=== PATIENT | female | born 1995 | race Hispanic/Latino ===

== ENCOUNTER 2017-10-19 15:18 | Inpatient (IN) | payer OTHER ==
[2017-10-19] MEDS ORDERED: METHYLERGONOVINE 0.2MG/ML AMP IM PRN (16:37)
[2017-10-19] MEDS ORDERED: MEPERIDINE HCL 25 MG/0.5 ML IV PRN (16:37)
[2017-10-19] MEDS ORDERED: BUTORPHANOL 1 MG/ML INJ IV PRN (16:37)
[2017-10-19] MEDS ORDERED: PROMETHAZINE 25 MG/ML VIAL IM PRN (16:37)
[2017-10-19] MEDS ORDERED: Ringers Lactate 1,000 ML IV PRN (16:37)
[2017-10-19] MEDS ORDERED: MIDAZOLAM HCL 2 MG/2 ML INJ IV PRN (16:37)
[2017-10-19] MEDS ORDERED: LIDOCAINE 2% 20 ML MDV IV ONE (16:39)
[2017-10-19] MEDS ORDERED: Ringers Lactate 1,000 ML IV SCH (17:00)
[2017-10-19] MEDS ORDERED: OXYTOCIN/LR 20 UNIT/1,000 ML BAG IV SCH ×2 (17:00→19:00)
[2017-10-19 17:27] VITALS: BMI 34.9
[2017-10-19] MEDS ORDERED: IBUPROFEN 200 MG TAB PO PRN (18:44)
[2017-10-19] MEDS ORDERED: BISACODYL 10 MG RECTAL SUPP RECT PRN (18:44)
[2017-10-19] MEDS ORDERED: DOCUSATE NA/SENNA CONC 1 TAB PO PRN (18:44)
[2017-10-19] MEDS ORDERED: Oxycodone HCl/Acetaminophen 1 TAB TAB PO PRN ×2 (18:44)
[2017-10-19] MEDS ORDERED: DIPHENHYDRAMINE 25 MG TAB/CAP PO PRN (18:44)
[2017-10-20 00:08] LABS: RPR Titer ND
--- NOTE | 2017-10-20 00:15 | PN ---
The patient is now 8 cm, 100% effaced, vertex, 0 station. Hiren every 2-3 minutes. Anticipate delivery relatively soon. HARDEEP/MARANDA Voice ID: [id number] Report ID: [id number]
--- NOTE | 2017-10-20 00:21 | PREOPHP ---
Date of Admission: 10/19/2017 A 21-year-old, 2, para 1, 38 weeks 4 days, scheduled for induction on Sunday. She was seen in my office, reporting contractions. She changed from 1 cm to 4 cm, 70% effaced, vertex, -1 station. Sent to Labor And Delivery. Was edmund every 2-7 minutes, but was thought not to be in labor, apparently sent home, has now returned. She is now 6 cm, 80% effaced, vertex, -1 station. Rupture of membranes, clear fluid. FHTs normal and reactive. We will start light Pitocin. Beta strep negative. Anticipate rapid delivery once active phase begins. HARDEEP/MARANDA Voice ID: [id number] MTDD
[2017-10-20 00:27] LABS: Absolute Lymphocytes (CBC) 1.3 K/uL (0.7-4.9); Absolute Monocytes 1.1 K/uL (0.1-1.3); Absolute Neutrophil 13.6 K/uL (1.8-8.0); Basophils % 0.2 % (0-1.3); Eosinophils % 0.1 % (0-4.4); Hematocrit 29.8 % (36.0-45.0); MCH 29.1 pg (27.0-35.0); MPV 8.2 fL (7.6-11.3); Monocytes % 6.6 % (3.3-12.3); RBC Red Blood Cell Count 3.39 M/uL (3.86-4.86)
[2017-10-20 01:38] LABS: Blood Morphology Comment NOT SEEN (NOT SEEN); Platelet Estimate ADEQ
[2017-10-20 03:42] LABS: RPR (Rapid Plasma Reagin) NON-REACT (NON-REACT)
--- NOTE | 2017-10-20 05:16 | OP ---
Surgeon: Kendall Christian MD A 21-year-old, 2, para 1, 38 weeks 4 days, came to my office reporting contractions, noted to be 4 cm, 70% effaced, vertex, -1 station. Sent to Labor and Delivery. At that point, she was contr acting every 2 to 7 minutes and nursing personnel did not feel comfortable with augmenting patient, s o she was sent home. She came back 2 to 3 hours later, 5 to 5.5 cm and of course in labor. She was admitted. The patient went completely natural during her labor. Rupture of membranes at approximate ly 5 to 6 cm. Clear fluid. Second stage of approximately 20 minutes. Spontaneous vaginal delivery of an estimated 6.5 to 7 pounds male infant, Apgars 9 and 9. No episiotomy. Small hematoma at the p osterior fourchette, 3 interrupted tfpkim-pz-ygblb stitches of 2-0 chromic. Schultze delivery of the placenta, which was inspected and noted to be intact and normal. Less than 300 cc blood loss. Rh p ositive, immune to Rubella. Negative beta strep screen. Final Diagnoses: Intrauterine gestation, 38 weeks 4 days, vaginal delivery, true knot in the cord, s mall midline hematoma requiring 3 bidkgh-rh-tooic stitches 2-0 chromic. HOWARDC/MODL Voice ID: [id number] Report ID: [id number]
[2017-10-20] MEDS ORDERED: Tdap (Diph,Pertuss(Acell),Tet Vac) 0.5 ML SYR IMVAC ONE ×2 (09:12→09:13)
[2017-10-20] MEDS: ACETAMINOPHEN 500 MG TAB PO PRN ×2 (09:23→13:04)
[2017-10-20 20:42] VITALS: BP 133/81; TEMP 97.2
--- NOTE | 2017-10-22 08:53 | DS ---
Date of Discharge: 10/20/2017 A 21-year-old; 2, para 1; 38 weeks 4 days; delivered of an estimated 7-pound male infant, Apg ars 9 and 9. A small midline hematoma, no more than 3 cm. Three uuwirr-xm-sudea stitches placed at that point after local infiltration and containment of the hematoma. Schultze delivery of the placen ta was inspected and noted be intact and normal. Less than 300 cc blood loss. Noted to have a true knot in the cord, very loose. Beta strep negative. Rh positive, immune to Rubella. afeb rile, ambulating and voiding. Lochia is normal. The patient will be dismissed either late this even ing or tomorrow morning. To report back to my office in 6 weeks for followup. To report any tempera ture elevation of 100 degrees or greater, severe pain, heavy bleeding, or any other type of abnormali ties. Dismissed with tramadol. She knows this goes through the breast milk, but she is bottle feedi ng. Final Diagnoses: 1.Intrauterine gestation, 38 weeks 4 days. 2.Vaginal delivery. True knot in the cord. HARDEEP/MARANDA Voice ID: [id number] Report ID: [id number]
[2017-10-23 03:25] LABS: HBsAG Nonreactive (Nonreactive)
== END 2017-10-20 20:43 | disposition home or self-care (01) | DRG 768 ==
LOC: L&D 15:18 → 2ND-WC 16:38
PROVIDERS: ADMIT Specialist; ATTEND Specialist
PROC: 10E0XZZ Delivery of Products of Conception, External Approach (ICD-10-PCS; principal; 2017-10-19)
PROC: 0W3N3ZZ Control Bleeding in Female Perineum, Percutaneous Approach (ICD-10-PCS; 2017-10-19)
PROC: 10907ZC Drainage of Amniotic Fluid, Therapeutic from Products of Conception, Via Natural or Artificial Opening (ICD-10-PCS; 2017-10-19)
DX: O71.7 Obstetric hematoma of pelvis (principal); Z37.0 Single live birth; O69.2XX0 Labor and delivery complicated by other cord entanglement, with compression, not applicable or unspecified; Z3A.38 38 weeks gestation of pregnancy; Z23 Encounter for immunization
CPT/HCPCS: 36415; 83986; 85025; 86592; 86901; 87340; 90715; 99218; J2175; J2210; J2250; J2590

== ENCOUNTER 2019-05-24 10:04 | Emergency (ER) | payer OTHER, SELFPAY ==
[2019-05-24 11:39] LABS: Urine Blood TRACE (NEG); Urine Glucose NEGATIVE (NEG); Urine Protein NEGATIVE (NEG); Urine pH 7.5 (5.0-7.0)
[2019-05-24 11:44] LABS: Urine Bacteria >50 /HPF (<20); Urine RBC <5 /HPF (NONE SEEN)
[2019-05-24 11:45] LABS: Urine Culture Reflex Order REFLEXED
--- NOTE | 2019-05-24 11:52 | ER ---
Nurse's Notes [facility] Name: Miko Black Age: 23 yrs Sex: Female : 1995 Arrival Date: 05/24/2019 Time: 10:07 Bed 14 Private MD: Diagnosis: Urinary tract infection, site not specified Presentation: 05/24 10:10 Presenting complaint: Patient states: DYSURIA AND FOUL SMELLING URINE x3 DAYS. bp Transition of care: patient was not received from another setting of care. Onset of symptoms is unknown. Risk Assessment: Do you want to hurt yourself or someone else? Patient reports no desire to harm self or others. Initial Sepsis Screen: Does the patient meet any 2 criteria? No. Patient's initial sepsis screen is negative. Does the patient have a suspected source of infection? No. Patient's initial sepsis screen is negative. Care prior to arrival: None. 10:10 Method Of Arrival: Ambulatory bp 10:10 Acuity: BLAIR 4 bp Triage Assessment: 10:10 General: Appears in no apparent distress. comfortable, Behavior is cooperative, bp appropriate for age, anxious. Pain: Denies pain. EENT: No deficits noted. Neuro: No deficits noted. Cardiovascular: No deficits noted. Respiratory: No deficits noted. GI: No signs and/or symptoms were reported involving the gastrointestinal system. : Reports burning with urination, vaginal itching. Derm: No deficits noted. Musculoskeletal: No deficits noted. 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 - Social history:: Smoking status: Patient/guardian denies using tobacco. - Ebola Screening: : No symptoms or risks identified at this time. Screenin:10 Abuse screen: Denies threats or abuse. Denies injuries from another. Nutritional bp screening: No deficits noted. Tuberculosis screening: No symptoms or risk factors identified. Fall Risk None identified. Assessment: 10:10 General: SEE TRIAGE NOTE. bp 11:00 Reassessment: ALL CURRENT ORDERS COMPLETED, RESULTS PENDING. bp 12:11 Reassessment: PT D/C HOME AMBULATORY, DX WITH UTI. bp Vital Signs: 10:10 BP 107 / 79; Pulse 85; Resp 16; Temp 98.1; Pulse Ox 100% ; Weight 63.5 kg; Height 5 ft. bp 1 in. (154.94 cm); 11:00 BP 99 / 78; Pulse 79; Resp 16; Pulse Ox 100% ; bp 12:11 BP 100 / 72; Pulse 80; Resp 16; Temp 98.1; Pulse Ox 100% ; bp 10:10 Body Mass Index 26.45 (63.50 kg, 154.94 cm) bp ED Course: 10:07 Patient arrived in ED. mr 10:08 Robby Gray, RN is Primary Nurse. bp 10:10 Onesimo Miller NP is PHCP. pm1 10:10 Jad Wright MD is Attending Physician. pm1 10:10 Arm band placed on. bp 10:10 Patient has correct armband on for positive identification. Bed in low position. Call bp light in reach. Side rails up X2. 10:28 Triage completed. bp 11:48 Urine Culture Sent. bp 12:11 No provider procedures requiring assistance completed. Patient did not have IV access bp during this emergency room visit. Administered Medications: 11:55 Drug: Rocephin (cefTRIAXone) 1 grams Route: IM; Site: left gluteus; bp 12:13 Follow up: Response: No adverse reaction bp Outcome: 11:51 Discharge ordered by . pm1 12:11 Discharged to home ambulatory. bp 12:11 Condition: stable 12:11 Discharge instructions given to patient, Instructed on discharge instructions, follow up and referral plans. medication usage, Demonstrated understanding of instructions, follow-up care, medications, Prescriptions given X 3. 12:14 Patient left the ED. bp Addendum: 05/27/2019 08:51 Addendum: Culture Results: Positive urine culture. No further action required. Bacteria i w sensitive to prescribed antibiotic. Signatures: Kasie Walden mr Bibi Tomas RN RN iw Onesimo Miller NP ROSS LIFT OPERATOR pm1 Robby Gray, ESTELA RN bp
--- NOTE | 2019-05-24 11:53 | EDPHYS ---
Physician Documentation [facility] Name: Miko Black Age: 23 yrs Sex: Female : 1995 Arrival Date: 05/24/2019 Time: 10:07 Bed 14 Private MD: ED Physician Jad Wright HPI: 05/24 10:48 This 23 yrs old Female presents to ER via Ambulatory with complaints of pm1 Urinary Problem. 10:48 The patient presents with urinary symptoms, burning with urination, vaginal itching. pm1 10:48 Onset: The symptoms/episode began/occurred 3 day(s) ago. Modifying factors: The pm1 symptoms are alleviated by nothing, the symptoms are aggravated by urinating. Associated signs and symptoms: Pertinent negatives: constipation, diarrhea, dyspareunia, fever, nausea, vaginal bleeding, vaginal discharge, vomiting, Abdominal pain, flank pain. Severity of symptoms: in the emergency department the symptoms are unchanged. 10:48 The patient has experienced similar episodes in the past, a few times, history of UTI's pm1 in the past. It is unknown whether or not the patient has recently seen a physician. 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 - Social history:: Smoking status: Patient/guardian denies using tobacco. - Ebola Screening: : No symptoms or risks identified at this time. ROS: 10:48 Positive for burning with urination, foul smelling urine, vaginal itching, Negative pm1 for pelvic pain, flank pain. 10:48 Constitutional: Negative for fever, chills, and weight loss, Cardiovascular: Negative for chest pain, palpitations, and edema, Respiratory: Negative for shortness of breath, cough, wheezing, and pleuritic chest pain, Abdomen/GI: Negative for abdominal pain, nausea, vomiting, diarrhea, and constipation, Back: Negative for injury and pain, MS/Extremity: Negative for injury and deformity, Skin: Negative for injury, rash, and discoloration, Neuro: Negative for headache, weakness, numbness, tingling, and seizure. Exam: 10:48 Constitutional: This is a well developed, well nourished patient who is awake, alert, pm1 and in no acute distress. Head/Face: Normocephalic, atraumatic. Neck: Trachea midline, no thyromegaly or masses palpated, and no cervical lymphadenopathy. Supple, full range of motion without nuchal rigidity, or vertebral point tenderness. No Meningismus. Chest/axilla: Normal chest wall appearance and motion. Nontender with no deformity. No lesions are appreciated. Cardiovascular: Regular rate and rhythm with a normal S1 and S2. No gallops, murmurs, or rubs. Normal PMI, no JVD. No pulse deficits. Respiratory: Lungs have equal breath sounds bilaterally, clear to auscultation and percussion. No rales, rhonchi or wheezes noted. No increased work of breathing, no retractions or nasal flaring. Abdomen/GI: Soft, non-tender, with normal bowel sounds. No distension or tympany. No guarding or rebound. No evidence of tenderness throughout. Back: No spinal tenderness. No costovertebral tenderness. Full range of motion. Skin: Warm, dry with normal turgor. Normal color with no rashes, no lesions, and no evidence of cellulitis. MS/ Extremity: Pulses equal, no cyanosis. Neurovascular intact. Full, normal range of motion. 10:48 Neuro: Orientation: is normal, Motor: is normal, moves all fours. Vital Signs: 10:10 BP 107 / 79; Pulse 85; Resp 16; Temp 98.1; Pulse Ox 100% ; Weight 63.5 kg; Height 5 ft. bp 1 in. (154.94 cm); 11:00 BP 99 / 78; Pulse 79; Resp 16; Pulse Ox 100% ; bp 12:11 BP 100 / 72; Pulse 80; Resp 16; Temp 98.1; Pulse Ox 100% ; bp 10:10 Body Mass Index 26.45 (63.50 kg, 154.94 cm) bp MDM: 10:11 Patient medically screened. pm1 10:45 Data reviewed: vital signs. Data interpreted: Pulse oximetry: on room air is 100 %. pm1 Interpretation: normal. 11:49 Counseling: I had a detailed discussion with the patient and/or guardian regarding: the pm1 historical points, exam findings, and any diagnostic results supporting the discharge/admit diagnosis, lab results, the need for outpatient follow up, to return to the emergency department if symptoms worsen or persist or if there are any questions or concerns that arise at home. 05/24 10:17 Order name: Urine Microscopic Only; Complete Time: 11:49 pm1 05/24 10:35 Order name: Urine Dipstick--Ancillary (enter results); Complete Time: 11:49 ms 05/24 10:17 Order name: Urine Dipstick-Ancillary (obtain specimen); Complete Time: 10:31 pm1 05/24 10:35 Order name: Urine --Ancillary (enter results); Complete Time: 11:49 ms 05/24 11:46 Order name: Urine Culture EDMS 05/24 10:17 Order name: Urine Test (obtain specimen); Complete Time: 10:31 pm1 Administered Medications: 11:55 Drug: Rocephin (cefTRIAXone) 1 grams Route: IM; Site: left gluteus; bp 12:13 Follow up: Response: No adverse reaction bp Disposition: 16:39 Co-signature as Attending Physician, Jad Wright MD I agree with the assessment and kdr plan of care. Disposition: 05/24/19 11:51 Discharged to Home. Impression: Urinary tract infection, site not specified. - Condition is Stable. - Discharge Instructions: Urinary Tract Infection, Adult. - Prescriptions for Diflucan 150 mg Oral Tablet - take 1 tablet by ORAL route one time for 1 day; 1 tablet. Pyridium 200 mg Oral Tablet - take 1 tablet by ORAL route every 8 hours for 3 days; 9 tablet. Macrobid 100 mg Oral Capsule - take 1 capsule by ORAL route every 12 hours for 10 days; 20 capsule. - Work release form, Medication Reconciliation Form, Thank You Letter, Antibiotic Education, Prescription Opioid Use form. - Follow up: Emergency Department; When: As needed; Reason: Worsening of condition. Follow up: Private Physician; When: 2 - 3 days; Reason: Recheck today's complaints, Continuance of care, Re-evaluation by your physician. - Problem is new. - Symptoms have improved. Signatures: Dispatcher [employer] EDMS Jad Wright MD MD kdr Onesimo Miller, CHANNEL OPENER OUTSOLES CHANNEL OPENER OUTSOLES pm1 Robby Gray, RN RN bp Corrections: (The following items were deleted from the chart) 12:14 11:51 05/24/2019 11:51 Discharged to Home. Impression: Urinary tract infection, site bp not specified. Condition is Stable. Forms are Medication Reconciliation Form, Thank You Letter, Antibiotic Education, Prescription Opioid Use. Follow up: Emergency Department; When: As needed; Reason: Worsening of condition. Follow up: Private Physician; When: 2 - 3 days; Reason: Recheck today's complaints, Continuance of care, Re-evaluation by your physician. Problem is new. Symptoms have improved. pm1
[2019-05-24] MEDS ORDERED: LIDOCAINE 1% MPF 2 ML AMPULE ONE (11:55)
[2019-05-24] MEDS ORDERED: CEFTRIAXONE 1000 MG/VIAL ONE (11:55)
[2019-05-24 12:18] VITALS: TEMP 98.1; O2SAT 100
[2019-05-24 12:21] VITALS: BP 100/72
== END 2019-05-24 12:14 | disposition home or self-care (01) ==
LOC: ER 10:04
DX: N39.0 Urinary tract infection, site not specified (principal); Z88.6 Allergy status to analgesic agent
CPT/HCPCS: 81003; 81015; 81025; 87077; 87086; 87088; 87186; 96372; 99283; J2001

== ENCOUNTER 2019-11-11 20:39 | Emergency (ER) | payer SELFPAY ==
[2019-11-11] MEDS ORDERED: TETRACAINE HCL 0.5% 4ML OPTH ONE (21:01)
[2019-11-11] MEDS ORDERED: FLUORESCEIN SODIUM 1 MG/WRAP ONE (21:01)
--- NOTE | 2019-11-11 21:05 | ER ---
Nurse's Notes [facility] Name: Miko Black Age: 23 yrs Sex: Female : 1995 Arrival Date: 11/11/2019 Time: 20:43 Bed 18 Private MD: Diagnosis: Ocular pain, left eye Presentation: 11/10 20:46 Chief complaint: Patient states: "Feels like there is something in my L eye. It started ca1 around 2am today. I washed it, put eyedrops on but it's still bothering me". Coronavirus screen: Proceed with normal triage. Patient denies a cough. Patient denies shortness of breath or difficulty breathing. Patient denies measured and/or subjective temperature greater than 100.4F prior to today's visit. Patient denies travel on a cruise ship or to a country the [facility] currently lists as an affected area. Patient denies contact with known and/or suspected case of COVID-19. Ebola Screen: Patient negative for fever greater than or equal to 101.5 degrees Fahrenheit, and additional compatible Ebola Virus Disease symptoms Patient denies exposure to infectious person. Patient denies travel to an Ebola-affected area in the 21 days before illness onset. No symptoms or risks identified at this time. Mechanism of Injury: No Mechanism of Injury. The patient denies any loss of vision. Initial Sepsis Screen: Does the patient meet any 2 criteria? No. Patient's initial sepsis screen is negative. Does the patient have a suspected source of infection? No. Patient's initial sepsis screen is negative. Risk Assessment: Do you want to hurt yourself or someone else? Patient reports no desire to harm self or others. Onset of symptoms was November 11, 2019 at 02:00. 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 - Social history:: Smoking status: Patient denies any tobacco usage or history of. - Family history:: not pertinent. - Hospitalizations: : No recent hospitalization is reported. Screenin:00 Abuse screen: Denies threats or abuse. Denies injuries from another. Nutritional screening: No deficits noted. Tuberculosis screening: No symptoms or risk factors identified. Fall Risk None identified. Assessment: 21:00 General: Appears in no apparent distress. Behavior is calm, cooperative, appropriate wh for age. Pain: Complains of pain in left eye. Neuro: Level of Consciousness is awake, alert, obeys commands, Oriented to person, place, time, situation, Appropriate for age. Cardiovascular: Capillary refill < 3 seconds. Respiratory: Airway is patent Respiratory effort is even, unlabored, Respiratory pattern is regular, symmetrical. GI: Abdomen is flat, non-distended. : No signs and/or symptoms were reported regarding the genitourinary system. EENT: Eyes are tearing on left eye Sclera/Cornea are clear in left eye. Derm: Skin is intact, is healthy with good turgor, Skin is pink, warm \\T\\ dry. normal. Musculoskeletal: Circulation, motion, and sensation intact. Vital Signs: 20:46 BP 110 / 70; Pulse 91; Resp 17 S; Temp 97.1(TE); Pulse Ox 100% on R/A; Weight 68.04 kg ca1 (R); Height 5 ft. 1 in. (154.94 cm) (R); 20:46 Body Mass Index 28.34 (68.04 kg, 154.94 cm) ca1 Visual Acuity: 21:00 Left Eye Normal, React To Light; Right Eye Normal, React To Light; Without Lenses; ED Course: 20:43 Patient arrived in ED. cl3 20:49 Triage completed. ca1 20:49 Arm band placed on right wrist. ca1 20:50 Carlo Tyler MD is Attending Physician. rn 21:00 Patient has correct armband on for positive identification. Bed in low position. Call light in reach. Side rails up X 1. Pulse ox on. NIBP on. 21:00 Assist provider with eye exam of left eye. using fluorescein stain, Performed by Cralo Tyler MD Patient tolerated well. 21:05 Fariba Kiran is Primary Nurse. 21:13 Patient did not have IV access during this emergency room visit. Administered Medications: 21:06 Drug: Fluorescein Strip 1 strip {Note: Administered by Jayson MANUEL.} Route: Ophthalmic; Site: left eye; 21:06 Drug: Tetracaine Drops 0.5 % 1 drops {Note: Administered by MD Tyler.} Route: Ophthalmic; Site: left eye; Outcome: 21:04 Discharge ordered by . rn 21:14 Discharged to home ambulatory. 21:14 Condition: stable 21:14 Discharge instructions given to patient, Instructed on discharge instructions, follow up and referral plans. medication usage, POC Demonstrated understanding of instructions, follow-up care, medications, POC Prescriptions given X 1. 21:16 Patient left the ED. Signatures: Carlo Tyler MD MD rn Habalo, Fariba Kimber Dupree RN RN kala Meneses, Alex cl3 Corrections: (The following items were deleted from the chart) 21:14 21:13 No provider procedures requiring assistance completed. [facility]
--- NOTE | 2019-11-11 21:05 | EDPHYS ---
Physician Documentation [facility] Name: Miko Black Age: 23 yrs Sex: Female : 1995 Arrival Date: 11/11/2019 Time: 20:43 Bed 18 Private MD: ED Physician Carlo Tyler HPI: 11/10 21:01 This 23 yrs old Female presents to ER via Ambulatory with complaints of Eye rn Pain. 21:01 The patient is experiencing foreign body sensation, The patient sustained None. to the rn left eye, caused by an unknown mechanism. Onset: The symptoms/episode began/occurred today. Aggravated by blinking, rubbing, Alleviated by nothing. Patient does not utilize any form of vision correction. Severity of symptoms: At their worst the symptoms were mild in the emergency department the symptoms are unchanged. The patient has not experienced similar symptoms in the past. Reports noticed left eye irritation earlier today, no trauma, no known foreign body, happened around 0200 today, no vision loss or changes, eye drops not helping, irrigated eye. No contacts. . 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 - Social history:: Smoking status: Patient denies any tobacco usage or history of. - Family history:: not pertinent. - Hospitalizations: : No recent hospitalization is reported. ROS: 21:01 Constitutional: Negative for fever, chills, and weight loss, Eyes: + watery left eye rn with foreign body sensation Exam: 21:01 Constitutional: This is a well developed, well nourished patient who is awake, alert, rn and in no acute distress. Head/Face: Normocephalic, atraumatic. Eyes: Left eye with mild injection, + clear watery discharge, no foreign body identified and lids everted, no fluorescein uptake, neg mariola's sign. Right eye normal. Vital Signs: 20:46 BP 110 / 70; Pulse 91; Resp 17 S; Temp 97.1(TE); Pulse Ox 100% on R/A; Weight 68.04 kg ca1 (R); Height 5 ft. 1 in. (154.94 cm) (R); 20:46 Body Mass Index 28.34 (68.04 kg, 154.94 cm) ca1 Visual Acuity: 21:00 Left Eye Normal, React To Light; Right Eye Normal, React To Light; Without Lenses; MDM: 20:50 Patient medically screened. rn 21:01 Differential diagnosis: Corneal abrasion of Foreign body in Data reviewed: vital signs, rn nurses notes, and as a result, I will discharge patient. Counseling: I had a detailed discussion with the patient and/or guardian regarding: the historical points, exam findings, and any diagnostic results supporting the discharge/admit diagnosis, the need for outpatient follow up, to return to the emergency department if symptoms worsen or persist or if there are any questions or concerns that arise at home. Response to treatment: the patient's symptoms have mildly improved after treatment, and as a result, I will discharge patient. Special discussion: I discussed with the patient/guardian in detail that at this point there is no indication for admission to the hospital. It is understood, however, that if the symptoms persist or worsen the patient needs to return immediately for re-evaluation. 11/10 21:01 Order name: Eye Tray; Complete Time: 21:06 rn Administered Medications: 21: Drug: Fluorescein Strip 1 strip {Note: Administered by Jayson MANUEL.} Route: Ophthalmic; Site: left eye; 21:06 Drug: Tetracaine Drops 0.5 % 1 drops {Note: Administered by MD Tyler.} Route: Ophthalmic; Site: left eye; Disposition: 11/11/19 21:04 Discharged to Home. Impression: Ocular pain, left eye. - Condition is Stable. - Discharge Instructions: Corneal Abrasion, Bacterial Conjunctivitis, Eye Foreign Body, Pain Without a Known Cause, Viral Conjunctivitis. - Prescriptions for Vigamox 0.5 % Ophthalmic Drops - instill 1 drop by OPHTHALMIC route every 8 hours for 7 days; 5 milliliter. - Medication Reconciliation Form, Thank You Letter, Antibiotic Education, Prescription Opioid Use form. - Follow up: Private Physician; When: As needed; Reason: Recheck today's complaints, Re-evaluation by your physician. - Problem is new. - Symptoms have improved. Signatures: Carlo Tyler MD MD rn [facility] HealthcareFariba Kimber Dupree RN RN ca1 Corrections: (The following items were deleted from the chart) 21:16 21:04 11/11/2019 21:04 Discharged to Home. Impression: Ocular pain, left eye. Condition is Stable. Forms are Medication Reconciliation Form, Thank You Letter, Antibiotic Education, Prescription Opioid Use. Follow up: Private Physician; When: As needed; Reason: Recheck today's complaints, Re-evaluation by your physician. Problem is new. Symptoms have improved. rn
[2019-11-11 21:39] VITALS: BP 110/70; TEMP 97.1; O2SAT 100
== END 2019-11-11 21:16 | disposition home or self-care (01) ==
LOC: ER 20:39
DX: H57.12 Ocular pain, left eye (principal); Z88.6 Allergy status to analgesic agent
CPT/HCPCS: 99284

== ENCOUNTER 2023-02-22 08:24 | Emergency (ER) | payer OTHER, SELFPAY ==
--- OUTSIDE RECORDS SUMMARY | 2023-02-22 08:28 | XMS REPORT | Continuity of Care Document ---
:1995 Author Organization [facility] t Address [address] [facility] [address] [place] [address] Care Team Providers Name Role Phone CARO BAIRD Primary Care Physician Unavailable Caro Baird CNM Attending Clinician CARO BAIRD Attending Clinician Unavailable Doctor Unassigned, [place] Attending Clinician Unavailable AMY JESUS Attending Clinician Unavailable Provider, Ang-Rmchvickey Temp Attending Clinician Unavailable MARSHA ROMAN Attending Clinician Unavailable Marsha Lindsay Attending Clinician Roger Joanna VALADEZ Attending Clinician [phone] JOANNA TALBOT Attending Clinician Unavailable EVERARDO GARCES Attending Clinician Unavailable Everardo Dill Attending Clinician Amy Barrera Attending Clinician [place] Attending Clinician [place] Attending Clinician Unavailable Payers Payer Name Policy Type Policy Number Effective Date Expiration Date Jack barrientos [place] [id number] 2021 00:00:00 MEDICAID PENDING PENDING 2021 00:00:00 Problems Condition Condition Condition Status Onset Resolution Last Treating Co mments Source Name Details Category Date Date Treatment Clinician Date Engages in Engages in Disease Active U nivers vaping vaping 6-23 ity of 00:00: [place] [facility] Overweight Overweight Disease Active U nivers (BMI (BMI 6-23 ity of 25.0-29.9) 25.0-29.9) [place] [facility] Supervisio Supervisio Disease Active U nivers n of n of 4-08 ity of high[place]risk high[place] 00 [facility] Multiparit Multiparit Disease Active U nivers y y 4-08 ity of 00:00: [place] 00 [facility] Encounter Encounter Disease Active Uni vers for IUD for IUD 2-09 ity of removal removal 00:00: [address] Chlamydia Chlamydia Disease Active Uni vers trachomati trachomati 8-19 it y of s s 00:00: [place] infection infection 00 [facility] lower of lower Branch genitourin genitourin amber sites amber sites Allergies, Adverse Reactions, Alerts Allergy Allergy Status Severity Reaction(s) Onset Inactive Treating Comm ents Source Name Type Date Date Clinician IBUPROFE DRUG Active Swelling Univer s N INGREDI 07-30 ity of 00:00: [place] [facility] Ibuprofe Propensi Active Swelling Univ ers n ty to 07-30 ity of adverse 00:00: [place] reaction Medical s Branch Social History Social Habit Start Date Stop Date Quantity Comments Source ASSERTION 2021-08-11 University of 00:00:00 [facility] History [facility] o f Alcohol Frequency [facility] edical Branch History [facility] University o f Alcohol Std [place] Medical Drinks Branch History [facility] o f Alcohol Binge [place] [facility] al [place] Alcohol intake 2022-12-19 2022-12-19 Ex-drinker University 00:00:00 00:00:00 (finding) [facility] Exposure to 2022-05-07 2022-05-17 Not sure University of SARS-CoV-2 00:00:00 10:57:00 [facility] (event) [place] Tobacco use and 2022-05-17 2022-05-17 Smokeless tobacco Un iversity of exposure 00:00:00 00:00:00 non-user [facility] Alcohol Comment 2021-02-16 2021-02-16 social Universit y of 00:00:00 00:00:00 [facility] Sex Assigned At [birth year] Universit y of 00:00:00 00:00:00 [facility] Smoking Status Start Date Stop Date Source Never smoked tobacco [facility] Medications Ordered Filled Start Stop Current Ordering Indication Dosage Frequency Signature Comments Components Source Medication Medication Date Date Medication? Clinician (SIG) Name Name metroNIDAZO 3- No [id number] 2000mg Take 4 Univers LE 500 mg 12-21 tablets by ity of tablet 00:00: 04:59 mouth once [place] :[place] now for 1 Medical dose. Branch maalox:diph 2021- No [id number] 15mL 15 mL, Univers enhydrAMINE 03-25 Oral, ity of :lidocaine 04:45: 04:44 ONCE, 1 Juan David as 2 % viscous 00 :00 dose, On Medi keysha 1:1:1 Fri Branch (FIRST-MOUT 03/24/[address] [facility]) 2345, oral Routine suspension 15 mL ondansetron Yes [id number] 4mg Take 1 Univers 4 mg 9-24 tablet by ity of disintegrat 00:00: mouth [place] ing tablet 00 every 8 Medica l (eight) Branch hours as needed for Nausea and Vomiting (N/V). ondansetron Yes [id number] 4mg Take 1 Univers 4 mg 9-24 tablet by ity of disintegrat 00:00: mouth [place] ing tablet 00 every 8 Medica l (eight) Branch hours as needed for Nausea and Vomiting (N/V). ondansetron Yes [id number] 4mg Take 1 Univers 4 mg 9-24 tablet by ity of disintegrat 00:00: mouth [place] ing tablet 00 every 8 Medica l (eight) Branch hours as needed for Nausea and Vomiting (N/V). ondansetron 2021- No [id number] 4mg Take 1 Univers 4 mg 9-24 11-20 tablet by ity of disintegrat 00:00: 00:00 [place] tablet 00 :00 every 8 Medica l (eight) Branch hours as needed for Nausea and Vomiting (N/V). ondansetron 2021- No [id number] 4mg Take 1 Univers 4 mg 9-24 11-20 tablet by ity of disintegrat 00:00: 00:00 [place] tablet 00 :00 every 8 Medica l (eight) Branch hours as needed for Nausea and Vomiting (N/V). famotidine 2021- No [id number] 20mg Take 1 Univers 20 mg 9-24 10-25 tablet by ity of tablet 00:00: 04:59 mouth in [place] 00 :00 the Medical morning Branch and 1 tablet in the evening. Do all this for 30 days. terconazole 2021- No [id number] 80mg Insert 1 Univers 80 mg 10-10 04-15 Suppositor ity of vaginal 00:00: 04:59 y into [place] suppository 00 :00 vagina at [facility] bedtime Branch for 3 days. No known No Univers medications 4-08 ity of 11:34: [address] No known No No known Unive rs medications 4-08 medication it y of 11:34: s [address] Vital Signs Vital Name Observation Time Observation Value Comments Source Systolic blood 2022-12-19 19:11:00 96 mm[facility]Hg[facility]astolic blood 2022-12-19 19:11:00 62 [facility]Hg[facility] rate 2022-12-19 19:11:00 72 /min [facility] Body temperature 2022-12-19 19:11:00 36.56 Josephine [facility] Respiratory rate 2022-12-19 19:11:00 18 /min [facility] Body height 2022-12-19 19:11:00 154.9 cm [facility] Body weight 2022-12-19 19:11:00 64.666 kg [facility] BMI 2022-12-19 19:11:00 26.94 kg/m2 [facility] Systolic blood 2022-05-17 16:58:00 104 mm[Hg] [facility] Diastolic blood 2022-05-17 16:58:00 68 mm[Hg] Unive rsity of pressure [facility] Heart rate 2022-05-17 16:58:00 88 /min Universi ty of [facility] Body temperature 2022-05-17 16:58:00 36.22 Josephine [facility] ersity of [facility] Respiratory rate 2022-05-17 16:58:00 16 /min [facility] Body height 2022-05-17 16:58:00 154.9 cm Universi ty of [facility] Body weight 2022-05-17 16:58:00 61.292 kg Universi ty of [facility] BMI 2022-05-17 16:58:00 25.53 kg/m2 Universi ty [facility] Systolic blood 2022-03-25 05:00:00 122 mm[Hg] Univer sity of [facility] Diastolic blood 2022-03-25 05:00:00 90 mm[Hg] Unive rsity of [facility] Heart rate 2022-03-25 05:00:00 97 /min Universi ty [facility] Respiratory rate 2022-03-25 05:00:00 16 /min [facility] Oxygen saturation in 2022-03-25 05:00:00 100 /min [facility] Arterial blood by [facility] Pulse oximetry [place] Body temperature 2022-03-25 04:26:00 36.61 Josephine [facility] Body height 2022-03-25 04:26:00 [facility] Body weight 2022-03-25 04:26:00 63.504 kg Universi ty [facility] BMI 2022-03-25 04:26:00 26.45 kg/m2 [facility] Procedures Procedure Date / Time Performing Clinician Source Performed POCT URINALYSIS W/O 2022-12-19 20:53:00 Caro Baird [facility] SPECIFIC GRAVITY [facility] GALV ONLY - VAGINAL 2022-12-19 20:52:00 Caro Baird [facility] PATHOGENS BY NUCLEIC Medical Bra nch ACID TESTING CBC WITH DIFF 2022-12-19 19:58:00 Caro Baird [facility] GC & CHLAMYDIA 2022-12-19 19:58:[address] [facility] AMPLIFIED ASSAY [facility] HIV 1/2 AG-AB WITH 2022-12-19 19:58:00 Caro Baird [facility] REFLEX [facility] TRICHOMONAS AMPLIFIED 2022-12-19 19:58:00 [facility]LIQU[facility] 2022-12-19 19:58:[address] [facility] BASED- Medical Branch SYPHILIS IGG/IGM 2022-12-19 19:58:00 Caro Baird [facility] POCT TEST 2022-12-19 19:17:00 Caro Baird [facility] PATIENT FINANCIAL 2022-12-19 18:44:54 Doctor Unassigned, No [facility] GC & CHLAMYDIA 2022-05-17 17:30:[address] [facility] AMPLIFIED [facility] GALV ONLY - VAGINAL 2022-05-17 17:30:00 Caro Baird [facility] PATHOGENS BY [facility] ACID TESTING ASSIGNMENT OF BENEFITS 2022-05-17 16:25:04 Doctor Unassigned, No [facility] LIPASE 2022-03-25 04:38:00 Marsha Roman [facility] COMP. METABOLIC PANEL 2022-03-25 04:38:00 Marsha Roman [facility] ([id number]) [facility] CBC WITH DIFF 2022-03-25 04:38:00 Marsha Roman [facility] URINALYSIS 2022-03-25 04:38:00 Marsha Roman [facility] POCT TEST 2022-03-25 04:38:00 Marsha Roman [facility] NOTICE OF PRIVACY 2022-03-25 04:27:12 Doctor Unassigned, No [facility] PRACTICES [facility] CONSENT/REFUSAL FOR 2022-03-25 04:22:35 Doctor Unassigned, No Un [facility] DIAGNOSIS AND TREATMENT Name [facility] Encounters Start End Encounter Admission Attending Care Care Encounter Source Date/Time Date/Time Type Type Clinicians Facility Department ID 2022-12-21 2022-12-21 Telephone Brie [facility] [id number] Univers 00:00:00 00:00:00 Caro Sanchez [facility] [id number] i ty of [place] [id number] Juan David as MATERNAL [phone] [facility] & CHILD [address] [place] [address] 2022-12-19 2022-12-19 Outpatient R BRIE [facility] [id number] Univers 14:15:00 14:56:35 CARO sy [facility] 2022-12-19 2022-12-19 Office Brie [facility] 1.2.840.114 [id number] Univers 14:15:00 14:56:35 Visit Caro Sanchez [facility] [id number] i ty of [place] [id number] Juan David as MATERNAL [phone] [facility] & CHILD [address] [place] [address] 2022-12-19 2022-12-19 Orders Doctor MELCHOR 1.2.840.114 [id number] Univers 00:00:00 00:00:00 Only Unassigned, MARIYA [id number] ity of [place] [id number] Juan David as [phone] [address] 2022-10-19 2022-10-19 Outpatient Joe JESUS [facility] [id number] Univers 11:00:00 11:00:00 AMY sy [facility] 2022-05-17 2022-05-17 Outpatient R BRIE [facility] [id number] Univers 10:30:00 11:19:22 CARO sy [facility] 2022-05-17 2022-05-17 Office Provider, EliseoRmchvickey [facility] 1 .2.840.114 [id number] Univers 10:30:00 11:19:22 Visit Caro Baird [facility] 350.1.13.1 0 ity of [facility] [id number] Juan David as MATERNAL [phone] [facility] & CHILD [address] [place] [address] 2022-05-17 2022-05-17 Orders Doctor MELCHOR 1.2.840.114 [id number] Univers 00:00:00 00:00:00 Only Unassigned, MARIYA [id number] ity of [place] [facility] [id number] Juan David as [phone] [facility] 009 [place] 2022-05-17 2022-05-17 Letter Brie [facility] 1.2.840.114 [id number] Univers 00:00:00 00:00:00 (Out) Caro Sanchez [facility] 350.1.13.10 i ty of [facility] [id number] Juan David as MATERNAL [phone] [facility] & CHILD [address] [place] [address] 2022-03-24 2022-03-25 Emergency [facility] [id number] Univers 23:30:00 01:04:00 MARSHA sy [facility] 2022-03-24 2022-03-25 Emergency [facility] 1.2.840.114 [id number] Univers 23:30:00 01:04:00 [facility] [id number] i ty of [place] 4.2.7.2.686 [place] [id number] [facility] 084 [place] 2022-03-21 2022-03-21 [facility] 1.2.840.114 [id number] Univers 00:00:00 00:00:00 Joanna Kaufman [facility] [facility] 350.1.13.10 ity of [facility] [id number] Juan David as MATERNAL [phone] [facility] CHILD [address] [place] [address] 2022-02-07 2022-02-07 Outpatient R ROGER [facility] [id number] Univers 09:00:00 09:00:00 JOANNA sy o f [facility] 2021-11-14 2021-11-14 [facility]phone [facility] 1.2.840.114 [id number] Univers 00:00:00 00:00:00 Joanna C [facility] 350.1.13.10 ity of REGIONAL 4.2.7.2.686 Juan David as MATERNAL [id number] [facility] & CHILD [address] [place] [address] 2021-10-26 2021-10-26 Outpatient R ROGER [facility] [id number] Univers 12:45:00 12:45:00 JOANNA ity o [facility] 2021-10-21 2021-10-21 Outpatient R ROGER [facility] [id number] Univers 10:45:00 10:45:00 JOANNA ity o [facility] 2021-10-10 2021-10-10 [facility] 1.2.840.114 [id number] Univers 00:00:00 00:00:00 Joanna C [facility] 350.1.13.10 ity of REGIONAL 4.2.7.2.686 Juan David as MATERNAL [phone] [facility] & CHILD [address] [place] [address] 2021-10-07 2021-10-07 Routine [facility] [id number] Univers 10:45:00 11:36:27 Joanna C [facility] 350.1.13.10 ity of Visit REGIONAL 4.2.7.2.686 Juan David as MATERNAL [id number] [facility] & CHILD [address] [place] [address] 2021-10-07 2021-10-07 Outpatient Joe TALBOT [facility] [id number] Univers 10:45:00 11:36:27 JOANNA ity o [facility] 2021-10-07 2021-10-07 Outpatient Joe TALBOT [facility] [id number] Univers 10:45:00 10:45:00 JOANNA ity o [facility] 2021-10-04 2021-10-04 Outpatient Joe GARCES [facility] [id number] Univers 13:30:00 13:30:00 EVERARDO itisabel [facility] 2021-09-06 2021-09-06 Outpatient Joe GARCES [facility] [id number] Univers 10:00:00 14:10:02 EVERARDO ity [facility] 2021-09-06 2021-09-06 Outpatient R TIMOTHY [facility] [id number] Univers 13:00:00 14:09:40 EVERARDO ity [facility] 2021-09-06 2021-09-06 Initial Timothy, [facility] [id number] Univers 13:00:00 14:09:40 [facility] 350.1.13.10 ity of Visit CLINICS 4[place]2.[place].2.[place] [phone] [facility] 113 [place] 2021-09-06 2021-09-06 Orders Doctor MELCHOR 1.2.840.114 [id number] Univers 00:00:00 00:00:00 Only Unassigned, MARIYA 350.1.13.10 ity of [place] [facility] 4.2.7.2.686 Juan David as [phone] [address] 2021-08-10 2021-08-10 Office [facility] [id number] Univers 08:30:00 09:45:24 Visit Joanna C [facility] [facility] 350.1.13.10 ity of REGIONAL 4.2.7.2.686 Juan David as MATERNAL [id number] Med ical & CHILD [address] [place] [address] 2021-08-10 2021-08-10 Outpatient [facility] [id number] Univers 08:30:00 09:45:24 JOANNA carrington f [facility] 2021-08-10 2021-08-10 Outpatient R [facility] [id number] Univers 08:30:00 08:30:00 JOANNA sy o f [facility] 2021-08-10 2021-08-10 Orders Doctor MELCHOR 1.2.840.114 [id number] Univers 00:00:00 00:00:00 Only Unassigned, MARIYA 350.1.13.10 ity of [place] [facility] 4.2.7.2.686 Juan David as [id number] [address] 2021-08-08 2021-08-08 Telephone [facility] 1.2.840.114 [id number] Univers 00:00:00 00:00:00 Joanna C [facility]ULLER 350.1.13.10 ity [facility] 4.2.7.2.686 Juan David as MATERNAL [phone] [facility] & [address] 2021-07-29 2021-07-29 Emergency X ROMAN, [facility] ERT [id number] Univers 15:02:00 16:43:00 MARSHA [facility] 2021-07-29 2021-07-29 Emergency X ROMAN, [facility] ERT [id number] Univers 15:02:00 16:43:00 [facility] 2021-07-29 2021-07-29 Emergency [facility], [facility] 1.2.840.114 [id number] Univers 15:02:00 16:43:00 [facility] 350.1.13.10 i ty [facility] 4.2.7.2.686 [place] [facility] [phone] [facility] 084 [place] 2021-07-29 2021-07-29 Orders Doctor MELCHOR 1.2.840.114 [id number] Univers 00:00:00 00:00:00 Only Unassigned, MARIYA 350.1.13.10 ity of [facility] 4.2.7.2.686 Juan David as [phone] [facility] 009 [place] 2021-04-06 2021-04-06 Office [facility] [id number] Univers 14:37:00 15:18:01 Visit Joanna C [facility]ER 350.1.13.10 ity [facility] 4.2.7.2.686 Juan David as MATERNAL [id number] [facility] & CHILD [address] [place] [address] 2021-04-06 2021-04-06 Outpatient R ROGER [facility] [id number] Univers 14:15:00 14:15:00 JOANNA sy o f [facility] 2021-04-04 2021-04-04 Outpatient R ROGER [facility] [id number] Univers 08:30:00 08:30:00 JOANNA sy o f [facility] 2021-02-18 2021-02-18 Telephone [facility] 1.2.840.114 [id number] Univers 00:00:00 00:00:00 Amy N [facility] PULLER 350.1.13.10 it y of [facility] [id number] Juan David as MATERNAL [id number] Med ical & CHILD [address] [place] [address] 2021-02-17 2021-02-17 Telephone [facility] 1.2.840.114 [id number] Univers 00:00:00 00:00:00 Amy N [facility] PULLER 350.1.13.10 it y of [facility] [id number] Juan David as MATERNAL [id number] [facility] ical & CHILD [address] [place] [address] 2021-02-16 2021-02-16 Office Thom Amy Zoraida [facility] 1.2.840. 114 [id number] Univers 08:18:09 08:59:18 Visit [place] [place] 350.1.13.10 ity of [facility] 4.2.7.2.686 Juan David as MATERNAL [id number] Med ical & CHILD [address] [place] [address] 2021-02-16 2021-02-16 Outpatient R RAMOS [facility] [id number] [facility] 07:45:00 07:45:00 AGATAFLETCHER carrington christ [facility] Results Test Description Test Time Test Comments Results Result Comments Source GALV ONLY - SYPHILIS IGG/IGM 2022-12-20 14:07:33 Test Item Value Reference Range Interpretation Comme nts Syphilis IgG/IgM (test code = Non-reactive Non-reactive 15007-0) AYAKA (test code = AYAKA) Non-reactive - No serologic evidence of T. pallidum infection. Cannot exclude incubating or early syphilis. Submit a second specimen in 2-4 weeks if syphilis is clinically suspected. Equivocal - Further testing to follow. Reactive - Further testing to follow. Lab Interpretation (test code = Normal 66569-3) [facility] SYPHILIS [id number] 14:07:33 Test Item Value Reference Range Interpretation Comments Syphilis IgG/IgM (test Non-reactive Non-reactive code = 58695-4) AYAKA (test code = AYAKA) Non-reactive - No serologic evidence of T. pallidum infection. Cannot exclude incubating or early syphilis. Submit a second specimen in 2-4 weeks if syphilis is clinically suspected. Equivocal - Further testing to follow. Reactive - Further testing to follow. Lab Interpretation (test Normal code = 63243-4) [facility] 1/2 AG-AB WITH [id number] 06:09:28 Test Item Value Reference Range Interpretation Comments HIV 0.06 Negative Semi-quantitative (test code = 79817-3) AYAKA (test code = Non-reactive for HIV-1 AYAKA) antigen and HIV-1/HIV-2 antibodies. ?No laboratory evidence of HIV infection. ?Repeat in 2-4 weeks if acute HIV infection is suspected. [facility] 1/2 AG-AB WITH [id number] 06:09:28 Test Item Value Reference Range Interpretation Comments HIV 0.06 Negative Semi-quantitative (test code = 16816-5) AYAKA (test code = Non-reactive for HIV-1 AYAKA) antigen and HIV-1/HIV-2 antibodies. ?No laboratory evidence of HIV infection. ?Repeat in 2-4 weeks if acute HIV infection is suspected. [facility] WITH [id number] 05:46:41 Test Item Value Reference Range Interpretation Comments WBC (test code = 7.96 See_Comment [Automated 3390-2) message] The sy stem which generated this result transmitted reference range : 4.30 - 11.10 10*3/?L. The reference range was not used to interpret this result as normal/abnormal . RBC (test code = 4.06 See_Comment [Automated 259-8) message] The sy stem which generated this result transmitted reference range : 3.93 - 5.25 10*6/?L. The reference range was not used to interpret this result as normal/abnormal . HGB (test code = 13.1 g/dL 11.6-15.0 718-7) HCT (test code = 40.0 % 35.7-45.2 4544-3) MCV (test code = 98.5 fL 80.6-95.5 H 787-2) MCH (test code = 32.3 pg 25.9-32.8 785-6) MCHC (test code = 32.8 g/dL 31.6-35.1 786-4) RDW-SD (test code = 42.0 fL 39.0-49.9 48281-1) RDW-CV (test code = 11.5 % 12.0-15.5 L 788-0) PLT (test code = 280 See_Comment [Automated 777-3) message] The sy stem which generated this result transmitted reference range : 166 - 358 10*3/ ?L. The reference r kings was not used to interpret this result as normal/abnormal . MPV (test code = 10.6 fL 9.5-12.9 54276-0) NRBC/100 WBC (test 0.0 See_Comment [Automat ed code = [id number]) message] The system which generated this result transmitted reference range : 0.0 - 10.0 /100 WBCs. The refer ence range was not u sed to interpret th is result as normal/abnormal . NRBC x10^3 (test code See_Comment [Auto mated = [id number]) message] The s ystem which generated this result transmitted reference range : 10*3/?L. The reference range was not used to interpret this result as normal/abnormal . GRAN MAT (NEUT) % 71.5 % (test code = 770-8) IMM GRAN % (test code 0.30 % = 4260406981) LYMPH % (test code = 20.2 % 736-9) MONO % (test code = 6.7 % 5905-5) EOS % (test code = 0.9 % 713-8) BASO % (test code = 0.4 % 706-2) GRAN MAT x10^3(ANC) 5.70 10*3/uL 1.88-7.09 (test code = 1846179158) IMM GRAN x10^3 (test 0.00-0.06 code = 8572050175) LYMPH x10^3 (test code 1.61 10*3/uL 1.32-3.29 = 731-0) MONO x10^3 (test code 0.53 10*3/uL 0.33-0.92 = 742-7) EOS x10^3 (test code = 0.07 10*3/uL 0.03-0.39 711-2) BASO x10^3 (test code 0.03 10*3/uL 0.01-0.07 = 704-7) Lab Interpretation Abnormal (test code = 56830-9) [facility] WITH [id number] 05:46:41 Test Item Value Reference Range Interpretation Comments WBC (test code = 7.96 See_Comment [Automated 6690-2) message] The sy stem which generated this result transmitted reference range : 4.30 - 11.10 10*3/?L. The reference range was not used to interpret this result as normal/abnormal . RBC (test code = 4.06 See_Comment [Automated 789-8) message] The sy stem which generated this result transmitted reference range : 3.93 - 5.25 10*6/?L. The reference range was not used to interpret this result as normal/abnormal . HGB (test code = 13.1 g/dL 11.6-15.0 718-7) HCT (test code = 40.0 % 35.7-45.2 4544-3) MCV (test code = 98.5 fL 80.6-95.5 H 787-2) MCH (test code = 32.3 pg 25.9-32.8 785-6) MCHC (test code = 32.8 g/dL 31.6-35.1 786-4) RDW-SD (test code = 42.0 fL 39.0-49.9 84649-8) RDW-CV (test code = 11.5 % 12.0-15.5 L 788-0) PLT (test code = 280 See_Comment [Automated 777-3) message] The sy stem which generated this result transmitted reference range : 166 - 358 10*3/ ?L. The reference r kings was not used to interpret this result as normal/abnormal . MPV (test code = 10.6 fL 9.5-12.9 72636-8) NRBC/100 WBC (test 0.0 See_Comment [Automat ed code = 8390918566) message] The system which generated this result transmitted reference range : 0.0 - 10.0 /100 WBCs. The refer ence range was not u sed to interpret th is result as normal/abnormal . NRBC x10^3 (test code See_Comment [Auto mated = 5059964705) message] The s ystem which generated this result transmitted reference range : 10*3/?L. The reference range was not used to interpret this result as normal/abnormal . GRAN MAT (NEUT) % 71.5 % (test code = 770-8) IMM GRAN % (test code 0.30 % = 8866712573) LYMPH % (test code = 20.2 % 736-9) MONO % (test code = 6.7 % 5905-5) EOS % (test code = 0.9 % 713-8) BASO % (test code = 0.4 % 706-2) GRAN MAT x10^3(ANC) 5.70 10*3/uL 1.88-7.09 (test code = 4917589038) IMM GRAN x10^3 (test 0.00-0.06 code = 8838193095) LYMPH x10^3 (test code 1.61 10*3/uL 1.32-3.29 = 731-0) MONO x10^3 (test code 0.53 10*3/uL 0.33-0.92 = 742-7) EOS x10^3 (test code = 0.07 10*3/uL 0.03-0.39 711-2) BASO x10^3 (test code 0.03 10*3/uL 0.01-0.07 = 704-7) Lab Interpretation Abnormal (test code = 28152-6) [facility] URINALYSIS W/O SPECIFIC [id number] 20:53:00 Test Item Value Reference Range Interpretation Comments POCT PH U (test code = 3254) . 5-8 POCT U LEUK EST (test code = 3263) . Negative - Negative POCT U NIT (test code = 3262) . Negative - Negative POCT U PROT (test code = 3259) . Negative - Negative POCT U GLU (test code = 3256) . Negative - Negative POCT U KETONE (test code = 3258) . Negative - Negative POCT U BLD (test code = 3257) . Negative - Negative [facility] URINALYSIS W/O SPECIFIC [id number] 20:53:00 Test Item Value Reference Range Interpretation Comments POCT PH U (test code = 3254) . 5-8 POCT U LEUK EST (test code = 3263) . Negative - Negative POCT U NIT (test code = 3262) . Negative - Negative POCT U PROT (test code = 3259) . Negative - Negative POCT U GLU (test code = 3256) . Negative - Negative POCT U KETONE (test code = 3258) . Negative - Negative POCT U BLD (test code = 3257) . Negative - Negative [facility] [id number] 19:17:00 Test Item Value Reference Range Interpretation Comments POCT PREG (test code = 1605) Negative On board controls acceptable with C Yes Line (test code = 3574) POCT PREG LOT # (test code = 3575) POCT PREG TEST DATE (test code = 3576) [facility] [id number] 19:17:00 Test Item Value Reference Range Interpretation Comments POCT PREG (test code = 1605) Negative On board controls acceptable with C Yes Line (test code = 3574) POCT PREG LOT # (test code = 3575) POCT PREG TEST DATE (test code = 3576) [facility]. METABOLIC PANEL (58378)2022-03-25 05:07:49 Test Item Value Reference Range Interpretation Comments NA (test code = 139 mmol/L 135-145 6240069709) K (test code = 4.2 mmol/L 3.5-5 5291853760) CL (test code = 103 mmol/L 98-108 2618669235) CO2 TOTAL (test code 24 mmol/L 23-31 = 1498123510) AGAP (test code = 2-16 5884003434) BUN (test code = 14 mg/dL 7-23 0726704192) GLUCOSE (test code = 100 mg/dL 70-110 5796510138) CREATININE (test code 0.63 mg/dL 0.5-1.04 = 7748686076) TOTAL BILI (test code 0.3 mg/dL 0.1-1.1 = 7191665093) CALCIUM (test code = 9.6 mg/dL 8.6-10.6 7286015495) T PROTEIN (test code 7.7 g/dL 6.3-8.2 = 5935896414) ALBUMIN (test code = 5.0 g/dL 3.5-5 2618634855) ALK PHOS (test code = 57 U/L 34-122 0123719490) ALTv (test code = 18 U/L 5-35 1742-6) AST(SGOT) (test code 29 U/L 13-40 = 0513548701) eGFR (test code = mL/min/1.73m2 1165623729) AYAKA (test code = AYAKA) Association of Glomerular Filtration Rate (GFR) and Staging of Kidney Disease* + + +- +| GFR (mL/min/1.73 m2) ?| With Kidney Damage ?| ?Without Kidney Damage+ ------+ ----+ ------+| ?>90 ?| ?Stage one ?| ? Normal ?+ -+ + -+| ?60-89 ?| ?Stage two ?| ? Decreased GFR ? + + +- +| ?30-59 ?| ?Stage three ?| ? Stage three ? + + +- +| ?15-29 ?| ?Stage four ? | ? Stage four ?+ -+ + -+| ?<15 (or dialysis) ? ?| ?Stage five ? | ? Stage five ?+ -+ + -+ *Each stage assumes the associated GFR level has been in effect for at least three months. ?Stages 1 to 5, with or without kidney disease, indicate chronic kidney disease. Notes: Determination of stages one and two (with eGFR >59mL/min/1.73 m2) requires estimation of kidney damage for at least three months as defined by structural or functional abnormalities of the kidney, manifested by either:Pathological abnormalities or Markers of kidney damage (including abnormalities in the composition of the blood or urine or abnormalities in imaging tests). [facility] WITH [id number] 05:07:08 Test Item Value Reference Range Interpretation Comments WBC (test code = See_Comment [Automated 6690-2) message] The sy stem which generated this result transmitted reference range : 4.30 - 11.10 10*3/?L. The reference range was not used to interpret this result as normal/abnormal . RBC (test code = See_Comment [Automated 789-8) message] The sy stem which generated this result transmitted reference range : 3.93 - 5.25 10*6/?L. The reference range was not used to interpret this result as normal/abnormal . HGB (test code = 13.3 g/dL 11.6-15 718-7) HCT (test code = 37.7 % 35.7-45.2 4544-3) MCV (test code = 90.6 fL 80.6-95.5 787-2) MCH (test code = 32.0 pg 25.9-32.8 785-6) MCHC (test code = 35.3 g/dL 31.6-35.1 H 786-4) RDW-SD (test code = 38.2 fL 39-49.9 L 48552-0) RDW-CV (test code = 11.7 % 12-15.5 L 788-0) PLT (test code = See_Comment [Automated 777-3) message] The sy stem which generated this result transmitted reference range : 166 - 358 10*3/ ?L. The reference r kings was not used to interpret this result as normal/abnormal . MPV (test code = 9.7 fL 9.5-12.9 45018-9) NRBC/100 WBC (test See_Comment [Automat ed code = 8892483300) message] The system which generated this result transmitted reference range : 0.0 - 10.0 /100 WBCs. The refer ence range was not u sed to interpret th is result as normal/abnormal . NRBC x10^3 (test code See_Comment [Auto mated = 3618599575) message] The s ystem which generated this result transmitted reference range : 10*3/?L. The reference range was not used to interpret this result as normal/abnormal . GRAN MAT (NEUT) % 64.7 % (test code = 770-8) IMM GRAN % (test code 0.40 % = 5473653188) LYMPH % (test code = 26.8 % 736-9) MONO % (test code = 7.1 % 5905-5) EOS % (test code = 0.7 % 713-8) BASO % (test code = 0.3 % 706-2) GRAN MAT x10^3(ANC) 6.21 10*3/uL 1.88-7.09 (test code = 6991977973) IMM GRAN x10^3 (test 0.04 10*3/uL 0-0.06 code = 9622933010) LYMPH x10^3 (test code 2.57 10*3/uL 1.32-3.29 = 731-0) MONO x10^3 (test code 0.68 10*3/uL 0.33-0.92 = 742-7) EOS x10^3 (test code = 0.07 10*3/uL 0.03-0.39 711-2) BASO x10^3 (test code 0.03 10*3/uL 0.01-0.07 = 704-7) Lab Interpretation Abnormal (test code = 74617-5) [facility] Test Item Value Reference Range Interpretation Comments LIPASE (test code = 1722925391) 104 U/L 0-220 Lab Interpretation (test code = Normal 18552-5) [id number] 04:38:00 Test Item Value Reference Range Interpretation Comments POCT PREG (test code = 1605) Negative On board controls acceptable with Present C Line (test code = 3574) POCT PREG LOT # (test code = HCG 0151473 3468) POCT PREG TEST DATE (test 05/31/2023 code = 3576) Lab Interpretation (test code = Normal 17739-1) [facility]"
[2023-02-22] MEDS ORDERED: KETOROLAC 30 MG/ML INJ ONE (08:59)
[2023-02-22 09:00] LABS: Specific Gravity 1.014 (1.005-1.030)
[2023-02-22 09:08] LABS: Specific Gravity 1.014 (1.005-1.030); Urine Bacteria >50 /HPF (<20); Urine Bilirubin NEGATIVE (Negative); Urine Blood 1+ (Negative); Urine Clarity Extremely Turbid (Clear); Urine Color Light-Yellow (Yellow); Urine Glucose NEGATIVE (Negative); Urine Mucus Slight /HPF (None Seen); Urine Protein TRACE (Negative); Urine RBC 21-50 /HPF (None Seen); Urine Urobilinogen Normal (Normal); Urine WBC Clump Occasional /HPF (None Seen); Urine pH 5.5 (5.0-7.0)
--- NOTE | 2023-02-22 09:13 | ER ---
Nurse's Notes [facility] Name: Miko Black Age: 27 yrs Sex: Female : 1995 Arrival Date: 02/22/2023 Time: 08:24 Bed 12 Private MD: Diagnosis: UTI/ Urinary tract infection, site not specified Presentation: 02/22 08:35 Chief complaint: Patient states: LEFT FLANK PAIN AND DYSURIA SINCE LAST PM. Coronavirus bp screen: At this time, the client does not indicate any symptoms associated with coronavirus-19. Ebola Screen: No symptoms or risks identified at this time. Initial Sepsis Screen: Does the patient meet any 2 criteria? No. Patient's initial sepsis screen is negative. Does the patient have a suspected source of infection? No. Patient's initial sepsis screen is negative. Risk Assessment: Do you want to hurt yourself or someone else? Patient reports no desire to harm self or others. Onset of symptoms is unknown. 08:35 Method Of Arrival: Ambulatory bp 08:35 Acuity: BLAIR 3 bp Triage Assessment: 08:43 General: Appears uncomfortable, Behavior is calm, cooperative, appropriate for age. bp Pain: Complains of pain in left flank. : Reports burning with urination. Historical: - Allergies: 08:43 Motrin; bp - Home Meds: 08:43 None [Active]; bp - PMHx: 08:43 None; bp - Immunization history:: Adult Immunizations up to date. - Social history:: Smoking status: Patient denies any tobacco usage or history of. Screenin:42 [facility] ED Fall Risk Assessment (Adult) History of falling in the last 3 months, bp including since admission No falls in past 3 months (0 pts). Abuse screen: Denies threats or abuse. Denies injuries from another. Nutritional screening: No deficits noted. Tuberculosis screening: No symptoms or risk factors identified. Assessment: 08:35 General: SEE TRIAGE NOTE. bp 09:42 Reassessment: DC HOME AMBULATORY. bp Vital Signs: 08:35 BP 103 / 57; Pulse 72; Resp 16; Temp 98.1; Pulse Ox 100% ; Weight 63.5 kg; Height 5 ft. bp 1 in. ; 08:35 Body Mass Index 26.45 (63.50 kg, 154.94 cm) bp ED Course: 08:25 Patient arrived in ED. mg5 08:29 [facility]menares [facility] sb4 08:29 Deon Katz MD is Attending Physician. sb4 08:35 Robby Gray, RN is Primary Nurse. bp 08:42 Triage completed. bp 08:43 Arm band placed on. bp 09:42 Patient has correct armband on for positive identification. Bed in low position. Call bp light in reach. 09:42 No provider procedures requiring assistance completed. Patient did not have IV access bp during this emergency room visit. Administered Medications: 08:55 Drug: Ketorolac IM 30 mg Route: IM; Site: left gluteus; bp 09:37 Follow up: Response: No adverse reaction bp 09:30 Drug: Rocephin (cefTRIAXone) IM 1 grams Route: IM; Site: left vastus lateralis; bp 09:37 Follow up: Response: No adverse reaction bp Medication: 09:42 VIS not applicable for this client. bp Outcome: 09:12 Discharge ordered by MD. sb4 09:42 Discharged to home ambulatory. bp 09:42 Condition: good 09:42 Discharge instructions given to patient, Instructed on discharge instructions, follow up and referral plans. medication usage, Demonstrated understanding of instructions, follow-up care, medications, Prescriptions given X 1. 09:43 Patient left the ED. bp Addendum: 02/24/2023 07:23 Addendum: Culture Results: Positive urine culture. No further action required. Bacteria e b sensitive to prescribed antibiotic. Signatures: Robby Gray, RN RN bp Marysol Sanchez Sharron Colmenares PA-C PA-C sb4 Rosemary Cloud mg5
--- NOTE | 2023-02-22 09:13 | EDPHYS ---
Physician Documentation [facility] Name: Miko Black Age: 27 yrs Sex: Female : 1995 Arrival Date: 02/22/2023 Time: 08:24 Bed 12 Private MD: ED Physician Deon Katz HPI: 02/22 08:49 This 27 yrs old Female presents to ER via Ambulatory with complaints of Low sb4 Back Pain. 08:49 The patient presents with pain that is acute. The symptoms are located in the left sb4 flank. The pain does not radiate. The problem was sustained UTI. Onset: The symptoms/episode began/occurred yesterday. Modifying factors: The patient symptoms are alleviated by nothing, the patient symptoms are aggravated by nothing. Associated signs and symptoms: Pertinent positives: dysuria, Pertinent negatives: fever, hematuria. The patient has experienced a previous episode. patient states she started experiencing UTI symptoms a few days ago and started taking Azo. she started experiencing left sided flank pain yesterday that got worse today. Historical: - Allergies: 08:43 Motrin; bp - Home Meds: 08:43 None [Active]; bp - PMHx: 08:43 None; bp - Immunization history:: Adult Immunizations up to date. - Social history:: Smoking status: Patient denies any tobacco usage or history of. ROS: 08:49 Constitutional: Negative for fever, chills, and weight loss. sb4 08:49 Back: Positive for flank pain, on the left. 08:49 : Positive for urinary symptoms, urinary frequency, burning with urination. 08:49 All other systems are negative. Exam: 08:49 Constitutional: This is a well developed, well nourished patient who is awake, alert, sb4 and in no acute distress. 08:49 Back: CVA tenderness, that is mild, is noted on the left. Vital Signs: 08:35 BP 103 / 57; Pulse 72; Resp 16; Temp 98.1; Pulse Ox 100% ; Weight 63.5 kg; Height 5 ft. bp 1 in. ; 08:35 Body Mass Index 26.45 (63.50 kg, 154.94 cm) bp MDM: 08:29 Patient medically screened. sb4 08:49 Differential diagnosis: UTI, pyelonephritis, ureterolithiasis, nephrolithiasis. sb4 08:58 External Records Reviewed: prior urine cultures have grown plaza sensitive ecoli. sb4 09:11 Data reviewed: vital signs, nurses notes, lab test result(s), urinalysis, bacteruria, sb4 pyuria, UPT: negative and as a result, I will discharge patient. Test considered but Not performed: Labs: blood work not indicated, stable vitals, nontoxic, would not change my management. CT: not indicated, stable vitals, nontoxic, would not change my management, stone unlikely. Counseling: I had a detailed discussion with the patient and/or guardian regarding the historical points, exam findings, and any diagnostic results supporting the discharge/admit diagnosis, lab results, to return to the emergency department if symptoms worsen or persist or if there are any questions or concerns that arise at home. 02/22 08:43 Order name: Urinalysis w/ reflexes; Complete Time: 09:11 bp 02/22 08:43 Order name: Test, Urine; Complete Time: 09:02 bp 02/22 09:12 Order name: Urine Culture EDMS Administered Medications: 08:55 Drug: Ketorolac IM 30 mg Route: IM; Site: left gluteus; bp 09:37 Follow up: Response: No adverse reaction bp 09:30 Drug: Rocephin (cefTRIAXone) IM 1 grams Route: IM; Site: left vastus lateralis; bp 09:37 Follow up: Response: No adverse reaction bp Disposition: 10:57 Co-signature as Attending Physician, Deon Katz MD I reviewed the patient's care rt provided by the Advanced Practice Provider and agree with the diagnosis and treatment plan. Disposition Summary: 02/22/23 09:12 Discharge Ordered Location: Home sb4 Problem: new sb4 Symptoms: have improved sb4 Condition: Stable sb4 Diagnosis - UTI/ Urinary tract infection, site not specified sb4 Followup: sb4 - With: Private Physician - When: As needed - Reason: Recheck today's complaints, Continuance of care, Re-evaluation by your physician Discharge Instructions: - Discharge Summary Sheet sb4 - Dysuria sb4 - Urinary Tract Infection, Adult, [id number] sb4 Forms: - Medication Reconciliation Form sb4 - Thank You Letter sb4 - Antibiotic Education sb4 - Prescription Opioid Use sb4 - Patient Portal Instructions sb4 - Leadership Thank You Letter sb4 Prescriptions: - Macrobid 100 mg Oral Capsule - take 1 capsule by ORAL route every 12 hours for 7 days; 14 capsule; Refills: 0, sb4 Product Selection Permitted Signatures: Dispatcher [employer] Robby Betts, Sharron Rice RN, PA-C PA-C sb4 Deon Katz MD MD rt
[2023-02-22] MEDS ORDERED: CEFTRIAXONE 1000 MG/VIAL ONE (09:34)
[2023-02-22] MEDS ORDERED: LIDOCAINE 1% MPF 2 ML AMPULE ONE (09:34)
[2023-02-22 09:47] VITALS: BP 103/57; TEMP 98.1; O2SAT 100
== END 2023-02-22 09:43 | disposition home or self-care (01) ==
LOC: ER 08:24
DX: N39.0 Urinary tract infection, site not specified (principal); Z88.6 Allergy status to analgesic agent
CPT/HCPCS: 81001; 81025; 87077; 87086; 87088; 87186; 96372; 99284; J0696

== ENCOUNTER 2023-02-22 13:46 | Inpatient (IN) | payer OTHER ==
--- OUTSIDE RECORDS SUMMARY | 2023-02-22 13:50 | XMS REPORT | Continuity of Care Document ---
:1995 Author Organization [facility] t Address [address] [place] [address] Care Team Providers Name Role Phone CARO BAIRD Primary Care Physician Unavailable Caro Baird CNM Attending Clinician CARO BAIRD Attending Clinician Unavailable Doctor Unassigned, [place] Attending Clinician Unavailable AMY JESUS Attending Clinician Unavailable Provider, Ang-Rmchvickey Temp Attending Clinician Unavailable MARSHA ROMAN Attending Clinician Unavailable Marsha Lindsay Attending Clinician Roger Joanna VALADEZ Attending Clinician [phone] JOANNA TALBOT Attending Clinician Unavailable EVERARDO GARCES Attending Clinician Unavailable Everardo Dill Attending Clinician Amy Barrera Attending Clinician [place] Attending Clinician [place] Attending Clinician Unavailable Payers Payer Name Policy Type Policy Number Effective Date Expiration Date Jack barrientos [place] [id number] 2021 00:00:00 MEDICAID PENDING PENDING 2021 00:00:00 Problems Condition Condition Condition Status Onset Resolution Last Treating Co mments Source Name Details Category Date Date Treatment Clinician Date Engages in Engages in Disease Active U nivers vaping vaping 6-23 ity of 00:00: [place] [facility] Overweight Overweight Disease Active U nivers (BMI (BMI 6-23 ity of 25.0-29.9) 25.0-29.9) [place] [facility] Supervisio Supervisio Disease Active U nivers n of n of 4-08 it[place] of high[place]risk high[place] [facility] Multiparit Multiparit Disease Active U nivers y y 4-08 ity of 00:00: [place] 00 [facility] Encounter Encounter Disease Active Uni vers for IUD for IUD 2-09 ity of removal removal 00:00: [address] Chlamydia Chlamydia Disease Active Uni vers trachomati trachomati 8-19 it y of s s 00:00: [place] infection infection 00 [facility] of lower of lower Branch genitourin genitourin amber sites amber sites Allergies, Adverse Reactions, Alerts Allergy Allergy Status Severity Reaction(s) Onset Inactive Treating Comm ents Source Name Type Date Date Clinician IBUPROFE DRUG Active Swelling Univer s N INGREDI 07-30 ity of 00:00: [place] [facility] Ibuprofe Propensi Active Swelling Univ ers n ty to 07-30 ity of adverse 00:00: [place] reaction Medical s Branch Social History Social Habit Start Date Stop Date Quantity Comments Source ASSERTION 2021-08-11 University of 00:00:00 [facility] History [facility] o f Alcohol Frequency [facility] edical Branch History [facility] University o f Alcohol Std [place] Medical Drinks Branch History [facility] o f Alcohol Binge [place] Medic [facility] [place] Alcohol intake 2022-12-19 2022-12-19 Ex-drinker University 00:00:00 00:00:00 (finding) [facility] Exposure to 2022-05-07 2022-05-17 Not sure University of SARS-CoV-2 00:00:00 10:57:00 [facility] (event) [place] Tobacco use and 2022-05-17 2022-05-17 Smokeless tobacco Un iversity of exposure 00:00:00 00:00:00 non-user [facility] Alcohol Comment 2021-02-16 2021-02-16 social Universit y of 00:00:00 00:00:00 [facility] Sex Assigned At [birth year] Universit y of 00:00:00 00:00:00 [facility] Smoking Status Start Date Stop Date Source Never smoked tobacco [facility] Medications Ordered Filled Start Stop Current Ordering Indication Dosage Frequency Signature Comments Components Source Medication Medication Date Date Medication? Clinician (SIG) Name Name metroNIDAZO 3- No [id number] 2000mg Take 4 Univers LE 500 mg 12-21 tablets by ity of tablet 00:00: 04:59 [place] once [place] 00 :00 now for 1 Medical dose. Branch maalox:diph 2021- No [id number] 15mL 15 mL, Univers enhydrAMINE 03-25 Oral, ity of :lidocaine 04:45: 04:44 ONCE, 1 Juan David as 2 % viscous 00 :00 dose, On Medi keysha 1:1:1 Fri Branch ([facility] 03/24/22 at [facility]) 2345, oral Routine suspension 15 mL ondansetron Yes [id number] 4mg Take 1 Univers 4 mg 9-24 tablet by ity of disintegrat 00:00: mouth [place] ing tablet 00 every 8 Medica l (eight) Branch hours as needed for Nausea and Vomiting (N/V). ondansetron Yes [id number] 4mg Take 1 Univers 4 mg 9-24 tablet by ity of disintegrat 00:00: mouth [place] ing tablet 00 every 8 Medica l (eight) Branch hours as needed for Nausea and Vomiting (N/V). ondansetron Yes [id number] 4mg Take 1 Univers 4 mg 9-24 tablet by ity of disintegrat 00:00: mouth [place] ing tablet 00 every 8 Medica l (eight) Branch hours as needed for Nausea and Vomiting (N/V). ondansetron 2021- No [id number] 4mg Take 1 Univers 4 mg 9-24 11-20 tablet by ity of disintegrat 00:00: 00:00 [place] tablet 00 :00 every 8 Medica l (eight) Branch hours as needed for Nausea and Vomiting (N/V). ondansetron 2021- No [id number] 4mg Take 1 Univers 4 mg 9-24 11-20 tablet by ity of disintegrat 00:00: 00:00 [place] tablet 00 :00 every 8 Medica l (eight) Branch hours as needed for Nausea and Vomiting (N/V). famotidine 2021- No [id number] 20mg Take 1 Univers 20 mg 9-24 10-25 tablet by ity of tablet 00:00: 04:59 mouth in [place] 00 :00 the Medical morning Branch and 1 tablet in the evening. Do all this for 30 days. terconazole 2021- No [id number] 80mg Insert 1 Univers 80 mg 10-10 04-15 Suppositor ity of vaginal 00:00: 04:59 y into [place] suppository 00 :00 vagina at [facility] bedtime Branch for 3 days. No known No Univers medications 4-08 ity of 11:34: [address] No known No No known Unive rs medications 4-08 medication it y of 11:34: s [address] Vital Signs Vital Name Observation Time Observation Value Comments Source Systolic blood 2022-12-19 19:11:00 96 [facility]Hg[facility] 2022-12-19 19:11:00 62 mm[facility]Hg[facility] rate 2022-12-19 19:11:00 72 /min [facility] Body temperature 2022-12-19 19:11:00 36.56 Joseph[facility] Respiratory rate 2022-12-19 19:11:00 18 /min [facility] Body height 2022-12-19 19:11:00 154.9 cm [facility] Body weight 2022-12-19 19:11:00 64.666 kg [facility] BMI 2022-12-19 19:11:00 26.94 kg/m2 [facility] Systolic blood 2022-05-17 16:58:00 104 mm[Hg[facility] Diastolic blood 2022-05-17 16:58:00 68 mm[Hg] Unive rsity of pressure [facility] Heart rate 2022-05-17 16:58:00 88 /min Universi ty of [facility] Body temperature 2022-05-17 16:58:00 36.22 [facility] ersity of [facility] Respiratory rate 2022-05-17 16:58:00 16 /min [facility] height 2022-05-17 16:58:00 154.9 cm Universi ty of [facility] Body weight 2022-05-17 16:58:00 61.292 kg Universi ty of [facility] BMI 2022-05-17 16:58:00 25.53 kg/m2 Universi ty [facility] Systolic blood 2022-03-25 05:00:00 122 mm[Hg] Univer sity of [facility] Diastolic blood 2022-03-25 05:00:00 90 mm[Hg] Unive rsity of [facility] Heart rate 2022-03-25 05:00:00 97 /min Universi ty [facility] Respiratory rate 2022-03-25 05:00:00 16 /min [facility] Oxygen saturation in 2022-03-25 05:00:00 100 /min [facility] Arterial blood by [facility] Pulse oximetry [place] Body temperature 2022-03-25 04:26:00 36.61 [facility] Body height 2022-03-25 04:26:00 154.9 cm [facility] Body weight 2022-03-25 04:26:00 63.504 kg Universi ty [facility] BMI 2022-03-25 04:26:00 26.45 kg/m2 [facility] Procedures Procedure Date / Time Performing Clinician Source Performed POCT URINALYSIS W/O 2022-12-19 20:53:00 Caro Baird [facility] SPECIFIC GRAVITY [facility] GALV ONLY - VAGINAL 2022-12-19 20:52:00 Caro Baird [facility] PATHOGENS BY NUCLEIC Medical Bra nch ACID TESTING CBC WITH DIFF 2022-12-19 19:58:00 Caro Baird [facility] GC & CHLAMYDIA 2022-12-19 19:58:00 Caro Baird [facility] AMPLIFIED ASSAY [facility] HIV 1/2 AG-AB WITH 2022-12-19 19:58:00 Caro Baird [facility] REFLEX [facility] TRICHOMONAS AMPLIFIED 2022-12-19 19:58:00 [facility] PAP SMEAR-LIQUID 2022-12-19 19:58:00 Caro Baird [facility] BASED- Medical Branch SYPHILIS IGG/IGM 2022-12-19 19:58:00 Caro Baird [facility] POCT TEST 2022-12-19 19:17:[address] [facility] PATIENT FINANCIAL 2022-12-19 18:44:54 Doctor Unassigned, No [facility] GC & CHLAMYDIA 2022-05-17 17:30:00 Caro Baird [facility] AMPLIFIED [facility] GALV ONLY - VAGINAL 2022-05-17 17:30:00 Caro Baird [facility] PATHOGENS BY [facility] ACID TESTING ASSIGNMENT OF BENEFITS 2022-05-17 16:25:04 Doctor Unassigned, No [facility] LIPASE 2022-03-25 04:38:00 Marsha Roman [facility] COMP. METABOLIC PANEL 2022-03-25 04:38:00 Marsha Roman [facility] ([id number]) [facility] CBC WITH DIFF 2022-03-25 04:38:00 Marsha Roman [facility] URINALYSIS 2022-03-25 04:38:00 Marsha Roman [facility] POCT TEST 2022-03-25 04:38:00 Marsha Roman [facility] NOTICE OF PRIVACY 2022-03-25 04:27:12 Doctor Unassigned, No [facility] PRACTICES [facility] CONSENT/REFUSAL FOR 2022-03-25 04:22:35 Doctor Unassigned, No Un [facility] DIAGNOSIS AND TREATMENT Name [facility] Encounters Start End Encounter Admission Attending Care Care Encounter Source Date/Time Date/Time Type Type Clinicians Facility Department ID 2022-12-21 2022-12-21 Telephone Brie [facility] [id number] Univers 00:00:00 00:00:00 Caro Sanchez REAL ESTATE REP [id number] i ty of [place] [id number] Juan David as MATERNAL [id number] [facility] & CHILD [address] [place] [address] 2022-12-19 2022-12-19 Outpatient R BRIE [facility] [id number] Univers 14:15:00 14:56:35 CARO sy [facility] 2022-12-19 2022-12-19 Office Brie [facility] 1.2.840.114 [id number] Univers 14:15:00 14:56:35 Visit Caro Sanchez REAL ESTATE REP [id number] i ty of [place] [id number] Juan David as MATERNAL [id number] [facility] & CHILD [address] [place] [address] 2022-12-19 2022-12-19 Orders Doctor MELCHOR 1.2.840.114 [id number] Univers 00:00:00 00:00:00 Only Unassigned, MARIYA [id number] ity of [place] [id number] Juan David as [id number] [address] 2022-10-19 2022-10-19 Outpatient Joe JESUS [facility] [id number] Univers 11:00:00 11:00:00 AMY sy [facility] 2022-05-17 2022-05-17 Outpatient R BRIE [facility] [id number] Univers 10:30:00 11:19:22 CARO sy [facility] 2022-05-17 2022-05-17 Office Provider, EliseoRmchvickey [facility] 1 .2.840.114 [id number] Univers 10:30:00 11:19:22 Visit Caro Baird REAL ESTATE REP 350.1.13.[address] [facility] [id number] Juan David as MATERNAL [id number] [facility] & CHILD [address] [place] [address] 2022-05-17 2022-05-17 Orders Doctor MELCHOR 1.2.840.114 [id number] Univers 00:00:00 00:00:00 Only Unassigned, MARIYA [id number] ity of [place] [facility] [id number] Juan David as [id number] [facility] 009 [place] 2022-05-17 2022-05-17 Letter Brie [facility] 1.2.840.114 [id number] Univers 00:00:00 00:00:00 (Out) Caro Sanchez REAL ESTATE REP [id number] [facility] [id number] Juan David as MATERNAL [id number] [facility] & CHILD [address] [place] [address] 2022-03-24 2022-03-25 Emergency [facility] [id number] Univers 23:30:00 01:04:00 MARSHA sy [facility] 2022-03-24 2022-03-25 Emergency [facility] 1.2.840.114 [id number] Univers 23:30:00 01:04:00 [facility] 350.1.13.10 i ty of [place].7.2.686 [place] [id number] [facility] 084 [place] 2022-03-21 2022-03-21 [facility] [place] 1.2.840.114 [id number] Univers 00:00:00 00:00:00 Joanna Kaufman REAL ESTATE REP [id number] [facility] [id number] Juan David as MATERNAL [id number] [facility] CHILD [address] [place] [address] 2022-02-07 2022-02-07 Outpatient R ROGER [facility] [id number] Univers 09:00:00 09:00:00 JOANNA sy o f [facility] 2021-11-14 2021-11-14 [facility] 1.2.840.114 [id number] Univers 00:00:00 00:00:00 Joanna C REAL ESTATE REP [id number] ity of REGIONAL [id number] Juan David as MATERNAL [id number] [facility] & CHILD [address] [place] [address] 2021-10-26 2021-10-26 Outpatient R ROGER [facility] [id number] Univers 12:45:00 12:45:00 JOANNA ity o [facility] 2021-10-21 2021-10-21 Outpatient R ROGER [facility] [id number] Univers 10:45:00 10:45:00 JOANNA ity o [facility] 2021-10-10 2021-10-10 [facility] 1.2.840.114 [id number] Univers 00:00:00 00:00:00 Joanna C REAL ESTATE REP [id number] ity of REGIONAL [id number] Juan David as MATERNAL [id number] [facility] & CHILD [address] [place] [address] 2021-10-07 2021-10-07 Routine [facility] [id number] [id number] Univers 10:45:00 11:36:27 Joanna C REAL ESTATE REP 350.1.13.10 ity of Visit REGIONAL [id number] Juan David as MATERNAL [id number] [facility] & CHILD [address] [place] [address] 2021-10-07 2021-10-07 Outpatient Joe TALBOT [facility] [id number] Univers 10:45:00 11:36:27 JOANNA ity o [facility] 2021-10-07 2021-10-07 Outpatient Joe TALBOT [facility] [id number] Univers 10:45:00 10:45:00 JOANNA ity o [facility] 2021-10-04 2021-10-04 Outpatient Joe GARCES [facility] [id number] Univers 13:30:00 13:30:00 EVERARDO itisabel [facility] 2021-09-06 2021-09-06 Outpatient Joe GARCES [facility] [id number] Univers 10:00:00 14:10:02 EVERARDO ity [facility] 2021-09-06 2021-09-06 Outpatient R TIMOTHY [facility] [id number] Univers 13:00:00 14:09:40 EVERARDO ity [facility] 2021-09-06 2021-09-06 Initial Timothy, [facility] 1.2.003.700 [id number] Univers 13:00:00 14:09:40 [facility] 350.1.13.10 ity of Visit CLINICS 4[place].2.[place] [id number] [facility] 113 [place] 2021-09-06 2021-09-06 Orders Doctor MELCHOR 1.2.840.114 [id number] Univers 00:00:00 00:00:00 Only Unassigned, MARIYA 350.1.13.10 ity of [place] [facility] 4.2.7.2.686 Juan David as [id number] [address] 2021-08-10 2021-08-10 Office [facility] [id number] Univers 08:30:00 09:45:24 Visit Joanna C REAL ESTATE REP 350.1.13.10 ity of REGIONAL 4.2.7.2.686 Juan David as MATERNAL [id number] Med ical & CHILD [address] [place] [address] 2021-08-10 2021-08-10 [facility] [id number] Univers 08:30:00 09:45:24 JOANNA carrington f [facility] 2021-08-10 2021-08-10 [facility] [id number] Univers 08:30:00 08:30:00 JOANNA sy o f [facility] 2021-08-10 2021-08-10 Orders Doctor MELCHOR 1.2.840.114 [id number] Univers 00:00:00 00:00:00 Only Unassigned, MARIYA 350.1.13.10 ity of [place] [facility] 4.2.7.2.686 Juan David as [id number] [address] 2021-08-08 2021-08-08 Telephone [facility] 1.2.840.114 [id number] Univers 00:00:00 00:00:00 Joanna C REAL ESTATE REP 350.1.13.10 ity [facility] 4.2.7.2.686 Juan David as MATERNAL [id number] [facility] & [address] 2021-07-29 2021-07-29 Emergency X ROMAN, [facility] ERT [id number] Univers 15:02:00 16:43:00 MARSHA [facility] 2021-07-29 2021-07-29 Emergency X ROMAN, [facility] ERT [id number] Univers 15:02:00 16:43:00 [facility] 2021-07-29 2021-07-29 Emergency [facility], [facility] 1.2.840.114 [id number] Univers 15:02:00 16:43:00 [facility] 350.1.13.10 i ty [facility] 4.2.7.2.686 [place] [facility] [id number] [facility] 084 [place] 2021-07-29 2021-07-29 Orders Doctor MELCHOR 1.2.840.114 [id number] Univers 00:00:00 00:00:00 Only Unassigned, MARIYA 350.1.13.10 ity of [facility] 4.2.7.2.686 Juan David as [id number] [facility] 009 [place] 2021-04-06 2021-04-06 Office [facility] [id number] Univers 14:37:00 15:18:01 Visit Joanna C REAL ESTATE REP 350.1.13.10 ity [facility] 4.2.7.2.686 Juan David as MATERNAL [id number] [facility] & CHILD [address] [place] [address] 2021-04-06 2021-04-06 Outpatient R ROGER [facility] [id number] Univers 14:15:00 14:15:00 JOANNA sy o f [facility] 2021-04-04 2021-04-04 Outpatient R ROGER [facility] [id number] Univers 08:30:00 08:30:00 JOANNA sy o f [facility] 2021-02-18 2021-02-18 Telephone [facility] 1.2.840.114 [id number] Univers 00:00:00 00:00:00 Amy N REAL ESTATE REP 350.1.13.[address] [facility] [id number] Juan David as MATERNAL [id number] Med ical & CHILD [address] [place] [address] 2021-02-17 2021-02-17 Telephone [facility] 1.2.840.114 [id number] Univers 00:00:00 00:00:00 Amy N REAL ESTATE REP 350.1.13.[address] [facility] [id number] Juan David as MATERNAL [id number] [facility] ical & CHILD [address] [place] [address] 2021-02-16 2021-02-16 Office Thom Amy Zoraida [facility] 1.2.840. 114 [id number] Univers 08:18:09 08:59:18 Visit [place] REAL ESTATE REP 350.1.13.[address] [facility] [id number] Juan David as MATERNAL [id number] Med ical & CHILD [address] [place] [address] 2021-02-16 2021-02-16 Outpatient R RAMOS [facility] [id number] [facility] 07:45:00 07:45:00 AGATAFLETCHER carrington christ [facility] Results Test Description Test Time Test Comments Results Result Comments Source GALV ONLY - SYPHILIS IGG/IGM 2022-12-20 14:07:33 Test Item Value Reference Range Interpretation Comme nts Syphilis IgG/IgM (test code = Non-reactive Non-reactive 89743-2) AYAKA (test code = AYAKA) Non-reactive - No serologic evidence of T. pallidum infection. Cannot exclude incubating or early syphilis. Submit a second specimen in 2-4 weeks if syphilis is clinically suspected. Equivocal - Further testing to follow. Reactive - Further testing to follow. Lab Interpretation (test code = Normal 51399-9) [facility] SY[facility]ILIS [id number] 14:07:33 Test Item Value Reference Range Interpretation Comments Syphilis IgG/IgM (test Non-reactive Non-reactive code = 74406-4) AYAKA (test code = AYAKA) Non-reactive - No serologic evidence of T. pallidum infection. Cannot exclude incubating or early syphilis. Submit a second specimen in 2-4 weeks if syphilis is clinically suspected. Equivocal - Further testing to follow. Reactive - Further testing to follow. Lab Interpretation (test Normal code = 37996-5) [facility] 1/2 AG-AB WITH [id number] 06:09:28 Test Item Value Reference Range Interpretation Comments HIV 0.06 Negative Semi-quantitative (test code = 26889-4) AYAKA (test code = Non-reactive for HIV-1 AYAKA) antigen and HIV-1/HIV-2 antibodies. ?No laboratory evidence of HIV infection. ?Repeat in 2-4 weeks if acute HIV infection is suspected. [facility] 1/2 AG-AB WITH [id number] 06:09:28 Test Item Value Reference Range Interpretation Comments HIV 0.06 Negative Semi-quantitative (test code = 06978-5) AYAKA (test code = Non-reactive for HIV-1 AYAKA) antigen and HIV-1/HIV-2 antibodies. ?No laboratory evidence of HIV infection. ?Repeat in 2-4 weeks if acute HIV infection is suspected. [facility] WITH [id number] 05:46:41 Test Item Value Reference Range Interpretation Comments WBC (test code = 7.96 See_Comment [Automated 6090-2) message] The sy stem which generated this result transmitted reference range : 4.30 - 11.10 10*3/?L. The reference range was not used to interpret this result as normal/abnormal . RBC (test code = 4.06 See_Comment [Automated 709-8) message] The sy stem which generated this [...] RDW-SD (test code = 42.0 fL 39.0-49.9 13365-8) RDW-CV (test code = 11.5 % 12.0-15.5 L 788-0) PLT (test code = 280 See_Comment [Automated 777-3) message] The sy stem which generated this result transmitted reference range : 166 - 358 10*3/ ?L. The reference r kings was not used to interpret this result as normal/abnormal . MPV (test code = 10.6 fL 9.5-12.9 79750-5) NRBC/100 WBC (test 0.0 See_Comment [Automat ed code = 8753296690) message] The system which generated this result transmitted reference range : 0.0 - 10.0 /100 WBCs. The refer ence range was not u sed to interpret th is result as normal/abnormal . NRBC x10^3 (test code See_Comment [Auto mated = [id number]) message] The s ystem which generated this result transmitted reference range : 10*3/?L. The reference range was not used to interpret this result as normal/abnormal . GRAN MAT (NEUT) % 71.5 % (test code = 770-8) IMM GRAN % (test code 0.30 % = 0383266289) LYMPH % (test code = 20.2 % 736-9) MONO % (test code = 6.7 % 5905-5) EOS % (test code = 0.9 % 713-8) BASO % (test code = 0.4 % 706-2) GRAN MAT x10^3(ANC) 5.70 10*3/uL 1.88-7.09 (test code = 9026064931) IMM GRAN x10^3 (test 0.00-0.06 code = 2618285431) LYMPH x10^3 (test code 1.61 10*3/uL 1.32-3.29 = 731-0) MONO x10^3 (test code 0.53 10*3/uL 0.33-0.92 = 742-7) EOS x10^3 (test code = 0.07 10*3/uL 0.03-0.39 711-2) BASO x10^3 (test code 0.03 10*3/uL 0.01-0.07 = 704-7) Lab Interpretation Abnormal (test code = 81552-6) [facility] WITH [id number] 05:46:41 Test Item Value Reference Range Interpretation [...] RDW-SD (test code = 42.0 fL 39.0-49.9 33038-2) RDW-CV (test code = 11.5 % 12.0-15.5 L 788-0) PLT (test code = 280 See_Comment [Automated 777-3) message] The sy stem which generated this result transmitted reference range : 166 - 358 10*3/ ?L. The reference r kings was not used to interpret this result as normal/abnormal . MPV (test code = 10.6 fL 9.5-12.9 32656-8) NRBC/100 WBC (test 0.0 See_Comment [Automat ed code = 7289787138) message] The system which generated this result transmitted reference range : 0.0 - 10.0 /100 WBCs. The refer ence range was not u sed to interpret th is result as normal/abnormal . NRBC x10^3 (test code See_Comment [Auto mated = [id number]) message] The s ystem which generated this result transmitted reference range : 10*3/?L. The reference range was not used to interpret this result as normal/abnormal . GRAN MAT (NEUT) % 71.5 % (test code = 770-8) IMM GRAN % (test code 0.30 % = 6743136489) LYMPH % (test code = 20.2 % 736-9) MONO % (test code = 6.7 % 5905-5) EOS % (test code = 0.9 % 713-8) BASO % (test code = 0.4 % 706-2) GRAN MAT x10^3(ANC) 5.70 10*3/uL 1.88-7.09 (test code = 2425988096) IMM GRAN x10^3 (test 0.00-0.06 code = 5622899307) LYMPH x10^3 (test code 1.61 10*3/uL 1.32-3.29 = 731-0) MONO x10^3 (test code 0.53 10*3/uL 0.33-0.92 = 742-7) EOS x10^3 (test code = 0.07 10*3/uL 0.03-0.39 711-2) BASO x10^3 (test code 0.03 10*3/uL 0.01-0.07 = 704-7) Lab Interpretation Abnormal (test code = 27363-9) [facility] URINALYSIS W/O SPECIFIC [id number] 20:53:00 Test Item Value Reference Range Interpretation [...] code = 3257) . Negative - Negative [facility] URINALYSIS W/O SPECIFIC [id number] 20:53:00 Test Item Value Reference Range Interpretation [...] code = 3257) . Negative - Negative [facility] [id number] 19:17:00 Test Item Value Reference Range Interpretation Comments POCT PREG (test code = 1605) Negative On board controls acceptable with C Yes Line (test code = 3574) POCT PREG LOT # (test code = 3575) POCT PREG TEST DATE (test code = 3576) [facility] [id number] 19:17:00 Test Item Value Reference Range Interpretation Comments POCT PREG (test code = 1605) Negative On board controls acceptable with C Yes Line (test code = 3574) POCT PREG LOT # (test code = 3575) POCT PREG TEST DATE (test code = 3576) [facility]. METABOLIC PANEL (70757)2022-03-25 05:07:49 Test Item Value Reference Range Interpretation Comments NA (test code = 139 mmol/L 135-145 4309067490) K (test code = 4.2 mmol/L 3.5-5 1778203800) CL (test code = 103 mmol/L 98-108 2214711779) CO2 TOTAL (test code 24 mmol/L 23-31 = 2638952979) AGAP (test code = 2-16 6991426156) BUN (test code = 14 mg/dL 7-23 4899486714) GLUCOSE (test code = 100 mg/dL 70-110 4557603764) CREATININE (test code 0.63 mg/dL 0.5-1.04 = 9077581107) TOTAL BILI (test code 0.3 mg/dL 0.1-1.1 = 1569807621) CALCIUM (test code = 9.6 mg/dL 8.6-10.6 4952941839) T PROTEIN (test code 7.7 g/dL 6.3-8.2 = 6014611227) ALBUMIN (test code = 5.0 g/dL 3.5-5 6058746221) ALK PHOS (test code = 57 U/L 34-122 3575040946) ALTv (test code = 18 U/L 5-35 1742-6) AST(SGOT) (test code 29 U/L 13-40 = 8079708812) eGFR (test code = mL/min/1.73m2 9075559089) AYAKA (test code = AYAKA) Association of [...] or urine or abnormalities in imaging tests). [facility] WITH [id number] 05:07:08 Test Item Value Reference Range Interpretation [...] (test code = 38.2 fL 39-49.9 L 33768-7) RDW-CV (test code = 11.7 % 12-15.5 L 788-0) PLT (test code = See_Comment [Automated 777-3) message] The sy stem which generated this result transmitted reference range : 166 - 358 10*3/ ?L. The reference r kings was not used to interpret this result as normal/abnormal . MPV (test code = 9.7 fL 9.5-12.9 06749-9) NRBC/100 WBC (test See_Comment [Automat ed code = 8430868258) message] The system which generated this result transmitted reference range : 0.0 - 10.0 /100 WBCs. The refer ence range was not u sed to interpret th is result as normal/abnormal . NRBC x10^3 (test code See_Comment [Auto mated = 8269080997) message] The s ystem which generated this result transmitted reference range : 10*3/?L. The reference range was not used to interpret this result as normal/abnormal . GRAN MAT (NEUT) % 64.7 % (test code = 770-8) IMM GRAN % (test code 0.40 % = 3279127892) LYMPH % (test code = 26.8 % 736-9) MONO % (test code = 7.1 % 5905-5) EOS % (test code = 0.7 % 713-8) BASO % (test code = 0.3 % 706-2) GRAN MAT x10^3(ANC) 6.21 10*3/uL 1.88-7.09 (test code = 7900910136) IMM GRAN x10^3 (test 0.04 10*3/uL 0-0.06 code = 8039892511) LYMPH x10^3 (test code 2.57 10*3/uL 1.32-3.29 = 731-0) MONO x10^3 (test code 0.68 10*3/uL 0.33-0.92 = 742-7) EOS x10^3 (test code = 0.07 10*3/uL 0.03-0.39 711-2) BASO x10^3 (test code 0.03 10*3/uL 0.01-0.07 = 704-7) Lab Interpretation Abnormal (test code = 32438-8) [facility] Test Item Value Reference Range Interpretation Comments LIPASE (test code = 3222350948) 104 U/L 0-220 Lab Interpretation (test code = Normal 04179-6) [facility] [id number] 04:38:00 Test Item Value Reference Range Interpretation Comments POCT PREG (test code = 1605) Negative On board controls acceptable with Present C Line (test code = 3574) POCT PREG LOT # (test code = HCG 0729719 6307) POCT PREG TEST DATE (test 05/31/2023 code = 3576) Lab Interpretation (test code = Normal 82617-0) [facility]"
[2023-02-22] MEDS ORDERED: ACETAMINOPHEN 500 MG TAB ONE (14:22)
[2023-02-22] MEDS ORDERED: NA CHLORIDE 0.9% 1,000 ML ONE ×2 (14:22→18:17)
[2023-02-22 14:27] LABS: Absolute Lymphocytes (CBC) 0.7 K/uL (0.7-4.9); Hematocrit 35.6 % (36.0-45.0); Lymphocytes % 4.4 % (15.3-44.8); MCV 95.2 fL (80-100); MPV 7.7 fL (7.6-11.3); Platelets 228 thou/uL (152-406); RBC Red Blood Cell Count 3.74 M/uL (3.86-4.86)
[2023-02-22 14:31] LABS: Protime INR 1.1
[2023-02-22 14:44] LABS: Albumin 3.5 g/dL (3.4-5.0); Bilirubin Total 0.4 mg/dL (0.2-1.0); Potassium 3.6 mEq/L (3.5-5.1); Protein, Total 7.1 g/dL (6.4-8.2)
--- NOTE | 2023-02-22 15:33 | ER ---
Nurse's Notes [facility] Name: Miko Black Age: 27 yrs Sex: Female : 1995 Arrival Date: 02/22/2023 Time: 13:46 Bed 12 Private MD: Diagnosis: Pyelonephritis acute;Sepsis, unspecified organism Presentation: 02/22 13:50 Chief complaint: EMS states: pt was here this morning for left lower back pain and sent kc6 home with a diagnosis of a UTI and given antibiotics. pt began shaking at approximately 1300 today. temp on arrival 102.8. Coronavirus screen: At this time, the client does not indicate any symptoms associated with coronavirus-19. Ebola Screen: No symptoms or risks identified at this time. Initial Sepsis Screen: Does the patient meet any 2 criteria? Temp <36.0*C (96.8*F)) or > 38.3*C (100.9*F). HR > 90 bpm. Does the patient have a suspected source of infection? No. Patient's initial sepsis screen is negative. Risk Assessment: Do you want to hurt yourself or someone else? Patient reports no desire to harm self or others. Onset of symptoms was February 22, 2023. 13:50 Method Of Arrival: EMS: [facility] 13:50 Acuity: BLAIR 3 kc6 Triage Assessment: 13:51 General: Appears in no apparent distress. comfortable, Behavior is calm, cooperative, kc6 appropriate for age. Pain: Denies pain. EENT: No signs and/or symptoms were reported regarding the EENT system. Neuro: Level of Consciousness is awake, alert, obeys commands, Oriented to person, place, time, situation, Appropriate for age. Cardiovascular: Capillary refill < 3 seconds Rhythm is sinus tachycardia. Respiratory: Airway is patent Trachea midline Respiratory effort is even, unlabored, Respiratory pattern is regular, symmetrical. GI: No signs and/or symptoms were reported involving the gastrointestinal system. Derm: No signs and/or symptoms reported regarding the dermatologic system. Skin is intact, is healthy with good turgor, Skin is pink, warm \T\ dry. Musculoskeletal: No signs and/or symptoms reported regarding the musculoskeletal system. Circulation, motion, and sensation intact. Capillary refill < 3 seconds, Range of motion: intact in all extremities. Historical: - Allergies: 13:51 Motrin; kc6 - PMHx: 13:51 None; kc6 - PSHx: 13:51 None; kc6 - Immunization history:: Adult Immunizations up to date. - Social history:: Smoking status: Patient denies any tobacco usage or history of. - Family history:: not pertinent. Screenin:53 [facility] ED Fall Risk Assessment (Adult) History of falling in the last 3 months, kc6 including since admission No falls in past 3 months (0 pts) Confusion or Disorientation No (0 pts) Intoxicated or Sedated No (0 pts) Impaired Gait No (0 pts) Mobility Assist Device Used No (0 pt) Altered Elimination No (0 pt) Score/Fall Risk Level 0 - 2 = Low Risk. Abuse screen: Denies threats or abuse. Denies injuries from another. Nutritional screening: No deficits noted. Tuberculosis screening: No symptoms or risk factors identified. Assessment: 13:50 Reassessment: please see triage assessment. kc6 14:50 Reassessment: Patient appears in no apparent distress at this time. No changes from [facility] previously documented assessment. Patient and/or family updated on plan of care and expected duration. Pain level reassessed. Patient is alert, oriented x 3, equal unlabored respirations, skin warm/dry/pink. 15:55 Reassessment: Patient appears in no apparent distress at this time. No changes from 6 previously documented assessment. Patient and/or family updated on plan of care and expected duration. Pain level reassessed. Patient is alert, oriented x 3, equal unlabored respirations, skin warm/dry/pink. 16:40 Reassessment: Patient appears in no apparent distress at this time. No changes from 6 previously documented assessment. Patient and/or family updated on plan of care and expected duration. Pain level reassessed. Patient is alert, oriented x 3, equal unlabored respirations, skin warm/dry/pink. Vital Signs: 13:50 BP 112 / 75; Pulse 122; Resp 18 S; Temp 102.8(O); Pulse Ox 95% on R/A; Weight 63.5 kg kc6 (R); Height 5 ft. 1 in. (R); Pain 0/10; 15:42 BP 103 / 72; Pulse 98; Resp 17 S; Temp 100(O); kc6 16:43 BP 91 / 62; Pulse 85; Resp 18 S; Temp 99.2(O); Pulse Ox 100% on R/A; kc6 13:50 Body Mass Index 26.45 (63.50 kg, 154.94 cm) kc6 13:50 Pain Scale: Adult kc6 ED Course: 13:48 Patient arrived in ED. sb4 13:48 Deon Katz MD is Attending Physician. rt 13:49 Monica Clark RN is Primary Nurse. kc6 13:51 Triage completed. kc6 13:51 Arm band placed on. kc6 13:53 Patient has correct armband on for positive identification. Bed in low position. Call kc6 light in reach. Side rails up X2. Adult w/ patient. 14:15 First set of blood cultures drawn by me, Second set of blood cultures drawn by me. ds4 14:18 Inserted saline lock: 22 gauge in right antecubital area, using aseptic technique. ds4 Blood collected. 15:33 Nino Cunningham is Hospitalizing Provider. rt 15:56 CT Abd/Pelvis - IV Contrast Only In Process Unspecified. EDMS 17:14 No provider procedures requiring assistance completed. Patient admitted, IV remains in kc6 place. Administered Medications: 14:23 Drug: Acetaminophen PO 1000 mg Route: PO; kc6 15:42 Follow up: Response: No adverse reaction; Temperature is decreased; Pain is decreased kc6 14:23 Drug: NS 0.9% IV 1000 ml Route: IV; Rate: 1 bolus; Site: right antecubital; kc6 17:15 Follow up: Response: No adverse reaction; IV Status: Completed infusion; IV Intake: kc6 1000ml 15:41 Drug: Rocephin - Rocephin (cefTRIAXone) IVPB 1 grams Route: IVPB; Infused Over: 30 kc6 mins; Site: right antecubital; 16:44 Follow up: Response: No adverse reaction; IV Status: Completed infusion; IV Intake: [id number] Medication: 17:15 VIS not applicable for this client. kc6 Intake: 16:44 IV: 50ml; Total: 50ml. kc6 17:15 IV: 1000ml; Total: 1050ml. kc6 Outcome: 15:33 Decision to Hospitalize by Provider. rt 17:14 Admitted to Med/surg accompanied by tech, via wheelchair, room 213, with chart, Report kc6 called to Lenore Alegria RN 17:14 Condition: improved 17:14 Instructed on the need for admit. 17:29 Patient left the ED. [email or web address] Signatures: Dispatcher [employer] EDTom Tapia ds4 Monica Clark RN RN kc6 Sharron Colmenares, PA-C PA-C sb4 Deon Katz MD MD rt Corrections: (The following items were deleted from the chart) 15:42 13:15 Reassessment: please see triage assessment josh moreno
--- NOTE | 2023-02-22 15:33 | EDPHYS ---
Physician Documentation [facility] Name: Miko Black Age: 27 yrs Sex: Female : 1995 Arrival Date: 02/22/2023 Time: 13:46 Bed 12 Private MD: ED Physician Deon Katz HPI: 02/22 14:03 This 27 yrs old Female presents to ER via EMS with complaints of Fever, Back rt Pain. 14:03 Patient was seen here earlier today for right flank pain, was diagnosed with a UTI, rt given Rocephin and subsequently discharged. Few hours later, the patient developed an acute onset of chills and shaking. Denies other worsening of the symptoms. Denies other acute complaints at this time. Symptoms are moderate in severity, no other aggravating or alleviating factors.. Historical: - Allergies: 13:51 Motrin; kc6 - PMHx: 13:51 None; kc6 - PSHx: 13:51 None; kc6 - Immunization history:: Adult Immunizations up to date. - Social history:: Smoking status: Patient denies any tobacco usage or history of. - Family history:: not pertinent. ROS: 14:03 Cardiovascular: Negative for chest pain, palpitations, and edema, Respiratory: Negative rt for shortness of breath, cough, wheezing, and pleuritic chest pain, Abdomen/GI: Negative for abdominal pain, nausea, vomiting, diarrhea, and constipation, Skin: Negative for injury, rash, and discoloration, Neuro: Negative for headache, weakness, numbness, tingling, and seizure, Psych: Negative for depression, anxiety, suicide ideation, homicidal ideation, and hallucinations. 14:03 Constitutional: Positive for chills, fever. 14:03 Back: Positive for flank pain, Negative for injury or acute deformity. Exam: 14:03 Constitutional: This is a well developed, well nourished patient who is awake, alert, rt and in no acute distress. Head/Face: Normocephalic, atraumatic. Chest/axilla: Normal chest wall appearance and motion. Nontender with no deformity. No lesions are appreciated. Cardiovascular: Regular rate and rhythm with a normal S1 and S2. No gallops, murmurs, or rubs. Normal PMI, no JVD. No pulse deficits. Respiratory: Lungs have equal breath sounds bilaterally, clear to auscultation and percussion. No rales, rhonchi or wheezes noted. No increased work of breathing, no retractions or nasal flaring. Abdomen/GI: Soft, non-tender, with normal bowel sounds. No distension or tympany. No guarding or rebound. No evidence of tenderness throughout. Skin: Warm, dry with normal turgor. Normal color with no rashes, no lesions, and no evidence of cellulitis. MS/ Extremity: Pulses equal, no cyanosis. Neurovascular intact. Full, normal range of motion. Neuro: Awake and alert, GCS 15, oriented to person, place, time, and situation. Cranial nerves II-XII grossly intact. Motor strength 5/5 in all extremities. Sensory grossly intact. Cerebellar exam normal. Normal gait. Psych: Awake, alert, with orientation to person, place and time. Behavior, mood, and affect are within normal limits. 14:24 ECG was reviewed by the Attending Physician. rt Vital Signs: 13:50 BP 112 / 75; Pulse 122; Resp 18 S; Temp 102.8(O); Pulse Ox 95% on R/A; Weight 63.5 kg kc6 (R); Height 5 ft. 1 in. (R); Pain 0/10; 15:42 BP 103 / 72; Pulse 98; Resp 17 S; Temp 100(O); kc6 16:43 BP 91 / 62; Pulse 85; Resp 18 S; Temp 99.2(O); Pulse Ox 100% on R/A; kc6 13:50 Body Mass Index 26.45 (63.50 kg, 154.94 cm) kc6 13:50 Pain Scale: Adult kc6 MDM: 13:49 Patient medically screened. rt 17:03 Differential diagnosis: bacterial infection, Sepsis, pyelonephritis. Data reviewed: rt vital signs, nurses notes, lab test result(s), radiologic studies. Consideration of Admission/Observation Patient was admitted/placed on observation. Management of patient was discussed with the following: Hospitalist: Agrees to admit. Independent interpretation of the following test(s) in the Emergency Department CT Scan: My interpretation is No stones seen on interpretation of the CT scan images. Counseling: I had a detailed discussion with the patient and/or guardian regarding the historical points, exam findings, and any diagnostic results supporting the discharge/admit diagnosis, lab results, the need for further work-up and treatment in the hospital. Response to treatment: the patient's symptoms have markedly improved after treatment. 02/22 13:56 Order name: Blood Culture Adult (2) rt 02/22 13:56 Order name: CBC with Diff; Complete Time: 14:46 rt 02/22 13:56 Order name: CMP; Complete Time: 14:46 rt 02/22 13:56 Order name: Lactate w/ 2H reflex if indic.; Complete Time: 14:46 rt 02/22 13:56 Order name: Protime (+inr); Complete Time: 14:46 rt 02/22 13:56 Order name: Ptt, Activated; Complete Time: 14:46 rt 02/22 15:32 Order name: CT Abd/Pelvis - IV Contrast Only; Complete Time: 16:24 rt 02/22 13:56 Order name: EKG; Complete Time: 14:08 rt 02/22 13:56 Order name: Accucheck; Complete Time: 14:11 rt 02/22 13:56 Order name: Cardiac monitoring; Complete Time: 14:23 rt 02/22 13:56 Order name: EKG - Nurse/Tech; Complete Time: 14:23 rt 02/22 13:56 Order name: IV Saline Lock - Large Bore; Complete Time: 14:11 rt 02/22 13:56 Order name: Labs collected and sent; Complete Time: 14:11 rt 02/22 13:56 Order name: O2 Per Protocol; Complete Time: 14:10 rt 02/22 13:56 Order name: O2 Sat Monitoring; Complete Time: 14:10 rt 02/22 13:56 Order name: Vital Signs; Complete Time: 14:10 rt EC: Rate is 114 beats/min. Rhythm is regular, Sinus tachycardia with No ectopy. Right axis rt deviation noted. WA interval is normal. QRS interval is normal. QT interval is normal. No Q waves. T waves are Normal. No ST changes noted. Interpreted by me. Administered Medications: 14:23 Drug: Acetaminophen PO 1000 mg Route: PO; kc6 15:42 Follow up: Response: No adverse reaction; Temperature is decreased; Pain is decreased kc6 14:23 Drug: NS 0.9% IV 1000 ml Route: IV; Rate: 1 bolus; Site: right antecubital; kc6 17:15 Follow up: Response: No adverse reaction; IV Status: Completed infusion; IV Intake: kc6 1000ml 15:41 Drug: Rocephin - Rocephin (cefTRIAXone) IVPB 1 grams Route: IVPB; Infused Over: 30 kc6 mins; Site: right antecubital; 16:44 Follow up: Response: No adverse reaction; IV Status: Completed infusion; IV Intake: [id number] Disposition Summary: 02/22/23 15:33 Hospitalization Ordered Hospitalization Status: Inpatient Admission rt Provider: Nino Cunningham [facility] rt Condition: Stable rt Problem: new rt Symptoms: have improved rt Bed/Room Type: Standard rt Room Assignment: 213(02/22/23 17:06) dw Diagnosis - Pyelonephritis acute rt - Sepsis, unspecified organism rt Forms: - Medication Reconciliation Form rt - SBAR form rt - Leadership Thank You Letter rt Signatures: Dispatcher [employer] Edna Guzman RN RN dw Monica Clark RN RN kc6 Deon Katz MD MD rt Corrections: (The following items were deleted from the chart) 17: 15:33 rt dw
[2023-02-22] MEDS ORDERED: CEFTRIAXONE 1000 MG/VIAL ONE (15:48)
--- NOTE | 2023-02-22 16:12 | RAD REPORT ---
EXAM DESCRIPTION: CT - Abdomen Pelvis W Contrast - 02/22/2023 3:55 pm CLINICAL HISTORY: Abdominal pain COMPARISON: none. TECHNIQUE: Computed axial tomography of the abdomen pelvis was obtained. 100 cc Isovue-300 was admin istered intravenously. Oral contrast was not requested which limits evaluation of bowel and appendix All CT scans are performed using dose optimization technique as appropriate and may include automated exposure control or mA/KV adjustment according to patient size. FINDINGS: The liver, spleen, pancreas, adrenal and kidneys appear unremarkable. Enhancement of the left ureteral wall. Mild bladder wall thickening There is no evidence of diverticulitis. Normal appendix 2 centimeter right ovarian cyst without significant free fluid. No follow-up recommended IMPRESSION: Enhancement of the left ureteral wall with mild bladder wall thickening may indicate inf ection
--- NOTE | 2023-02-22 16:48 | P.HP ---
Certification for Inpatient Patient admitted to: Inpatient With expected LOS: >2 Midnights Practitioner: I am a practitioner with admitting privileges, knowledge of patient current condition, hospital course, and medical plan of care. Services: Services provided to patient in accordance with Admission requirements found in Title 42 Section 412.3 of the Code of Federal Regulations Patient History Date of Service: 02/22/23 Reason for admission: Left flank pain, History of Present Illness: 27-year-old male with no known past medical history presented to the emergency department with a complaint left flank pain onset yesterday. Patient reports foul-smelling urine of 2 days duration. She presents to the emergency department this morning where her UA suggested the presence of UTI. Patient was given IV Rocephin and discharged home. She returned to the emergency department about 3 hours later complaining of chills, worsening left flank pain. CT abdomen pelvis done in the emergency department demonstrated enhancement of the left ureteral wall with mild bladder wall thickening which may indicate infection. Patient meets criteria for sepsis with leukocytosis, tachycardia and fever. She is hospitalized for further management. Allergies ibuprofen [From Motrin] Allergy (Mild, Verified 08/02/11 14:48) Hives/Rash Home Medications: Iron Bis-Gly/FA/C/B12/Ca/Succ [Iron 21/7 Tablet] 1 tab PO DAILY 10/10/16 Pnv 30/Iron Carb,Ag/Folic/Om3 [Ob Complete with Dha Softgel] 1 cap PO DAILY 10/10/16 Tramadol HCl [Ultram] 50 mg PO Q6HR #15 tablet 10/20/17 - Past Medical/Surgical History Diabetic: No -: Denies -: No past medical history - Social History Smoking Status: Former smoker (Quit about 2 weeks ago) Alcohol use: Yes CD- Drugs: No Caffeine use: No Review of Systems Other: Patient denied any diarrhea. She denied any nausea vomiting. She denied any abdominal pain. Except as documented, all other systems reviewed and negative. Physical Examination - Physical Exam General: Alert, In no apparent distress, Oriented x3 HEENT: Mucous membr. moist/pink Neck: Supple, JVD not distended Respiratory: Clear to auscultation bilaterally, Normal air movement Cardiovascular: No edema, Regular rate/rhythm, Normal S1 S2 Gastrointestinal: Normal bowel sounds, Soft and benign, Non-distended, Other Musculoskeletal: No swelling, No tenderness Integumentary: No rashes, No cyanosis Neurological: Normal speech, Normal strength at 5/5 x4 extr, Cranial nerves 3-12 intact Lymphatics: No axilla or inguinal lymphadenopathy - Studies Laboratory Data (last 24 hrs) 02/22/23 02/22/23 02/22/23 14:15 14:15 14:15 WBC 15.10 H Hgb 12.1 Hct 35.6 L Plt Count 228 PT 12.1 INR 1.10 APTT 30.6 Sodium 136 Potassium 3.6 BUN 12 Creatinine 0.73 Glucose 106 Total Bilirubin 0.4 AST 9 L ALT 17 Alkaline Phosphatase 50 Assessment and Plan - Problems (Diagnosis) (1) Sepsis Current Visit: Yes Status: Acute (2) Acute pyelonephritis Current Visit: Yes Status: Acute - Plan Admit to the medical floor. Aggressive IV hydration IV Rocephin Follow urine culture and blood cultures Supportive measures with pain management as needed. Diet as tolerated. Monitor CBC to follow leukocytosis - Advance Directives Does patient have a Living Will: No Does patient have a Durable POA for Healthcare: No
[2023-02-22 17:36] VITALS: O2SAT 100
[2023-02-22] MEDS ORDERED: ONDANSETRON 4 MG/2 ML VIAL IV PRN (17:57)
[2023-02-22] MEDS: NA CHLORIDE 0.9% 1,000 ML IV SCH (17:57)
[2023-02-22 18:18] VITALS: BMI 26.4
[2023-02-22] MEDS: ACETAMINOPHEN 500 MG TAB PO PRN (18:52)
[2023-02-22] MEDS: CEFTRIAXONE 1,000 MG in NA CHLORIDE 0.9% 50 ML IVPB SCH (20:11)
[2023-02-23] MEDS: HYDROCODONE/APAP 5/325 MG TAB PO PRN ×6 (00:06→21:26)
[2023-02-23] MEDS: NA CHLORIDE 0.9% 1,000 ML IV SCH ×3 (04:34→15:13)
[2023-02-23 06:59] LABS: Absolute Lymphocytes (CBC) 1.4 K/uL (0.7-4.9); Hematocrit 33.1 % (36.0-45.0); Lymphocytes % 10.2 % (15.3-44.8); MCV 95.8 fL (80-100); MPV 7.9 fL (7.6-11.3); Platelets 201 thou/uL (152-406); RBC Red Blood Cell Count 3.46 M/uL (3.86-4.86)
[2023-02-23 07:13] LABS: Magnesium 1.7 mg/dL (1.6-2.4); Phosphorus 3.1 mg/dL (2.5-4.9)
[2023-02-23] MEDS ORDERED: MAGNESIUM SULFATE 1 gm IVPB 1 GM/100 ML BAG IV ONE (08:08)
[2023-02-23] MEDS: CEFTRIAXONE 1,000 MG in NA CHLORIDE 0.9% 50 ML IVPB SCH (08:16)
[2023-02-23] MEDS: ENOXAPARIN 40 MG/0.4 ML SQ SCH (08:16)
[2023-02-23] MEDS: levoFLOXacin 750 MG TAB PO SCH (15:13)
--- NOTE | 2023-02-23 15:23 | EKG ---
Test Date: 2023-02-22 Test Time: 14:19:07 Equipment Service Associate: SAMANTA MEASUREMENT RESULTS: Intervals: Rate: 114 MO: 136 QRSD: 84 QT: 340 QTc: 468 [place]: P: 70 MO: 136 QRS: 100 T: 59 INTERPRETIVE STATEMENTS: Sinus tachycardia Rightward axis Borderline ECG Compared to ECG 08/05/2014 17:39:10 Sinus rhythm no longer present Sinus arrhythmia no longer present Electronically Signed On 02-23-23 15:21:23 CDT by Kit Garner
[2023-02-23] MEDS: ACETAMINOPHEN 500 MG TAB PO PRN (16:07)
[2023-02-23 17:55] LABS: Specific Gravity 1.012 (1.005-1.030); Urine Bacteria <20 /HPF (<20); Urine Bilirubin NEGATIVE (Negative); Urine Blood 2+ (Negative); Urine Clarity Clear (Clear); Urine Color Colorless (Yellow); Urine Glucose NEGATIVE (Negative); Urine Mucus Slight /HPF (None Seen); Urine Protein NEGATIVE (Negative); Urine RBC 21-50 /HPF (None Seen); Urine Urobilinogen Normal (Normal); Urine pH 6.5 (5.0-7.0)
--- NOTE | 2023-02-23 18:03 | P.PN ---
Subjective Date of Service: 02/23/23 Chief Complaint: Left flank pain, Patient reports general fatigue, intermittent left flank pain. Overall she stated her symptoms are better today compared to yesterday. Patient had an episode of fever today. Physical Examination - Vital Signs Temperature: 99.4 F Blood Pressure: 106/70 Pulse: 104 Respirations: 16 Pulse Ox (%): 100 Assessment And Plan - Current Problems (Diagnosis) (1) Sepsis Current Visit: Yes Status: Acute (2) Acute pyelonephritis Current Visit: Yes Status: Acute - Plan Blood cultures: No growth in 24 hours Urine culture; GNR. Previous urine cultures have grown E. coli. Continue IV fluid Continue IV Rocephin Follow urine culture and blood cultures Supportive measures with pain management as needed. Diet as tolerated. Leukocytosis improved slightly. Monitor CBC to follow leukocytosis
[2023-02-24] MEDS: HYDROCODONE/APAP 5/325 MG TAB PO PRN ×2 (01:14→10:46)
[2023-02-24] MEDS: NA CHLORIDE 0.9% 1,000 ML IV SCH ×2 (01:15→09:57)
[2023-02-24 07:41] LABS: Potassium 4.7 mEq/L (3.5-5.1)
--- NOTE | 2023-02-24 08:52 | P.DS ---
Admission Date: 02/22/23 Discharge Date: 02/24/23 Disposition: ROUTINE DISCHARGE Discharge Condition: FAIR Reason for Admission: Left flank pain, - Problems (1) Sepsis Current Visit: Yes Status: Acute (2) Acute pyelonephritis Current Visit: Yes Status: Acute Brief History of Present Illness: 27-year-old male with no known past medical history presented to the emergency department with a complaint left flank pain onset yesterday. Patient reports foul-smelling urine of 2 days duration. She presents to the emergency department this morning where her UA suggested the presence of UTI. Patient was given IV Rocephin and discharged home. She returned to the emergency department about 3 hours later complaining of chills, worsening left flank pain. CT abdomen pelvis done in the emergency department demonstrated enhancement of the left ureteral wall with mild bladder wall thickening which may indicate infection. Patient meets criteria for sepsis with leukocytosis, tachycardia and fever. She was hospitalized for further management. Hospital Course: Patient admitted to the medical floor and treated with IV Rocephin for UTI. Blood cultures with no growth. Urine culture grew pansensitive E. coli. Antibiotics transition to oral Levaquin. Patient tolerated regular diet and was ambulatory. Her left flank pain improved with treatment. She is prescribed oral Levaquin to continue treatment for UTI as outpatient. Vital Signs/Physical Exam: Temp Pulse Resp BP Pulse Ox 98.6 F 81 16 97/60 98 02/24/23 04:00 02/24/23 04:00 02/24/23 04:00 02/24/23 04:00 02/24/23 04:00 General: Alert, In no apparent distress, Oriented x3 HEENT: Mucous membr. moist/pink Neck: Supple, JVD not distended Respiratory: Clear to auscultation bilaterally, Normal air movement Cardiovascular: No edema, Regular rate/rhythm, Normal S1 S2 Gastrointestinal: Normal bowel sounds, Soft and benign, Non-distended, No tenderness Musculoskeletal: No swelling Integumentary: No rashes Neurological: Normal strength at 5/5 x4 extr Laboratory Data at Discharge: WBC 13.20 thou/uL (4.3-10.9) H 02/23/23 06:35 Hgb 11.4 g/dL (12.0-15.0) L 02/23/23 06:35 Hct 33.1 % (36.0-45.0) L 02/23/23 06:35 Plt Count 201 thou/uL (152-406) 02/23/23 06:35 PT 12.1 SECONDS (9.5-12.5) 02/22/23 14:15 INR 1.10 02/22/23 14:15 APTT 30.6 SECONDS (24.3-36.9) 02/22/23 14:15 Sodium 137 mEq/L (136-145) 02/24/23 07:17 Potassium 4.7 mEq/L (3.5-5.1) D 02/24/23 07:17 BUN 4 mg/dL (7-18) L 02/24/23 07:17 Creatinine 0.63 mg/dL (0.55-1.02) 02/24/23 07:17 Glucose 106 mg/dL (74-106) 02/24/23 07:17 Phosphorus 3.1 mg/dL (2.5-4.9) 02/23/23 06:35 Magnesium 1.7 mg/dL (1.6-2.4) 02/23/23 06:35 Total Bilirubin 0.4 mg/dL (0.2-1.0) 02/22/23 14:15 AST 9 U/L (15-37) L 02/22/23 14:15 ALT 17 U/L (13-56) 02/22/23 14:15 Alkaline Phosphatase 50 U/L (45-117) 02/22/23 14:15 Home Medications: Iron Bis-Gly/FA/C/B12/Ca/Succ [Iron 21/7 Tablet] 1 tab PO DAILY 10/10/16 Pnv 30/Iron Carb,Ag/Folic/Om3 [Ob Complete with Dha Softgel] 1 cap PO DAILY 10/10/16 levoFLOXacin [Levaquin*] 750 mg PO DAILY #7 tab 02/24/23 traMADol HCL [Ultram*] 50 mg PO Q6H PRN #15 tab 02/24/23 New Medications: levoFLOXacin [Levaquin*] 750 mg PO DAILY #7 tab traMADol HCL [Ultram*] 50 mg PO Q6H PRN #15 tab PRN Reason: Pain Diet: AHA Activity: Ad kelin Followup: NONE,NONE [Primary Care Provider] - Time spent managing pt's care (in minutes): 35
[2023-02-24 08:54] VITALS: BP 111/70; TEMP 97.8
[2023-02-24] MEDS: ENOXAPARIN 40 MG/0.4 ML SQ SCH (08:54)
[2023-02-24] MEDS: levoFLOXacin 750 MG TAB PO SCH (08:57)
== END 2023-02-24 13:15 | disposition home or self-care (01) | DRG 872 ==
LOC: ER 13:46 → 2ND 16:30
PROVIDERS: ADMIT Internal Medicine; ATTEND Internal Medicine
DX: A41.9 Sepsis, unspecified organism (principal); N10 Acute pyelonephritis; B96.20 Unspecified Escherichia coli [E. coli] as the cause of diseases classified elsewhere; Z79.899 Other long term (current) drug therapy; Z88.8 Allergy status to other drugs, medicaments and biological substances; Z87.891 Personal history of nicotine dependence
CPT/HCPCS: 36415; 74177; 80048; 80053; 81001; 81025; 83605; 83735; 84100; 85025; 85610; 85730; 87040; 87077; 87086; 87088; 87186; 93005; 96361; 96365; 96372; 99284; 99285; J0696; J1650; J3475; J7030; Q9967

== ENCOUNTER 2023-04-16 13:54 | Emergency (ER) | payer OTHER ==
--- OUTSIDE RECORDS SUMMARY | 2023-04-16 13:58 | XMS REPORT | Continuity of Care Document ---
:1995 Author Organization [facility] t Address [address] [facility] [address] [place] [address] Care Team Providers Name Role Phone Caro Baird CNM Primary Care Physician [phone] Doctor Unassigned, [place] Attending Clinician Unavailable Jeremiah PALMER, Tamara Dominguez Attending Clinician HADLEY BELL Attending Clinician Unavailable Artem Noriega MD Attending Clinician Therese MANUEL, Mehran Miner Attending Clinician Hadley Bell DO Attending Clinician Caro Baird CNM Attending Clinician CARO BAIRD Attending Clinician Unavailable AMY JESUS Attending Clinician Unavailable [facility], [facility] Attending Clinician Unavailable MARSHA ROMAN Attending Clinician Unavailable Marsha Lindsay Attending Clinician Roger Joanna VALADEZ Attending Clinician [phone] JOANNA TALBOT Attending Clinician Unavailable EVERARDO GARCES Attending Clinician Unavailable Everardo Dill Attending Clinician Amy Barrera Attending Clinician [place] Attending Clinician [place] Attending Clinician Unavailable HADLEY BELL Admitting Clinician Unavailable Hadley Bell DO Admitting Clinician Payers Payer Name Policy Type Policy Number Effective Date Expiration Date Jack barrientos [place] [id number] 2021 00:00:00 MEDICAID PENDING PENDING 2021 00:00:00 Problems Condition Condition Condition Status Onset Resolution Last Treating Co mments Source Name Details Category Date Date Treatment Clinician Date Febrile Febrile Disease Active Univers illness illness 8-26 ity of 00:00: [address] Engages in Engages in Disease Active U nivers vaping vaping 6-23 ity of 00:00: [address] Overweight Overweight Disease Active U nivers (BMI (BMI 6-23 ity of 25.0-29.9) 25.0-29.9[place] [address] [place] [address] Supervisio Supervisio Disease Active U nivers n of n of 4-08 ity of high-risk high-risk 00:[place] 00 [facility] Multiparit Multiparit Disease Active U nivers y y 4-08 ity of 00:00: [address] Encounter Encounter Disease Active Uni vers for IUD for IUD 2-09 ity of removal removal 00:00: [address] Chlamydia Chlamydia Disease Active Uni vers trachomati trachomati 8-19 it y of s s 00:00: [place] infection infection 00 [facility] genitourin genitourin amber sites amber sites Allergies, Adverse Reactions, Alerts Allergy Allergy Status Severity Reaction(s) Onset Inactive Treating Comm ents Source Name Type Date Date Clinician IBUPROFE DRUG Active Swelling Univer s N INGREDI - ity of 00:00: [address] Ibuprofe Propensi Active Swelling Univ ers n ty to 07-30 ity of adverse 00:00: [place] reaction [address] [place] [address] Social History Social Habit Start Date Stop Date Quantity Comments Source ASSERTION 2021-08-11 University of 00:00:00 [facility] [place] [facility] Gender identity [facility]it y [facility] [place] [facility] Sexual orientation [facility] History [facility] o f Alcohol Frequency [place] M [facility] History [facility] o f Alcohol Std Drinks [facility] [place] [facility] History [facility] o f Alcohol Binge [place] [facility] Alcohol intake 2023-02-24 2023-02-24 Ex-drinker [facility] 00:00:00 00:00:00 (finding) [facility] [place] [facility] Education 2023-02-24 2023-02-24 13 [facility] 00:00:00 00:00:00 [facility] [place] [facility] Exposure to 2022-05-07 2022-05-17 Not sure [facility] SARS-CoV-2 (event) 00:00:00 10:57:00 [facility] [place] [facility] Tobacco use and 2022-05-17 2022-05-17 Smokeless Universit y of exposure 00:00:00 00:00:00 tobacco non-user [facility] dical [place] History of Social 2022-05-17 2022-05-17 Univers ity of function 00:00:00 00:00:00 [facility] [place] [facility] Alcohol Comment 2021-02-16 2021-02-16 social Universit y of 00:00:00 00:00:00 [facility] [place] [facility] Sex Assigned At [birth year] Universit y of 00:00:00 00:00:00 [facility] [place] [facility] Smoking Status Start Date Stop Date Source Never smoked tobacco [facility] Medications Ordered Filled Start Stop Current Ordering Indication Dosage Frequency Signature Comments Components Source Medication Medication Date Date Medication? Clinician (SIG) Name Name levoFLOXaci Yes 750mg Take 1 Uni vers n 750 mg 8-29 tablet by ity of tablet 00:00: mouth [place] 00 every 24 Medical (twenty-fo Branch ur) hours. levoFLOXaci Yes 750mg Take 1 Uni vers n 750 mg 8-29 tablet by ity of tablet 00:00: mouth [place] 00 every 24 Medical (twenty-fo Branch ur) hours. levoFLOXaci Yes 750mg Take 1 Uni vers n 750 mg 8-29 tablet by ity of tablet 00:00: mouth [place] 00 every 24 Medical (twenty-fo Branch ur) hours. ceFEPIme 2022- Yes 1000mg 1,000 mg, U nivers (MAXIPIME) 02-25 IV ity of 1,000 mg in 14:30: 14:29 [place], [place] NaCl 0.9% 00 :00 Q8H ABX, Medica l (NS) 100 mL 21 doses, Bra [facility] MINI-BAG First dose on [place] 02/25/23 at 0930, Last dose on [place] 03/04/23 at 0130, Administer over 4 Hours, 100 mL
Reas on for Anti-Infec tive: Documented Infection& lt;br>Docu mented Infection Site: Urine
D uration of Therapy: 7 days enoxaparin Yes 40mg 40 mg, Unive rs (LOVENOX) 02-25 Subcutaneo ity of injection 14:00: [place] 40 [place] 00 First dose Medical on [facility] 02/25/23 at 0900, Until Discontinu ed, Routine ceFEPIme 2022- No 1000mg 1,000 mg, U nivers (MAXIPIME) 02-25 IV ity of 1,000 mg in 06:30: 06:03 [place], [place] NaCl 0.9% 00 :00 ONCE, 1 Medical (NS) 100 mL dose, On [facility] MINI-BAG [place] 02/25/23 at 0130, Administer over 30 Minutes, 100 mL
Reas on for Anti-Infec tive: Empiric Therapy for Suspected Infection< br>Empiric Therapy Site: Urine
D uration of therapy: 72 hours NaCl 0.9% 2022- No 1000mL at 125 Uni vers (NS) IV 02-25 mL/hr, IV ity of infusion 01:00: 15:46 Infusion, Juan David as 1,000 mL 00 :48 CONTINUOUS Medic al , Starting Branch on 02/24/23 at 2000, Until 02/27/23 at 1046, Routine HYDROcodone 2022- No 1{tbl} 1 tablet, Univers -acetaminop 02-24 Oral, ity of hen (NORCO 23:48: 23:47 Q6HPRN, Juan David as 5) 5-325 mg 31 :31 Starting Medi keysha tablet 1 on Sat Branch tablet 02/24/23 at 1848, Until 02/26/23 at 1847, Routine, Pain (scale 4-6) acetaminoph Yes 650mg 650 mg, Un shamar en 02-24 Oral, ity of (TYLENOL) 23:48: [place], [place] tablet 650 21 Starting Medic al mg on [facility] Branch 02/24/23 at 1848, Until Discontinu ed, Routine, Pain (scale 1-3), Temp > 38 C cefTRIAXone 2022- No 1000mg 1,000 mg, Univers (ROCEPHIN) 02-24 IV ity of 1,000 mg in 22:45: 23:01 [place], [place] NaCl 0.9% 00 :00 ONCE, 1 Medical (NS) 100 mL dose, On Bran ch MINI-BAG [facility] 02/24/23 at 1745, Administer over 30 Minutes, 100 mL
Reas on for Anti-Infec tive: Empiric Therapy for Suspected Infection< br>Empiric Therapy Site: Urine
D uration of therapy: 72 hours NaCl 0.9% 2022- No 30mL/kg at 999 Un shamar (NS) bolus 02-24 mL/hr, ity of infusion 22:45: 22:29 1,905 mL [place] 1,905 mL 00 :00 (30 mL/kg Medica l ?63.5 kg), [place] IV Infusion, ONCE, 1 dose, On [facility] 02/24/23 at 1745, NIKITA acetaminoph 2022- No 650mg 650 mg, U nivers en 02-24 Oral, ity of (TYLENOL) 22:30: 22:33 ONCE, 1 [place] tablet 650 00 :00 dose, On Medic al mg [facility] Branch 02/24/23 at 1730, NIKITA metroNIDAZO 2022- No [id number] 2000mg Take 4 Univers LE 500 mg 12-21 tablets by ity of tablet 00:00: 04:59 [place] 00 :00 now for 1 Medical dose. [place] maalox:diph 2021- No [id number] 15mL 15 mL, Univers enhydrAMINE 03-25 Oral, ity of :lidocaine 04:45: 04:44 ONCE, 1 [place] David as 2 % viscous 00 :00 dose, On [facility] 1:1:1 Fri Branch (FIRST-MOUT 03/24/22 at [facility]) 2345, oral Routine suspension 15 mL ondansetron Yes [id number] 4mg Take 1 Univers 4 mg 9-24 tablet by ity of disintegrat 00:00: mouth [place] ing tablet 00 every 8 Medica l (eight) Branch hours as needed for Nausea and Vomiting (N/V). ondansetron Yes [id number] 4mg Take 1 Univers 4 mg 9-24 tablet by ity of disintegrat 00:00: mouth [place] ing tablet 00 every 8 Medica l (eight) Branch hours as needed for Nausea and Vomiting (N/V). ondansetron Yes [id number] 4mg Take 1 Univers 4 mg 9-24 tablet by ity of disintegrat 00:00: mouth [place] ing tablet 00 every 8 Medica l (eight) Branch hours as needed for Nausea and Vomiting (N/V). ondansetron 2021- No [id number] 4mg Take 1 Univers 4 mg 9-24 11-20 tablet by ity of disintegrat 00:00: 00:00 [place] ing tablet 00 :00 every 8 Medica l (eight) Branch hours as needed for Nausea and Vomiting (N/V). ondansetron 2021- No [id number] 4mg Take 1 Univers 4 mg 9-24 11-20 tablet by ity of disintegrat 00:00: 00:00 [place] ing tablet 00 :00 every 8 Medica l (eight) Branch hours as needed for Nausea and Vomiting (N/V). famotidine 2021- No [id number] 20mg Take 1 Univers 20 mg 9-24 10-25 tablet by ity of tablet 00:00: 04:59 mouth in [place] 00 :00 the Medical morning Branch and 1 tablet in the evening. Do all this for 30 days. terconazole 2021- No [id number] 80mg Insert 1 Univers 80 mg 4-11 04-15 Suppositor ity of vaginal 00:00: 04:59 y into [place] suppository 00 :00 vagina at [facility] bedtime Branch for 3 days. No known No Univers medications 4-08 ity of 11:34: [place] [address] Medical Branch No known No No known Unive rs medications 4-08 medication it y of 11:34: s [address] Vital Signs Vital Name Observation Time Observation Value Comments Source Systolic blood 2023-02-27 16:12:00 107 mm[Hg] Univer sity of pressure [facility] [place] [facility] Diastolic blood 2023-02-27 16:12:00 66 mm[Hg] Unive rsity of pressure [facility] [place] [facility] Heart rate 2023-02-27 16:12:00 59 /min Universi ty of [facility] [place] [facility] Body temperature 2023-02-27 16:12:00 36.11 Josephine Univ ersity of [facility] [place] [facility] Respiratory rate 2023-02-27 16:12:00 16 /min Univ ersity of [facility] [place] [facility] Oxygen saturation in 2023-02-27 16:12:00 100 /min [facility] Arterial blood by [facility] Pulse oximetry Branch Body weight 2023-02-27 08:55:00 65.998 kg Universi ty of [place] [facility] [place] BMI 2023-02-27 08:55:00 27.49 kg/m2 Universi ty [facility] [place] [facility] Body height 2023-02-25 00:49:00 154.9 cm Universi ty [facility] [place] [facility] Systolic blood 2022-12-19 19:11:00 96 mm[Hg] Univer sity of pressure [facility] [place] [facility] Diastolic blood 2022-12-19 19:11:00 62 mm[Hg] Unive rsity of pressure [facility] [place] [facility] Heart rate 2022-12-19 19:11:00 72 /min Universi ty [facility] [place] [facility] [place] Body temperature 2022-12-19 19:11:00 36.56 Josephine Univ ersity of [facility] Respiratory rate 2022-12-19 19:11:00 18 /min Univ ersity of [facility] Body height 2022-12-19 19:11:00 154.9 cm Universi ty of [place] [facility] Body weight 2022-12-19 19:11:00 64.666 kg Universi ty of [place] [facility] [place] BMI 2022-12-19 19:11:00 26.94 kg/m2 Universi ty of [facility] Systolic blood 2022-05-17 16:58:00 104 mm[Hg] Univer sity of pressure [facility] [place] [facility] Diastolic blood 2022-05-17 16:58:00 68 mm[Hg] Unive rsity of pressure [facility] [place] [facility] Heart rate 2022-05-17 16:58:00 88 /min Universi ty of [facility] [place] [facility] Body temperature 2022-05-17 16:58:00 36.22 Josephine [facility] ersity of [facility] [place] [facility] Respiratory rate 2022-05-17 16:58:00 16 /min Univ ersity of [facility] [place] [facility] Body height 2022-05-17 16:58:00 154.9 cm Universi ty of [facility] [place] [facility] Body weight 2022-05-17 16:58:00 61.292 kg Universi ty [facility] BMI 2022-05-17 16:58:00 25.53 kg/m2 Universi ty [facility] Systolic blood 2022-03-25 05:00:00 122 mm[Hg] Univer sity of pressure [facility] [place] [facility] Diastolic blood 2022-03-25 05:00:00 90 mm[Hg] Unive rsity of [facility] Heart rate 2022-03-25 05:00:00 97 /min Universi ty [facility] Respiratory rate 2022-03-25 05:00:00 16 /min [facility] Oxygen saturation in 2022-03-25 05:00:00 100 /min [facility] Arterial blood by [facility] Pulse oximetry [place] Body temperature 2022-03-25 04:26:00 36.61 Josephine [facility] [place] [facility] Body height 2022-03-25 04:26:00 154.9 cm Universi ty [facility] Body weight 2022-03-25 04:26:00 63.504 kg Universi [facility] BMI 2022-03-25 04:26:00 26.45 kg/m2 [facility] Procedures Procedure Date / Time Performing Clinician Source Performed AUTHORIZATION TO RELEASE 2023-03-08 05:01:00 Doctor Unassigned, [facility] PHI TO [facility] [place] [facility] BASIC METABOLIC PANEL 2023-02-27 09:54:00 [facility] (NA, K, CL, CO2, GLUCOSE, Medica l Branch BUN, CREATININE, CA) CBC WITH DIFF 2023-02-27 09:54:00 Ray, [facility] o f [facility] [place] [facility] POCT TEST 2023-02-24 22:16:00 Mehran Saleh [facility] URINALYSIS 2023-02-24 22:14:00 Mehran Saleh [facility] URINE CULTURE 2023-02-24 22:14:00 Mehran Saleh [facility] LACTIC ACID WHOLE BLOOD 2023-02-24 22:14:00 Mehran Saleh [facility] COVID-19 (ID NOW RAPID 2023-02-24 22:14:00 Mehran Saleh [facility] TESTING) Medical Branch LAB ONLY COVID 2023-02-24 22:14:00 Mehran Saleh [facility] INTERPRETATION [facility] BLOOD CULTURE SCREEN 2023-02-24 22:11:00 Mehran Saleh [facility] COMP. METABOLIC PANEL 2023-02-24 22:11:00 Mehran Saleh [facility] ([id number]) [facility] CBC WITH DIFF 2023-02-24 22:11:00 Mehran Saleh [facility] POCT URINALYSIS W/O 2022-12-19 20:53:00 Caro Baird [facility] SPECIFIC GRAVITY [facility] GALV ONLY - VAGINAL 2022-12-19 20:52:00 Caro Baird [facility] PATHOGENS BY NUCLEIC ACID Medica l Branch TESTING CBC WITH DIFF 2022-12-19 19:58:00 Caro Baird [facility] GC & CHLAMYDIA AMPLIFIED 2022-12-19 19:58:00 Caro Baird [facility] HIV 1/2 AG-AB WITH REFLEX 2022-12-19 19:58:00 Caro Baird [facility] TRICHOMONAS AMPLIFIED 2022-12-19 19:58:00 Caro Baird [facility] PAP SMEAR-LIQUID BASED-CP 2022-12-19 19:58:00 Caro Baird [facility] SYPHILIS IGG/IGM 2022-12-19 19:58:00 Caro Baird [facility] POCT TEST 2022-12-19 19:17:00 Caro Baird [facility] PATIENT FINANCIAL 2022-12-19 18:44:54 [facility] GC & CHLAMYDIA AMPLIFIED 2022-05-17 17:30:00 Caro Baird [facility] ASSAY [facility] GALV ONLY - VAGINAL 2022-05-17 17:30:00 Caro Baird [facility] PATHOGENS BY NUCLEIC ACID Medica Branch TESTING ASSIGNMENT OF BENEFITS 2022-05-17 16:25:04 Doctor Jorje, Un [facility] LIPASE 2022-03-25 04:38:00 Marsha Roman [facility] COMP. METABOLIC PANEL 2022-03-25 04:38:[address] [facility] ([id number]) [facility] CBC WITH DIFF 2022-03-25 04:38:00 Marsha Roman [facility] URINALYSIS 2022-03-25 04:38:00 Marsha Roman [facility] POCT TEST 2022-03-25 04:38:00 Marsha Roman [facility] NOTICE OF PRIVACY 2022-03-25 04:27:12 Doctor Recinos [facility]REFUSAL FOR 2022-03-25 04:22:[address] [facility] DIAGNOSIS AND TREATMENT [facility] Encounters Start End Encounter Admission Attending Care Care Encounter Source Date/Time Date/Time Type Type Clinicians Facility Department ID 2023-03-08 2023-03-08 Orders Doctor ROCHE 1.2.840.114 [id number] Univers 00:00:00 00:00:00 MARIYA [place] 350.1.13.10 ity [facility] 4.2.7.2.686 Juan David as [id number] [place] [address] Branch 2023-02-28 2023-02-28 Transition LUL Daniels 1.2.840.114 [id number] Univers 00:00:00 00:00:00 of Care Tamara GALLAGHER 350.1.13.10 i ty of [place] 4[place]2.7.2.686 [place] [id number] [facility] 403 Branch 2023-02-24 2023-02-27 Inpatient X RAY [facility] JENNIFER [id number] Univers 16:38:00 12:16:00 HADLEY ity [facility] 2023-02-24 2023-02-27 Hospital Artem Noriega [facility] [id number] Univers 16:38:00 12:16:00 Encounter Mehran Saleh [place] 350.1.13. 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 350.1.13.10 i ty of [facility] 4.2.7.2.686 Juan David as MATERNAL [id number] Med ical & CHILD [address] [place] [address] 2022-12-19 2022-12-19 Outpatient R BRIE [facility] [id number] Univers 14:15:00 14:56:35 CARO [facility] [place] [facility] 2022-12-19 2022-12-19 Office [facility] 1.2.840.114 [id number] Univers 14:15:00 14:56:35 Visit Caro A GRINDING MACHINE TENDER 350.1.13.10 i ty of [address]686 Juan David as MATERNAL [id number] Med ical & CHILD [address] [place] [address] 2022-12-19 2022-12-19 Orders Doctor ROCHE 1.2.840.114 [id number] Univers 00:00:00 00:00:00 Only Unassigned, MARIYA 350.1.13.10 ity of [place] [facility] 42.7.2.686 Juan David as [id number] [facility] 009 Branch 2022-10-19 2022-10-19 Outpatient Joe JESUS [facility] [id number] Univers 11:00:00 11:00:00 AMY sy [facility] 2022-05-17 2022-05-17 Outpatient R BRIE [facility] [id number] Univers 10:30:00 11:19:22 CARO kerrie [facility] 2022-05-17 2022-05-17 Office Provider, [facility] 1 .2.840.114 [id number] Univers 10:30:00 11:19:22 Visit Caro Baird [employer]ACHINE TEND[employer] 350.1.13.1 0 ity of [facility] 4.2.7.2.686 Juan David as MATERNAL [id number] [facility] & CHILD [address] [place] [address] 2022-05-17 2022-05-17 Orders Doctor MELCHOR 1.2.840.114 [id number] Univers 00:00:00 00:00:00 Only Unassigned, MARIYA 350.1.13.10 ity of [place] [facility] 4.2.7.2.686 Juan David as [id number] [facility] 009 [place] 2022-05-17 2022-05-17 Letter [facility] 1.2.840.114 [id number] Univers 00:00:00 00:00:00 (Out) Caro Sanchez GRINDING MACHINE TENDER 350.1.13.10 i ty of [facility] 4.2.7.2.686 Juan David as MATERNAL [id number] [facility] & CHILD [address] [place] [address] 2022-03-24 2022-03-25 Emergency X JESSIE [facility] ERT [id number] Univers 23:30:00 01:04:00 MARSHA isabel [facility] 2022-03-24 2022-03-25 [facility] 1.2.840.114 [id number] Univers 23:30:00 01:04:00 [facility] 350.1.13.10 i ty of [place] 4.2.7.2.686 [place] [id number] [facility] 084 [place] 2022-03-21 2022-03-21 Telephone [facility] 1.2.840.114 [id number] Univers 00:00:00 00:00:00 Joanna C GRINDING MACHINE TENDER 350.1.13.10 ity of REGIONAL 4.2.7.2.686 Juan David as MATERNAL [id number] [facility] & CHILD [address] [place] [address] 2022-02-07 2022-02-07 Outpatient R AKINSIPE, [facility] [id number] Univers 09:00:00 09:00:00 JOANNA sy o christ [facility] [place] [facility] 2021-11-14 2021-11-14 Telephone [facility] 1.2.840.114 [id number] Univers 00:00:00 00:00:00 Joanna C GRINDING MACHINE TENDER 350.1.13.10 ity of REGIONAL 4.2.7.2.686 Juan David as MATERNAL [id number] [address] 2021-10-26 2021-10-26 [facility] [id number] Univers 12:45:00 12:45:[address] [facility] 2021-10-21 2021-10-21 Outpatient [facility] [id number] Univers 10:45:00 10:45:[address] JO[address] o [facility] 2021-10-10 2021-10-10 Telephone [facility] 1.2.840.114 [id number] Univers 00:00:00 00:00:00 Joanna C GRINDING MACHINE TENDER 350.1.13.10 ity of REGIONAL 4.2.7.2.686 Juan David as MATERNAL [id number] [facility] & [address] 2021-10-07 2021-10-07 Routine [facility] [id number] Univers 10:45:00 11:36:27 Joanna C GRINDING MACHINE TENDER 350.1.13.10 ity of Visit REGIONAL 4.2.7.2.686 Juan David as MATERNAL [id number] [facility] & CHILD [address] [place] [address] 2021-10-07 2021-10-07 Outpatient [facility] [id number] Univers 10:45:00 11:36:27 JOANNA ity o f [facility] [place] [facility] 2021-10-07 2021-10-07 Outpatient R [facility] [id number] Univers 10:45:00 10:45:00 JOANNA ity o f [facility] [place] [facility] 2021-10-04 2021-10-04 Outpatient Joe [facility]ES [facility] [id number] Univers 13:30:00 13:30:00 [facility] 2021-09-06 2021-09-06 Outpatient Joe [facility]ES [facility] [id number] Univers 10:00:00 14:10:02 [facility] 2021-09-06 2021-09-06 Outpatient Joe GARCES [facility] [id number] Univers 13:00:00 14:09:40 [facility] 2021-09-06 2021-09-06 Initial Timothy, [facility] [id number] Univers 13:00:00 14:09:40 [facility] 350.1.13.10 ity of Visit CLINICS 4[place]2.7.2.[place] [id number] [facility] [address] [place] 2021-09-06 2021-09-06 Orders Doctor MELCHOR 1.2.840.114 [id number] Univers 00:00:00 00:00:00 Only Unassigned, MARIYA 350.1.13.10 ity of [place] [facility] 4.2.7.2.686 Juan David as [id number] [facility] 009 Branch 2021-08-10 2021-08-10 Office Roger [facility] [id number] Univers 08:30:00 09:45:24 Visit Joanna Kaufman GRINDING MACHINE TENDER 350.1.13.10 ity of [facility] 4.2.7.2.686 Juan David as MATERNAL [id number] [facility] ical & CHILD [address] [place] [address] 2021-08-10 2021-08-10 Outpatient R [facility] [id number] Univers 08:30:00 09:45:24 JOANNA bolanosy o f [facility] 2021-08-10 2021-08-10 Outpatient R AKINSIRICHY[facility] [id number] Univers 08:30:00 08:30:00 JOANNA sy o f [facility] [place] [facility] 2021-08-10 2021-08-10 Orders Doctor MELCHOR 1.2.840.114 [id number] Univers 00:00:00 00:00:00 Only Unassigned, MARIYA 350.1.13.10 ity of [place] [facility] 4.2.7.2.686 Juan David as [id number] [address] 2021-08-08 2021-08-08 Telephone [facility] 1.2.840.114 [id number] Univers 00:00:00 00:00:00 Joanna Kaufman GRINDING MACHINE TENDER 350.1.13.10 ity [facility] 4.2.7.2.686 Juan David as MATERNAL [phone] Med ical & CHILD [address] [place] [address] 2021-07-29 2021-07-29 Emergency X ROMAN, [facility] ERT [id number] Univers 15:02:00 16:43:00 MARSHA [facility] 2021-07-29 2021-07-29 Emergency X ROMAN, [facility] ERT [id number] Univers 15:02:00 16:43:00 MARSHA [facility] 2021-07-29 2021-07-29 Emergency Roman, [facility] 1.2.840.114 [id number] Univers 15:02:00 16:43:00 [facility] 350.1.13.10 i ty [facility] 4.2.7.2.686 [facility] [phone] [facility] [address] 2021-07-29 2021-07-29 Orders Doctor MELCHOR 1.2.840.114 [id number] Univers 00:00:00 00:00:00 Only Unassigned, MARIYA 350.1.13.10 ity [facility] [place] [facility] 4.2.7.2.686 Juan David as [phone] [facility] [address] 2021-04-06 2021-04-06 [facility] 1.2.891.124 [id number] Univers 14:37:00 15:18:01 Visit Joanna Kaufman GRINDING MACHINE TENDER 350.1.13.10 ity of REGIONAL 4.2.7.2.686 Juan David as MATERNAL [phone] [facility] & CHILD [address] [place] [address] 2021-04-06 2021-04-06 [facility] [id number] Univers 14:15:00 14:15:00 JOANNA polo [facility] 2021-04-04 2021-04-04 [facility] [id number] [facility] 08:30:00 08:30:00 JOANNA kerrie carrington christ [facility] 2021-02-18 2021-02-18 [facility] 1.2.840.114 [id number] Univers 00:00:00 00:00:00 Amy Conway GRINDING MACHINE TENDER 350.1.13.10 it y of REGIONAL 4.2.7.2.686 Juan David as MATERNAL [phone] [facility] & CHILD [address] [place] [address] 2021-02-17 2021-02-17 [facility] 1.2.840.114 [id number] Univers 00:00:00 00:00:00 Amy Conway GRINDING MACHINE TENDER 350.1.13.10 it y of REGIONAL 4.2.7.2.686 Juan David as MATERNAL [phone] [facility] & [address] 2021-02-16 2021-02-16 Office Amy Jesus [facility] 1.2.840. 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 [id number] Univers 07:45:00 07:45:00 LOS polo [facility] Results Test Description Test Time Test Comments Results Result Comments Source BASIC METABOLIC PANEL (NA, K, CL, CO2, GLUCOSE, BUN, 2023-01 10:50:20 CREATININE, [place]) Test Item Value Reference Range Interpretation Comme nts NA (test code = 2915741657) 139 mmol/L 135-145 K (test code = 9351558669) 4.3 mmol/L 3.5-5.0 CL (test code = 7593200811) 104 mmol/L 98-108 CO2 TOTAL (test code = 31 mmol/L 23-31 1985369144) AGAP (test code = 7917815838) 4 2-16 BUN (test code = 2397770341) 11 mg/dL 7-23 GLUCOSE (test code = 4447268379) 93 mg/dL 70-110 CREATININE (test code = 0.69 mg/dL 0.50-1.04 2197623314) CALCIUM (test code = 9402361399) 8.7 mg/dL 8.6-10.6 eGFR (test code = 0455830892) 103.7 mL/min/1.73m2 AYAKA (test code = AYAKA) Association of Glomerular Filtration Rate (GFR) and Staging of Kidney Disease* + +--------- + ----+| GFR (mL/min/1.73 m2) ?| With Kidney Damage ?| ?Without Kidney Damage+ +--- + +| ?>90 ?| ?Stage one ?| ? Normal ?+ +-------- + -----+| ?60-89 ?| ?Stage two ?| ? Decreased GFR ? + +--------- + ----+| ?30-59 ?| ?Stage three ?| ? Stage three ? + +--------- + ----+| ?15-29 ?| ?Stage four ? | ? Stage four ?+ +-------- + -----+| ?<15 (or dialysis) ? ?| ?Stage five ? | ? Stage five ?+ +-------- + -----+ *Each stage assumes the associated GFR level [...] or urine or abnormalities in imaging tests). [facility] WITH [id number] 10:10:32 Test Item Value Reference Range Interpretation Comments WBC (test code = 6.65 See_Comment [Automated 6690-2) message] The sy stem which generated this result transmitted reference range : 4.30 - 11.10 10*3/?L. The reference range was not used to interpret this result as normal/abnormal . RBC (test code = 3.48 See_Comment L [Automated 789-8) message] The sy stem which generated this result transmitted reference range : 3.93 - 5.25 10*6/?L. The reference range was not used to interpret this result as normal/abnormal . HGB (test code = 11.4 g/dL 11.6-15.0 L 718-7) HCT (test code = 33.1 % 35.7-45.2 L 4544-3) MCV (test code = 95.1 fL 80.6-95.5 787-2) MCH (test code = 32.8 pg 25.9-32.8 785-6) MCHC (test code = 34.4 g/dL 31.6-35.1 786-4) RDW-SD (test code = 38.3 fL 39.0-49.9 L 65517-5) RDW-CV (test code = 11.0 % 12.0-15.5 L 788-0) PLT (test code = 240 See_Comment [Automated 777-3) message] The sy stem which generated this result transmitted reference range : 166 - 358 10*3/ ?L. The reference r kings was not used to interpret this result as normal/abnormal . MPV (test code = 9.4 fL 9.5-12.9 L 25871-0) NRBC/100 WBC (test 0.0 See_Comment [Automat ed code = 6331959879) message] The system which generated this result transmitted reference range : 0.0 - 10.0 /100 WBCs. The refer ence range was not u sed to interpret th is result as normal/abnormal . NRBC x10^3 (test code See_Comment [Auto mated = 0787255717) message] The s ystem which generated this result transmitted reference range : 10*3/?L. The reference range was not used to interpret this result as normal/abnormal . GRAN MAT (NEUT) % 55.1 % (test code = 770-8) IMM GRAN % (test code 0.30 % = 2339680855) LYMPH % (test code = 32.6 % 736-9) MONO % (test code = 9.2 % 5905-5) EOS % (test code = 2.3 % 713-8) BASO % (test code = 0.5 % 706-2) GRAN MAT x10^3(ANC) 3.67 10*3/uL 1.88-7.09 (test code = 3013523912) IMM GRAN x10^3 (test 0.00-0.06 code = 2553657556) LYMPH x10^3 (test code 2.17 10*3/uL 1.32-3.29 = 731-0) MONO x10^3 (test code 0.61 10*3/uL 0.33-0.92 = 742-7) EOS x10^3 (test code = 0.15 10*3/uL 0.03-0.39 711-2) BASO x10^3 (test code 0.03 10*3/uL 0.01-0.07 = 704-7) Lab Interpretation Abnormal (test code = 96914-4) [facility]. METABOLIC PANEL ([id number])2023-02-24 22:54:31 Test Item Value Reference Range Interpretation Comments NA (test code = 139 mmol/L 135-145 2482590130) K (test code = 3.7 mmol/L 3.5-5.0 5473965551) CL (test code = 105 mmol/L 98-108 9794224434) CO2 TOTAL (test code = 26 mmol/L 23-31 2891469608) AGAP (test code = 8 2-16 8303647634) BUN (test code = 6 mg/dL 7-23 L 2594394048) GLUCOSE (test code = 112 mg/dL 70-110 H 6919721201) CREATININE (test code = 0.61 mg/dL 0.50-1.04 8404913894) TOTAL BILI (test code = 0.2 mg/dL 0.1-1.0 7099267422) CALCIUM (test code = 8.6 mg/dL 8.6-10.6 5019592539) T PROTEIN (test code = 6.7 g/dL 6.3-8.2 8053570117) ALBUMIN (test code = 3.8 g/dL 3.5-5.0 9898457534) ALK PHOS (test code = 48 U/L 34-122 1583830557) ALTv (test code = 19 U/L 5-35 1742-6) AST(SGOT) (test code = 25 U/L 13-40 1037063839) eGFR (test code = 119.5 mL/min/1.73m2 1243697190) AYAKA (test code = AYAKA) Association of Glomerular Filtration Rate (GFR) and Staging of Kidney Disease* + --+ --+ ------+| GFR (mL/min/1.73 m2) ?| With Kidney Damage ?| ?Without Kidney Damage+ --------+ --------+ +| ?>90 ?| ?Stage one ?| ? Normal ?+ ---+ ---+ -------+| ?60-89 ?| ?Stage two ?| ? Decreased GFR ? + --+ --+ ------+| ?30-59 ?| ?Stage three ?| ? Stage three ? + --+ --+ ------+| ?15-29 ?| ?Stage four ? | ? Stage four ?+ ---+ ---+ -------+| ?<15 (or dialysis) ? ?| ?Stage five ? | ? Stage five ?+ ---+ ---+ -------+ *Each stage assumes the associated GFR level [...] or urine or abnormalities in imaging tests). Lab Interpretation Abnormal (test code = 95506-9) [facility] WITH [id number] 22:34:25 Test Item Value Reference Range Interpretation Comments WBC (test code = 6.81 See_Comment [Automated 6690-2) message] The sy stem which generated this result transmitted reference range : 4.30 - 11.10 10*3/?L. The reference range was not used to interpret this result as normal/abnormal . RBC (test code = 3.53 See_Comment L [Automated 789-8) message] The sy stem which generated this result transmitted reference range : 3.93 - 5.25 10*6/?L. The reference range was not used to interpret this result as normal/abnormal . HGB (test code = 11.5 g/dL 11.6-15.0 L 718-7) HCT (test code = 33.3 % 35.7-45.2 L 4544-3) MCV (test code = 94.3 fL 80.6-95.5 787-2) MCH (test code = 32.6 pg 25.9-32.8 785-6) MCHC (test code = 34.5 g/dL 31.6-35.1 786-4) RDW-SD (test code = 37.5 fL 39.0-49.9 L 22588-3) RDW-CV (test code = 11.0 % 12.0-15.5 L 788-0) PLT (test code = 177 See_Comment [Automated 777-3) message] The sy stem which generated this result transmitted reference range : 166 - 358 10*3/ ?L. The reference r kings was not used to interpret this result as normal/abnormal . MPV (test code = 9.7 fL 9.5-12.9 99789-4) NRBC/100 WBC (test 0.0 See_Comment [Automat ed code = 3769049191) message] The system which generated this result transmitted reference range : 0.0 - 10.0 /100 WBCs. The refer ence range was not u sed to interpret th is result as normal/abnormal . NRBC x10^3 (test code See_Comment [Auto mated = 0498524616) message] The s ystem which generated this result transmitted reference range : 10*3/?L. The reference range was not used to interpret this result as normal/abnormal . GRAN MAT (NEUT) % 86.0 % (test code = 770-8) IMM GRAN % (test code 0.40 % = 3386632386) LYMPH % (test code = 8.5 % 736-9) MONO % (test code = 4.8 % 5905-5) EOS % (test code = 0.0 % 713-8) BASO % (test code = 0.3 % 706-2) GRAN MAT x10^3(ANC) 5.85 10*3/uL 1.88-7.09 (test code = 0491633404) IMM GRAN x10^3 (test 0.03 10*3/uL 0.00-0.06 code = 4861272692) LYMPH x10^3 (test code 0.58 10*3/uL 1.32-3.29 L = 731-0) MONO x10^3 (test code 0.33 10*3/uL 0.33-0.92 = 742-7) EOS x10^3 (test code = 0.03-0.39 L 711-2) BASO x10^3 (test code 0.01-0.07 = 704-7) Lab Interpretation Abnormal (test code = 91697-8) [facility] [id number] 22:30:19 Test Item Value Reference Range Interpretation Comments LACTIC ACID (test code = 1.56 mmol/L 0.50-2.20 7551228500) Lab Interpretation (test code = Normal 56794-0) [facility] [id number] 22:16:00 Test Item Value Reference Range Interpretation Comments POCT PREG (test code = 1605) Negative On board controls acceptable with Yes C Line (test code = 3574) POCT PREG LOT # (test code = 3575) [id number] POCT PREG TEST DATE (test 07/04/2024 code = 3576) Lab Interpretation (test code = Normal 36978-9) [facility] - SYPHILIS [id number] 14:07:33 Test Item Value Reference Range Interpretation Comments Syphilis IgG/IgM (test Non-reactive Non-reactive code = 60906-6) AYAKA (test code = AYAKA) Non-reactive - No serologic evidence of T. pallidum infection. Cannot exclude incubating or early syphilis. Submit a second specimen in 2-4 weeks if syphilis is clinically suspected. Equivocal - Further testing to follow. Reactive - Further testing to follow. Lab Interpretation (test Normal code = 91916-9) [facility] ONLY - SYPHILIS [id number] 14:07:33 Test Item Value Reference Range Interpretation Comments Syphilis IgG/IgM (test Non-reactive Non-reactive code = 39141-7) AYAKA (test code = AYAKA) Non-reactive - No serologic evidence of T. pallidum infection. Cannot exclude incubating or early syphilis. Submit a second specimen in 2-4 weeks if syphilis is clinically suspected. Equivocal - Further testing to follow. Reactive - Further testing to follow. Lab Interpretation (test Normal code = 97808-8) [facility] 1/2 AG-AB WITH [id number] 06:09:28 Test Item Value Reference Range Interpretation Comments HIV 0.06 Negative Semi-quantitative (test code = 78503-8) AYAKA (test code = Non-reactive for HIV-1 AYAKA) antigen and HIV-1/HIV-2 antibodies. ?No laboratory evidence of HIV infection. ?Repeat in 2-4 weeks if acute HIV infection is suspected. [facility] /2 AG-AB WITH [id number] 06:09:28 Test Item Value Reference Range Interpretation Comments HIV 0.06 Negative Semi-quantitative (test code = 27790-9) AYAKA (test code = Non-reactive for HIV-1 AYAKA) antigen and HIV-1/HIV-2 antibodies. ?No laboratory evidence of HIV infection. ?Repeat in 2-4 weeks if acute HIV infection is suspected. [facility] WITH [id number] 05:46:41 Test Item Value Reference Range Interpretation Comments WBC (test code = 7.96 See_Comment [Automated 3700-2) message] The sy stem which generated this result transmitted reference range : 4.30 - 11.10 10*3/?L. The reference range was not used to interpret this result as normal/abnormal . RBC (test code = 4.06 See_Comment [Automated 203-8) message] The sy stem which generated this [...] RDW-SD (test code = 42.0 fL 39.0-49.9 29920-8) RDW-CV (test code = 11.5 % 12.0-15.5 L 788-0) PLT (test code = 280 See_Comment [Automated 777-3) message] The sy stem which generated this result transmitted reference range : 166 - 358 10*3/ ?L. The reference r kings was not used to interpret this result as normal/abnormal . MPV (test code = 10.6 fL 9.5-12.9 63541-5) NRBC/100 WBC (test 0.0 See_Comment [Automat ed code = 4156090297) message] The system which generated this result transmitted reference range : 0.0 - 10.0 /100 WBCs. The refer ence range was not u sed to interpret th is result as normal/abnormal . NRBC x10^3 (test code See_Comment [Auto mated = 8241286008) message] The s ystem which generated this result transmitted reference range : 10*3/?L. The reference range was not used to interpret this result as normal/abnormal . GRAN MAT (NEUT) % 71.5 % (test code = 770-8) IMM GRAN % (test code 0.30 % = 0884045372) LYMPH % (test code = 20.2 % 736-9) MONO % (test code = 6.7 % 5905-5) EOS % (test code = 0.9 % 713-8) BASO % (test code = 0.4 % 706-2) GRAN MAT x10^3(ANC) 5.70 10*3/uL 1.88-7.09 (test code = 3863863456) IMM GRAN x10^3 (test 0.00-0.06 code = 5925925300) LYMPH x10^3 (test code 1.61 10*3/uL 1.32-3.29 = 731-0) MONO x10^3 (test code 0.53 10*3/uL 0.33-0.92 = 742-7) EOS x10^3 (test code = 0.07 10*3/uL 0.03-0.39 711-2) BASO x10^3 (test code 0.03 10*3/uL 0.01-0.07 = 704-7) Lab Interpretation Abnormal (test code = 29335-6) [facility] WITH [id number] 05:46:41 Test Item Value Reference Range Interpretation Comments WBC (test code = 7.96 See_Comment [Automated 6088-2) message] The sy stem which generated this result transmitted reference range : 4.30 - 11.10 10*3/?L. The reference range was not used to interpret this result as normal/abnormal . RBC (test code = 4.06 See_Comment [Automated 039-8) message] The sy stem which generated this [...] RDW-SD (test code = 42.0 fL 39.0-49.9 81950-9) RDW-CV (test code = 11.5 % 12.0-15.5 L 788-0) PLT (test code = 280 See_Comment [Automated 687-3) message] The sy stem which generated this result transmitted reference range : 166 - 358 10*3/ ?L. The reference r kings was not used to interpret this result as normal/abnormal . MPV (test code = 10.6 fL 9.5-12.9 09415-5) NRBC/100 WBC (test 0.0 See_Comment [Automat ed code = 5521590641) message] The system which generated this result transmitted reference range : 0.0 - 10.0 /100 WBCs. The refer ence range was not u sed to interpret th is result as normal/abnormal . NRBC x10^3 (test code See_Comment [Auto mated = 3231548939) message] The s ystem which generated this result transmitted reference range : 10*3/?L. The reference range was not used to interpret this result as normal/abnormal . GRAN MAT (NEUT) % 71.5 % (test code = 770-8) IMM GRAN % (test code 0.30 % = 4225927314) LYMPH % (test code = 20.2 % 736-9) MONO % (test code = 6.7 % 5905-5) EOS % (test code = 0.9 % 713-8) BASO % (test code = 0.4 % 706-2) GRAN MAT x10^3(ANC) 5.70 10*3/uL 1.88-7.09 (test code = 4114309493) IMM GRAN x10^3 (test 0.00-0.06 code = 4890209723) LYMPH x10^3 (test code 1.61 10*3/uL 1.32-3.29 = 731-0) MONO x10^3 (test code 0.53 10*3/uL 0.33-0.92 = 742-7) EOS x10^3 (test code = 0.07 10*3/uL 0.03-0.39 711-2) BASO x10^3 (test code 0.03 10*3/uL 0.01-0.07 = 704-7) Lab Interpretation Abnormal (test code = 33192-5) [facility] W/O SPECIFIC [id number] 20:53:00 Test Item Value Reference Range Interpretation [...] code = 3257) . Negative - Negative [facility] URINALYSIS W/O SPECIFIC [id number] 20:53:00 Test Item Value Reference Range Interpretation [...] code = 3257) . Negative - Negative [facility] [id number] 19:17:00 Test Item Value Reference Range Interpretation Comments POCT PREG (test code = 1605) Negative On board controls acceptable with C Yes Line (test code = 3574) POCT PREG LOT # (test code = 3575) POCT PREG TEST DATE (test code = 3576) [facility] [id number] 19:17:00 Test Item Value Reference Range Interpretation Comments POCT PREG (test code = 1605) Negative On board controls acceptable with C Yes Line (test code = 3574) POCT PREG LOT # (test code = 3575) POCT PREG TEST DATE (test code = 3576) [facility]. METABOLIC PANEL (46424)2022-03-25 05:07:49 Test Item Value Reference Range Interpretation Comments NA (test code = 139 mmol/L 135-145 7347983040) K (test code = 4.2 mmol/L 3.5-5 2269803748) CL (test code = 103 mmol/L 98-108 5539607654) CO2 TOTAL (test code 24 mmol/L 23-31 = 9407268945) AGAP (test code = 2-16 7112494814) BUN (test code = 14 mg/dL 7-23 5067486261) GLUCOSE (test code = 100 mg/dL 70-110 7732889414) CREATININE (test code 0.63 mg/dL 0.5-1.04 = 3155718527) TOTAL BILI (test code 0.3 mg/dL 0.1-1.1 = 1421470689) CALCIUM (test code = 9.6 mg/dL 8.6-10.6 5867516823) T PROTEIN (test code 7.7 g/dL 6.3-8.2 = 1306051375) ALBUMIN (test code = 5.0 g/dL 3.5-5 1211246577) ALK PHOS (test code = 57 U/L 34-122 4453204815) ALTv (test code = 18 U/L 5-35 2-6) AST(SGOT) (test code 29 U/L 13-40 = 8761035086) eGFR (test code = mL/min/1.73m2 6680503691) AYAKA (test code = AYAKA) Association of [...] or urine or abnormalities in imaging tests). [facility] WITH [id number] 05:07:08 Test Item Value Reference Range Interpretation [...] (test code = 38.2 fL 39-49.9 L 69972-2) RDW-CV (test code = 11.7 % 12-15.5 L 788-0) PLT (test code = See_Comment [Automated 777-3) message] The sy stem which generated this result transmitted reference range : 166 - 358 10*3/ ?L. The reference r kings was not used to interpret this result as normal/abnormal . MPV (test code = 9.7 fL 9.5-12.9 19865-3) NRBC/100 WBC (test See_Comment [Automat ed code = 3851872898) message] The system which generated this result transmitted reference range : 0.0 - 10.0 /100 WBCs. The refer ence range was not u sed to interpret th is result as normal/abnormal . NRBC x10^3 (test code See_Comment [Auto mated = 2963598850) message] The s ystem which generated this result transmitted reference range : 10*3/?L. The reference range was not used to interpret this result as normal/abnormal . GRAN MAT (NEUT) % 64.7 % (test code = 770-8) IMM GRAN % (test code 0.40 % = 6766794965) LYMPH % (test code = 26.8 % 736-9) MONO % (test code = 7.1 % 5905-5) EOS % (test code = 0.7 % 713-8) BASO % (test code = 0.3 % 706-2) GRAN MAT x10^3(ANC) 6.21 10*3/uL 1.88-7.09 (test code = 5302245270) IMM GRAN x10^3 (test 0.04 10*3/uL 0-0.06 code = 3285957859) LYMPH x10^3 (test code 2.57 10*3/uL 1.32-3.29 = 731-0) MONO x10^3 (test code 0.68 10*3/uL 0.33-0.92 = 742-7) EOS x10^3 (test code = 0.07 10*3/uL 0.03-0.39 711-2) BASO x10^3 (test code 0.03 10*3/uL 0.01-0.07 = 704-7) Lab Interpretation Abnormal (test code = 23964-2) [facility] 05:07:08 Test Item Value Reference Range Interpretation Comments LIPASE (test code = 5061856920) 104 U/L 0-220 Lab Interpretation (test code = Normal 81723-7) [facility] [id number] 04:38:00 Test Item Value Reference Range Interpretation Comments POCT PREG (test code = 1605) Negative On board controls acceptable with Present C Line (test code = 3574) POCT PREG LOT # (test code = HCG 0918787 8890) POCT PREG TEST DATE (test 05/31/2023 code = 3576) Lab Interpretation (test code = Normal 52366-8) [facility] History and Physical Notes Date/Time Note Provider Source 2023-02-24 20:38:38 [id number] [facility] of this note is different from PHYSICIAN STAFF the original.[facility] ADMIT H&PDate of Service: 02/24/2023HIEF COMPLAINT: fever, chillsHistory of Present Engvsjg8 yo female who presents to the ED secondary to fever and chills. She was just discharged from [facility] after 3 days and felt that she was not ready to be discharged. During that facility she was diagnosed with UTI/pyelonephritis and was treated with antibiotics. Once home, she continued to have flank pain and chills and came to this hospital.PAST MEDICAL HISTORY Past Medical History: Diagnosis Date STD (sexually transmitted disease) 2017 chlamydia Past Surgical HistoryNoneFamily History Problem Relation Age of Onset No Significant Medical Problems Mother No Significant Medical Problems Father No Significant Medical Problems Sister No Significant Medical Problems Brother Cancer Maternal Grandmother lung ALLERGIESAllergies Allergen Reactions Motrin [Ibuprofen] Swelling MEDICATIONSNo current facility-administered medications on file prior to encounter. No current outpatient medications on file prior to encounter. SOCIAL HISTORYSocial History Socioeconomic History Marital status: Single Number of children: 2 Highest education level: High school graduate Tobacco Use Smoking status: Never Smokeless tobacco: Never Vaping Use Vaping Use: Some days Substances: Nicotine Devices: Disposable Substance and Sexual Activity Alcohol use: Not Currently Comment: social Drug use: Never Sexual activity: Yes Partners: Male control/protection: None Comment: last sexual intercourse 12/05/2022 Social History Narrative Patient lives with mother and children. Quaker preference: omnism Review of Systems Constitutional: Positive for chills and fever. Negative for activity change, appetite change, diaphoresis, fatigue and unexpected weight change. HENT: Negative. Eyes: Negative. Respiratory: Negative. Breasts: Negative. Cardiovascular: Negative. Gastrointestinal: Positive for abdominal pain. Negative for abdominal distention, anal bleeding, blood in stool, constipation, diarrhea, nausea, rectal pain and vomiting. Genitourinary: Negative. Musculoskeletal: Positive for back pain (flank). Negative for arthralgias, gait problem, joint swelling and myalgias. Skin: Negative. Neurological: Positive for headaches. Negative for dizziness, tremors, seizures, syncope, facial asymmetry, speech difficulty, weakness and numbness. Psychiatric/Behavioral: Negative. Endocrine: Endocrine negativePHYSICAL EXAMINATIONVitals: 08/189902/24/23194802/24/23195402/24/23 2353 BP: 111/79 118/74 103/71 Pulse: 99 93 81 Resp: 20 16 16 Temp: 38.2 ?C (100.8 ?F) 36.4 ?C (97.5 ?F) 36.1 ?C (96.9 ?F) TempSrc: Oral SpO2: 99% 100% 100% Weight: 68 kg (149 lb 14.4 oz) 68 kg (149 lb 14.4 oz) Height: 1.549 m (5' 1") Physical ExamVitals and nursing note reviewed. Constitutional: General: She is not in acute distress. Appearance: Normal appearance. She is not ill-appearing, toxic-appearing or diaphoretic. HENT: Head: Normocephalic and atraumatic. Right Ear: External ear normal. Left Ear: External ear normal. Nose: Nose normal. No congestion. Mouth/Throat: Mouth: Mucous membranes are moist. Pharynx: No oropharyngeal exudate. Eyes: Extraocular Movements: Extraocular movements intact. Conjunctiva/sclera: Conjunctivae normal. Pupils: Pupils are equal, round, and reactive to light. Cardiovascular: Rate and Rhythm: Normal rate and regular rhythm. Heart sounds: No murmur heard. No friction rub. No gallop. Pulmonary: Effort: Pulmonary effort is normal. No respiratory distress. Breath sounds: Normal breath sounds. No wheezing or rales. Chest: Chest wall: No tenderness. Abdominal: General: Abdomen is flat. Bowel sounds are normal. There is no distension. Palpations: Abdomen is soft. Tenderness: There is no abdominal tenderness. There is no guarding. Musculoskeletal: General: Normal range of motion. Cervical back: Normal range of motion and neck supple. Right lower leg: No edema. Left lower leg: No edema. Skin: General: Skin is warm and dry. Neurological: Mental Status: She is alert. Psychiatric: Mood and Affect: Mood normal. Behavior: Behavior normal. Thought Content: Thought content normal. Judgment: Judgment normal. LABS - reviewed pertinent labs as below:ReviewedIMAGING - reviewed, pertinent results as below: NoneASSESSMENT/PLANIvyonne Kurtis Lundberg is a 27 year old female with PMH as listed above, admitted to the hospital with: Acute cystitis/pyelonephritis:-- Will continue with antibiotics (cefepime)-- Urine culture is pendingProphylaxis: DVT- enoxaparinCode Status: addressed: FC [id number] and physical [id number]:18:27Histo ry and physical [id number] phillips [facility] for [facility] [id number] and physical noteLNEMTHREE R[facility]ERS [facility] STAFFEMCARE EMERGENC[facility] PHYSICIAN STAFF[address] L[id number] [id number]
--- NOTE | 2023-04-16 15:11 | EDPHYS ---
Physician Documentation [facility] Name: Miko Black Age: 27 yrs Sex: Female : 1995 Arrival Date: 04/16/2023 Time: 13:54 Bed 10 Private MD: ED Physician Artis Tavares HPI: 04/16 14:05 This 27 yrs old Female presents to ER via Ambulatory with complaints of Sore kb Throat. 14:05 The patient presents with sore throat. The patient describes throat pain as constant. kb Onset: The symptoms/episode began/occurred this morning. Severity of symptoms: At their worst the symptoms were mild, in the emergency department the symptoms are unchanged. Modifying factors: The symptoms are alleviated by nothing, the symptoms are aggravated by nothing. Associated signs and symptoms: Pertinent positives: Sore throat Pertinent negatives cough, fever, flu-like symptoms. The patient has not experienced similar symptoms in the past. The patient has not recently seen a physician. "My throat started getting sore this morning and it is probably my allergies, but I wanted to make sure it wasn't covid.". 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 - Social history:: Smoking status: unknown. ROS: 14:04 Constitutional: Negative for fever, chills, and weight loss, kb 14:04 ENT: Positive for sore throat, 14:04 All other systems are negative, Exam: 14:05 Constitutional: This is a well developed, well nourished patient who is awake, alert, kb and in no acute distress. Head/Face: Normocephalic, atraumatic. ENT: Moist Mucous membranes Cardiovascular: Regular rate Respiratory: Respirations even and unlabored. No increased work of breathing. Talking in full sentences Skin: Warm, dry with normal turgor. Normal color. MS/ Extremity: Pulses equal, no cyanosis. Neurovascular intact. Full, normal range of motion. Neuro: Awake and alert, GCS 15, oriented to person, place, time, and situation. Moves all extremities. Normal gait. Vital Signs: 14:01 Weight 61.23 kg; Height 5 ft. 1 in. ; kd3 14:10 BP 102 / 80; Pulse 78; Resp 16; Temp 98; Pulse Ox 99% on R/A; kd3 14:48 BP 110 / 65; Pulse 61; Resp 16; Pulse Ox 100% on R/A; kd3 15:23 BP 95 / 70; Pulse 60; Resp 18; Pulse Ox 100% on R/A; Pain 4/10; cm10 14:01 Body Mass Index 25.51 (61.23 kg, 154.94 cm) kd3 15:23 Pain Scale: Adult cm10 MDM: 13:56 Patient medically screened. kb 14:06 Differential diagnosis: covid, strep, allergic rhinitis. Data reviewed: vital signs, kb nurses notes. 15:10 Counseling: I had a detailed discussion with the patient and/or guardian regarding the kb historical points, exam findings, and any diagnostic results supporting the discharge/admit diagnosis, lab results, the need for outpatient follow up, a family practitioner, to return to the emergency department if symptoms worsen or persist or if there are any questions or concerns that arise at home. 04/16 14:04 Order name: Strep kb 04/16 14:04 Order name: SARS-COV-2 RT PCR; Complete Time: 14:59 kb 04/16 14:53 Order name: Throat Culture EDMS Administered Medications: No medications were administered Disposition: 14:06 I was immediately available on-site in the Emergency Department for consultation in the ms3 care of the patient. Disposition Summary: 04/16/23 15:10 Discharge Ordered Notes: Location: Home kb Condition: Stable kb Diagnosis - Pain in throat kb Followup: kb - With: Emergency Department - When: As needed - Reason: Worsening of condition Followup: kb - With: Private Physician - When: 2 - 3 days - Reason: Recheck today's complaints, Continuance of care, Re-evaluation by your physician Discharge Instructions: - Discharge Summary Sheet kb - Sore Throat, [id number] kb Forms: - Medication Reconciliation Form kb - Thank You Letter kb - Antibiotic Education kb - Prescription Opioid Use kb - Patient Portal Instructions kb - Leadership Thank You Letter kb - Work release form kd3 Signatures: Dispatcher [employer] EDMS Gricelda Mac, Artis Mackay, DO ms3 Swetha Dunlap, RN RN kd3
--- NOTE | 2023-04-16 15:11 | ER ---
Nurse's Notes [facility] Name: Miko Black Age: 27 yrs Sex: Female : 1995 Arrival Date: 04/16/2023 Time: 13:54 Bed 10 Private MD: Diagnosis: Pain in throat Presentation: 04/16 14:01 Chief complaint: Patient states: I usually have allergies when the season changes. My kd3 sore throat started this morning and i have some body aches. I just want to make sure I don't have covid or something that is unrelated to my allergies. Coronavirus screen: Vaccine status: Patient reports being unvaccinated. Ebola Screen: No symptoms or risks identified at this time. Initial Sepsis Screen: Does the patient meet any 2 criteria? No. Patient's initial sepsis screen is negative. Does the patient have a suspected source of infection? No. Patient's initial sepsis screen is negative. Risk Assessment: Do you want to hurt yourself or someone else? Patient reports no desire to harm self or others. Onset of symptoms was April 16, 2023. 14:01 Method Of Arrival: Ambulatory kd3 14:01 Acuity: BLAIR 4 kd3 Triage Assessment: 14:03 General: Appears in no apparent distress. Behavior is calm, cooperative. Pain: kd3 Complains of pain in left aspect of posterior pharynx and right aspect of posterior pharynx. EENT: Throat is reddened. 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 - Social history:: Smoking status: unknown. Screenin:49 [facility] ED Fall Risk Assessment (Adult) History of falling in the last 3 months, kd3 including since admission No falls in past 3 months (0 pts) Confusion or Disorientation No (0 pts) Intoxicated or Sedated No (0 pts) Impaired Gait No (0 pts) Mobility Assist Device Used No (0 pt) Altered Elimination No (0 pt) Score/Fall Risk Level 0 - 2 = Low Risk Oriented to surroundings. Abuse screen: Denies threats or abuse. Denies injuries from another. Nutritional screening: No deficits noted. Tuberculosis screening: No symptoms or risk factors identified. Assessment: 14:48 Neuro: Level of Consciousness is awake, alert, obeys commands, Oriented to person, kd3 place, time, situation. Cardiovascular: Patient's skin is warm and dry. Respiratory: Airway is patent Trachea midline Respiratory effort is even, unlabored, Breath sounds are clear bilaterally. 15:24 Reassessment: Patient and/or family updated on plan of care and expected duration. Pain cm10 level reassessed. Patient is alert, oriented x 3, equal unlabored respirations, skin warm/dry/pink. Patient states symptoms have improved. Vital Signs: 14:01 Weight 61.23 kg; Height 5 ft. 1 in. ; kd3 14:10 BP 102 / 80; Pulse 78; Resp 16; Temp 98; Pulse Ox 99% on R/A; kd3 14:48 BP 110 / 65; Pulse 61; Resp 16; Pulse Ox 100% on R/A; kd3 15:23 BP 95 / 70; Pulse 60; Resp 18; Pulse Ox 100% on R/A; Pain 4/10; cm10 14:01 Body Mass Index 25.51 (61.23 kg, 154.94 cm) kd3 15:23 Pain Scale: Adult cm10 ED Course: 13:55 Patient arrived in ED. rg4 13:55 Gricelda Mac FNP-C [facility]. kb 13:55 Artis Tavares DO is Attending Physician. kb 14:00 Arm band placed on Patient placed in an exam room, on a stretcher. ll1 14:01 Swetha Dunlap, RN is Primary Nurse. kd3 14:03 Triage completed. kd3 15:24 Patient has correct armband on for positive identification. Bed in low position. Call cm10 light in reach. Provided Education on: ER process and procedures. . 15:24 No provider procedures requiring assistance completed. Patient did not have IV access cm10 during this emergency room visit. Administered Medications: No medications were administered Medication: 14:49 VIS not applicable for this client. kd3 Outcome: 15:10 Discharge ordered by . kb 15:24 Discharged to home ambulatory, cm10 15:24 Condition: good 15:24 Discharge instructions given to patient, Instructed on discharge instructions, follow up and referral plans. Demonstrated understanding of instructions, follow-up care, 15:24 Patient left the ED. cm10 Signatures: Gricelda Mac FNP-C FNP-Ckb Cally Cervantes rg4 Julius Meneses, RN RN ll1 Swetha Dunlap, RN RN kd3 Jazmyne Catherine, RN RN cm10
[2023-04-16 15:55] VITALS: TEMP 98
[2023-04-16 15:56] VITALS: O2SAT 100
[2023-04-16 15:57] VITALS: BP 95/70
== END 2023-04-16 15:24 | disposition home or self-care (01) ==
LOC: ER 13:54
DX: R07.0 Pain in throat (principal); Z20.822 Contact with and (suspected) exposure to COVID-19; Z88.6 Allergy status to analgesic agent
CPT/HCPCS: 87070; 87081; 87635; 99283

== ENCOUNTER 2023-04-19 16:05 | Emergency (ER) | payer OTHER ==
--- OUTSIDE RECORDS SUMMARY | 2023-04-19 16:43 | XMS REPORT | Continuity of Care Document ---
:[address] [facility] t Address [address] [facility] [address] [place] [address] Care Team Providers Name Role Phone Caro Baird CNM Primary Care Physician [phone] Doctor Unassigned, [place] Attending Clinician Unavailable Jeremiah PALMER, Tamara Dominguez Attending Clinician HADLEY BELL Attending Clinician Unavailable Artem Noriega MD Attending Clinician Therese MANUEL, Mehran Miner Attending Clinician Hadley Bell DO Attending Clinician Caro Baird CNM Attending Clinician CARO BAIRD Attending Clinician Unavailable AMY JESUS Attending Clinician Unavailable Provider, [facility] Attending Clinician Unavailable MARSHA ROMAN Attending Clinician Unavailable Marsha Lindsay Attending Clinician Roger Joanna VALADEZ Attending Clinician [phone] JOANNA TALBOT Attending Clinician Unavailable EVERARDO GARCES Attending Clinician Unavailable Everardo Dill Attending Clinician Amy Barrera Attending Clinician [place] Attending Clinician [place] Attending Clinician Unavailable HADLEY BELL Admitting Clinician Unavailable Hadley Bell DO Admitting Clinician Payers Payer Name Policy Type Policy Number Effective Date Expiration Date Jack barrientos [place] [id number] 2021 00:00:00 MEDICAID PENDING PENDING 2021 00:00:00 Problems Condition Condition Condition Status Onset Resolution Last Treating Co mments Source Name Details Category Date Date Treatment Clinician Date Febrile Febrile Disease Active Univers illness illness 8-26 ity of 00:00: [address] Engages in Engages in Disease Active U nivers vaping vaping 6-23 ity of 00:00: [address] Overweight Overweight Disease Active U nivers (BMI (BMI 6-23 ity of 25.0-29.9) 25.0-29.9[place] [address] [place] [address] Supervisio Supervisio Disease Active U nivers n of n of 4-08 ity of high-risk high[place] 00:[place] 00 [facility] Multiparit Multiparit Disease Active U nivers y y 4-08 ity of 00:00: [address] Encounter Encounter Disease Active Uni vers for IUD for IUD 2-09 ity of removal removal 00:00: [address] Chlamydia Chlamydia Disease Active Uni vers trachomati trachomati 8-19 it y of s s 00:00: [place] infection infection 00 [facility] genitourin genitourin amber sites amber sites Allergies, Adverse Reactions, Alerts Allergy Allergy Status Severity Reaction(s) Onset Inactive Treating Comm ents Source Name Type Date Date Clinician IBUPROFE DRUG Active Swelling Univer s N INGREDI - ity of 00:00: [address] Ibuprofe Propensi Active Swelling Univ ers n ty to 07-30 ity of adverse 00:00: [place] reaction [address] [place] [address] Social History Social Habit Start Date Stop Date Quantity Comments Source ASSERTION 2021-08-11 University of 00:00:00 [facility] Gender identity Universit y of [place] [facility] Sexual orientation Univer [facility] History [facility] o f Alcohol Frequency [place] M ed[facility] History [facility] o f Alcohol Std Drinks [facility] History [facility] o f Alcohol Binge [place] [facility] Alcohol intake 2023-02-24 2023-02-24 Ex-drinker [facility] 00:00:00 00:00:00 (finding) [facility] Education 2023-02-24 2023-02-24 13 [facility] 00:00:00 00:00:00 [facility] Exposure to 2022-05-07 2022-05-17 Not sure [facility] SARS-CoV-2 (event) 00:00:00 10:57:00 [facility] Tobacco use and 2022-05-17 2022-05-17 Smokeless Universit y of exposure 00:00:00 00:00:00 tobacco non-user [facility] dical [place] History of Social 2022-05-17 2022-05-17 Univers ity of function 00:00:00 00:00:00 [facility] Alcohol Comment 2021-02-16 2021-02-16 social Universit y of 00:00:00 00:00:00 [facility] Sex Assigned At [birth year] Universit y of 00:00:00 00:00:00 [facility] Smoking Status Start Date Stop Date Source Never smoked tobacco [facility] [place] Medications Ordered Filled Start Stop Current Ordering Indication Dosage Frequency Signature Comments Components Source Medication Medication Date Date Medication? Clinician (SIG) Name Name levoFLOXaci Yes 750mg Take 1 Uni vers n 750 mg 8-29 tablet by ity of tablet 00:00: mouth [place] 00 every 24 Medical (twenty-fo Branch ur) hours. levoFLOXaci Yes 750mg Take 1 Uni vers n 750 mg 8-29 tablet by ity of tablet 00:00: mouth [place] 00 every 24 Medical (twenty-fo Branch ur) hours. levoFLOXaci Yes 750mg Take 1 Uni vers n 750 mg 8-29 tablet by ity of tablet 00:00: mouth [place] 00 every 24 Medical (twenty-fo Branch ur) hours. ceFEPIme 2022- Yes 1000mg 1,000 mg, U nivers (MAXIPIME) 02-25 IV ity of 1,000 mg in 14:30: 14:29 [place], [place] NaCl 0.9% 00 :00 Q8H ABX, Medica l (NS) 100 mL 21 doses, Bra [facility] MINI-BAG First dose on [place] 02/25/23 at 0930, Last dose on [place] 03/04/23 at 0130, Administer over 4 Hours, 100 mL
Reas on for Anti-Infec tive: Documented Infection& lt;br>Docu mented Infection Site: Urine
D uration of Therapy: 7 days enoxaparin Yes 40mg 40 mg, Unive rs (LOVENOX) 02-25 Subcutaneo ity of injection 14:00: [place] 40 [place] 00 First dose Medical on [facility] 02/25/23 at 0900, Until Discontinu ed, Routine ceFEPIme 2022- No 1000mg 1,000 mg, U nivers (MAXIPIME) 02-25 IV ity of 1,000 mg in 06:30: 06:03 [place], [place] NaCl 0.9% 00 :00 ONCE, 1 Medical (NS) 100 mL dose, On [facility] MINI-BAG [place] 02/25/23 at 0130, Administer over 30 Minutes, [...] en 02-24 Oral, ity of (TYLENOL) 23:48: [place], [place] tablet 650 21 Starting Medic al mg on [facility] Branch 02/24/23 at 1848, Until Discontinu ed, Routine, Pain (scale 1-3), Temp > 38 C cefTRIAXone 2022- No 1000mg 1,000 mg, Univers (ROCEPHIN) 02-24 IV ity of 1,000 mg in 22:45: 23:01 [place], [place] NaCl 0.9% 00 :00 ONCE, 1 Medical (NS) 100 mL dose, On Bran ch MINI-BAG [facility] 02/24/23 at 1745, Administer over 30 Minutes, 100 mL
Reas on for Anti-Infec tive: Empiric Therapy for Suspected Infection< br>Empiric Therapy Site: Urine
D uration of therapy: 72 hours NaCl 0.9% 2022- No 30mL/kg at 999 Un shamar (NS) bolus 02-24 mL/hr, ity of infusion 22:45: 22:29 1,905 mL [place] 1,905 mL 00 :00 (30 mL/kg Medica l ?63.5 kg), [place] IV Infusion, ONCE, 1 dose, On [facility] 02/24/23 at 1745, NIKITA acetaminoph 2022- No 650mg 650 mg, U nivers en 02-24 Oral, ity of (TYLENOL) 22:30: 22:33 ONCE, 1 [place] tablet 650 00 :00 dose, On Medic al mg [facility] Branch 02/24/23 at 1730, NIKITA metroNIDAZO 2022- No [id number] 2000mg Take 4 Univers LE 500 mg 12-21 tablets by ity of tablet 00:00: 04:59 [place] 00 :00 now for 1 Medical dose. [place] maalox:diph 2021- No [id number] 15mL 15 mL, Univers enhydrAMINE 03-25 Oral, ity of :lidocaine 04:45: 04:44 ONCE, 1 Juan David as 2 % viscous 00 :00 dose, On [facility] 1:1:1 Fri Branch (FIRST-MOUT 03/24/22 at [facility]) 2345, oral Routine suspension 15 mL ondansetron Yes [id number] 4mg Take 1 Univers 4 mg 9-24 tablet by ity of disintegrat 00:00: mouth [place] ing tablet 00 every 8 Medica l (eight) Branch hours as needed for Nausea and Vomiting (N/V). ondansetron Yes [id number] 4mg Take 1 Univers 4 mg 9-24 tablet by ity of disintegrat 00:00: mouth [place] ing tablet 00 every 8 Medica l (eight) Branch hours as needed for Nausea and Vomiting (N/V). ondansetron Yes [id number] 4mg Take 1 Univers 4 mg 9-24 tablet by ity of disintegrat 00:00: mouth [place] ing tablet 00 every 8 Medica l (eight) Branch hours as needed for Nausea and Vomiting (N/V). ondansetron 2021- No [id number] 4mg Take 1 Univers 4 mg 9-24 11-20 tablet by ity of disintegrat 00:00: 00:00 [place] ing tablet 00 :00 every 8 Medica l (eight) Branch hours as needed for Nausea and Vomiting (N/V). ondansetron 2021- No [id number] 4mg Take 1 Univers 4 mg 9-24 11-20 tablet by ity of disintegrat 00:00: 00:00 [place] ing tablet 00 :00 every 8 Medica l (eight) Branch hours as needed for Nausea and Vomiting (N/V). famotidine 2021- No [id number] 20mg Take 1 Univers 20 mg 9-24 10-25 tablet by ity of tablet 00:00: 04:59 mouth in [place] 00 :00 the Medical morning Branch and 1 tablet in the evening. Do all this for 30 days. terconazole 2021- No [id number] 80mg Insert 1 Univers 80 mg 4-11 04-15 Suppositor ity of vaginal 00:00: 04:59 y into [place] suppository 00 :00 vagina at [facility] bedtime Branch for 3 days. No known No Univers medications 4-08 ity of 11:34: [place] [address] Medical Branch No known No No known Unive rs medications 4-08 medication it y of 11:34: s [address] Vital Signs Vital Name Observation Time Observation Value Comments Source Systolic blood 2023-02-27 16:12:00 107 mm[Hg] Univer sity of pressure [facility] Diastolic blood 2023-02-27 16:12:00 66 mm[Hg] Unive rsity of pressure [facility] Heart rate 2023-02-27 16:12:00 59 /min Universi ty of [facility] Body temperature 2023-02-27 16:12:00 36.11 Josephine Univ ersity of [facility] Respiratory rate 2023-02-27 16:12:00 16 /min Univ ersity of [facility] Oxygen saturation in 2023-02-27 16:12:00 100 /min [facility] Arterial blood by [facility] [place] [facility] Pulse oximetry Branch Body weight 2023-02-27 08:55:00 65.998 kg Universi ty of [place] [facility] [place] BMI 2023-02-27 08:55:00 27.49 kg/m2 Universi ty [facility] [place] [facility] [place] Body height 2023-02-25 00:49:00 154.9 cm Universi ty of [place] [facility] Systolic blood 2022-12-19 19:11:00 96 mm[Hg] Univer sity of pressure [facility] Diastolic blood 2022-12-19 19:11:00 62 mm[Hg] Unive rsity of pressure [facility] Heart rate 2022-12-19 19:11:00 72 /min Universi ty [facility] [place] [facility] [place] Body temperature 2022-12-19 19:11:00 36.56 Josephine Univ ersity of [facility] Respiratory rate 2022-12-19 19:11:00 18 /min Univ ersity of [facility] Body height 2022-12-19 19:11:00 154.9 cm Universi ty [facility] [place] [facility] Body weight 2022-12-19 19:11:00 64.666 kg Universi ty of [place] [facility] [place] BMI 2022-12-19 19:11:00 26.94 kg/m2 Universi ty of [facility] Systolic blood 2022-05-17 16:58:00 104 mm[Hg] Univer sity of pressure [facility] Diastolic blood 2022-05-17 16:58:00 68 mm[Hg] Unive rsity of pressure [facility] Heart rate 2022-05-17 16:58:00 88 /min Universi ty of [facility] Body temperature 2022-05-17 16:58:00 36.22 Josephine [facility] ersity of [facility] Respiratory rate 2022-05-17 16:58:00 16 /min Univ ersity of [facility] Body height 2022-05-17 16:58:00 154.9 cm Universi ty of [facility] Body weight 2022-05-17 16:58:[address] [facility] BMI 2022-05-17 16:58:00 25.53 kg/m2 Universi ty [facility] Systolic blood 2022-03-25 05:00:00 122 mm[Hg] Univer sity of pressure [facility] Diastolic blood 2022-03-25 05:00:00 90 mm[Hg] Unive rsity of [facility] Heart rate 2022-03-25 05:00:00 97 /min Universi ty [facility] Respiratory rate 2022-03-25 05:00:00 16 /min [facility] Oxygen saturation in 2022-03-25 05:00:00 100 /min [facility] Arterial blood by [facility] [place] [facility] Pulse oximetry [place] Body temperature 2022-03-25 04:26:00 36.61 Josephine [facility] Body height 2022-03-25 04:26:[address] [facility] Body weight 2022-03-25 04:26:00 63.504 kg Universi [facility] BMI 2022-03-25 04:26:00 26.45 kg/m2 [facility] Procedures Procedure Date / Time Performing Clinician Source Performed AUTHORIZATION TO RELEASE 2023-03-08 05:01:00 [facility] [place] [facility] BASIC METABOLIC PANEL 2023-02-27 09:54:00 [facility] (NA, K, CL, CO2, GLUCOSE, Medica l Branch BUN, CREATININE, CA) CBC WITH DIFF 2023-02-27 09:54:00 Ray, [facility] o f [facility] POCT TEST 2023-02-24 22:16:00 Mehran Saleh [facility] URINALYSIS 2023-02-24 22:14:00 Mehran Saleh [facility] [place] URINE CULTURE 2023-02-24 22:14:00 Mehran Saleh [facility] [place] LACTIC ACID WHOLE BLOOD 2023-02-24 22:14:00 Mehran Saleh [facility] COVID-19 (ID NOW RAPID 2023-02-24 22:14:00 Mehran Saleh [facility] TESTING) Medical Branch LAB ONLY COVID 2023-02-24 22:14:00 [facility] INTERPRETATION [facility] BLOOD CULTURE SCREEN 2023-02-24 22:11:00 Mehran Saleh [facility] COMP. METABOLIC PANEL 2023-02-24 22:11:00 Mehran Saleh [facility] ([id number]) [facility] Branch CBC WITH DIFF 2023-02-24 22:11:00 Mehran Saleh [facility] [place] POCT URINALYSIS W/O 2022-12-19 20:53:00 Caro Baird [facility] SPECIFIC GRAVITY [facility] GALV ONLY - VAGINAL 2022-12-19 20:52:00 Caro Baird [facility] PATHOGENS BY NUCLEIC ACID Medica l Branch TESTING CBC WITH DIFF 2022-12-19 19:58:00 Caro Baird [facility] GC & CHLAMYDIA AMPLIFIED 2022-12-19 19:58:00 [facility]o [facility]aird [facility] HIV 1/2 AG-AB WITH REFLEX 2022-12-19 19:58:00 Caro Baird [facility] [place] TRICHOMONAS AMPLIFIED 2022-12-19 19:58:00 Caro Baird [facility] PAP SMEAR-LIQUID BASED-CP 2022-12-19 19:58:00 Caro Baird [facility] [place] SYPHILIS IGG/IGM 2022-12-19 19:58:00 Caro Baird [facility] POCT TEST 2022-12-19 19:17:00 Caro Baird [facility] PATIENT FINANCIAL 2022-12-19 18:44:54 Doctor Jorje, [facility] POLICY [facility] GC & CHLAMYDIA AMPLIFIED 2022-05-17 17:30:00 Caro Baird [facility] ASSAY [facility] GALV ONLY - VAGINAL 2022-05-17 17:30:00 Caro Baird [facility] PATHOGENS BY NUCLEIC ACID Medica Branch TESTING ASSIGNMENT OF BENEFITS 2022-05-17 16:25:04 Doctor Jorje, Un [facility] LIPASE 2022-03-25 04:38:00 Marsha Roman [facility] [place] COMP. METABOLIC PANEL 2022-03-25 04:38:00 Marsha Roman [facility] ([id number]) [facility] CBC WITH DIFF 2022-03-25 04:38:00 Marsha Roman [facility] [place] URINALYSIS 2022-03-25 04:38:00 Marsha Roman [facility] [place] POCT TEST 2022-03-25 04:38:00 Marsha [facility] NOTICE OF PRIVACY 2022-03-25 04:27:[address] [facility] CONSENT/REFUSAL FOR 2022-03-25 04:22:35 Doctor Recinos [facility] DIAGNOSIS AND TREATMENT [facility] [facility] En[facility]ters Start End Encounter Admission Attending Care Care Encounter Source Date/Time Date/Time Type Type Clinicians Facility Department ID 2023-03-08 2023-03-08 Orders Doctor ROCHE 1.2.840.114 [id number] Univers 00:00:00 00:00:00 MARIYA [place] 350.1.13.10 [facility] 4.2.7.2.686 Juan David as [id number] [place] [address] Branch 2023-02-28 2023-02-28 Transition LUL Daniels 1.2.840.114 [id number] Univers 00:00:00 00:00:00 of Care Tamara GALLAGHER 350.1.13.10 i ty of [place]2.686 [place] [id number] [facility] 403 Branch 2023-02-24 2023-02-27 Inpatient X RAY RUST JENNIFER [id number] Univers 16:38:00 12:16:[address] [facility] 2023-02-24 2023-02-27 Hospital Artem Noriega RUST 1.2.840.11 [id number] Univers 16:38:00 12:16:00 Encounter Mehran Saleh [place] 350.1.13. 10 ity of [place] Bell 4.2.7.2.686 [facility] [id number] [facility] 081 [place] 2022-12-21 2022-12-21 [facility] 1.2.840.114 [id number] Univers 00:00:00 00:00:00 Caro Daniel FIRST AID ATTENDANT 350.1.13.10 i ty of [facility] 4.2.7.2.686 Juan David as MATERNAL [id number] Med ical & CHILD [address] [place] [address] 2022-12-19 2022-12-19 Outpatient R BRIE [facility] [id number] Univers 14:15:00 14:56:[address] [facility] 2022-12-19 2022-12-19 [facility] 1.2.840.114 [id number] Univers 14:15:00 14:56:35 Visit Caro A FIRST AID ATTENDANT 350.1.13.10 i ty of [address]686 Juan David as MATERNAL [id number] Med ical & CHILD [address] [place] [address] 2022-12-19 2022-12-19 Orders Doctor ROCHE 1.2.840.114 [id number] Univers 00:00:00 00:00:00 Only Unassigned, MARIYA 350.1.13.[address] [place] [facility] 42.7.2.686 Juan David as [id number] [facility] 009 Branch 2022-10-19 2022-10-19 Outpatient Joe JESUS [facility] [id number] Univers 11:00:00 11:00:[address] [facility] 2022-05-17 2022-05-17 Outpatient R BRIE [facility] [id number] Univers 10:30:00 11:19:[address] [facility] 2022-05-17 2022-05-17 Office Provider, Vinayak-Rmch[facility] 1 .2.840.114 [id number] Univers 10:30:00 11:19:22 Visit Caro Baird FIRST AID ATTENDANT 350.1.13.1 0 ity of [facility] 4.2.7.2.686 Juan David as MATERNAL [id number] [facility] & CHILD [address] [place] [address] 2022-05-17 2022-05-17 Orders Doctor MELCHOR 1.2.840.114 [id number] Univers 00:00:00 00:00:00 Only Unassigned, MARIYA 350.1.13.[address] [place] [facility] 4.2.7.2.686 Juan David as [id number] [facility] 009 [place] 2022-05-17 2022-05-17 Letter [facility] 1.2.840.114 [id number] Univers 00:00:00 00:00:00 (Out) Caro Sanchez FIRST AID ATTENDANT 350.1.13.10 i ty of [facility] 4.2.7.2.686 Juan David as MATERNAL [id number] [facility] & CHILD [address] [place] [address] 2022-03-24 2022-03-25 Emergency X EJSSIE RUST ERT [id number] Univers 23:30:00 01:04:[address] [facility] 2022-03-24 2022-03-25 [facility] 1.2.840.114 [id number] Univers 23:30:00 01:04:00 [facility] 350.1.13.10 i ty of [place] 4.2.7.2.686 [place] [id number] [facility] 084 [place] 2022-03-21 2022-03-21 Telephone [facility] 1.2.840.114 [id number] Univers 00:00:00 00:00:00 Joanna C FIRST AID ATTENDANT 350.1.13.10 ity of REGIONAL 4.2.7.2.686 Juan David as MATERNAL [id number] [facility] & [facility]ILD [address] [place] [address] 2022-02-07 2022-02-07 Outpatient R AKINSIPE, [facility] [id number] Univers 09:00:00 09:00:00 JOANNA sy o christ [facility] 2021-11-14 2021-11-14 Telephone [facility] 1.2.840.114 [id number] Univers 00:00:00 00:00:00 Joanna C FIRST AID ATTENDANT 350.1.13.10 ity of REGIONAL 4.2.7.2.686 Juan David as MATERNAL [id number] [address] 2021-10-26 2021-10-26 [facility] [id number] Univers 12:45:00 12:45:00 JOANNA carrington [facility] 2021-10-21 2021-10-21 Out[facility] [id number] Univers 10:45:00 10:45:00 JOANNA sy o [facility] 2021-10-10 2021-10-10 Telephone [facility] 1.2.840.114 [id number] Univers 00:00:00 00:00:00 Joanna C FIRST AID ATTENDANT 350.1.13.10 ity of REGIONAL 4.2.7.2.686 Juan David as MATERNAL [id number] [facility] & [address] 2021-10-07 2021-10-07 Routine [facility] [id number] Univers 10:45:00 11:36:27 Joanna C FIRST AID ATTENDANT 350.1.13.10 ity of Visit REGIONAL 4.2.7.2.686 Juan David as MATERNAL [id number] [facility] & CHILD [address] [place] [address] 2021-10-07 2021-10-07 Out[facility] [id number] Univers 10:45:00 11:36:27 JOANNA ity o f [facility] 2021-10-07 2021-10-07 Outpatient R ROGER [facility] [id number] Univers 10:45:00 10:45:00 JOANNA ity o f [facility] 2021-10-04 2021-10-04 Outpatient Joe GARCES [facility] [id number] Univers 13:30:00 13:30:[facility] 2021-09-06 2021-09-06 Outpatient Joe GARCES [facility] [id number] Univers 10:00:00 14:10:02 [facility] 2021-09-06 2021-09-06 Outpatient Joe GARCES [facility] [id number] Univers 13:00:00 14:09:40 [facility] 2021-09-06 2021-09-06 Initial Timothy, PENELOPEIT [id number] Univers 13:00:00 14:09:40 [facility] 350.1.13.10 ity of Visit CLINICS 4[place] [id number] [facility] 113 [place] 2021-09-06 2021-09-06 Orders Doctor MELCHOR 1.2.840.114 [id number] Univers 00:00:00 00:00:00 Only Unassigned, MARIYA 350.1.13.10 ity of [place] [facility] 4.2.7.2.686 Juan David as [id number] [facility] 009 Branch 2021-08-10 2021-08-10 Office Roger RUST [id number] Univers 08:30:00 09:45:24 Visit Joanna Kaufman FIRST AID ATTENDANT 350.1.13.10 ity of [facility] 4.2.7.2.686 Juan David as MATERNAL [id number] [facility] ical & CHILD [address] [place] [address] 2021-08-10 2021-08-10 Outpatient R ROGER [facility] [id number] Univers 08:30:00 09:45:24 JOANNA bolanosy o f [facility] 2021-08-10 2021-08-10 Outpatient R AKINSIRICHY, [facility] [id number] Univers 08:30:00 08:30:00 JOANNA sy o f [facility] 2021-08-10 2021-08-10 Orders Doctor MELCHOR 1.2.840.114 [id number] Univers 00:00:00 00:00:00 Only Unassigned, MARIYA 350.1.13.[address] [place] [facility] 4.2.7.2.686 Juan David as [id number] [address] 2021-08-08 2021-08-08 Telephone [facility] 1.2.840.114 [id number] Univers 00:00:00 00:00:00 Joanna Kaufman FIRST AID ATTENDANT 350.1.13.10 ity [facility] 4.2.7.2.686 Juan David as MATERNAL [id number] Med ical & CHILD [address] [place] [address] 2021-07-29 2021-07-29 Emergency X ROMAN, RUST ERT [id number] Univers 15:02:00 16:43:[address] [facility] 2021-07-29 2021-07-29 Emergency X ROMAN, RUST ERT [id number] Univers 15:02:00 16:43:[address] [facility] 2021-07-29 2021-07-29 Emergency Roman, RUST 1.2.840.114 [id number] Univers 15:02:00 16:43:00 [facility] 350.1.13.10 i ty [facility] 4.2.7.2.686 [place] [facility] [phone] [facility] [address] [place] 2021-07-29 2021-07-29 Orders Doctor MELCHOR 1.2.840.114 [id number] Univers 00:00:00 00:00:00 Only Unassigned, MARIYA 350.1.13.[address] [place] [facility] 4.2.7.2.686 Juan David as [phone] [facility] [address] [place] 2021-04-06 2021-04-06 Office [facility] [place] 1.2.206.821 [id number] Univers 14:37:00 15:18:01 Visit Joanna Kaufman FIRST AID ATTENDANT 350.1.13.10 ity of REGIONAL 4.2.7.2.686 Juan David as MATERNAL [phone] [facility] & CHILD [address] [place] [address] 2021-04-06 2021-04-06 [facility] [id number] Univers 14:15:00 14:15:00 JOANNA polo [facility] 2021-04-04 2021-04-04 [facility] [id number] [facility] 08:30:00 08:30:00 JOANNA kerire carrington christ [facility] 2021-02-18 2021-02-18 [facility] 1.2.840.114 [id number] Univers 00:00:00 00:00:00 Amy Conway FIRST AID ATTENDANT 350.1.13.10 it y of REGIONAL 4.2.7.2.686 Juan David as MATERNAL [phone] [facility] & [facility]ILD [address] [place] [address] 2021-02-17 2021-02-17 [facility] 1.2.840.114 [id number] Univers 00:00:00 00:00:00 Amy Conway FIRST AID ATTENDANT 350.1.13.10 it y of REGIONAL 4.2.7.2.686 Juan David as MATERNAL [phone] [facility] & [address] 2021-02-16 2021-02-16 Office Amy Jesus [place] 1.2.840. 114 [id number] Univers 08:18:09 08:59:18 Visit [place] FIRST AID ATTENDANT 350.1.13.10 ity of REGIONAL 4.2.7.2.686 Juan David as MATERNAL [phone] [facility]ILD [address] [place] [address] 2021-02-16 2021-02-16 [facility] [id number] Univers 07:45:00 07:45:00 LOS polo [facility] Results Test Description Test Time Test Comments Results Result Comments Source BASIC METABOLIC PANEL (NA, K, CL, CO2, GLUCOSE, BUN, 2023-01 10:50:20 CREATININE, CA) Test Item Value Reference Range Interpretation Comme nts NA (test code = 6516243123) 139 mmol/L 135-145 K (test code = 7538217302) 4.3 mmol/L 3.5-5.0 CL (test code = 3798367775) 104 mmol/L 98-108 CO2 TOTAL (test code = 31 mmol/L 23-31 1643967590) AGAP (test code = 2096778937) 4 2-16 BUN (test code = 4913490168) 11 mg/dL 7-23 GLUCOSE (test code = 0858765314) 93 mg/dL 70-110 CREATININE (test code = 0.69 mg/dL 0.50-1.04 0747209654) CALCIUM (test code = 1110499652) 8.7 mg/dL 8.6-10.6 eGFR (test code = 6278592153) 103.7 mL/min/1.73m2 AYAKA (test code = AYAKA) [...] or urine or abnormalities in imaging tests). [facility] WITH [id number] 10:10:32 Test Item Value Reference Range Interpretation [...] (test code = 38.3 fL 39.0-49.9 L 67562-8) RDW-CV (test code = 11.0 % 12.0-15.5 L 788-0) PLT (test code = 240 See_Comment [Automated 777-3) message] The sy stem which generated this result transmitted reference range : 166 - 358 10*3/ ?L. The reference r kings was not used to interpret this result as normal/abnormal . MPV (test code = 9.4 fL 9.5-12.9 L 34184-4) NRBC/100 WBC (test 0.0 See_Comment [Automat ed code = 1543799481) message] The system which generated this result transmitted reference range : 0.0 - 10.0 /100 WBCs. The refer ence range was not u sed to interpret th is result as normal/abnormal . NRBC x10^3 (test code See_Comment [Auto mated = 5743052170) message] The s ystem which generated this result transmitted reference range : 10*3/?L. The reference range was not used to interpret this result as normal/abnormal . GRAN MAT (NEUT) % 55.1 % (test code = 770-8) IMM GRAN % (test code 0.30 % = 3526620360) LYMPH % (test code = 32.6 % 736-9) MONO % (test code = 9.2 % 5905-5) EOS % (test code = 2.3 % 713-8) BASO % (test code = 0.5 % 706-2) GRAN MAT x10^3(ANC) 3.67 10*3/uL 1.88-7.09 (test code = 1149726975) IMM GRAN x10^3 (test 0.00-0.06 code = 0495293746) LYMPH x10^3 (test code 2.17 10*3/uL 1.32-3.29 = 731-0) MONO x10^3 (test code 0.61 10*3/uL 0.33-0.92 = 742-7) EOS x10^3 (test code = 0.15 10*3/uL 0.03-0.39 711-2) BASO x10^3 (test code 0.03 10*3/uL 0.01-0.07 = 704-7) Lab Interpretation Abnormal (test code = 80892-9) [facility]. METABOLIC PANEL (33527)2023-02-24 22:54:31 Test Item Value Reference Range Interpretation Comments NA (test code = 139 mmol/L 135-145 7039803481) K (test code = 3.7 mmol/L 3.5-5.0 6674655383) CL (test code = 105 mmol/L 98-108 2306201555) CO2 TOTAL (test code = 26 mmol/L 23-31 2790002373) AGAP (test code = 8 2-16 8430067873) BUN (test code = 6 mg/dL 7-23 L 6694231754) GLUCOSE (test code = 112 mg/dL 70-110 H 9542321791) CREATININE (test code = 0.61 mg/dL 0.50-1.04 0108690639) TOTAL BILI (test code = 0.2 mg/dL 0.1-1.1 2004138189) CALCIUM (test code = 8.6 mg/dL 8.6-10.6 2963738480) T PROTEIN (test code = 6.7 g/dL 6.3-8.2 0279710441) ALBUMIN (test code = 3.8 g/dL 3.5-5.0 0092445218) ALK PHOS (test code = 48 U/L 34-122 0367770449) ALTv (test code = 19 U/L 5-35 1742-6) AST(SGOT) (test code = 25 U/L 13-40 1126957049) eGFR (test code = 119.5 mL/min/1.73m2 7157339949) AYAKA (test code = AYAKA) Association of [...] tests). Lab Interpretation Abnormal (test code = 01654-8) [facility] WITH [id number] 22:34:25 Test Item Value Reference Range Interpretation [...] (test code = 37.5 fL 39.0-49.9 L 33415-7) RDW-CV (test code = 11.0 % 12.0-15.5 L 788-0) PLT (test code = 177 See_Comment [Automated 777-3) message] The sy stem which generated this result transmitted reference range : 166 - 358 10*3/ ?L. The reference r kings was not used to interpret this result as normal/abnormal . MPV (test code = 9.7 fL 9.5-12.9 21046-8) NRBC/100 WBC (test 0.0 See_Comment [Automat ed code = 5444435898) message] The system which generated this result transmitted reference range : 0.0 - 10.0 /100 WBCs. The refer ence range was not u sed to interpret th is result as normal/abnormal . NRBC x10^3 (test code See_Comment [Auto mated = 0072190783) message] The s ystem which generated this result transmitted reference range : 10*3/?L. The reference range was not used to interpret this result as normal/abnormal . GRAN MAT (NEUT) % 86.0 % (test code = 770-8) IMM GRAN % (test code 0.40 % = 6698953408) LYMPH % (test code = 8.5 % 736-9) MONO % (test code = 4.8 % 5905-5) EOS % (test code = 0.0 % 713-8) BASO % (test code = 0.3 % 706-2) GRAN MAT x10^3(ANC) 5.85 10*3/uL 1.88-7.09 (test code = 5933428134) IMM GRAN x10^3 (test 0.03 10*3/uL 0.00-0.06 code = 0841463833) LYMPH x10^3 (test code 0.58 10*3/uL 1.32-3.29 L = 731-0) MONO x10^3 (test code 0.33 10*3/uL 0.33-0.92 = 742-7) EOS x10^3 (test code = 0.03-0.39 L 711-2) BASO x10^3 (test code 0.01-0.07 = 704-7) Lab Interpretation Abnormal (test code = 65057-5) [facility] [id number] 22:30:19 Test Item Value Reference Range Interpretation Comments LACTIC ACID (test code = 1.56 mmol/L 0.50-2.20 7742828473) Lab Interpretation (test code = Normal 69588-6) [facility] [id number] 22:16:00 Test Item Value Reference Range Interpretation Comments POCT PREG (test code = 1605) Negative On board controls acceptable with Yes C Line (test code = 3574) POCT PREG LOT # (test code = 3575) [id number] POCT PREG TEST DATE (test 07/04/2024 code = 3576) Lab Interpretation (test code = Normal 94489-3) [facility] - SYPHILIS [id number] 14:07:33 Test Item Value Reference Range Interpretation Comments Syphilis IgG/IgM (test Non-reactive Non-reactive code = 39977-4) AYAKA (test code = AYAKA) Non-reactive - No serologic evidence of T. pallidum infection. Cannot exclude incubating or early syphilis. Submit a second specimen in 2-4 weeks if syphilis is clinically suspected. Equivocal - Further testing to follow. Reactive - Further testing to follow. Lab Interpretation (test Normal code = 76688-5) [facility] ONLY - SYPHILIS [id number] 14:07:33 Test Item Value Reference Range Interpretation Comments Syphilis IgG/IgM (test Non-reactive Non-reactive code = 74531-8) AYAKA (test code = AYAKA) Non-reactive - No serologic evidence of T. pallidum infection. Cannot exclude incubating or early syphilis. Submit a second specimen in 2-4 weeks if syphilis is clinically suspected. Equivocal - Further testing to follow. Reactive - Further testing to follow. Lab Interpretation (test Normal code = 13758-9) [facility] 1/2 AG-AB WITH [id number] 06:09:28 Test Item Value Reference Range Interpretation Comments HIV 0.06 Negative Semi-quantitative (test code = 36970-6) AYAKA (test code = Non-reactive for HIV-1 AYAKA) antigen and HIV-1/HIV-2 antibodies. ?No laboratory evidence of HIV infection. ?Repeat in 2-4 weeks if acute HIV infection is suspected. [facility] /2 AG-AB WITH [id number] 06:09:28 Test Item Value Reference Range Interpretation Comments HIV 0.06 Negative Semi-quantitative (test code = 91568-3) AYAKA (test code = Non-reactive for HIV-1 AYAKA) antigen and HIV-1/HIV-2 antibodies. ?No laboratory evidence of HIV infection. ?Repeat in 2-4 weeks if acute HIV infection is suspected. [facility] WITH [id number] 05:46:41 Test Item Value Reference Range Interpretation Comments WBC (test code = 7.96 See_Comment [Automated 3389-2) message] The sy stem which generated this result transmitted reference range : 4.30 - 11.10 10*3/?L. The reference range was not used to interpret this result as normal/abnormal . RBC (test code = 4.06 See_Comment [Automated 599-8) message] The sy stem which generated this [...] RDW-SD (test code = 42.0 fL 39.0-49.9 36418-5) RDW-CV (test code = 11.5 % 12.0-15.5 L 788-0) PLT (test code = 280 See_Comment [Automated 777-3) message] The sy stem which generated this result transmitted reference range : 166 - 358 10*3/ ?L. The reference r kings was not used to interpret this result as normal/abnormal . MPV (test code = 10.6 fL 9.5-12.9 78946-0) NRBC/100 WBC (test 0.0 See_Comment [Automat ed code = 9158449443) message] The system which generated this result transmitted reference range : 0.0 - 10.0 /100 WBCs. The refer ence range was not u sed to interpret th is result as normal/abnormal . NRBC x10^3 (test code See_Comment [Auto mated = 4091634222) message] The s ystem which generated this result transmitted reference range : 10*3/?L. The reference range was not used to interpret this result as normal/abnormal . GRAN MAT (NEUT) % 71.5 % (test code = 770-8) IMM GRAN % (test code 0.30 % = 8961713807) LYMPH % (test code = 20.2 % 736-9) MONO % (test code = 6.7 % 5905-5) EOS % (test code = 0.9 % 713-8) BASO % (test code = 0.4 % 706-2) GRAN MAT x10^3(ANC) 5.70 10*3/uL 1.88-7.09 (test code = 2711957913) IMM GRAN x10^3 (test 0.00-0.06 code = 7304488358) LYMPH x10^3 (test code 1.61 10*3/uL 1.32-3.29 = 731-0) MONO x10^3 (test code 0.53 10*3/uL 0.33-0.92 = 742-7) EOS x10^3 (test code = 0.07 10*3/uL 0.03-0.39 711-2) BASO x10^3 (test code 0.03 10*3/uL 0.01-0.07 = 704-7) Lab Interpretation Abnormal (test code = 21386-5) [facility] WITH [id number] 05:46:41 Test Item Value Reference Range Interpretation Comments WBC (test code = 7.96 See_Comment [Automated 1835-2) message] The sy stem which generated this result transmitted reference range : 4.30 - 11.10 10*3/?L. The reference range was not used to interpret this result as normal/abnormal . RBC (test code = 4.06 See_Comment [Automated 529-8) message] The sy stem which generated this [...] RDW-SD (test code = 42.0 fL 39.0-49.9 36248-5) RDW-CV (test code = 11.5 % 12.0-15.5 L 788-0) PLT (test code = 280 See_Comment [Automated 637-3) message] The sy stem which generated this result transmitted reference range : 166 - 358 10*3/ ?L. The reference r kings was not used to interpret this result as normal/abnormal . MPV (test code = 10.6 fL 9.5-12.9 88128-9) NRBC/100 WBC (test 0.0 See_Comment [Automat ed code = 9603937839) message] The system which generated this result transmitted reference range : 0.0 - 10.0 /100 WBCs. The refer ence range was not u sed to interpret th is result as normal/abnormal . NRBC x10^3 (test code See_Comment [Auto mated = 4402663297) message] The s ystem which generated this result transmitted reference range : 10*3/?L. The reference range was not used to interpret this result as normal/abnormal . GRAN MAT (NEUT) % 71.5 % (test code = 770-8) IMM GRAN % (test code 0.30 % = 9612305864) LYMPH % (test code = 20.2 % 736-9) MONO % (test code = 6.7 % 5905-5) EOS % (test code = 0.9 % 713-8) BASO % (test code = 0.4 % 706-2) GRAN MAT x10^3(ANC) 5.70 10*3/uL 1.88-7.09 (test code = 2557775226) IMM GRAN x10^3 (test 0.00-0.06 code = 2065751106) LYMPH x10^3 (test code 1.61 10*3/uL 1.32-3.29 = 731-0) MONO x10^3 (test code 0.53 10*3/uL 0.33-0.92 = 742-7) EOS x10^3 (test code = 0.07 10*3/uL 0.03-0.39 711-2) BASO x10^3 (test code 0.03 10*3/uL 0.01-0.07 = 704-7) Lab Interpretation Abnormal (test code = 30378-1) [facility] W/O SPECIFIC [id number] 20:53:00 Test Item Value Reference Range Interpretation [...] code = 3257) . Negative - Negative [facility] URINALYSIS W/O SPECIFIC [id number] 20:53:00 Test Item Value Reference Range Interpretation [...] code = 3257) . Negative - Negative [facility] [id number] 19:17:00 Test Item Value Reference Range Interpretation Comments POCT PREG (test code = 1605) Negative On board controls acceptable with C Yes Line (test code = 3574) POCT PREG LOT # (test code = 3575) POCT PREG TEST DATE (test code = 3576) [facility] [id number] 19:17:00 Test Item Value Reference Range Interpretation Comments POCT PREG (test code = 1605) Negative On board controls acceptable with C Yes Line (test code = 3574) POCT PREG LOT # (test code = 3575) POCT PREG TEST DATE (test code = 3576) [facility]. METABOLIC PANEL (39896)2022-03-25 05:07:49 Test Item Value Reference Range Interpretation Comments NA (test code = 139 mmol/L 135-145 2380186444) K (test code = 4.2 mmol/L 3.5-5 4313613316) CL (test code = 103 mmol/L 98-108 3895326298) CO2 TOTAL (test code 24 mmol/L 23-31 = 4118897975) AGAP (test code = 2-16 4284486680) BUN (test code = 14 mg/dL 7-23 3869369395) GLUCOSE (test code = 100 mg/dL 70-110 7759499573) CREATININE (test code 0.63 mg/dL 0.5-1.04 = 2080856179) TOTAL BILI (test code 0.3 mg/dL 0.1-1.1 = 3874176326) CALCIUM (test code = 9.6 mg/dL 8.6-10.6 1779857049) T PROTEIN (test code 7.7 g/dL 6.3-8.2 = 7533224011) ALBUMIN (test code = 5.0 g/dL 3.5-5 0780062640) ALK PHOS (test code = 57 U/L 34-122 9319056770) ALTv (test code = 18 U/L 5-35 2-6) AST(SGOT) (test code 29 U/L 13-40 = 9624535856) eGFR (test code = mL/min/1.73m2 0306027998) AYAKA (test code = AYAKA) Association of [...] or urine or abnormalities in imaging tests). [facility] WITH [id number] 05:07:08 Test Item Value Reference Range Interpretation [...] (test code = 38.2 fL 39-49.9 L 68888-7) RDW-CV (test code = 11.7 % 12-15.5 L 788-0) PLT (test code = See_Comment [Automated 777-3) message] The sy stem which generated this result transmitted reference range : 166 - 358 10*3/ ?L. The reference r kings was not used to interpret this result as normal/abnormal . MPV (test code = 9.7 fL 9.5-12.9 44302-2) NRBC/100 WBC (test See_Comment [Automat ed code = 0766454603) message] The system which generated this result transmitted reference range : 0.0 - 10.0 /100 WBCs. The refer ence range was not u sed to interpret th is result as normal/abnormal . NRBC x10^3 (test code See_Comment [Auto mated = 0791409614) message] The s ystem which generated this result transmitted reference range : 10*3/?L. The reference range was not used to interpret this result as normal/abnormal . GRAN MAT (NEUT) % 64.7 % (test code = 770-8) IMM GRAN % (test code 0.40 % = 8410654360) LYMPH % (test code = 26.8 % 736-9) MONO % (test code = 7.1 % 5905-5) EOS % (test code = 0.7 % 713-8) BASO % (test code = 0.3 % 706-2) GRAN MAT x10^3(ANC) 6.21 10*3/uL 1.88-7.09 (test code = 5462523615) IMM GRAN x10^3 (test 0.04 10*3/uL 0-0.06 code = 3874442835) LYMPH x10^3 (test code 2.57 10*3/uL 1.32-3.29 = 731-0) MONO x10^3 (test code 0.68 10*3/uL 0.33-0.92 = 742-7) EOS x10^3 (test code = 0.07 10*3/uL 0.03-0.39 711-2) BASO x10^3 (test code 0.03 10*3/uL 0.01-0.07 = 704-7) Lab Interpretation Abnormal (test code = 96906-7) [facility] 05:07:08 Test Item Value Reference Range Interpretation Comments LIPASE (test code = 4169191955) 104 U/L 0-220 Lab Interpretation (test code = Normal 12743-7) [facility] [id number] 04:38:00 Test Item Value Reference Range Interpretation Comments POCT PREG (test code = 1605) Negative On board controls acceptable with Present C Line (test code = 3574) POCT PREG LOT # (test code = HCG 6452887 2931) POCT PREG TEST DATE (test 05/31/2023 code = 3576) Lab Interpretation (test code = Normal 11367-5) [facility] History and Physical Notes Date/Time Note Provider Source 2023-02-24 20:38:38 [id number]:38:38Formatting [facility] of this note is different from PHYSICIAN STAFF the original.MEDICINE [facility] ADMIT H&PDate of Service: 02/24/2023HIEF COMPLAINT: fever, chillsHistory of Present Dxllaye72 yo female who presents to the ED secondary to fever and chills. She was just discharged from [facility] after 3 days and felt that she [...] Narrative Patient lives with mother and children. Pentecostalism preference: omnism Review of Systems Constitutional: Positive [...] is pendingProphylaxis: DVT- enoxaparinCode Status: addressed: FC 85081-4Trazftu and physical xoijGN4428-34-52R02:18:27Histo ry and physical noteTXT1.2.840.396041.1.13.104 .2.7.2.677063|[id number] [facility] for [facility] joto36642-5Gjbrwae and physical noteLNEMMCLAREN CENTRAL [facility] PHYSIC[facility] STAFFEMCARE EMERGENCY PHYSICIAN STAFF[address] HuecHohewqpurLrnmrbrivJSWI1363 [id number] 21-02-27T02:18:271.2.840.26148 0.1.72.3.15|1.2.840.639302.1.1 [id number]
[2023-04-19 17:22] LABS: Specific Gravity 1.025 (1.005-1.030)
[2023-04-19 17:27] LABS: Specific Gravity 1.026 (1.005-1.030); Urine Bacteria None Seen /HPF (<20); Urine Bilirubin NEGATIVE (Negative); Urine Blood Negative (Negative); Urine Clarity Turbid (Clear); Urine Color Light-Yellow (Yellow); Urine Glucose NEGATIVE (Negative); Urine Mucus Slight /HPF (None Seen); Urine Protein NEGATIVE (Negative); Urine RBC <5 /HPF (None Seen); Urine Urobilinogen Normal (Normal); Urine pH 7.5 (5.0-7.0)
[2023-04-19 17:30] LABS: Hematocrit 36.9 % (36.0-45.0); MCV 95.3 fL (80-100); MPV 7.8 fL (7.6-11.3); Platelets 257 thou/uL (152-406); RBC Red Blood Cell Count 3.87 M/uL (3.86-4.86)
[2023-04-19 17:34] LABS: SARS-CoV-2 Antigen Rapid Res Negative (Negative)
[2023-04-19 17:46] LABS: Potassium 3.9 mEq/L (3.5-5.1); Thyroid Stimulating Hormone 0.358 uIU/mL (0.358-3.740)
--- NOTE | 2023-04-19 17:49 | EDPHYS ---
Physician Documentation [facility] Name: Miko Black Age: 27 yrs Sex: Female : 1995 Arrival Date: 04/19/2023 Time: 16:05 Bed 9 Private MD: ED Physician Jesus Landry HPI: 04/19 16:45 This 27 yrs old Female presents to ER via Ambulatory with complaints of sb4 fatigue. 16:46 Onset: The symptoms/episode began/occurred 2 week(s) ago. sb4 16:47 patient reports feeling more fatigued than her usual the past few weeks, she is sb4 concerned that her iron is low due to her history of anemia or that she is . LMP 04/03. no abnormal vaginal bleeding/discharge. she does endorse some nausea and lower abdominal cramping. no cough, sob, vomiting, fever. FISCAL MANAGER: 16:19 3, Full Term 2, Premature 0, 1, Living 2, unknown rs5 Historical: - Allergies: 16:19 Motrin; rs5 - PMHx: 16:19 None; rs5 - PSHx: 16:19 None; rs5 - Immunization history:: Adult Immunizations unknown. - Social history:: Smoking status: Reported history of juuling and/or vaping. ROS: 16:47 Respiratory: Negative for shortness of breath, cough, wheezing, and pleuritic chest sb4 pain, 16:47 Constitutional: Positive for fatigue, 16:47 Abdomen/GI: Positive for abdominal pain, nausea, 16:47 All other systems are negative, Exam: 16:49 Constitutional: This is a well developed, well nourished patient who is awake, alert, sb4 and in no acute distress. Head/Face: Normocephalic, atraumatic. Eyes: Extra-ocular motions intact. Periorbital areas with no swelling, redness, or edema. ENT: Mucous membranes moist. Cardiovascular: Regular rate and rhythm with a normal S1 and S2. Respiratory: Lungs have equal breath sounds bilaterally, clear to auscultation and percussion. No rales, rhonchi or wheezes noted. No increased work of breathing, no retractions or nasal flaring. Abdomen/GI: Soft, non-tender, no distension. Skin: Warm, dry with normal turgor. Normal color with no rashes, no lesions, and no evidence of cellulitis. MS/ Extremity: Pulses equal, no cyanosis. Neurovascular intact. Full, normal range of motion. Vital Signs: 16:19 BP 110 / 68; Pulse 75; Resp 17; Temp 97.1; Pulse Ox 99% on R/A; rs5 MDM: 16:11 Patient medically screened. sb4 16:49 Differential diagnosis: viral Infection, UTI, covid, , hypothyroidism, anemia. sb4 17:49 Data reviewed: vital signs, nurses notes, lab test result(s), and as a result, I will sb4 discharge patient. Counseling: I had a detailed discussion with the patient and/or guardian regarding the historical points, exam findings, and any diagnostic results supporting the discharge/admit diagnosis, lab results, the need for outpatient follow up, for definitive care, to return to the emergency department if symptoms worsen or persist or if there are any questions or concerns that arise at home. 04/19 16:26 Order name: CBC w/o diff; Complete Time: 17:32 sb4 04/19 16:26 Order name: BMP; Complete Time: 17:48 sb4 04/19 16:26 Order name: Test, Urine; Complete Time: 17:25 sb4 04/19 16:26 Order name: Test, Serum; Complete Time: 17:53 sb4 04/19 16:26 Order name: TSH; Complete Time: 17:48 sb4 04/19 16:26 Order name: UAM; Complete Time: 17:29 sb4 04/19 16:27 Order name: SARS RAPID; Complete Time: 17:35 sb4 04/19 16:27 Order name: Flu; Complete Time: 17:42 sb4 Administered Medications: No medications were administered Disposition Summary: 04/19/23 17:49 Discharge Ordered Notes: Location: Home sb4 Problem: an ongoing problem sb4 Symptoms: are unchanged sb4 Condition: Stable sb4 Diagnosis - Other fatigue sb4 Followup: sb4 - With: Emergency Department - When: As needed - Reason: Trouble breathing, Worsening of condition Discharge Instructions: - Discharge Summary Sheet sb4 - Fatigue sb4 Forms: - Work release form sb4 - Medication Reconciliation Form sb4 - Thank You Letter sb4 - Antibiotic Education sb4 - Prescription Opioid Use sb4 - Patient Portal Instructions sb4 - Leadership Thank You Letter sb4 Signatures: Dispatcher [employer] Sharron Delgadillo PA-C PA-C sb4 Ifeanyi Dotson, RN RN rs5
--- NOTE | 2023-04-19 17:49 | ER ---
Nurse's Notes [facility] Name: Miko Black Age: 27 yrs Sex: Female : 1995 Arrival Date: 04/19/2023 Time: 16:05 Bed 9 Private MD: Diagnosis: Other fatigue Presentation: 04/19 16:16 Chief complaint: Patient states: "I've been feeling fatigued for the past two weeks, I rs5 know I'm anemic and I'm wondering if my iron levels are low. Also, the other day I felt a weird sensation in my lower belly and I'm wondering if I might be ". Coronavirus screen: At this time, the client does not indicate any symptoms associated with coronavirus-19. Ebola Screen: No symptoms or risks identified at this time. Initial Sepsis Screen: Does the patient meet any 2 criteria? No. Patient's initial sepsis screen is negative. Does the patient have a suspected source of infection? No. Patient's initial sepsis screen is negative. Risk Assessment: Do you want to hurt yourself or someone else? Patient reports no desire to harm self or others. Onset of symptoms was April 12, 2023. 16:16 Method Of Arrival: Ambulatory rs 16:16 Acuity: BLAIR 3 rs5 [employer]: 16:19 3, Full Term 2, Premature 0, 1, Living 2, unknown rs5 Historical: - Allergies: 16:19 Motrin; rs5 - PMHx: 16:19 None; rs5 - PSHx: 16:19 None; rs5 - Immunization history:: Adult Immunizations unknown. - Social history:: Smoking status: Reported history of juuling and/or vaping. Screenin:08 [facility] ED Fall Risk Assessment (Adult) History of falling in the last 3 months, ap3 including since admission No falls in past 3 months (0 pts). Abuse screen: Denies threats or abuse. Nutritional screening: No deficits noted. Tuberculosis screening: No symptoms or risk factors identified. Assessment: 17:07 General: Appears in no apparent distress. Behavior is calm, cooperative. General: ap3 Reports fatigue for. Pain: Denies pain. Neuro: Level of Consciousness is awake, alert, obeys commands, Oriented to person, place, time, situation. Cardiovascular: Patient's skin is warm and dry. Respiratory: Airway is patent Respiratory effort is even, unlabored, Respiratory pattern is regular, symmetrical. Vital Signs: 16:19 BP 110 / 68; Pulse 75; Resp 17; Temp 97.1; Pulse Ox 99% on R/A; rs5 ED Course: 16:08 Patient arrived in ED. im 16:09 Sharron Colmenares [facility]-C [facility] sb4 16:09 Jesus Landry MD is Attending Physician. sb4 16:19 Triage completed. rs5 16:51 Nicolette Garcia, RN is Primary Nurse. ap3 17:07 Initial lab(s) drawn, by sd, sent to lab. Urine collected: clean catch specimen. ap3 Inserted saline lock: 22 gauge in right antecubital area, using aseptic technique. Blood collected. 17:08 Arm band placed on right wrist. ap3 18:16 No provider procedures requiring assistance completed. Patient did not have IV access ap3 during this emergency room visit. 18:17 Provided Education on: discharge instructions. ap3 18:17 Patient has correct armband on for positive identification. ap3 Administered Medications: No medications were administered Medication: 18:17 VIS not applicable for this client. ap3 Outcome: 17:49 Discharge ordered by . sb4 18:16 Discharged to home ambulatory, ap3 18:16 Condition: good 18:16 Discharge instructions given to patient, Instructed on discharge instructions, follow ap3 up and referral plans. Demonstrated understanding of instructions, follow-up care, 18:17 Patient left the ED. ap3 Signatures: Nicolette Garcia RN RN ap3 Sharron Colmenares PA-C PA-C sb4 Ifeanyi Dotson RN RN rs5 Francie Pitts im
[2023-04-19 18:39] VITALS: BP 110/68; TEMP 97.1; O2SAT 99
== END 2023-04-19 18:17 | disposition home or self-care (01) ==
LOC: ER 16:05
DX: R53.83 Other fatigue (principal); Z20.822 Contact with and (suspected) exposure to COVID-19; Z88.6 Allergy status to analgesic agent
CPT/HCPCS: 36415; 80048; 81001; 81025; 84443; 84703; 85027; 87804; 87811; 99283

== ENCOUNTER 2024-04-11 07:47 | Emergency (ER) | payer SELFPAY ==
--- OUTSIDE RECORDS SUMMARY | 2024-04-11 07:52 | XMS REPORT | Continuity of Care Document ---
Author Name Unknown Address [address] [facility] [address] [place] [address] [facility] thconnect Address [address] [facility] [address] [place] [address] Care Team Providers Care Data Warehouse Analyst Name Role Phone CARO BAIRD Primary Care Physician Unava ilJERRELL Conner Attending Clinician Unavailab denisha Pulido RECORDINGS LIBRARIAN, Jerrell Attending Clinician [phone] Wojciech Trinh VALADEZ Attending Clinician [phone] Wojciech Trinh VALADEZ Attending Clinician [phone] Joanna Mccall Attending Clinician + JOANNA DURAN Attending Clinician Unavail able Doctor Unassigned, [place] Attending Clinician U hernán Daniels RN, Tamara Dominguez Attending Clinician [phone] HADLEY BELL Attending Clinician Unavailable Hari MANUEL, Artem Patel Attending Clinician [phone] Therese MANUEL, Bautista Miner Attending Clinician [phone] Hadley Bell DO Attending Clinician [phone] Caro Baird CNM Attending Clinician [phone] CARO BAIRD Attending Clinician UnavailAMY Franklin Attending Clinician Unavailabl e Provider, Ang-Rmchp Temp Attending Clinician Yu vailable MARSHA ROMAN Attending Clinician Unavailable Timi MCBRIDE, Marsha Attending Clinician EVERARDO AGUIRRE Attending Clinician Unavailable Timothy AUTOMOBILE BRAKES BONDER, Everardo Attending Clinician Thom AUTOMOBILE BRAKES BONDER, Amy Conway Attending Clinician [phone] Manny MCBRIDE, Los Diaz Attending Clinician [phone] LOS BEASLEY Attending Clinician Unavailab JERRELL Ratliff Admitting Clinician Unavailab HADLEY Tristan Admitting Clinician Unavailable Hadley Bell DO Admitting Clinician Payers Payer Name Policy Type Policy Number Effective Date Expirati on Date Source [employer] [place] [facility] [id number] 2023 00:00:00 [place] [facility] [id number] 2022 00:00:00 MEDICAID [place] [id number] 2021 00:00:00 MEDICAID PENDING PENDING 2021 00:00:00 Problems Condition Name Condition Details Condition Category Status Onset Date Resolution Date Last Treatment Date Treating Clinician Comments Source Sore throat Sore throat Disease Active 2023-07 0-08 00:00: 00 [facility] Engages in vaping Engages in vaping Disease Active 12-22 00:00: 00 [facility] Overweight (BMI 25.0-29.9) Overweight (BMI 25.0-29.9) Disease Active - 00:00: 00 [facility] Febrile illness Febrile illness Disease Resolve d 2022-0 8-26 00:00: 00 2024-01-29 00:00:00 2024-01-29 14:05:46 [facility] Chlamydia trachomati s infection of lower genitourin amber sites Chlamydia trachomati s infection of lower genitourin amber sites Disease Resolve d 2020-0 8-19 00:00: 00 2022-12-19 00:00:00 2022-12-19 14:35:11 [facility] Supervisio n of high-risk Supervisio n of high-risk Disease Resolve d 4-08 00:00: 00 2022-05-21 00:00:00 2022-05-21 17:35:39 [facility] Multiparit y Multiparit y Disease Resolve d 4-08 00:00: 00 2022-05-21 00:00:00 2022-05-21 17:35:41 [facility] Encounter for IUD removal Encounter for IUD removal Disease Resolve d 2-09 00:00: 00 2022-05-21 00:00:00 2022-05-21 17:35:37 [facility] Allergies, Adverse Reactions, Alerts Allergy Name Allergy Type Status Severity Reaction(s) Onset Date Inactive Date Treating Clinician Comments Source IBUPROFE N DRUG INGREDI Active Swelling 07-30 00:00: 00 [facility] Ibuprofe n Propensi ty to adverse reaction s Active Swelling 07-30 00:00: 00 [facility] Social History Social Habit Start Date Stop Date Quantity Comments Source ASSERTION 2021-08-11 00:00:00 [facility] Gender identity [facility] Sexual orientation [facility] History SDOH Alcohol Frequency [facility] History SDOH Alcohol Std Drinks [facility] History SDOH Alcohol Binge [facility] Alcoholic beverage intake 2024-04-08 00:00:00 2024-04-08 00:00:00 Ex-drinker (finding) [facility] Alcohol intake 2023-07-08 00:00:00 2023-07-08 00:00:00 Ex-drinker (finding) [facility] Education 2023-02-24 00:00:00 2023-02-24 00:00:00 13 [facility] Exposure to SARS-CoV-2 (event) 2022-05-07 00:00:00 2022-05-17 10:57:00 Not sure [facility] Tobacco use and exposure 2022-05-17 00:00:00 2022-05-17 00:00:00 Smokeless tobacco non-user [facility] History of Social function 2022-05-17 00:00:00 2022-05-17 00:00:00 [facility] Alcohol Comment 2021-02-16 00:00:00 2021-02-16 00:00:00 social [facility] Sex assigned at 1995 00:00:00 1995 00:00:00 [facility] Smoking Status Start Date Stop Date Source Never smoked tobacco [facility] Medications Ordered Medication Name Filled Medication Name Start Date Stop Date Current Medication? Ordering Clinician Indication Dosage Frequency Signature (SIG) Comments Components Source dexamethaso ne sod phos PF injection 10 mg 2023-07 01:00: 00 04-09 01:08 :00 No 10mg 10 mg, Oral, ONCE, 1 dose, On Sun04/08/24 at 2000, 1 mL [facility] acetaminoph en (TYLENOL) tablet 1,000 mg 2023-07 22:45: 00 04-08 23:19 :00 No 1000mg 1,000 mg, Oral, ONCE, 1 dose, On Sun04/08/24 at 1745, Routine [facility] metroNIDAZO LE 500 mg tablet 01-30 00:00: 00 02-07 04:59 :00 Yes [id number] 500mg Take 1 tablet by mouth in the morning and 1 tablet in the evening. Do all this for 7 days. [facility] fluconazole (DIFLUCAN) 150 mg tablet 09-20 00:00: 00 09-21 04:59 :00 No [id number] 150mg Take 1 tablet by mouth once now for 1 dose. [facility] ondansetron 4 mg disintegrat ing tablet 07-08 00:00: 00 09-20 00:00 :00 No [id number] 4mg Take 1 tablet by mouth every 8 (eight) hours as needed for Nausea and Vomiting (N/V). [facility] levoFLOXaci n 750 mg tablet 02-27 00:00: 00 07-08 00:00 :00 No 750mg Take 1 tablet by mouth every 24 (twenty-fo ur) hours. [facility] ceFEPIme (MAXIPIME) 1,000 mg in NaCl 0.9% (NS) 100 mL MINI-BAG 02-25 14:30: 00 03-04 14:29 :00 No 1000mg 1,000 mg, IV Piggyback, Q8H ABX, 21 doses, First dose on 02/25/23 at 0930, Last dose on 03/04/23 at 0130, Administer over 4 Hours, 100 mL
Reas on for Anti-Infec tive: Documented Infection& lt;br>Docu mented Infection Site: Urine
D uration of Therapy: 7 days [facility] enoxaparin (LOVENOX) injection 40 mg 02-25 14:00: 00 Yes 40mg 40 mg, Subcutaneo us, DAILY, First dose on Sun02/25/23 at 0900, Until Discontinu ed, Routine [facility] ceFEPIme (MAXIPIME) 1,000 mg in NaCl 0.9% (NS) 100 mL MINI-BAG 02-25 06:30: 00 02-25 06:03 :00 No 1000mg 1,000 mg, IV Piggyback, ONCE, 1 dose, On Sun02/25/23 at 0130, Administer over 30 Minutes, 100 mL
Reas on for Anti-Infec tive: Empiric Therapy for Suspected Infection< br>Empiric Therapy Site: Urine
D uration of therapy: 72 hours [facility] NaCl 0.9% (NS) IV infusion 1,000 mL 02-25 01:00: 00 02-27 15:46 :48 No 1000mL at 125 mL/hr, IV Infusion, CONTINUOUS , Starting on 02/24/23 at 2000, Until Tu02/27/23 at 1046, Routine [facility] HYDROcodone -acetaminop hen (NORCO 5) 5-325 mg tablet 1 tablet 02-24 23:48: 31 02-26 23:47 :31 No 1{tbl} 1 tablet, Oral, Q6HPRN, Starting on 02/24/23 at 1848, Until 02/26/23 at 1847, Routine, Pain (scale 4-6) [facility] acetaminoph en (TYLENOL) tablet 650 mg 02-24 23:48: 21 Yes 650mg 650 mg, Oral, Q6HPRN, Starting on 02/24/23 at 1848, Until Discontinu ed, Routine, Pain (scale 1-3), Temp > 38 C [facility] cefTRIAXone (ROCEPHIN) 1,000 mg in NaCl 0.9% (NS) 100 mL MINI-BAG 02-24 22:45: 00 02-24 23:01 :00 No 1000mg 1,000 mg, IV Piggyback, ONCE, 1 dose, On 02/24/23 at 1745, Administer over 30 Minutes, 100 mL
Reas on for Anti-Infec tive: Empiric Therapy for Suspected Infection< br>Empiric Therapy Site: Urine
D uration of therapy: 72 hours [facility] NaCl 0.9% (NS) bolus infusion 1,905 mL 02-24 22:45: 00 02-24 22:29 :00 No 30mL/kg at 999 mL/hr, 1,905 mL (30 mL/kg ?63.5 kg), IV Infusion, ONCE, 1 dose, On 02/24/23 at 1745, NIKITA [facility] acetaminoph en (TYLENOL) tablet 650 mg 02-24 22:30: 00 02-24 22:33 :00 No 650mg 650 mg, Oral, ONCE, 1 dose, On 02/24/23 at 1730, NIKITA [facility] metroNIDAZO LE 500 mg tablet 12-21 00:00: 00 12-22 04:59 :00 No [id number] 2000mg Take 4 tablets by mouth once now for 1 dose. [facility] maalox:diph enhydrAMINE :lidocaine 2 % viscous 1:1:1 (FIRST-MOUT HWASH BLM) oral suspension 15 mL 03-25 04:45: 00 03-25 04:44 :00 No [id number] 15mL 15 mL, Oral, ONCE, 1 dose, On Sun03/24/22 at 2345, Routine [facility] ondansetron 4 mg disintegrat ing tablet 03-25 00:00: 00 05-21 00:00 :00 No [id number] 4mg Take 1 tablet by mouth every 8 (eight) hours as needed for Nausea and Vomiting (N/V). [facility] famotidine 20 mg tablet 03-25 00:00: 00 04-25 04:59 :00 No [id number] 20mg Take 1 tablet by mouth in the morning and 1 tablet in the evening. Do all this for 30 days. [facility] terconazole 80 mg vaginal suppository 10-10 00:00: 00 10-14 04:59 :00 No [id number] 80mg Insert 1 Suppositor y into vagina at bedtime for 3 days. [facility] No known medications 10-07 11:34: 16 No [facility] Vital Signs Vital Name Observation Time Observation Value Comments S ource Systolic blood pressure 2024-04-08 22:26:00 114 mm[Hg] [facility] Diastolic blood pressure 2024-04-08 22:26:00 91 mm[Hg] [facility] Heart rate 2024-04-08 22:26:00 72 /min [facility] Body temperature 2024-04-08 22:26:00 37.11 Josephine [facility] Respiratory rate 2024-04-08 22:26:00 16 /min [facility] Body height 2024-04-08 22:26:00 154.9 cm [facility] Body weight 2024-04-08 22:26:00 65.772 kg [facility] BMI 2024-04-08 22:26:00 27.40 kg/m2 [facility] Oxygen saturation in Arterial blood by Pulse oximetry 2024-04-08 22:26:00 100 /min [facility] Systolic blood pressure 2024-01-29 18:38:00 101 mm[Hg] [facility] Diastolic blood pressure 2024-01-29 18:38:00 71 mm[Hg] [facility] Heart rate 2024-01-29 18:38:00 65 /min Unive [facility] Body temperature 2024-01-29 18:38:00 35.72 Josephine [facility] Respiratory rate 2024-01-29 18:38:00 18 /min [facility] Body height 2024-01-29 18:38:00 154.9 cm [facility] Body weight 2024-01-29 18:38:00 68.402 kg [facility] BMI 2024-01-29 18:38:00 28.49 kg/m2 [facility] Systolic blood pressure 2023-09-19 18:06:00 128 mm[Hg] [facility] Diastolic blood pressure 2023-09-19 18:06:00 83 mm[Hg] [facility] Heart rate 2023-09-19 18:06:00 94 /min Unive [facility] Body temperature 2023-09-19 18:06:00 35.33 Josephine [facility] Respiratory rate 2023-09-19 18:06:00 18 /min [facility] Body height 2023-09-19 18:06:00 154.9 cm [facility] Body weight 2023-09-19 18:06:00 62.506 kg [facility] BMI 2023-09-19 18:06:00 26.04 kg/m2 [facility] Systolic blood pressure 2023-07-08 21:49:00 103 mm[Hg] [facility] Diastolic blood pressure 2023-07-08 21:49:00 69 mm[Hg] [facility] Heart rate 2023-07-08 21:49:00 74 /min Unive [facility] Body temperature 2023-07-08 21:49:00 37.28 Josephine [facility] Respiratory rate 2023-07-08 21:49:00 14 /min [facility] Body height 2023-07-08 21:49:00 154.9 cm [facility] Body weight 2023-07-08 21:49:00 63.549 kg [facility] BMI 2023-07-08 21:49:00 26.47 kg/m2 [facility] Oxygen saturation in Arterial blood by Pulse oximetry 2023-07-08 21:49:00 100 /min [facility] Systolic blood pressure 2023-02-27 16:12:00 107 mm[Hg] [facility] Diastolic blood pressure 2023-02-27 16:12:00 66 mm[Hg] [facility] Heart rate 2023-02-27 16:12:00 59 /min Unive [facility] Body temperature 2023-02-27 16:12:00 36.11 Josephine [facility] Respiratory rate 2023-02-27 16:12:00 16 /min [facility] Oxygen saturation in Arterial blood by Pulse oximetry 2023-02-27 16:12:00 100 /min [facility] Body weight 2023-02-27 08:55:00 65.998 kg [facility] BMI 2023-02-27 08:55:00 27.49 kg/m2 [facility] Body height 2023-02-25 00:49:00 154.9 cm [facility] Systolic blood pressure 2022-12-19 19:11:00 96 mm[Hg] [facility] Diastolic blood pressure 2022-12-19 19:11:00 62 mm[Hg] [facility] Heart rate 2022-12-19 19:11:00 72 /min Unive [facility] Body temperature 2022-12-19 19:11:00 36.56 Josephine [facility] Respiratory rate 2022-12-19 19:11:00 18 /min [facility] Body height 2022-12-19 19:11:00 154.9 cm [facility] Body weight 2022-12-19 19:11:00 64.666 kg [facility] BMI 2022-12-19 19:11:00 26.94 kg/m2 [facility] Systolic blood pressure 2022-05-17 16:58:00 104 mm[Hg] [facility] Diastolic blood pressure 2022-05-17 16:58:00 68 mm[Hg] [facility] Heart rate 2022-05-17 16:58:00 88 /min Unive [facility] Body temperature 2022-05-17 16:58:00 36.22 Josephine [facility] Respiratory rate 2022-05-17 16:58:00 16 /min [facility] Body height 2022-05-17 16:58:00 154.9 cm [facility] Body weight 2022-05-17 16:58:00 61.292 kg [facility] BMI 2022-05-17 16:58:00 25.53 kg/m2 [facility] Systolic blood pressure 2022-03-25 05:00:00 122 mm[Hg] [facility] Diastolic blood pressure 2022-03-25 05:00:00 90 mm[Hg] [facility] Heart rate 2022-03-25 05:00:00 97 /min [facility] Respiratory rate 2022-03-25 05:00:00 16 /min [facility] Oxygen saturation in Arterial blood by Pulse oximetry 2022-03-25 05:00:00 100 /min [facility] Body temperature 2022-03-25 04:26:00 36.61 Josephine [facility] Body height 2022-03-25 04:26:00 154.9 cm [facility] Body weight 2022-03-25 04:26:00 63.504 kg [facility] BMI 2022-03-25 04:26:00 26.45 kg/m2 [facility] Procedures Procedure Date / Time Performed Performing Clinician Source RAPID STREP SCREEN FOR GROUP A 2024-04-08 23:24:00 Jerrell Pulido [facility] EBV-MONONUCLEOSIS SCREEN 2024-04-08 23:22:00 Jerrell Sheridan [facility] INFLUENZA A/B RSV COVID NAAT 2024-04-08 23:19:00 Jerrell Pulido [facility] GC & CHLAMYDIA AMPLIFIED ASSAY 2023-09-19 18:41:00 Joanna Duran [facility] GALV ONLY - VAGINAL PATHOGENS BY NUCLEIC ACID TESTING 2023-09-19 18:41:00 Joanna Duran [facility] HIV 1/2 AG-AB WITH REFLEX 2023-09-19 18:41:00 Joanna Duran [facility] SYPHILIS IGG/IGM 2023-09-19 18:41:00 Tj Duran [facility] CONSENT/REFUSAL FOR DIAGNOSIS AND TREATMENT 2023-09-19 17:40:11 Doctor Unassigned, [place] [facility] US PELVIS > 14 WEEKS WITH TRANSVAGINAL 2023-07-08 23:45:00 Jerrell Pulido [facility] ASSIGNMENT OF BENEFITS 2023-07-08 22:21:18 Docto r Unassigned, [place] [facility] COMP. METABOLIC PANEL ([id number]) 2023-07-08 22:08:00 Jerrell Pulido [facility] TOTAL BETA HCG ASSAY 2023-07-08 22:08:00 Jorge Pulido [facility] CBC WITH DIFF 2023-07-08 22:08:00 [facility] 2023-07-08 21:58:00 [facility] 2023-07-08 21:58:00 Stella Pulido [facility] CONSENT/REFUSAL FOR DIAGNOSIS AND TREATMENT 2023-07-08 21:30:24 Doctor Unassigned, [place] [facility] AUTHORIZATION TO RELEASE PHI TO [facility] 2023-03-08 05:01:00 Doctor Unassigned, [place] [facility] BASIC METABOLIC PANEL (NA, K, CL, CO2, GLUCOSE, BUN, CREATININE, CA) 2023-02-27 09:54:00 Hadley Bell [facility] CBC WITH DIFF 2023-02-27 09:54:00 Hadley Bell [facility] POCT TEST 2023-02-24 22:16:00 Bautista Ferreira [facility] URINALYSIS 2023-02-24 22:14:00 Bautista Ferreira [facility] URINE CULTURE 2023-02-24 22:14:00 [facility] L[facility]LO[facility] 2023-02-24 22:14:00 Jluis Ferreira [facility] COVID-19 (ID NOW RAPID TESTING) 2023-02-24 22:14:00 Bautista Ferreira [facility] LAB ONLY COVID INTERPRETATION 2023-02-24 22:14:00 Bautista Ferreira [facility] BLOOD CULTURE SCREEN 2023-02-24 22:11:00 Bautista Ferreira [facility] COMP. METABOLIC PANEL ([id number]) 2023-02-24 22:11:00 Bautista Ferreira [facility] CBC WITH DIFF 2023-02-24 22:11:00 Bautista Ferreira Un [facility] POCT URINALYSIS W/O SPECIFIC GRAVITY 2022-12-19 20:53:00 Caro Baird [facility] GALV ONLY - VAGINAL PATHOGENS BY NUCLEIC ACID TESTING 2022-12-19 20:52:00 Caro Baird [facility] CBC WITH DIFF 2022-12-19 19:58:00 Caro Baird [facility] GC & CHLAMYDIA AMPLIFIED ASSAY 2022-12-19 19:58:00 Caro Baird [facility] HIV 1/2 AG-AB WITH REFLEX 2022-12-19 19:58:00 Caro Israel [facility] TRICHOMONAS AMPLIFIED ASSAY 2022-12-19 19:58:00 Caro Baird [facility] PAP SMEAR-LIQUID BASED-CP 2022-12-19 19:58:00 aCro Israel [facility] SYPHILIS IGG/IGM 2022-12-19 19:58:00 Caro Baird [facility] POCT TEST 2022-12-19 19:17:00 Mely Baird [facility] PATIENT FINANCIAL POLICY 2022-12-19 18:44:54 Doctor Unassigned, [place] [facility] GC & CHLAMYDIA AMPLIFIED ASSAY 2022-05-17 17:30:00 Caro Baird [facility] GALV ONLY - VAGINAL PATHOGENS BY NUCLEIC ACID TESTING 2022-05-17 17:30:00 Caro Baird [facility] ASSIGNMENT OF BENEFITS 2022-05-17 16:25:04 Docto r Unassigned, [place] [facility] LIPASE 2022-03-25 04:38:00 Marsha Roman [facility] COMP. METABOLIC PANEL ([id number]) 2022-03-25 04:38:00 Marsha Roman [facility] CBC WITH DIFF 2022-03-25 04:38:[address] [facility] URINALYSIS 2022-03-25 04:38:00 Marsha Roman [facility] POCT TEST 2022-03-25 04:38:00 Ashlyn Roman [facility] NOTICE OF PRIVACY PRACTICES 2022-03-25 04:27:12 Doctor Unassigned, [place] [facility] CONSENT/REFUSAL FOR DIAGNOSIS AND TREATMENT 2022-03-25 04:22:35 Doctor Unassigned, [place] [facility] Encounters Start Date/Time End Date/Time Encounter Type Admission Type Attending [facility] Care Facility Care Department Encounter ID Source 2024-04-08 17:28:00 2024-04-08 20:10:00 Emergency X JERRELL PULIDO [facility] ERT [id number] [facility] 2024-04-08 17:28:00 2024-04-08 20:10:00 Emergency Jerrell Pulido [facility] 1.2.840.114 350.1.13.10 4.2.7.2.686 [id number] [facility] 2024-03-12 00:00:00 2024-03-12 11:27:47 Telephone WojciechTrinh [facility] PENS AND PENCILS DIPPER [facility] 1.2.840.114 350.1.13.10 4.2.7.2.686 [id number] [facility] 2024-01-30 00:00:00 2024-01-31 16:54:39 Telephone Trinh Jeffrey [facility] PENS AND PENCILS DIPPER [facility] [id number] 350.1.13.10 4.2.7.2.686 [id number] [facility] 2024-01-29 13:15:00 2024-01-29 16:13:06 Outpatient R TRINH JEFFREY [facility] [id number] [facility] 2024-01-29 13:15:00 2024-01-29 16:13:06 Office Visit Trinh Jeffrey [facility] PENS AND PENCILS DIPPER [facility] 1.840.114 350.1.13.10 4.2.7.2.686 [id number] [facility] 2023-09-21 00:00:00 2023-09-21 00:00:00 Telephone Joanna Duran [facility] PENS AND PENCILS DIPPER [facility] 1.2.840.114 350.1.13.10 4.2.7.2.686 [id number] [facility] 2023-09-19 12:45:00 2023-09-19 13:43:15 Outpatient R JOANNA DURAN [facility] [id number] [facility] 2023-09-19 12:45:00 2023-09-19 13:43:15 Office Visit Joanna Duran [facility] PENS AND PENCILS DIPPER [facility] 1.2.840.114 350.1.13.10 4.2.7.2.686 [id number] [facility] 2023-09-19 00:00:00 2023-09-19 00:00:00 Orders Only Doctor Unassigned, [place] [facility] 1.2.840.114 350.1.13.10 4.2.7.2.686 [id number] [facility] 2023-07-11 00:00:00 2023-07-11 00:00:00 Patient Secure Msg Doctor Unassigned, [place] [facility] 1.2.840.114 350.1.13.10 4.2.7.2.686 [id number] [facility] 2023-07-08 15:51:00 2023-07-08 18:50:00 Emergency X JERRELL PULIDO [facility] ERT [id number] [facility] 2023-07-08 15:51:00 2023-07-08 18:50:00 Emergency Jerrell Pulido [facility] 1.2.840.114 350.1.13.10 4.2.7.2.686 [id number] [facility] 2023-03-08 00:00:00 2023-03-08 00:00:00 Orders Only Doctor Unassigned, [place] [facility] 1.2.840.114 350.1.13.10 4.2.7.2.686 [id number] [facility] 2023-02-28 00:00:00 2023-02-28 00:00:00 Transition of Care Tamara Daniels 1.2.840.114 350.1.13.10 4.2.7.2.686 [id number] [facility] 2023-02-24 16:38:00 2023-02-27 12:16:00 Inpatient X HADLEY BELL [facility] [id number] [facility] 2023-02-24 16:38:00 2023-02-27 12:16:00 Hospital Encounter Artem Noriega, Hadley Medellin [facility] 1.2.840.114 350.1.13.10 4.2.7.2.686 [id number] [facility] 2022-12-21 00:00:00 2022-12-21 00:00:00 Telephone Caro Baird [facility] PENS AND PENCILS DIPPER [facility] 1.2.840.114 350.1.13.10 4.2.7.2.686 [id number] [facility] 2022-12-19 14:15:00 2022-12-19 14:56:35 Outpatient CARO CHAUDHRY [facility] [id number] [facility] 2022-12-19 14:15:00 2022-12-19 14:56:35 Office Visit Caro Baird [facility] PENS AND PENCILS DIPPER [facility] 1..840.114 350.1.13.10 4.2.7.2.686 [id number] [facility] 2022-12-19 00:00:00 2022-12-19 00:00:00 Orders Only Doctor Unassigned, [place] [facility] 1.840.114 350.1.13.10 4.2.7.2.686 [id number] [facility] 2022-10-19 11:00:00 2022-10-19 11:00:00 Outpatient AMY GUTIERRES [facility] [id number] [facility] 2022-05-17 10:30:00 2022-05-17 11:19:22 Outpatient CARO CHAUDHRY [facility] [id number] [facility] 2022-05-17 10:30:00 2022-05-17 11:19:22 Office Visit Provider, Ang-Rmchp Temp Caro Baird [facility] PENS AND PENCILS DIPPER [facility] MATERNAL & [facility] 1.20.114 350.1.13.10 4.2.7.2.686 [id number] [facility] 2022-05-17 00:00:00 2022-05-17 00:00:00 Orders Only Doctor Unassigned, [place] [facility] 1.2840.114 350.1.13.10 4.2.7.2.686 [id number] [id number] [facility] 2022-05-17 00:00:00 2022-05-17 00:00:00 Letter (Out) Caro Baird [facility] PENS AND PENCILS DIPPER [facility] 1.840.114 350.1.13.10 4.2.7.2.686 [id number] [facility] 2022-03-24 23:30:00 2022-03-25 01:04:00 [facility] [id number] [facility] 2022-03-24 23:30:00 2022-03-25 01:04:00 Emergency Marsha Roman [facility] 1.840.114 350.1.13.10 4.2.7.2.686 [id number] [facility] 2022-03-21 00:00:00 2022-03-21 00:00:00 Telephone Joanna Duran [facility] PENS AND PENCILS DIPPER [facility] & [facility] 1.20.114 350.1.13.10 4.2.7.2.686 [id number] [facility] 2022-02-07 09:00:00 2022-02-07 09:00:00 Outpatient R JOANNA DURAN [facility] [id number] [facility] 2021-11-14 00:00:00 2021-11-14 00:00:00 Telephone Joanna Duran [facility] PENS AND PENCILS DIPPER [facility] MATERNAL & CHILD HEALTH [facility] 1.2.840.114 350.1.13.10 4.2.7.2.686 [id number] [facility] 2021-10-26 12:45:00 2021-10-26 12:45:00 Outpatient R JOANNA DURAN [facility] [id number] [facility] 2021-10-21 10:45:00 2021-10-21 10:45:00 Outpatient R JOANNA DURAN [facility] [id number] [facility] 2021-10-10 00:00:00 2021-10-10 00:00:00 Telephone Joanna Duran [facility] PENS AND PENCILS DIPPER [facility] & [facility] 1.2.840.114 350.1.13.10 4.2.7.2.686 [id number] [facility] 2021-10-07 10:45:00 2021-10-07 11:36:27 Routine Visit Joanna Duran [facility] PENS AND PENCILS DIPPER [facility] 1.2.840.114 350.1.13.10 4.2.7.2.686 [id number] [facility] 2021-10-07 10:45:00 2021-10-07 11:36:27 Outpatient R JOANNA DURAN [facility] [id number] [facility] 2021-10-07 10:45:00 2021-10-07 10:45:00 Outpatient R JOANNA DURAN [facility] [id number] [facility] 2021-10-04 13:30:00 2021-10-04 13:30:00 Outpatient R EVERARDO AGUIRRE [facility] [id number] [facility] 2021-09-06 10:00:00 2021-09-06 14:10:02 Outpatient R EVERARDO AGUIRRE [facility] [id number] [facility] 2021-09-06 13:00:00 2021-09-06 14:09:40 [facility] [id number] [facility] 2021-09-06 13:00:00 2021-09-06 14:09:40 Initial Visit Everardo Aguirre [facility] 1..114 350.1.13.10 4.2.7.2.686 [id number] [facility] 2021-09-06 00:00:00 2021-09-06 00:00:00 Orders Only Doctor Unassigned, [place] [facility] 1.84.114 350.1.13.10 4.2.7.2.686 [id number] [id number] [facility] 2021-08-10 08:30:00 2021-08-10 09:45:24 Office Visit Joanna Duran [facility] PENS AND PENCILS DIPPER [facility] MATERNAL & [facility]ILD [facility] 1.840.114 350.1.13.10 4.2.7.2.686 [id number] [facility] 2021-08-10 08:30:00 2021-08-10 09:45:24 Outpatient R JOANNA DURAN [facility] [id number] [facility] 2021-08-10 08:30:00 2021-08-10 08:30:00 Outpatient JOANNA GOMEZ [facility] [id number] [facility] 2021-08-10 00:00:00 2021-08-10 00:00:00 Orders Only Doctor Unassigned, [place] [facility] 1..114 350.1.13.10 4.2.7.2.686 [id number] [facility] 2021-08-08 00:00:00 2021-08-08 00:00:00 Telephone Joanna Duran [facility] PENS AND PENCILS DIPPER [facility] MATERNAL & [facility] 1.2.840.114 350.1.13.10 4.2.7.2.686 [id number] [facility] 2021-07-29 15:02:00 2021-07-29 16:43:00 Emergency X ROMANMARSHA GARBIAY [facility] ERT [id number] [facility] 2021-07-29 15:02:00 2021-07-29 16:43:00 Emergency X ROMANMARSHA GARIBAY [facility] ERT [id number] [facility] 2021-07-29 15:02:00 2021-07-29 16:43:00 Emergency RomanMarsha garibay [facility] 1.2.840.114 350.1.13.10 4.2.7.2.686 [id number] [facility] 2021-07-29 00:00:00 2021-07-29 00:00:00 Orders Only Doctor Unassigned, [place] [facility] 1.2.840.114 350.1.13.10 4.2.7.2.686 [id number] [facility] 2021-04-06 14:37:00 2021-04-06 15:18:01 Office Visit Joanna Duran [facility] PENS AND PENCILS DIPPER [facility] & [facility]ILD [facility] 1.2.840.114 350.1.13.10 4.2.7.2.686 [id number] [facility] 2021-04-06 14:15:00 2021-04-06 14:15:00 Outpatient R JOANNA DURAN [facility] [id number] [facility] 2021-04-04 08:30:00 2021-04-04 08:30:00 Outpatient R JOANNA DURAN [facility] [id number] [facility] 2021-02-18 00:00:00 2021-02-18 00:00:00 Telephone Amy Tomas [facility] PENS AND PENCILS DIPPER [facility] MATERNAL & CHILD HEALTH [facility] 1.2.840.114 350.1.13.10 4.2.7.2.686 [id number] [facility] 2021-02-17 00:00:00 2021-02-17 00:00:00 Telephone Amy Tomas [facility] PENS AND PENCILS DIPPER [facility] MATERNAL & CHILD [facility] 1.2.840.114 350.1.13.10 4.2.7.2.686 [id number] [facility] 2021-02-16 08:18:09 2021-02-16 08:59:18 Office Visit Amy Tomas Roshunda R [facility] PENS AND PENCILS DIPPER [facility] MATERNAL & [facility] 1.2.840.114 350.1.13.10 4.2.7.2.686 [id number] [facility] 2021-02-16 07:45:00 2021-02-16 07:45:00 Outpatient R [facility] [id number] [facility] Results Test Description Test Time Test Comments Results Result Co mments Source [facility] 14 WEE[facility] WITH [id number] 00:26:10ORDERING PHYSICIAN: JERRELL PULIDO HISTORY: ABDOMINAL PAIN TECHNIQUE: Transabdominal and transvaginal obstetric pelvic ultrasound,including Doppler ultrasound. US PELVIS > 14 WEEKS WIT HTRANSVAGINAL COMPARISON: None FINDINGS: ?A single live intrauterine is identified with an average fetalheart rate of 160 bpm. Cervix is closed. Estimated age based on average crown-rump length ?measurement of 8.5centimeters is 14 weeks and 2 days. The uterus and right ovary are within normal limits. Left ovary is not seenon this study, likely obscured by bowel gas.[facility] HCG [id number] 23:28:22* Test Item Value Reference Range Interpretation Comme nts BETA HCG (test code = 2073477327) 93809.00 See_Comment [Automated [employer]] The system which generated this result transmitted reference range: Non- female and male patients: <5 mIU/mL. The reference range was not used to interpret this result as normal/abnormal. AYAKA (test code = AYAKA) Gestational Age ?Range (mIU/mL) 1-10 ?Weeks ?[id number] Weeks ?15646-68211212-02 Weeks ?0795-53210902-09 Weeks ?3280-407564 Biotin has been reported to cause a negative bias, interpret results relative to patient's use of biotin. [facility]. METABOLIC PANEL (09830)2023-07-08 22:40:16* Test Item Value Reference Range Interpretation Comme nts NA (test code = 6020463731) 134 mmol/L 135-145 L K (test code = 7091541789) 3.7 mmol/L 3.5-5.0 CL (test code = 8265675483) 102 mmol/L 98-108 CO2 TOTAL (test code = 6947131208) 22 mmol/L 23-31 L AGAP (test code = 2478366094) 10 2-16 BUN (test code = 7847332537) 8 mg/dL 7-23 GLUCOSE (test code = 4724220845) 83 mg/dL 70-110 CREATININE (test code = 7125612216) 0.47 mg/dL 0.50-1.04 L TOTAL BILI (test code = 5080434587) 0.5 mg/dL 0.1-1.1 CALCIUM (test code = 8077488326) 9.6 mg/dL 8.6-10.6 T PROTEIN (test code = 5139817473) 7.5 g/dL 6.3-8.2 ALBUMIN (test code = 6265701149) 4.4 g/dL 3.5-5.0 ALK PHOS (test code = 8380334455) 40 U/L 34-122 ALTv (test code = 1742-6) 40 U/L 5-35 H AST(SGOT) (test code = 1550366833) 42 U/L 13-40 H eGFR (test code = 42656-6) 135.7 mL/min/1.73m2 CKD-EPI eGFR (2020). Assuming creatinine has been stable day-to-day for at least three months, the eGFR indicates Category G1 (>= 90 mL/min/1.73 m2) Lab Interpretation (test code = 95099-1) Abnormal [facility] WITH [id number] 22:28:35* Test Item Value Reference Range Interpretation Comme nts WBC (test code = 6690-2) 8.21 See_Comment [Automated [employer]] The system which generated this result transmitted reference range: 4.30 - 11.10 10*3/?L. The reference range was not used to interpret this result as normal/abnormal. RBC (test code = 789-8) 3.66 See_Comment L [Automated [employer]] The system which generated this result transmitted reference range: 3.93 - 5.25 10*6/?L. The reference range was not used to interpret this result as normal/abnormal. HGB (test code = 718-7) 12.1 g/dL 11.6-15.0 HCT (test code = 4544-3) 34.2 % 35.7-45.2 L MCV (test code = 787-2) 93.4 fL 80.6-95.5 MCH (test code = 785-6) 33.1 pg 25.9-32.8 H MCHC (test code = 786-4) 35.4 g/dL 31.6-35.1 H RDW-SD (test code = 42714-7) 37.6 fL 39.0-49.9 L RDW-CV (test code = 788-0) 11.1 % 12.0-15.5 L PLT (test code = 777-3) 230 See_Comment [Automated [employer]] The system which generated this result transmitted reference range: 166 - 358 10*3/?L. The reference range was not used to interpret this result as normal/abnormal. MPV (test code = 91168-6) 9.6 fL 9.5-12.9 NRBC/100 WBC (test code = 6555387198) 0.0 See_Comment [Automated me ssage] The system which generated this result transmitted reference range: 0.0 - 10.0 /100 WBCs. The reference range was not used to interpret this result as normal/abnormal. NRBC x10^3 (test code = 3842891210) See_Comment [Automated messa ge] The system which generated this result transmitted reference range: 10*3/?L. The reference range was not used to interpret this result as normal/abnormal. GRAN MAT (NEUT) % (test code = 770-8) 76.4 % IMM GRAN % (test code = 8487542654) 0.40 % LYMPH % (test code = 736-9) 17.5 % MONO % (test code = 5905-5) 5.0 % EOS % (test code = 713-8) 0.5 % BASO % (test code = 706-2) 0.2 % GRAN MAT x10^3(ANC) (test code = 2825820239) 6.27 10*3/uL 1.88-7.09 IMM GRAN x10^3 (test code = 2790937064) 0.03 10*3/uL 0.00-0.06 LYMPH x10^3 (test code = 731-0) 1.44 10*3/uL 1.32-3.29 MONO x10^3 (test code = 742-7) 0.41 10*3/uL 0.33-0.92 EOS x10^3 (test code = 711-2) 0.04 10*3/uL 0.03-0.39 BASO x10^3 (test code = 704-7) 0.01-0.07 Lab Interpretation (test code = 53961-6) [facility] [id number] 21:58:00* Test Item Value Reference Range Interpretation Comme nts POCT PREG (test code = 1605) Positive On board controls acceptable with C Line (test code = 3574) Yes POCT PREG LOT # (test code = 3575) HCG [id number] POCT PREG TEST DATE (test code = 3576) 09/09/2024 Lab Interpretation (test cod e = 85018-5) [facility] (NA, K, CL, CO2, GLUCOSE, BUN, CREATININE, CA)2023-02-27 10:50:20* Test Item Value Reference Range Interpretation Comme nts NA (test code = 6783470460) 139 mmol/L 135-145 K (test code = 9091042743) 4.3 mmol/L 3.5-5.0 CL (test code = 0401111295) 104 mmol/L 98-108 CO2 TOTAL (test code = 9817458095) 31 mmol/L 23-31 AGAP (test code = 0119011208) 4 2-16 BUN (test code = 8381148573) 11 mg/dL 7-23 GLUCOSE (test code = 7669158058) 93 mg/dL 70-110 CREATININE (test code = 4628659381) 0.69 mg/dL 0.50-1.04 CALCIUM (test code = 6990753221) 8.7 mg/dL 8.6-10.6 eGFR (test code = 0846664359) 103.7 mL/min/1.73m2 AYAKA (test code = AYAKA) [...] or urine or abnormalities in imaging tests). [facility] WITH [id number] 10:10:32* Test Item Value Reference Range Interpretation Comme nts WBC (test code = 6690-2) 6.65 See_Comment [Automated [employer]] The system which generated this result transmitted reference range: 4.30 - 11.10 10*3/?L. The reference range was not used to interpret this result as normal/abnormal. RBC (test code = 789-8) 3.48 See_Comment L [Automated [employer]] The system which generated this result transmitted reference range: 3.93 - 5.25 10*6/?L. The reference range was not used to interpret this result as normal/abnormal. HGB (test code = 718-7) 11.4 g/dL 11.6-15.0 L HCT (test code = 4544-3) 33.1 % 35.7-45.2 L MCV (test code = 787-2) 95.1 fL 80.6-95.5 MCH (test code = 785-6) 32.8 pg 25.9-32.8 MCHC (test code = 786-4) 34.4 g/dL 31.6-35.1 RDW-SD (test code = 31868-7) 38.3 fL 39.0-49.9 L RDW-CV (test code = 788-0) 11.0 % 12.0-15.5 L PLT (test code = 777-3) 240 See_Comment [Automated [employer]] The system which generated this result transmitted reference range: 166 - 358 10*3/?L. The reference range was not used to interpret this result as normal/abnormal. MPV (test code = 43599-6) 9.4 fL 9.5-12.9 L NRBC/100 WBC (test code = 9038478941) 0.0 See_Comment [Automated [employer] ssage] The system which generated this result transmitted reference range: 0.0 - 10.0 /100 WBCs. The reference range was not used to interpret this result as normal/abnormal. NRBC x10^3 (test code = 4877563943) See_Comment [Automated messa ge] The system which generated this result transmitted reference range: 10*3/?L. The reference range was not used to interpret this result as normal/abnormal. GRAN MAT (NEUT) % (test code = 770-8) 55.1 % IMM GRAN % (test code = 6231704560) 0.30 % LYMPH % (test code = 736-9) 32.6 % MONO % (test code = 5905-5) 9.2 % EOS % (test code = 713-8) 2.3 % BASO % (test code = 706-2) 0.5 % GRAN MAT x10^3(ANC) (test code = 9892849880) 3.67 10*3/uL 1.88-7.09 IMM GRAN x10^3 (test code = 4760089093) 0.00-0.06 LYMPH x10^3 (test code = 731-0) 2.17 10*3/uL 1.32-3.29 MONO x10^3 (test code = 742-7) 0.61 10*3/uL 0.33-0.92 EOS x10^3 (test code = 711-2) 0.15 10*3/uL 0.03-0.39 BASO x10^3 (test code = 704-7) 0.03 10*3/uL 0.01-0.07 Lab Interpretation (test code = 00989-3) Abnormal [facility]. METABOLIC PANEL (09374)2023-02-24 22:54:31* Test Item Value Reference Range Interpretation Comme nts NA (test code = 0530929426) 139 mmol/L 135-145 K (test code = 8256759663) 3.7 mmol/L 3.5-5.0 CL (test code = 2748926291) 105 mmol/L 98-108 CO2 TOTAL (test code = 2316981631) 26 mmol/L 23-31 AGAP (test code = 2802749579) 8 2-16 BUN (test code = 6433042608) 6 mg/dL 7-23 L GLUCOSE (test code = 2627698701) 112 mg/dL 70-110 H CREATININE (test code = 0559875780) 0.61 mg/dL 0.50-1.04 TOTAL BILI (test code = 4436612105) 0.2 mg/dL 0.1-1.1 CALCIUM (test code = 2798536954) 8.6 mg/dL 8.6-10.6 T PROTEIN (test code = 0496751626) 6.7 g/dL 6.3-8.2 ALBUMIN (test code = 0786311996) 3.8 g/dL 3.5-5.0 ALK PHOS (test code = 3509029923) 48 U/L 34-122 ALTv (test code = 1742-6) 19 U/L 5-35 AST(SGOT) (test code = 7655585333) 25 U/L 13-40 eGFR (test code = 7373742424) 119.5 mL/min/1.73m2 AYAKA (test code = AYAKA) Association [...] or abnormalities in imaging tests). Lab Interpretation (test code = 33974-1) Abnormal [facility] WITH [id number] 22:34:25* Test Item Value Reference Range Interpretation Comme nts WBC (test code = 6690-2) 6.81 See_Comment [Automated messa ge] The system which generated this result transmitted reference range: 4.30 - 11.10 10*3/?L. The reference range was not used to interpret this result as normal/abnormal. RBC (test code = 789-8) 3.53 See_Comment L [Automated messa ge] The system which generated this result transmitted reference range: 3.93 - 5.25 10*6/?L. The reference range was not used to interpret this result as normal/abnormal. HGB (test code = 718-7) 11.5 g/dL 11.6-15.0 L HCT (test code = 4544-3) 33.3 % 35.7-45.2 L MCV (test code = 787-2) 94.3 fL 80.6-95.5 MCH (test code = 785-6) 32.6 pg 25.9-32.8 MCHC (test code = 786-4) 34.5 g/dL 31.6-35.1 RDW-SD (test code = 76878-2) 37.5 fL 39.0-49.9 L RDW-CV (test code = 788-0) 11.0 % 12.0-15.5 L PLT (test code = 777-3) 177 See_Comment [Automated messa ge] The system which generated this result transmitted reference range: 166 - 358 10*3/?L. The reference range was not used to interpret this result as normal/abnormal. MPV (test code = 37161-4) 9.7 fL 9.5-12.9 NRBC/100 WBC (test code = 3770017815) 0.0 See_Comment [Automated [employer] ssage] The system which generated this result transmitted reference range: 0.0 - 10.0 /100 WBCs. The reference range was not used to interpret this result as normal/abnormal. NRBC x10^3 (test code = 5966112506) See_Comment [Automated messa ge] The system which generated this result transmitted reference range: 10*3/?L. The reference range was not used to interpret this result as normal/abnormal. GRAN MAT (NEUT) % (test code = 770-8) 86.0 % IMM GRAN % (test code = 6268163246) 0.40 % LYMPH % (test code = 736-9) 8.5 % MONO % (test code = 5905-5) 4.8 % EOS % (test code = 713-8) 0.0 % BASO % (test code = 706-2) 0.3 % GRAN MAT x10^3(ANC) (test code = 7380815671) 5.85 10*3/uL 1.88-7.09 IMM GRAN x10^3 (test code = 2271773918) 0.03 10*3/uL 0.00-0.06 LYMPH x10^3 (test code = 731-0) 0.58 10*3/uL 1.32-3.29 L MONO x10^3 (test code = 742-7) 0.33 10*3/uL 0.33-0.92 EOS x10^3 (test code = 711-2) 0.03-0.39 L BASO x10^3 (test code = 704-7) 0.01-0.07 Lab Interpretation (test code = 44325-7) [facility]normal [facility] Whole [id number] 22:30:19* Test Item Value Reference Range Interpretation Comme nts LACTIC ACID (test code = 7733063521) 1.56 mmol/L 0.50-2.20 Lab Interpretation (test cod e = 92604-6) Normal [facility] [id number] 22:16:00* Test Item Value Reference Range Interpretation Comme nts POCT PREG (test code = 1605) Negative On board controls acceptable with C Line (test code = 3574) Yes POCT PREG LOT # (test code = 3575) [id number] POCT PREG TEST DATE ( test code = 3576) 07/04/2024 Lab Interpretation (test cod e = 27856-5) Normal [facility] SYPHIL[facility] [id number] 14:07:33* Test Item Value Reference Range Interpretation Comme nts Syphilis IgG/IgM (test code = 22458-7) Non-reactive Non-reactive AYAKA (test code = AYAKA) Non-reactive - No serologic evidence of T. pallidum infection. Cannot exclude incubating or early syphilis. Submit a second specimen in 2-4 weeks if syphilis is clinically suspected. Equivocal - Further testing to follow. Reactive - Further testing to follow. Lab Interpretation (test code = 04044-4) Normal [facility] ONLY - SYPHILIS [id number] 14:07:33* Test Item Value Reference Range Interpretation Comme nts Syphilis IgG/IgM (test code = 37744-0) Non-reactive Non-reactive AYAKA (test code = AYAKA) Non-reactive - No serologic evidence of T. pallidum infection. Cannot exclude incubating or early syphilis. Submit a second specimen in 2-4 weeks if syphilis is clinically suspected. Equivocal - Further testing to follow. Reactive - Further testing to follow. Lab Interpretation (test code = 70028-9) Normal [facility] 1/2 AG-AB WITH [id number] 06:09:28* Test Item Value Reference Range Interpretation Comme [facility] HIV Semi-quantitative (test code = 42572-0) 0.06 Negative AYAKA (test code = AYAKA) Non-reactive for HIV-1 antigen and HIV-1/HIV-2 antibodies. ?No laboratory evidence of HIV infection. ?Repeat in 2-4 weeks if acute HIV infection is suspected. [facility] 1/2 AG-AB WITH [id number] 06:09:28* Test Item Value Reference Range Interpretation Comme [facility] HIV Semi-quantitative (test code = 82937-7) 0.06 Negative AYAKA (test code = AYAKA) Non-reactive for HIV-1 antigen and HIV-1/HIV-2 antibodies. ?No laboratory evidence of HIV infection. ?Repeat in 2-4 weeks if acute HIV infection is suspected. [facility] WITH [id number] 05:46:41* Test Item Value Reference Range Interpretation Comme nts WBC (test code = 6690-2) 7.96 See_Comment [Automated messa ge] The system which generated this result transmitted reference range: 4.30 - 11.10 10*3/?L. The reference range was not used to interpret this result as normal/abnormal. RBC (test code = 789-8) 4.06 See_Comment [Automated messa ge] The system which generated this result transmitted reference range: 3.93 - 5.25 10*6/?L. The reference range was not used to interpret this result as normal/abnormal. HGB (test code = 718-7) 13.1 g/dL 11.6-15.0 HCT (test code = 4544-3) 40.0 % 35.7-45.2 MCV (test code = 787-2) 98.5 fL 80.6-95.5 H MCH (test code = 785-6) 32.3 pg 25.9-32.8 MCHC (test code = 786-4) 32.8 g/dL 31.6-35.1 RDW-SD (test code = 13935-3) 42.0 fL 39.0-49.9 RDW-CV (test code = 788-0) 11.5 % 12.0-15.5 L PLT (test code = 777-3) 280 See_Comment [Automated messa ge] The system which generated this result transmitted reference range: 166 - 358 10*3/?L. The reference range was not used to interpret this result as normal/abnormal. MPV (test code = 31722-9) 10.6 fL 9.5-12.9 NRBC/100 WBC (test code = 7218969777) 0.0 See_Comment [Automated [employer] ssage] The system which generated this result transmitted reference range: 0.0 - 10.0 /100 WBCs. The reference range was not used to interpret this result as normal/abnormal. NRBC x10^3 (test code = [id number]) See_Comment [Automated messa ge] The system which generated this result transmitted reference range: 10*3/?L. The reference range was not used to interpret this result as normal/abnormal. GRAN MAT (NEUT) % (test code = 770-8) 71.5 % IMM GRAN % (test code = 1340378793) 0.30 % LYMPH % (test code = 736-9) 20.2 % MONO % (test code = 5905-5) 6.7 % EOS % (test code = 713-8) 0.9 % BASO % (test code = 706-2) 0.4 % GRAN MAT x10^3(ANC) (test code = 9788060412) 5.70 10*3/uL 1.88-7.09 IMM GRAN x10^3 (test code = [id number]) 0.00-0.06 LYMPH x10^3 (test code = 731-0) 1.61 10*3/uL 1.32-3.29 MONO x10^3 (test code = 742-7) 0.53 10*3/uL 0.33-0.92 EOS x10^3 (test code = 711-2) 0.07 10*3/uL 0.03-0.39 BASO x10^3 (test code = 704-7) 0.03 10*3/uL 0.01-0.07 Lab Interpretation (test code = 14126-2) Abnormal [facility] WITH [id number] 05:46:41* Test Item Value Reference Range Interpretation Comme nts WBC (test code = 6690-2) 7.96 See_Comment [Automated messa ge] The system which generated this result transmitted reference range: 4.30 - 11.10 10*3/?L. The reference range was not used to interpret this result as normal/abnormal. RBC (test code = 789-8) 4.06 See_Comment [Automated [employer]] The system which generated this result transmitted reference range: 3.93 - 5.25 10*6/?L. The reference range was not used to interpret this result as normal/abnormal. HGB (test code = 718-7) 13.1 g/dL 11.6-15.0 HCT (test code = 4544-3) 40.0 % 35.7-45.2 MCV (test code = 787-2) 98.5 fL 80.6-95.5 H MCH (test code = 785-6) 32.3 pg 25.9-32.8 MCHC (test code = 786-4) 32.8 g/dL 31.6-35.1 RDW-SD (test code = 72990-7) 42.0 fL 39.0-49.9 RDW-CV (test code = 788-0) 11.5 % 12.0-15.5 L PLT (test code = 777-3) 280 See_Comment [Automated messa ge] The system which generated this result transmitted reference range: 166 - 358 10*3/?L. The reference range was not used to interpret this result as normal/abnormal. MPV (test code = 15231-1) 10.6 fL 9.5-12.9 NRBC/100 WBC (test code = 7566205261) 0.0 See_Comment [Automated [employer] ssage] The system which generated this result transmitted reference range: 0.0 - 10.0 /100 WBCs. The reference range was not used to interpret this result as normal/abnormal. NRBC x10^3 (test code = 8095167886) See_Comment [Automated messa ge] The system which generated this result transmitted reference range: 10*3/?L. The reference range was not used to interpret this result as normal/abnormal. GRAN MAT (NEUT) % (test code = 770-8) 71.5 % IMM GRAN % (test code = 8183426894) 0.30 % LYMPH % (test code = 736-9) 20.2 % MONO % (test code = 5905-5) 6.7 % EOS % (test code = 713-8) 0.9 % BASO % (test code = 706-2) 0.4 % GRAN MAT x10^3(ANC) (test code = 1289950636) 5.70 10*3/uL 1.88-7.09 IMM GRAN x10^3 (test code = 7918019371) 0.00-0.06 LYMPH x10^3 (test code = 731-0) 1.61 10*3/uL 1.32-3.29 MONO x10^3 (test code = 742-7) 0.53 10*3/uL 0.33-0.92 EOS x10^3 (test code = 711-2) 0.07 10*3/uL 0.03-0.39 BASO x10^3 (test code = 704-7) 0.03 10*3/uL 0.01-0.07 Lab Interpretation (test code = 91099-1) Abnormal [facility] URINALYSIS W/O SPECIFIC [id number] 20:53:00* Test Item Value Reference Range Interpretation Comme nts POCT PH U (test code = 3254) . 5-8 POCT U LEUK EST (test code = 3263) . Negative - N egative POCT U NIT (test code = 3262) . Negative - Negati ve POCT U PROT (test code = 3259) . Negative - Negat elliott POCT U GLU (test code = 3256) . Negative - Negati ve POCT U KETONE (test code = 3258) . Negative - Neg ative POCT U BLD (test code = 3257) . Negative - Negati ve [facility] URINALYSIS W/O SPECIFIC [id number] 20:53:00* Test Item Value Reference Range Interpretation Comme nts POCT PH U (test code = 3254) . 5-8 POCT U LEUK EST (test code = 3263) . Negative - N egative POCT U NIT (test code = 3262) . Negative - Negati ve POCT U PROT (test code = 3259) . Negative - Negat elliott POCT U GLU (test code = 3256) . Negative - Negati ve POCT U KETONE (test code = 3258) . Negative - Neg ative POCT U BLD (test code = 3257) . Negative - Negati ve [facility] [id number] 19:17:00* Test Item Value Reference Range Interpretation Comme nts POCT PREG (test code = 1605) Negative On board controls acceptable with C Line (test code = 3574) Yes POCT PREG LOT # (test code = 3575) POCT PREG TEST DATE ( test code = 3576) [facility] [id number] 19:17:00* Test Item Value Reference Range Interpretation Comme nts POCT PREG (test code = 1605) Negative On board controls acceptable with C Line (test code = 3574) Yes POCT PREG LOT # (test code = 3575) POCT PREG TEST DATE ( test code = 3576) [facility]. METABOLIC PANEL (46970)2022-03-25 05:07:49* Test Item Value Reference Range Interpretation Comme nts NA (test code = 0764387901) 139 mmol/L 135-145 K (test code = 3551692083) 4.2 mmol/L 3.5-5 CL (test code = 9781526901) 103 mmol/L 98-108 CO2 TOTAL (test code = 6953046627) 24 mmol/L 23-31 AGAP (test code = 0175464021) 2-16 BUN (test code = 3604973337) 14 mg/dL 7-23 GLUCOSE (test code = 4683957526) 100 mg/dL 70-110 CREATININE (test code = 4950565242) 0.63 mg/dL 0.5-1.04 TOTAL BILI (test code = 3679706695) 0.3 mg/dL 0.1-1.1 CALCIUM (test code = 3892971237) 9.6 mg/dL 8.6-10.6 T PROTEIN (test code = 8644663109) 7.7 g/dL 6.3-8.2 ALBUMIN (test code = 5847688612) 5.0 g/dL 3.5-5 ALK PHOS (test code = 9661082225) 57 U/L 34-122 ALTv (test code = 1742-6) 18 U/L 5-35 AST(SGOT) (test code = 1276115437) 29 U/L 13-40 eGFR (test code = 8894850691) mL/min/1.73m2 AYAKA (test code = AYAKA) Association [...] or urine or abnormalities in imaging tests). [facility] WITH [id number] 05:07:08* Test Item Value Reference Range Interpretation Comme nts WBC (test code = 6690-2) See_Comment [Automated [employer]] The system which generated this result transmitted reference range: 4.30 - 11.10 10*3/?L. The reference range was not used to interpret this result as normal/abnormal. RBC (test code = 789-8) See_Comment [Automated [employer]] The system which generated this result transmitted reference range: 3.93 - 5.25 10*6/?L. The reference range was not used to interpret this result as normal/abnormal. HGB (test code = 718-7) 13.3 g/dL 11.6-15 HCT (test code = 4544-3) 37.7 % 35.7-45.2 MCV (test code = 787-2) 90.6 fL 80.6-95.5 MCH (test code = 785-6) 32.0 pg 25.9-32.8 MCHC (test code = 786-4) 35.3 g/dL 31.6-35.1 H RDW-SD (test code = 11998-9) 38.2 fL 39-49.9 L RDW-CV (test code = 788-0) 11.7 % 12-15.5 L PLT (test code = 777-3) See_Comment [[employer]] The system which generated this result transmitted reference range: 166 - 358 10*3/?L. The reference range was not used to interpret this result as normal/abnormal. MPV (test code = 78340-6) 9.7 fL 9.5-12.9 NRBC/100 WBC (test code = 1630505273) See_Comment [Automated me ssage] The system which generated this result transmitted reference range: 0.0 - 10.0 /100 WBCs. The reference range was not used to interpret this result as normal/abnormal. NRBC x10^3 (test code = 9574675591) See_Comment [Automated messa ge] The system which generated this result transmitted reference range: 10*3/?L. The reference range was not used to interpret this result as normal/abnormal. GRAN MAT (NEUT) % (test code = 770-8) 64.7 % IMM GRAN % (test code = 2210993020) 0.40 % LYMPH % (test code = 736-9) 26.8 % MONO % (test code = 5905-5) 7.1 % EOS % (test code = 713-8) 0.7 % BASO % (test code = 706-2) 0.3 % GRAN MAT x10^3(ANC) (test code = 1987585385) 6.21 10*3/uL 1.88-7.09 IMM GRAN x10^3 (test code = 1269448996) 0.04 10*3/uL 0-0.06 LYMPH x10^3 (test code = 731-0) 2.57 10*3/uL 1.32-3.29 MONO x10^3 (test code = 742-7) 0.68 10*3/uL 0.33-0.92 EOS x10^3 (test code = 711-2) 0.07 10*3/uL 0.03-0.39 BASO x10^3 (test code = 704-7) 0.03 10*3/uL 0.01-0.07 Lab Interpretation (test code = 46151-8) [facility] Test Item Value Reference Range Interpretation Comme nts LIPASE (test code = 8311517913) 104 U/L 0-220 Lab Interpretation (test cod e = 61849-6) [id number] 04:38:00* Test Item Value Reference Range Interpretation Comme nts POCT PREG (test code = 1605) Negative On board controls acceptable with C Line (test code = 3574) Present POCT PREG LOT # (test code = 3575) [facility] [id number] POCT PREG TEST DATE ( test code = 3576) 05/31/2023 Lab Interpretation (test cod e = 08084-4) Normal [facility] History and Physical Notes Date/Time Note Provider Source 2023-02-24 20:38:38 Formatting of this n ote is different from the original. MEDICINE MEGANJ ADMIT H&P Date of Service: 02/24/2023 CHIEF COMPLAINT: fever, chills History of Present Illness 27 yo female who presents to the ED secondary to fever and chills. She was just discharged from [facility] after 3 days and felt that she was not ready to be discharged. During that facility she was diagnosed with UTI/pyelonephritis and was treated with antibiotics. Once home, she continued to have flank pain and chills and came to this hospital. PAST MEDICAL HISTORY Past Medical History: Diagnosis Date STD (sexually transmitted disease) 2016 chlamydia Past Surgical History None Family History Problem Relation Age of Onset No Significant Medical Problems Mother No Significant Medical Problems Father No Significant Medical Problems Sister No Significant Medical Problems Brother Cancer Maternal Grandmother lung ALLERGIES Allergies Allergen Reactions Motrin [Ibuprofen] Swelling MEDICATIONS No current facility-administered medications on file prior to encounter. No current outpatient medications on file prior to encounter. SOCIAL HISTORY Social History Socioeconomic History Marital status: Single Number [...] Narrative Patient lives with mother and children. Orthodox preference: omnism Review of Systems Constitutional: Positive [...] weakness and numbness. Psychiatric/Behavioral: Negative. Endocrine: Endocrine negative PHYSICAL EXAMINATION Vitals: 02/24/23 1900 02/24/23 1949 02/24/23195402/24/23 2353 BP: 111/79 118/74 103/71 Pulse: 99 93 81 Resp: 20 16 16 Temp: 38.2 ?C (100.8 ?F) 36.4 ?C (97.5 ?F) 36.1 ?C (96.9 ?F) TempSrc: Oral SpO2: 99% 100% 100% Weight: 68 kg (149 lb 14.4 oz) 68 kg (149 lb 14.4 oz) Height: 1.549 m (5' 1") Physical Exam Vitals and nursing note reviewed. Constitutional: General: She [...] normal. LABS - reviewed pertinent labs as below: Reviewed IMAGING - reviewed, pertinent results as below: None ASSESSMENT/PLAN Chon Lundberg is a 27 year old female with PMH as listed above, admitted to the hospital with: Acute cystitis/pyelonephritis: -- Will continue with antibiotics (cefepime) -- Urine culture is pending Prophylaxis: DVT- enoxaparin Code Status: addressed: FC [employer] EM[facility] PHYSICIAN STAFF [facility] Notes Date/Time Note Provider Source 2024-04-08 20:10:11 Pt given printed and verbal discharge instructions regarding viral pharyngitis and sore throat. Pt verbalized understanding of instructions, pt awake alert oriented, resp reg unlabored, skin w/d, color appropriate for race, moves all ext well,pt encouraged to follow up with pcp. Advised to seek medical attention for new/prolonged/worsening of symptoms. No adverse reaction to meds given in ER noted upon discharge. Awake, alert oriented, resp reg unlabored, skin w/d, pt leaving amb with steady gait, in no apparent distress. Tania Hackett RN [facility] 2024-04-08 17:27:49 CC: patient presents to the ER with complaints of sore throat that began last week. Patient states she has been using cough drops and hot tea without relief. Awake, alert, oriented, resp reg unlabored, skin warm and dry, color appropriate for race, moves all ext without difficulty, amb without assistance. Appears in no distress. Vita Walden RN [facility] 2024-03-12 11:26:25 Called pt, advised will need to call [facility] to discuss if medication can be filled. Other leon pt to call back for appointment. Pt verbalized understanding. Rae Torres RN 03/12/24 11:26 AM Rae Torres RN [facility] 2024-03-12 10:53:26 Chon Lundberg is a 28 year old female Patient states that she is currently experiencing the same symptoms from last time when she was positive for BV. States that she never received the medication for it last time and is wanting to get the medication sent over this time. Please advise. [id number] - [place], [place] - [address] [place] [address] Ifeoma Morales [facility] 2024-01-31 13:02:33 Pt informed of results and new orders, verbalized understanding. Phoebe Cervantes LVN [facility] 2024-01-31 07:43:00 Attempted to call patient, no answer, no vm setup. T [facility] 2024-01-30 17:33:59 Please make pt aware that she positive for BV and medication has been sent to pharmacy. SUMMER Lee 01/30/2024 5:34 PM T [facility] 2023-09-21 14:19:40 Patient called and notified by provider Please notify the patient that yeast was identified on her pap. Meds have been sent to her pharmacy on file, please advise the patient to complete the meds as prescribed, and practice good perineal hygiene. SUMMER Arango 09/21/2023 2:20 PM [facility] 2023-07-08 18:40:00 Pt given printed and verbal discharge instructions regarding abdominal pain affecting , abdominal cramping, threatened , encouraged hydration. Prescriptions provided. Pt verbalized understanding of instructions, pt awake alert oriented, resp reg unlabored, skin w/d, color appropriate for race, moves all ext well,pt encouraged to follow up with pcp and or ob-gyne. Advised to seek medical attention for new/prolonged/worsening of symptoms. PIV d'cd, dressing to site, catheter in tact. Awake, alert oriented, resp reg unlabored, skin w/d, pt leaving amb with steady gait, in no apparent distress. [facility] Alyssa Garcia RN [facility] 2023-07-08 17:53:17 ESTELA Philip called to verify that lab has urine culture. 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 Denies bleeding, states she is having thick white discharge. Awake, alert, oriented, resp reg unlabored, skin warm and dry, color appropriate for race, moves all ext without difficulty, amb without assistance. Appears in no distress. [facility] 2023-02-28 16:41:56 Formatting of this n ote is different from the original. TRANSITIONAL CARE MANAGEMENT ASSESSMENT 02/28/2023 Chon Lundberg [id number] Chon Lundberg is a 27 year old Black or female was admitted on 02/24/23 to [facility]. She was discharged on 02/27/23 with discharge disposition of HR- Routine Discharge. Admitting Physician: Hadley Bell Discharge Diagnosis: Febrile illness Linked Episodes Type: Episode: Status: Noted: Resolved: Last update: Updated by: TRANSITION OF CARE TCM Active 02/27/2023 02/28/2023 11:03 AM Tamara Daniels RN Comments:02/27/2023 TCM Eqh-noke-jq-face outreach documentation: Care Transition CM attempted to reach patient via telephone x2. Call can not be completed at this time. Unable to leave message. Discharge Assessment Chart Assessed: 02/28/23 TCM Outreach Completed: 02/28/23 Future Appointments: Future Appointments Provider Department Dept Phone 03/26/2023 1:30 PM [facility] [phone] Tamara Daniels RN [facility] 2023-02-28 11:04:08 Formatting of this n ote might be different from the original. Care Transition CM attempted to reach patient via telephone. Call can not be completed at this time. Unable to leave message. Tamara Daniels RN, BSN [employer] [phone] [facility] 2023-02-27 11:26:10 Formatting of this n ote might be different from the original. Patient is AOx4. Respirations are even and unlabored. Denies pain/discomfort. Patient has been educated on discharge instructions, medications, diagnosis, and follow up appointments. IV and Tele discontined. Patient denies discharge concerns at this time. Patient is Discharging home via private vehicle. Pepe Beltran RN [facility] 2023-02-27 11:15:57 Formatting of this n ote might be different from the original. Problem: Skin integrity Impaired (Risk or Actual) Goal: Prevention of new skin breakdown Outcome: Adequate for discharge Problem: Falls, Risk of Goal: Absence of falls Outcome: Adequate for discharge Problem: Discharge Planning Goal: Adequate for discharge Outcome: Adequate for discharge Problem: Pain Goal: Control of pain at or below patient's documented comfort goal Outcome: Adequate for discharge Problem: Infection Risk Goal: Absence of infection Outcome: Adequate for discharge Problem: Venous Thromboembolism, (actual or risk of) Goal: Absence of venous thromboembolism (Risk) Outcome: Adequate for discharge [facility] hospital 2023-02-26 22:16:53 Formatting of this n ote might be different from the original. Problem: Skin integrity Impaired (Risk or Actual) Goal: Prevention of new skin breakdown Outcome: Progressing as expected Problem: Falls, Risk of Goal: Absence of falls Outcome: Progressing as expected Problem: Discharge Planning Goal: Adequate for discharge Outcome: Progressing as expected Problem: Pain Goal: Control of pain at or below patient's documented comfort goal Outcome: Progressing as expected Problem: Infection Risk Goal: Absence of infection Outcome: Progressing as expected Problem: Venous Thromboembolism, (actual or risk of) Goal: Absence of venous thromboembolism (Risk) Outcome: Progressing as expected [facility] Alesha Claros RN [facility] 2023-02-26 12:12:20 Formatting of this n ote might be different from the original. Problem: Skin integrity Impaired (Risk or Actual) Goal: Prevention of new skin breakdown Outcome: Progressing as expected Problem: Discharge Planning Goal: Adequate for discharge Outcome: Progressing as expected Problem: Pain Goal: Control of pain at or below patient's documented comfort goal Outcome: Progressing as expected Problem: Infection Risk Goal: Absence of infection Outcome: Progressing as expected Critical [facility] hospital 2023-02-26 01:41:19 Formatting of this n ote might be different from the original. Problem: Skin integrity Impaired (Risk or Actual) Goal: Prevention of new skin breakdown Outcome: Progressing as expected Problem: Discharge Planning Goal: Adequate for discharge Outcome: Progressing as expected Problem: Pain Goal: Control of pain at or below patient's documented comfort goal Outcome: Progressing as expected Problem: Infection Risk Goal: Absence of infection Outcome: Progressing as expected T [facility] 2023-02-25 13:45:30 Formatting of this n ote might be different from the original. Problem: Skin integrity Impaired (Risk or Actual) Goal: Prevention of new skin breakdown Outcome: Progressing as expected Problem: Discharge Planning Goal: Adequate for discharge Outcome: Progressing as expected Problem: Pain Goal: Control of pain at or below patient's documented comfort goal Outcome: Progressing as expected Problem: Infection Risk Goal: Absence of infection Outcome: Progressing as expected Huong Hirsch RN [facility] 2023-02-25 03:07:57 Formatting of this n ote might be different from the original. Problem: Skin integrity Impaired (Risk or Actual) Goal: Prevention of new skin breakdown Outcome: Progressing as expected Problem: Discharge Planning Goal: Adequate for discharge Outcome: Progressing as expected Problem: Pain Goal: Control of pain at or below patient's documented comfort goal Outcome: Progressing as expected Problem: Infection Risk Goal: Absence of infection Outcome: Progressing as expected Critical access hospital 2023-02-24 19:23:43 Formatting of this n ote might be different from the original. Nurse Report Report given to Mercedez PALMER on Med/Surg. Chief complaint, assessment findings, infusion verify and orders reviewed. Plan of care discussed at bedside with patient and both nurses. Patient/family members verbalized understanding. VEGA COCHRAN RN Vega Cochran RN [facility] 2023-02-24 17:50:49 Formatting of this n ote might be different from the original. Patient was DC;d home on Levaquin 750 mg po QD and tramadol 50 mg po q6h. She did not start this before arrival to this ER [facility] 2023-02-24 16:30:30 Formatting of this n ote might be different from the original. Brought by EMS. Patient just got discharged from [facility] today ~45 min prior to EMS arrival. Was treated for UTI/kidney infection since with antibiotics. Patient got discharged today with antibiotics and she called 911 as she did not think she was ready to be discharged. Mentions she "started shaking" and shaking episode scared her. Denies shortness of breath, diarrhea, nausea and vomiting. +Chills. [facility] 02/01/2023 Hx - Denies T Phoebe Flores RN [facility] 2023-02-24 16:27:00 Formatting of this n ote is different from the original. [facility] Emergency Department Note Patient Name: Chon Lundberg Date of : 1995 27 year old female Treatment Room: [place] [address] Primary Care Physician: Caro Baird Patient Escorted by: Self [9] Mode of Arrival: EMS - [place] [46] EMS Treatment Prior to ED Arrival: Travel and Exposure Screening: Symptoms Does patient have any of these symptoms?: (not recorded) Exposure Screening Has patient had contact with someone with a communicable disease in the last month?: (not recorded) Diseases exposed to:: (not recorded) Is Patient ?: (not recorded) Exposure Date: (not recorded) Chief Complaint: Chief Complaint Patient presents with Fever MALAISE History of Present Illness: Onset 02/22 with left flank pain. (+) fever, chills. (+) urinary frequency. No hematuria, dysuria. No abdominal pain. No pelvic pain. No nausea, vomiting, diarrhea. No rhinorrhea, sore throat. No cough. No dyspnea. No chest pain. No rash. Discharged from [facility] this AM. Recurrent symptoms this evening. Flank pain from 02/22/23 is resolved. Recent encounter, Care Everywhere: 1. 02/22/23 to 02/24/23. Jorge. Sepsis. Pyelonephritis. 02/22 studies. WBC 15.1. BMP unremarkable. UA (+) nit/LE, (+) WBC. UCX, e coli. CT Abd/Pel, enhancement of left ureteral wall with mild bladder wall thickening. History provided by: Patient Past Medical History/Immunizations: Past Medical History: Diagnosis Date STD (sexually transmitted disease) 2017 chlamydia Tetanus received in last 5 years: Unknown Childhood immunizations: Up-to-date Allergies: Allergies Allergen Reactions Motrin [Ibuprofen] Swelling Past Social History: Tobacco Use Never smoked or used smokeless tobacco. Vaping Use Some days; Substances: Nicotine; Devices: Disposable Alcohol Use Not Currently. Comments: social Drug Use Never. Sexual Activity Sexually active; Partners: Male; Control/Protection: None. Comments: last sexual intercourse 12/05/2022 Past Surgical History: History reviewed. No pertinent surgical history. Review of Systems: Review of Systems Constitutional: Positive for chills and fever. HENT: Negative. Eyes: Negative. Respiratory: Negative. Cardiovascular: Negative. Gastrointestinal: Negative. Genitourinary: Positive for frequency. Negative for dysuria, hematuria, flank pain (flank pain from 02/22 now resolved) and difficulty urinating. Musculoskeletal: Negative. Skin: Negative. Neurological: Negative. Psychiatric/Behavioral: Negative. Physical Exam: ED Triage Vitals [02/24/23 1636] Weight 63.5 kg (140 lb) Actual or estimated Actual Height 1.549 m (5' 1") BP 128/75 Pulse 136 Resp 16 Temp 39.4 ?C (102.9 ?F) Temp source Oral SpO2 100 % Measured on Room air Physical Exam Vitals and nursing note reviewed. Constitutional: General: She is not in acute distress. Appearance: Normal appearance. She is not ill-appearing, toxic-appearing or diaphoretic. HENT: Head: Normocephalic and atraumatic. Right Ear: External ear normal. Left Ear: External ear normal. Nose: Nose normal. Mouth/Throat: Mouth: Mucous membranes are moist. Eyes: Extraocular Movements: Extraocular movements intact. Conjunctiva/sclera: Conjunctivae normal. Cardiovascular: Rate and Rhythm: Regular rhythm. Tachycardia present. Pulmonary: Effort: Pulmonary effort is normal. No respiratory distress. Breath sounds: Normal breath sounds. No wheezing, rhonchi or rales. Abdominal: General: There is no distension. Palpations: Abdomen is soft. Tenderness: There is no abdominal tenderness. There is no right CVA tenderness or left CVA tenderness. Musculoskeletal: General: Normal range of motion. Cervical back: Normal range of motion. Skin: General: Skin is warm and dry. Neurological: General: No focal deficit present. Mental Status: She is alert. Psychiatric: Mood and Affect: Mood normal. Behavior: Behavior normal. Thought Content: Thought content normal. Judgment: Judgment normal. Radiology: No orders to display Lab Results: Lab Results CBC WITH DIFF - Abnormal Result Value Ref Range WBC 6.81 4.30 - 11.10 10*3/?L RBC 3.53 (*) 3.93 - 5.25 10*6/?L HGB 11.5 (*) 11.6 - 15.0 g/dL HCT 33.3 (*) 35.7 - 45.2 % MCV 94.3 80.6 - 95.5 fL MCH 32.6 25.9 - 32.8 pg MCHC 34.5 31.6 - 35.1 g/dL RDW-SD 37.5 (*) 39.0 - 49.9 fL RDW-CV 11.0 (*) 12.0 - 15.5 % PLT 177 166 - 358 10*3/?L MPV 9.7 9.5 - 12.9 fL NRBC/100 WBC 0.0 0.0 - 10.0 /100 WBCs NRBC x10^3 <0.01 10*3/?L GRAN MAT (NEUT) % 86.0 % IMM GRAN % 0.40 % LYMPH % 8.5 % MONO % 4.8 % EOS % 0.0 % BASO % 0.3 % GRAN MAT x10^3(ANC) 5.85 1.88 - 7.09 10*3/uL IMM GRAN x10^3 0.03 0.00 - 0.06 10*3/uL LYMPH x10^3 0.58 (*) 1.32 - 3.29 10*3/uL MONO x10^3 0.33 0.33 - 0.92 10*3/uL EOS x10^3 <0.03 (*) 0.03 - 0.39 10*3/uL BASO x10^3 <0.03 0.01 - 0.07 10*3/uL COMP. METABOLIC PANEL (85062) - Abnormal NA 139 135 - 145 mmol/L K 3.7 3.5 - 5.0 mmol/L CL 105 98 - 108 mmol/L CO2 TOTAL 26 23 - 31 mmol/L AGAP 8 2 - 16 BUN 6 (*) 7 - 23 mg/dL GLUCOSE 112 (*) 70 - 110 mg/dL CREATININE 0.61 0.50 - 1.04 mg/dL TOTAL BILI 0.2 0.1 - 1.1 mg/dL CALCIUM 8.6 8.6 - 10.6 mg/dL T PROTEIN 6.7 6.3 - 8.2 g/dL ALBUMIN 3.8 3.5 - 5.0 g/dL ALK PHOS 48 34 - 122 U/L ALTv 19 5 - 35 U/L AST(SGOT) 25 13 - 40 U/L eGFR 119.5 mL/min/1.73m2 URINALYSIS - Abnormal APPEARANCE Hazy (*) Clear COLOR Yellow Yellow PH 7.0 4.8 - 8.0 SP GRAVITY 1.011 1.003 - 1.030 GLU U QUAL Normal Normal BLOOD 2+ (*) Negative KETONES Negative Negative PROTEIN Negative Negative UROBILIN Normal Normal BILIRUBIN Negative Negative NITRITE Negative Negative LEUK EMILY 25/uL (*) Negative RBC/HPF 56 (*) 0 - 3 HPF WBC/HPF 9 (*) 0 - 5 HPF BACTERIA Many (*) Negative MUCOUS Slight (*) Negative LPF SQ EPITH 3 HPF HYAL CAST 5 (*) <=2 LPF LACTIC ACID WHOLE BLOOD - Normal LACTIC ACID 1.56 0.50 - 2.20 mmol/L COVID-19 (ID NOW RAPID TESTING) - Normal SARS-CoV-2 Rapid ID NOW Not Detected Not Detected POCT TEST - Normal POCT PREG Negative On board controls acceptable with C Line Yes POCT PREG LOT # [id number] POCT PREG TEST DATE 07/04/2024 BLOOD CULTURE SCREEN BLOOD CULTURE SCREEN URINE CULTURE EKG: If EKG completed, see Procedure Note. Orders and Treatments: Orders Placed This Encounter Procedures CBC WITH DIFF COMP. METABOLIC PANEL (14299) URINALYSIS BLOOD CULTURE SCREEN BLOOD CULTURE SCREEN URINE CULTURE Lactic Acid Whole Blood Lactic Acid Whole Blood COVID-19 (ID NOW TESTING) POCT TEST LAB ONLY COVID INTERPRETATION Orders Placed This Encounter Medications NaCl 0.9% (NS) bolus infusion 1,905 mL cefTRIAXone (ROCEPHIN) 1,000 mg in NaCl 0.9% (NS) 100 mL MINI-BAG acetaminophen (TYLENOL) tablet 650 mg First Provider Eval: ED Events Date/Time Event User Comments 02/24/23 1635 Medical Screening Begins BAUTISTA FERREIRA MD -- 02/24/23 1640 First Provider Evaluation BAUTISTA FERREIRA MD -- AdmissionCare Guideline: Urinary Tract Infection (UTI) - INPT, Inpatient Based on the indications selected for the patient, the bed status of Admit to Inpatient was determined to be MET The following indications were selected as present at the time of evaluation of the patient: Hemodynamic instability, as indicated by 1 or more of the following: - Vital sign abnormality not readily corrected by appropriate treatment, as indicated by 1 or more of the following: - Tachycardia that persists despite appropriate treatment (eg, volume repletion, treatment of pain, treatment of underlying cause) - Tachycardia, as indicated by 1 or more of the following: - - Heart rate greater than 100 beats per minute in adult or child age 6 years or older - Persistence or worsening of clinical finding (eg, fever, pain, dehydration, vomiting) despite observation care AdmissionCare documentation entered by: Bautista Ferreira [facility], 27th edition, Copyright 2022 [facility] [place] [employer] All Rights Reserved. [id number]:00 ED COURSE Diagnosis/Impression as of 02/24/23 184 Febrile illness Procedures: Procedures MDM: Medical Decision Making Primary impression: febrile illness Secondary impression: Differential Diagnoses, including but not limited to: sepsis, urinary tract infection, bacteremia, covid, electrolyte-glucose abnl Problems Addressed: Febrile illness: acute illness or injury Amount and/or Complexity of Data Reviewed Independent Historian: Details: self Labs: ordered. Decision-making details documented in ED Course. Radiology: Details: N/a ECG/medicine tests: Details: N/a Risk OTC drugs. Prescription drug management. Decision regarding hospitalization. Flowsheet Documentation: Scoring Tools: No data recorded Disposition/Condition: ED Disposition ED Disposition Admit - Inpatient Condition Stable Comment -- Discharge Medications: Patient's Medications No medications on file Follow-up: N/a Electronically signed by: Bautista Ferreira MD 02/24/231840 [facility] 2023-02-24 16:27:00 Formatting of this n ote might be different from the original. AdmissionCare Guideline: Urinary Tract Infection (UTI) - INPT, Inpatient Based on the indications selected for the patient, the bed status of Admit to Inpatient was determined to be MET The following indications were selected as present at the time of evaluation of the patient: Hemodynamic instability, as indicated by 1 or more of the following: - Vital sign abnormality not readily corrected by appropriate treatment, as indicated by 1 or more of the following: - Tachycardia that persists despite appropriate treatment (eg, volume repletion, treatment of pain, treatment of underlying cause) - - Persistence or worsening of clinical finding (eg, fever, pain, dehydration, vomiting) despite observation care AdmissionCare documentation entered by: Bautista Ferreira [employer], edition, Copyright 2022 [employer] All Rights Reserved. [id number]:00 [facility] [employer] 2023-02-24 16:27:00 Formatting of this n ote might be different from the original. AdmissionCare Guideline: Urinary Tract Infection (UTI) - INPT, Inpatient Based on the indications selected for the patient, the bed status of Admit to Inpatient was determined to be MET The following indications were selected as present at the time of evaluation of the patient: Hemodynamic instability, as indicated by 1 or more of the following: - Vital sign abnormality not readily corrected by appropriate treatment, as indicated by 1 or more of the following: - Tachycardia that persists despite appropriate treatment (eg, volume repletion, treatment of pain, treatment of underlying cause) - Tachycardia, as indicated by 1 or more of the following: - - Heart rate greater than 100 beats per minute in adult or child age 6 years or older - Persistence or worsening of clinical finding (eg, fever, pain, dehydration, vomiting) despite observation care AdmissionCare documentation entered by: Bautista Ferreira [employer], edition, Copyright 2022 [employer] All Rights Reserved. [id number]:27-05:00 [employer]
[2024-04-11] MEDS ORDERED: NA CHLORIDE 0.9% 1,000 ML ONE (08:11)
[2024-04-11] MEDS ORDERED: FAMOTIDINE 20 MG/2 ML VIAL IV ONE (08:11)
[2024-04-11 08:13] LABS: Absolute Eosinophils 0.1 K/uL (0-0.5); Absolute Lymphocytes (CBC) 3.1 K/uL (0.7-4.9); Absolute Monocytes 0.5 K/uL (0.1-1.3); Absolute Neutrophil 5.3 K/uL (1.8-8.0); Basophils % 0.5 % (0-1.3); Eosinophils % 0.7 % (0-4.4); Hemoglobin 12.7 g/dL (12.0-15.0); Lymphocytes % 34.4 % (15.3-44.8); MCHC 33.4 g/dL (32.0-36.0); MCV 95.9 fL (80-100); MPV 7.9 fL (7.6-11.3); Monocytes % 5.9 % (3.3-12.3); Neutrophils % 58.5 % (41.7-73.7); Platelets 323 thou/uL (152-406); RBC Red Blood Cell Count 3.97 M/uL (3.86-4.86); Red Cell Distribution Width 12.6 % (12.1-15.2)
[2024-04-11 08:25] LABS: BUN Blood Urea Nitrogen 9 mg/dL (7-18); Bicarbonate 26 mEq/L (21-32); Glomerular Filtration Rate 124 ml/min (=/>90); Glucose Level 120 mg/dL (74-106); HCG, Quantitative 2 mIU/mL (1-3); Sodium Level 142 mEq/L (136-145)
[2024-04-11 08:26] LABS: Troponin High Sensitivity < 3.0 pg/mL (<58.9)
--- NOTE | 2024-04-11 08:59 | RAD REPORT ---
EXAMINATION: ONE VIEW CHEST XR CLINICAL INDICATION: CHEST PAIN TECHNIQUE: Frontal chest projection is submitted. Examination is limited by patient positioning and t echnique. COMPARISON: 08/05/2014 FINDINGS: The lungs are well inflated and clear. The heart is normal in size. No displaced fractures identified . IMPRESSION: No acute intrathoracic abnormalities.
--- NOTE | 2024-04-11 09:34 | EDPHYS ---
Physician Documentation [facility] Name: Miko Black Age: 28 yrs Sex: Female : 1995 Arrival Date: 04/11/2024 Time: 07:47 Bed 16 Private MD: ED Physician Dustin Morris HPI: 04/11 07:53 This 28 yrs old Female presents to ER via Unassigned with complaints of heart ec2 burn. 07:53 Patient arrives today for evaluation of generalized weakness as well as chest pain. ec2 Patient reports that she has been having chest pain ongoing for several months, she states that she has acid reflux which is the cause of the chest pain. Patient reports generalized weakness. Reports that she had a recent miscarriage as recently as a couple weeks ago, has recently had vaginal bleeding however has since improved. Denies any abdominal pain. Reports no nausea or vomiting, denies any diarrheal symptoms.. Historical: - Allergies: 07:53 Motrin; rs5 - PMHx: 07:53 None; rs5 - PSHx: 07:53 None; rs5 - Immunization history:: Adult Immunizations up to date. - Infectious Disease History:: Denies. - Social history:: Smoking status: Patient denies any tobacco usage or history of. ROS: 07:53 Constitutional: as per hpi ec2 Exam: 07:53 Constitutional: GEN: NAD Head: atraumatic Eyes: EOMI Ears: External ears are ec2 normal. CV: regular rate LUNGS: no respiratory distress ABD: non-distended SKIN: no evidence of rashes MSK: no evidence of trauma Vital Signs: 07:51 BP 101 / 74; Pulse 75; Resp 17; Temp 98(O); Pulse Ox 98% on R/A; rs5 09:40 BP 105 / 77; Pulse 70; Resp 17; Pulse Ox 99% on R/A; rs5 MDM: 07:53 Data reviewed: vital signs. ED course: Patient arrives today for evaluation of weakness ec2 as well as concern for heartburn. Examination remarkable for well-appearing nontoxic individuals otherwise in no acute distress with a reassuring examination. Will obtain lab work, EKG, chest x-ray. Differential includes anemia, electrolyte disturbances, ACS, arrhythmia.. 08:13 ED course: EKG independently reviewed and interpreted by me, shows normal sinus rhythm, ec2 rate 66, no acute ST segment elevations, intervals are nonactionable.. 09:05 ED course: Metabolic profile shows slight hypokalemia with potassium of 3.0. CBC is ec2 nonactionable. Troponin within normal range, chest x-ray shows no acute thoracic process. hCG at a level of 2. This consistent with patient's recent miscarriage. Will have the patient follow-up for trending, patient without any abdominal pain to indicate ectopic . . 09:33 ED course: On reassessment patient is well-appearing and in no acute distress. ec2 Initially had ordered urine studies however patient without any urinary complaints. Will have patient follow-up with PCP and gynecology for trending of hCG down to 0. Patient otherwise remains with a soft abdomen and is not guarding not rigid. Return precautions given. Additionally doubt retained products of conception given lack of vaginal discharge, given lack of systemic signs and symptoms as well as reassuring abdominal examination.. 09:34 Patient medically screened. ec2 04/11 07:52 Order name: Basic Metabolic Panel; Complete Time: 09:04 ec2 04/11 07:52 Order name: CBC with Diff; Complete Time: 09:04 ec2 04/11 07:52 Order name: Troponin HS; Complete Time: 09:04 ec2 04/11 07:52 Order name: HCG-Quantitative; Complete Time: 09:04 ec2 04/11 07:52 Order name: XRAY Chest (1 view); Complete Time: 09:04 ec2 04/11 07:52 Order name: EKG; Complete Time: 07:53 ec2 04/11 07:52 Order name: Cardiac monitoring; Complete Time: 08:27 ec2 04/11 07:52 Order name: EKG - Nurse/Tech; Complete Time: 08:27 ec2 04/11 07:52 Order name: IV Saline Lock; Complete Time: 08:27 ec2 04/11 07:52 Order name: Labs collected and sent; Complete Time: 08:27 ec2 04/11 07:52 Order name: O2 Per Protocol; Complete Time: 08:22 ec2 04/11 07:52 Order name: O2 Sat Monitoring; Complete Time: 08:22 ec2 Administered Medications: 08:15 Drug: NS 0.9% IV 1000 ml IV at 1 bolus Per protocol; to be given as a bolus over 60 rs5 minutes Route: IV; Rate: 1 bolus; Site: left antecubital; 09:20 Follow up: IV Status: Completed infusion; IV Intake: 1000ml rs5 08:15 Drug: Famotidine IVP 20 mg IVP once; dilute with 10 mL 0.9% NaCl; give over 2 minutes rs5 Route: IVP; Site: left antecubital; 08:30 Follow up: Response: No adverse reaction rs5 Disposition Summary: 04/11/24 09:34 Discharge Ordered Notes: Location: Home ec2 Condition: Stable ec2 Diagnosis - Weakness ec2 - Acute gastritis ec2 Followup: ec2 - With: Private Physician - When: - Reason: Re-evaluation by your physician Discharge Instructions: - Discharge Summary Sheet ec2 - Gastritis, Adult, Eavy-gy-Nbhb ec2 Forms: - Work release form rs5 - Family Work Release rs5 - Medication Reconciliation Form ec2 - Antibiotic Education ec2 - Prescription Opioid Use ec2 - Patient Portal Instructions ec2 - Leadership Thank You Letter ec2 Prescriptions: - Protonix 40 mg Oral Tablet - take 1 tablet ORAL route once daily; 30 tablet; Refills: 0, Product Selection ec2 Permitted Signatures: Dispatcher [employer] Ifeanyi Call RN RN rs5 Dustin Morris MD MD ec2 Corrections: (The following items were deleted from the chart) 07:53 07:53 BASIC METABOLIC PANEL+C.LAB.BRZ ordered. EDMS EDMS 07:53 07:53 CBC+H.LAB.BRZ ordered. EDMS EDMS 07:53 07:53 Troponin High Sensitivity+C.LAB.BRZ ordered. EDMS EDMS 07:53 07:53 QUANTITATIVE HCG+C.LAB.BRZ ordered. EDMS EDMS
--- NOTE | 2024-04-11 09:34 | ER ---
Nurse's Notes [facility] Name: Miko Black Age: 28 yrs Sex: Female : 1995 Arrival Date: 04/11/2024 Time: 07:47 Bed 16 Private MD: Diagnosis: Weakness;Acute gastritis Presentation: 04/11 07:51 Chief complaint: EMS states: Heart burn, generalized weakness and fatigue that started rs5 this morning. Coronavirus screen: At this time, the client does not indicate any symptoms associated with coronavirus-19. Ebola Screen: No symptoms or risks identified at this time. Initial Sepsis Screen: Does the patient meet any 2 criteria? No. Patient's initial sepsis screen is negative. Does the patient have a suspected source of infection? No. Patient's initial sepsis screen is negative. Risk Assessment: Do you want to hurt yourself or someone else? Patient reports no desire to harm self or others. Onset of symptoms was April 11, 2024. 07:51 Method Of Arrival: EMS: [facility] rs5 07:51 Acuity: BLAIR 3 rs5 Triage Assessment: 07:53 General: Appears in no apparent distress. uncomfortable, Behavior is calm, cooperative. rs5 Pain: Complains of pain in chest. Historical: - Allergies: 07:53 Motrin; rs5 - PMHx: 07:53 None; rs5 - PSHx: 07:53 None; rs5 - Immunization history:: Adult Immunizations up to date. - Infectious Disease History:: Denies. - Social history:: Smoking status: Patient denies any tobacco usage or history of. Screenin:55 [facility] ED Fall Risk Assessment (Adult) History of falling in the last 3 months, rs5 including since admission No falls in past 3 months (0 pts) Confusion or Disorientation No (0 pts) Intoxicated or Sedated No (0 pts) Impaired Gait No (0 pts) Mobility Assist Device Used No (0 pt) Altered Elimination No (0 pt) Score/Fall Risk Level 0 - 2 = Low Risk Oriented to surroundings, Maintained a safe environment. Abuse screen: Denies threats or abuse. Nutritional screening: No deficits noted. Tuberculosis screening: No symptoms or risk factors identified. Assessment: 07:55 General: Appears in no apparent distress. uncomfortable, Behavior is calm, cooperative. rs5 Pain: Complains of pain in chest Pain currently is 3 out of 10 on a pain scale. Quality of pain is described as burning, Is continuous. Neuro: Level of Consciousness is awake, alert, obeys commands, Oriented to person, place, time, situation, Reports weakness. Cardiovascular: Patient's skin is warm and dry. Respiratory: Airway is patent Respiratory effort is even, unlabored, Respiratory pattern is regular, symmetrical. GI: Abdomen is round non-distended, Abd is soft and non tender X 4 quads. : No signs and/or symptoms were reported regarding the genitourinary system. EENT: No signs and/or symptoms were reported regarding the EENT system. Derm: No signs and/or symptoms reported regarding the dermatologic system. Musculoskeletal: Range of motion: intact in all extremities. 09:01 Reassessment: Patient and/or family updated on plan of care and expected duration. Pain rs5 level reassessed. Patient is alert, oriented x 3, equal unlabored respirations, skin warm/dry/pink. 09:47 Reassessment: Patient and/or family updated on plan of care and expected duration. Pain rs5 level reassessed. Patient is alert, oriented x 3, equal unlabored respirations, skin warm/dry/pink. Vital Signs: 07:51 BP 101 / 74; Pulse 75; Resp 17; Temp 98(O); Pulse Ox 98% on R/A; rs5 09:40 BP 105 / 77; Pulse 70; Resp 17; Pulse Ox 99% on R/A; rs5 ED Course: 07:51 Patient arrived in ED. rs5 07:52 Dustin Morris MD is Attending Physician. ec2 07:53 Triage completed. rs5 07:54 Arm band placed on right wrist. rs5 07:55 Patient has correct armband on for positive identification. Bed in low position. Call rs5 light in reach. Side rails up X2. 08:00 No provider procedures requiring assistance completed. Inserted saline lock: 20 gauge rs5 in left antecubital area, using aseptic technique. Blood collected. Flushed with 10 mL NS. 08:02 Ifeanyi Dotson, RN is Primary Nurse. rs5 08:11 XRAY Chest (1 view) In Process Unspecified. EDMS 09:48 Provided Education on: discharge instructions . rs5 09:48 IV discontinued, intact, bleeding controlled, No redness/swelling at site. Pressure rs5 dressing applied. Administered Medications: 08:15 Drug: NS 0.9% IV 1000 ml IV at 1 bolus Per protocol; to be given as a bolus over 60 rs5 minutes Route: IV; Rate: 1 bolus; Site: left antecubital; 09:20 Follow up: IV Status: Completed infusion; IV Intake: 1000ml rs5 08:15 Drug: Famotidine IVP 20 mg IVP once; dilute with 10 mL 0.9% NaCl; give over 2 minutes rs5 Route: IVP; Site: left antecubital; 08:30 Follow up: Response: No adverse reaction rs5 Medication: 09:40 VIS not applicable for this client. rs5 Intake: 09:20 IV: 1000ml; Total: 1000ml. rs5 Outcome: 09:34 Discharge ordered by . ec2 09:48 Patient left the ED. rs5 09:48 Discharged to home ambulatory, rs5 09:48 Condition: stable rs5 09:48 Discharge instructions given to patient, family, Instructed on discharge instructions, follow up and referral plans. Demonstrated understanding of instructions, follow-up care, Signatures: Dispatcher [employer] Ifeanyi Call RN RN rs5 Dustin Morris MD MD ec2 Corrections: (The following items were deleted from the chart) 11:28 10:00 BP 105 / 77; Pulse 70bpm; Resp 17bpm; Pulse Ox 99% RA; rs5 rs5
[2024-04-11 10:02] VITALS: BP 101/74; TEMP 98; O2SAT 98
--- NOTE | 2024-04-17 12:19 | EKG ---
Test Date: 2024-04-11 Test Time: 08:06:33 File Machine Operator: ISIAH MEASUREMENT RESULTS: Intervals: Rate: 66 AL: 144 QRSD: 98 QT: 448 QTc: 469 [place]: P: 60 AL: 144 QRS: 86 T: 59 INTERPRETIVE STATEMENTS: Normal sinus rhythm Normal ECG Compared to ECG 02/22/2023 14:19:07 Sinus tachycardia no longer present Right-axis deviation no longer present Electronically Signed On 04-17-24 12:02:11 CDT by Carlos Enrique Jackson
== END 2024-04-11 09:48 | disposition home or self-care (01) ==
LOC: ER 07:47
DX: K29.00 Acute gastritis without bleeding (principal)
CPT/HCPCS: 36415; 71045; 80048; 84484; 84702; 85025; 93005; 96361; 96374; 99284; J7030

== ENCOUNTER 2025-02-24 13:08 | Emergency (ER) | payer SELFPAY ==
--- OUTSIDE RECORDS SUMMARY | 2025-02-24 13:14 | XMS REPORT | Continuity of Care Document ---
Author Name Unknown Address [address] [place] [address] [facility] [place] Address [address] [place] [address] Care Team Providers Care Medical Coding Auditor Name Role Phone Caro Baird CNM Primary Care Physician + Sarah Nguyen Attending Clinician [phone] SARAH JEFFREY Attending Clinician Unavailable MERRY PULIDO Attending Clinician Unavailab Merry Ratliff NP Attending Clinician [phone] Maryam Mccall Attending Clinician + MARYAM DURAN Attending Clinician Unavail able Doctor Unassigned, [place] Attending Clinician U hernán Daniels RN, Tamara Dominguez Attending Clinician [phone] HADLEY BELL Attending Clinician Unavailable Artem Noriega MD Attending Clinician [phone] Bautista Ferreira MD Attending Clinician [phone] Hadley Bell DO Attending Clinician [phone] Caro Baird CNM Attending Clinician [phone] CARO BAIRD Attending Clinician UnavailMIHAI Franklin Attending Clinician Unavailabl e Provider, Ang-Rmchp Temp Attending Clinician Yu vailable MARSHA ROMAN Attending Clinician Unavailable Timi ORACLE PROGRAMMER, Marsha Attending Clinician [phone] KIYA AGUIRRE Attending Clinician Unavailable Timothy ORACLE PROGRAMMER, Kiya Attending Clinician Thom ORACLE PROGRAMMER, Mihai N Attending Clinician [phone] Manny ORACLE PROGRAMMER, Los Diaz Attending Clinician [phone] LOS BEASLEY Attending Clinician Unavailab MERRY Ratliff Admitting Clinician Unavailab HADLEY Tristan Admitting Clinician Unavailable Hadley Bell DO Admitting Clinician [phone] Payers Payer Name Policy Type Policy Number Effective Date Expirati on Date Source [place] [employer] [place] [id number] 2022 00:00:00 [place] [id number] 2021 00:00:00 MEDICAID PENDING PENDING 2021 00:00:00 Problems Condition Name Condition Details Condition Category Status Onset Date Resolution Date Last Treatment Date Treating Clinician Comments Source Overweight (BMI 25.0-29.9) Overweight (BMI 25.0-29.9) Disease Active - 00:00: 00 [facility] Sore throat Sore throat Disease Resolve d 2023-07 0-08 00:00: 00 2024-10-13 00:00:00 2024-10-13 13:53:15 [facility] Engages in vaping Engages in vaping Disease Resolve d 6- 00:00: 00 2024-10-13 00:00:00 2024-10-13 13:53:21 [facility] Febrile illness Febrile illness Disease Resolve d 8-26 00:00: 00 2024-01-29 00:00:00 2024-01-29 14:05:46 [facility] Chlamydia trachomati s infection of lower genitourin amber sites Chlamydia trachomati s infection of lower genitourin amber sites Disease Resolve d 8-19 00:00: 00 2022-12-19 00:00:00 2022-12-19 14:35:11 [facility] Supervisio n of high-risk Supervisio n of high-risk Disease Resolve d 4-08 00:00: 00 2022-05-21 00:00:00 2022-05-21 17:35:39 [facility] Multiparit y Multiparit y Disease Resolve d 4-08 00:00: 00 2022-05-21 00:00:00 2022-05-21 17:35:41 [facility] Encounter for IUD removal Encounter for IUD removal Disease Resolve d 2-09 00:00: 00 2022-05-21 00:00:00 2022-05-21 17:35:37 [facility] Allergies, Adverse Reactions, Alerts Allergy Name Allergy Type Status Severity Reaction(s) Onset Date Inactive Date Treating Clinician Comments Source IBUPROFE N DRUG INGREDI Active Swelling 07-30 00:00: 00 [facility] Ibuprofe n Propensi ty to adverse reaction s Active Swelling 07-30 00:00: 00 [facility] Social History Social Habit Start Date Stop Date Quantity Comments Source ASSERTION 2021-08-11 00:00:00 Not [facility] Gender identity [facility] Sexual orientation [facility] History SDOH Alcohol Frequency [facility] History SDOH Alcohol Std Drinks [facility] History SDOH Alcohol Binge [facility] Alcoholic beverage intake 2024-10-14 00:00:00 2024-10-14 00:00:00 Current drinker of alcohol (finding) [facility] Tobacco use and exposure 2024-10-13 00:00:00 2024-10-13 00:00:00 Smokeless tobacco non-user [facility] Alcohol intake 2023-07-08 00:00:00 2023-07-08 00:00:00 Ex-drinker (finding) [facility] Education 2023-02-24 00:00:00 2023-02-24 00:00:00 13 [facility] Exposure to SARS-CoV-2 (event) 2022-05-07 00:00:00 2022-05-17 10:57:00 Not sure [facility] History of Social function 2022-05-17 00:00:00 2022-05-17 00:00:00 [facility] Alcohol Comment 2021-02-16 00:00:00 2021-02-16 00:00:00 social [facility] Sex assigned at 1995 00:00:00 1995 00:00:00 [facility] Smoking Status Start Date Stop Date Source Never smoked tobacco [facility] Medications Ordered Medication Name Filled Medication Name Start Date Stop Date Current Medication? Ordering Clinician Indication Dosage Frequency Signature (SIG) Comments Components Source fluconazole 150 mg tablet 10-14 00:00: 00 10-15 04:59 :00 No [id number] 150mg Take 1 tablet by mouth once now for 1 dose. [facility] metroNIDAZO LE 500 mg tablet 2023-07 00:00: 00 10-13 00:00 :00 No [id number] 500mg Take 1 tablet by mouth every 12 (twelve) hours. [facility] dexamethaso ne sod phos PF injection 10 mg 2023-07 01:00: 00 04-09 01:08 :00 No 10mg 10 mg, Oral, ONCE, 1 dose, On Sun04/08/24 at 2000, 1 mL [facility] acetaminoph en (TYLENOL) tablet 1,000 mg 2023-07 22:45: 00 04-08 23:19 :00 No 1000mg 1,000 mg, Oral, ONCE, 1 dose, On Sun04/08/24 at 1745, Routine [facility] metroNIDAZO LE 500 mg tablet 01-30 00:00: 00 02-07 04:59 :00 No [id number] 500mg Take 1 tablet by mouth in the morning and 1 tablet in the evening. Do all this for 7 days. [facility] fluconazole (DIFLUCAN) 150 mg tablet 09-20 00:00: 00 09-21 04:59 :00 No [id number] 150mg Take 1 tablet by mouth once now for 1 dose. [facility] ondansetron 4 mg disintegrat ing tablet 07-08 00:00: 00 09-20 00:00 :00 No [id number] 4mg Take 1 tablet by mouth every 8 (eight) hours as needed for Nausea and Vomiting (N/V). [facility] levoFLOXaci n 750 mg tablet 02-27 00:00: 00 07-08 00:00 :00 No 750mg Take 1 tablet by mouth every 24 (twenty-fo ur) hours. [facility] ceFEPIme (MAXIPIME) 1,000 mg in NaCl 0.9% (NS) 100 mL MINI-BAG 02-25 14:30: 00 03-04 14:29 :00 No 1000mg 1,000 mg, IV Piggyback, Q8H ABX, 21 doses, First dose on Sun02/25/23 at 0930, Last dose on Sun03/04/23 at 0130, Administer over 4 Hours, 100 mL
Reas on for Anti-Infec tive: Documented Infection& lt;br>Docu mented Infection Site: Urine
D uration of Therapy: 7 days [facility] enoxaparin (LOVENOX) injection 40 mg 02-25 14:00: 00 Yes 40mg 40 mg, Subcutaneo us, DAILY, First dose on Sun02/25/23 at 0900, Until Discontinu ed, Routine [facility] ceFEPIme (MAXIPIME) 1,000 mg in NaCl 0.9% (NS) 100 mL MINI-BAG 02-25 06:30: 00 02-25 06:03 :00 No 1000mg 1,000 mg, IV Piggyback, ONCE, 1 dose, On Sun02/25/23 at 0130, Administer over 30 Minutes, 100 mL
Reas on for Anti-Infec tive: Empiric Therapy for Suspected Infection< br>Empiric Therapy Site: Urine
D uration of therapy: 72 hours [facility] NaCl 0.9% (NS) IV infusion 1,000 mL 02-25 01:00: 00 02-27 15:46 :48 No 1000mL at 125 mL/hr, IV Infusion, CONTINUOUS , Starting on 02/24/23 at 2000, Until 02/27/23 at 1046, Routine [facility] HYDROcodone -acetaminop hen (NORCO 5) 5-325 mg tablet 1 tablet 02-24 23:48: 31 02-26 23:47 :31 No 1{tbl} 1 tablet, Oral, Q6HPRN, Starting on 02/24/23 at 1848, Until 02/26/23 at 1847, Routine, Pain (scale 4-6) [facility] acetaminoph en (TYLENOL) tablet 650 mg 02-24 23:48: 21 Yes 650mg 650 mg, Oral, Q6HPRN, Starting on 02/24/23 at 1848, Until Discontinu ed, Routine, Pain (scale 1-3), Temp > 38 C [facility] cefTRIAXone (ROCEPHIN) 1,000 mg in NaCl 0.9% (NS) 100 mL MINI-BAG 02-24 22:45: 00 02-24 23:01 :00 No 1000mg 1,000 mg, IV Piggyback, ONCE, 1 dose, On 02/24/23 at 1745, Administer over 30 Minutes, 100 mL
Reas on for Anti-Infec tive: Empiric Therapy for Suspected Infection< br>Empiric Therapy Site: Urine
D uration of therapy: 72 hours [facility] NaCl 0.9% (NS) bolus infusion 1,905 mL 02-24 22:45: 00 02-24 22:29 :00 No 30mL/kg at 999 mL/hr, 1,905 mL (30 mL/kg ?63.5 kg), IV Infusion, ONCE, 1 dose, On 02/24/23 at 1745, NIKITA [facility] acetaminoph en (TYLENOL) tablet 650 mg 02-24 22:30: 00 02-24 22:33 :00 No 650mg 650 mg, Oral, ONCE, 1 dose, On 02/24/23 at 1730, NIKITA [facility] metroNIDAZO LE 500 mg tablet 12-21 00:00: 00 12-22 04:59 :00 No [id number] 2000mg Take 4 tablets by mouth once now for 1 dose. [facility] maalox:diph enhydrAMINE :lidocaine 2 % viscous 1:1:1 (FIRST-MOUT HWASH BLM) oral suspension 15 mL 03-25 04:45: 00 03-25 04:44 :00 No [id number] 15mL 15 mL, Oral, ONCE, 1 dose, On 03/24/22 at 2345, Routine [facility] ondansetron 4 mg disintegrat ing tablet 03-25 00:00: 00 05-21 00:00 :00 No [id number] 4mg Take 1 tablet by mouth every 8 (eight) hours as needed for Nausea and Vomiting (N/V). [facility] famotidine 20 mg tablet 03-25 00:00: 00 04-25 04:59 :00 No [id number] 20mg Take 1 tablet by mouth in the morning and 1 tablet in the evening. Do all this for 30 days. [facility] terconazole 80 mg vaginal suppository 10-10 00:00: 00 10-14 04:59 :00 No [id number] 80mg Insert 1 Suppositor y into vagina at bedtime for 3 days. [facility] No known medications 10-07 11:34: 16 No [facility] Vital Signs Vital Name Observation Time Observation Value Comments S ource Systolic blood pressure 2024-10-13 18:42:00 116 mm[Hg] [facility] Diastolic blood pressure 2024-10-13 18:42:00 77 mm[Hg] [facility] Heart rate 2024-10-13 18:42:00 93 /min [facility] Body temperature 2024-10-13 18:42:00 36.06 Josephine [facility] Body height 2024-10-13 18:42:00 154.9 cm [facility] Body weight 2024-10-13 18:42:00 70.035 kg [facility] BMI 2024-10-13 18:42:00 29.17 kg/m2 [facility] Oxygen saturation in Arterial blood by Pulse oximetry 2024-10-13 18:42:00 97 /min [facility] Systolic blood pressure 2024-04-16 19:02:00 130 mm[Hg] [facility] Diastolic blood pressure 2024-04-16 19:02:00 82 mm[Hg] [facility] Heart rate 2024-04-16 19:02:00 73 /min [facility] Body temperature 2024-04-16 19:02:00 36.28 Josephine [facility] Respiratory rate 2024-04-16 19:02:00 18 /min [facility] Body height 2024-04-16 19:02:00 154.9 cm [facility] Body weight 2024-04-16 19:02:00 67.858 kg [facility] BMI 2024-04-16 19:02:00 28.27 kg/m2 [facility] Systolic blood pressure 2024-04-08 22:26:00 114 mm[Hg] [facility] Diastolic blood pressure 2024-04-08 22:26:00 91 mm[Hg] [facility] Heart rate 2024-04-08 22:26:00 72 /min [facility] Body temperature 2024-04-08 22:26:00 37.11 Josephine [facility] Respiratory rate 2024-04-08 22:26:00 16 /min [facility] Body height 2024-04-08 22:26:00 154.9 cm [facility] Body weight 2024-04-08 22:26:00 65.772 kg [facility] BMI 2024-04-08 22:26:00 27.40 kg/m2 [facility] Oxygen saturation in Arterial blood by Pulse oximetry 2024-04-08 22:26:00 100 /min [facility] Systolic blood pressure 2024-01-29 18:38:00 101 mm[Hg] [facility] Diastolic blood pressure 2024-01-29 18:38:00 71 mm[Hg] [facility] Heart rate 2024-01-29 18:38:00 65 /min [facility] Body temperature 2024-01-29 18:38:00 35.72 Josephine [facility] Respiratory rate 2024-01-29 18:38:00 18 /min [facility] Body height 2024-01-29 18:38:00 154.9 cm [facility] Body weight 2024-01-29 18:38:00 68.402 kg [facility] BMI 2024-01-29 18:38:00 28.49 kg/m2 [facility] Systolic blood pressure 2023-09-19 18:06:00 128 mm[Hg] [facility] Diastolic blood pressure 2023-09-19 18:06:00 83 mm[Hg] [facility] Heart rate 2023-09-19 18:06:00 94 /min [facility] Body temperature 2023-09-19 18:06:00 35.33 Josephine [facility] Respiratory rate 2023-09-19 18:06:00 18 /min [facility] Body height 2023-09-19 18:06:00 154.9 cm [facility] Body weight 2023-09-19 18:06:00 62.506 kg [facility] BMI 2023-09-19 18:06:00 26.04 kg/m2 [facility] Systolic blood pressure 2023-07-08 21:49:00 103 mm[Hg] [facility] Diastolic blood pressure 2023-07-08 21:49:00 69 mm[Hg] [facility] Heart rate 2023-07-08 21:49:00 74 /min [facility] Body temperature 2023-07-08 21:49:00 37.28 Josephine [facility] Respiratory rate 2023-07-08 21:49:00 14 /min [facility] Body height 2023-07-08 21:49:00 154.9 cm [facility] Body weight 2023-07-08 21:49:00 63.549 kg [facility] BMI 2023-07-08 21:49:00 26.47 kg/m2 [facility] Oxygen saturation in Arterial blood by Pulse oximetry 2023-07-08 21:49:00 100 /min [facility] Systolic blood pressure 2023-02-27 16:12:00 107 mm[Hg] [facility] Diastolic blood pressure 2023-02-27 16:12:00 66 mm[Hg] [facility] Heart rate 2023-02-27 16:12:00 59 /min [facility] Body temperature 2023-02-27 16:12:00 36.11 Josephine [facility] Respiratory rate 2023-02-27 16:12:00 16 /min [facility] Oxygen saturation in Arterial blood by Pulse oximetry 2023-02-27 16:12:00 100 /min [facility] Body weight 2023-02-27 08:55:00 65.998 kg [facility] BMI 2023-02-27 08:55:00 27.49 kg/m2 [facility] Body height 2023-02-25 00:49:00 154.9 cm [facility] Systolic blood pressure 2022-12-19 19:11:00 96 mm[Hg] [facility] Diastolic blood pressure 2022-12-19 19:11:00 62 mm[Hg] [facility] Heart rate 2022-12-19 19:11:00 72 /min [facility] Body temperature 2022-12-19 19:11:00 36.56 Josephine [facility] Respiratory rate 2022-12-19 19:11:00 18 /min [facility] Body height 2022-12-19 19:11:00 154.9 cm [facility] Body weight 2022-12-19 19:11:00 64.666 kg [facility] BMI 2022-12-19 19:11:00 26.94 kg/m2 [facility] Systolic blood pressure 2022-05-17 16:58:00 104 mm[Hg] [facility] Diastolic blood pressure 2022-05-17 16:58:00 68 mm[Hg] [facility] Heart rate 2022-05-17 16:58:00 88 /min [facility] Body temperature 2022-05-17 16:58:00 36.22 Josephine [facility] Respiratory rate 2022-05-17 16:58:00 16 /min [facility] Body height 2022-05-17 16:58:00 154.9 cm [facility] Body weight 2022-05-17 16:58:00 61.292 kg [facility] BMI 2022-05-17 16:58:00 25.53 kg/m2 [facility] Systolic blood pressure 2022-03-25 05:00:00 122 mm[Hg] [facility] Diastolic blood pressure 2022-03-25 05:00:00 90 mm[Hg] [facility] Heart rate 2022-03-25 05:00:00 97 /min [facility] Respiratory rate 2022-03-25 05:00:00 16 /min [facility] Oxygen saturation in Arterial blood by Pulse oximetry 2022-03-25 05:00:00 100 /min [facility] Body temperature 2022-03-25 04:26:00 36.61 Josephine [facility] Body height 2022-03-25 04:26:00 154.9 cm [facility] Body weight 2022-03-25 04:26:00 63.504 kg [facility] BMI 2022-03-25 04:26:00 26.45 kg/m2 [facility] Procedures Procedure Date / Time Performed Performing Clinician Source GC & CHLAMYDIA AMPLIFIED ASSAY 2024-10-13 19:06:00 Sarah Jeffrey [facility] GALV ONLY - VAGINAL PATHOGENS BY NUCLEIC ACID TESTING 2024-10-13 19:06:00 Sarah Jeffrey [facility] TOTAL BETA HCG ASSAY 2024-04-16 19:41:00 Mary Jeffrey [facility] GC & CHLAMYDIA AMPLIFIED ASSAY 2024-04-16 19:41:00 Sarah Jeffrey [facility] GALV ONLY - VAGINAL PATHOGENS BY NUCLEIC ACID TESTING 2024-04-16 18:55:00 Sarah Jeffrey [facility] RAPID STREP SCREEN FOR GROUP A 2024-04-08 23:24:00 Merry Pulido [facility] EBV-MONONUCLEOSIS SCREEN 2024-04-08 23:22:00 Merry Sheridan [facility] INFLUENZA A/B RSV COVID NAAT 2024-04-08 23:19:00 Merry Pulido [facility] GC & CHLAMYDIA AMPLIFIED ASSAY 2023-09-19 18:41:00 Maryam Duran [facility] GALV ONLY - VAGINAL PATHOGENS BY NUCLEIC ACID TESTING 2023-09-19 18:41:00 Maryam Duran [facility] HIV 1/2 AG-AB WITH REFLEX 2023-09-19 18:41:00 Maryam Duran [facility] SYPHILIS IGG/IGM 2023-09-19 18:41:00 Tj Duran [facility] CONSENT/REFUSAL FOR DIAGNOSIS AND TREATMENT 2023-09-19 17:40:11 Doctor Unassigned, [place] [facility] US PELVIS > 14 WEEKS WITH TRANSVAGINAL 2023-07-08 23:45:00 Merry Pulido [facility] ASSIGNMENT OF BENEFITS 2023-07-08 22:21:18 Docto r Unassigned, [place] [facility] COMP. METABOLIC PANEL ([id number]) 2023-07-08 22:08:00 Merry Pulido [facility] TOTAL BETA HCG ASSAY 2023-07-08 22:08:00 Jorge Pulido [facility] CBC WITH DIFF 2023-07-08 22:08:00 [facility]IN[facility] 2023-07-08 21:58:00 Merry Pulido Un [facility] POCT TEST 2023-07-08 21:58:00 Stella Pulido [facility] CONSENT/REFUSAL FOR DIAGNOSIS AND TREATMENT 2023-07-08 21:30:24 Doctor Unassigned, [place] [facility] AUTHORIZATION [facility] 2023-03-08 05:01:00 Doctor Unassigned, [place] [facility] BASIC METABOLIC PANEL (NA, K, CL, CO2, GLUCOSE, BUN, CREATININE, CA) 2023-02-27 09:54:00 Hadley Bell [facility] CBC WITH DIFF 2023-02-27 09:54:00 Hadley Bell [facility] POCT TEST 2023-02-24 22:16:00 Bautista Ferreira [facility] URINALYSIS 2023-02-24 22:14:00 Bautista Ferreira [facility] URINE CULTURE 2023-02-24 22:14:00 Bautista Ferreira [facility] LACTIC ACID WHOLE BLOOD 2023-02-24 22:14:00 Jluis Ferreira [facility] COVID-19 (ID NOW RAPID TESTING) 2023-02-24 22:14:00 Bautista Ferreira [facility] LAB ONLY COVID INTERPRETATION 2023-02-24 22:14:00 Bautista Ferreira [facility] BLOOD CULTURE SCREEN 2023-02-24 22:11:00 Bautista Ferreira [facility] COMP. METABOLIC PANEL ([id number]) 2023-02-24 22:11:00 Bautista Ferreira [facility] CBC WITH DIFF 2023-02-24 22:11:00 Bautista Ferreira [facility] POCT URINALYSIS W/O SPECIFIC GRAVITY 2022-12-19 20:53:00 Caro Baird [facility] GALV ONLY - VAGINAL PATHOGENS BY NUCLEIC ACID TESTING 2022-12-19 20:52:00 Caro Baird [facility] CBC WITH DIFF 2022-12-19 19:58:00 Caro Baird [facility] GC & CHLAMYDIA AMPLIFIED ASSAY 2022-12-19 19:58:00 Caro Baird [facility] HIV 1/2 AG-AB WITH REFLEX 2022-12-19 19:58:00 Caro Israel [facility] TRICHOMONAS AMPLIFIED ASSAY 2022-12-19 19:58:00 Caro Baird [facility] PAP SMEAR-LIQUID BASED-CP 2022-12-19 19:58:00 Caro Israel [facility] SYPHILIS IGG/IGM 2022-12-19 19:58:00 Caro Baird [facility] POCT TEST 2022-12-19 19:17:00 Mely Baird [facility] PATIENT FINANCIAL POLICY 2022-12-19 18:44:54 Doctor Unassigned, [place] [facility] GC & CHLAMYDIA AMPLIFIED ASSAY 2022-05-17 17:30:00 Caro Baird [facility] GALV ONLY - VAGINAL PATHOGENS BY NUCLEIC ACID TESTING 2022-05-17 17:30:00 Caro Baird [facility] ASSIGNMENT OF BENEFITS 2022-05-17 16:25:04 Docto r Unassigned, [place] [facility] LIPASE 2022-03-25 04:38:00 Marsha Roman [facility] COMP. METABOLIC PANEL ([id number]) 2022-03-25 04:38:00 Marsha Roman [facility] CBC WITH DIFF 2022-03-25 04:38:00 Marsha Roman [facility] URINALYSIS 2022-03-25 04:38:00 Marsha Roman [facility] POCT TEST 2022-03-25 04:38:00 Ashlyn Roman [facility] NOTICE OF PRIVACY PRACTICES 2022-03-25 04:27:12 Doctor Unassigned, [place] [facility] CONSENT/REFUSAL FOR DIAGNOSIS AND TREATMENT 2022-03-25 04:22:35 Doctor Unassigned, [place] [facility] Encounters Start Date/Time End Date/Time Encounter Type Admission Type Attending Clinicians Care Facility Care Department Encounter ID Source 2024-10-14 00:00:00 2024-10-14 14:14:46 Case Management [facility] [id number] [facility] 2024-10-13 13:30:00 2024-10-13 14:17:26 Outpatient R SARAH JEFFREY [facility] [id number] [facility] 2024-10-13 13:30:00 2024-10-13 14:17:26 Office Visit [facility] [id number] [facility] 2024-04-16 14:00:00 2024-04-16 16:01:39 Outpatient R SARAH JEFFREY [facility] [id number] [facility] 2024-04-16 14:00:00 2024-04-16 16:01:39 [facility] [id number] [facility] 2024-04-16 14:00:00 2024-04-16 14:00:00 Outpatient R SARAH JEFFREY [facility] [id number] [facility] 2024-04-08 17:28:00 2024-04-08 20:10:00 Emergency X MERRY PULIDO MENEETU ERT [id number] [facility] 2024-04-08 17:28:00 2024-04-08 20:10:00 Emergency [facility] 1.2.840.114 350.1.13.10 4.2.7.2.686 [id number] [facility] 2024-03-12 00:00:00 2024-03-12 11:27:47 Telephone Sarah Jeffrey [facility] 1.2.840.114 350.1.13.10 4.2.7.2.686 [id number] [facility] 2024-01-30 00:00:00 2024-01-31 16:54:39 Telephone Sarah Jeffrey [facility] 1.2.840.114 350.1.13.10 4.2.7.2.686 [id number] [facility] 2024-01-29 13:15:00 2024-01-29 16:13:06 Outpatient R SARAH JEFFREY [facility] [id number] [facility] 2024-01-29 13:15:00 2024-01-29 16:13:06 Office Visit Sarah Jeffrey [facility] 1.2.840.114 350.1.13.10 4.2.7.2.686 [id number] [facility] 2023-09-21 00:00:00 2023-09-21 00:00:00 Telephone Maryam Duran [facility] 1.2.840.114 350.1.13.10 4.2.7.2.686 [id number] [facility] 2023-09-19 12:45:00 2023-09-19 13:43:15 Outpatient R MARYAM DURAN [facility] [id number] [facility] 2023-09-19 12:45:00 2023-09-19 13:43:15 Office Visit Mary[facility] Duran [facility] 1.2.840.114 350.1.13.10 4.2.7.2.686 [id number] [facility] 2023-09-19 00:00:00 2023-09-19 00:00:00 Orders Only Doctor Unassigned, [place] [facility] 1.2.840.114 350.1.13.10 4.2.7.2.686 [id number] [id number] [facility] 2023-07-11 00:00:00 2023-07-11 00:00:00 Patient Secure Msg Doctor Unassigned, [place] [facility] 1.2.840.114 350.1.13.10 4.2.7.2.686 [id number] [facility] 2023-07-08 15:51:00 2023-07-08 18:50:00 Emergency X YANIQUE [facility] ERT [id number] [facility] 2023-07-08 15:51:00 2023-07-08 18:50:00 [facility] 1.2.840.114 350.1.13.10 4.2.7.2.686 [id number] [facility] 2023-03-08 00:00:00 2023-03-08 00:00:00 Orders Only Doctor Unassigned, [place] [facility] 1.2.840.114 350.1.13.10 4.2.7.2.686 [id number] [facility] 2023-02-28 00:00:00 2023-02-28 00:00:00 Transition of Care Tamara Daniels 1.2.840.114 350.1.13.10 4.2.7.2.686 [id number] [facility] 2023-02-24 16:38:00 2023-02-27 12:16:00 Inpatient Alfa [facility] [id number] [facility] 2023-02-24 16:38:00 2023-02-27 12:16:00 Hospital Encounter Hari, Artem Ferreira, Hadley Medellin [facility] 1.84.114 350.1.13.10 4.2.7.2.686 [id number] [facility] 2022-12-21 00:00:00 2022-12-21 00:00:00 Telephone Caro Baird [facility] 1.840.114 350.1.13.10 4.2.7.2.686 [id number] [facility] 2022-12-19 14:15:00 2022-12-19 14:56:35 Outpatient CARO CHAUDHRY [facility] [id number] [facility] 2022-12-19 14:15:00 2022-12-19 14:56:35 Office Visit Car[facility] Baird [facility] 1.84.114 350.1.13.10 4.2.7.2.686 [id number] 107 [id number] [facility] 2022-12-19 00:00:00 2022-12-19 00:00:00 Orders Only Doctor Unassigned, [place] [facility] 1.84.114 350.1.13.10 4.2.7.2.686 [id number] [id number] [facility] 2022-10-19 11:00:00 2022-10-19 11:00:00 Outpatient MIHAI GUTIERRES [facility] [id number] [facility] 2022-05-17 10:30:00 2022-05-17 11:19:22 Outpatient CARO CHAUDHRY [facility] [id number] [facility] 2022-05-17 10:30:00 2022-05-17 11:19:22 Office Visit Provider, Caro San [facility] 1.2840.114 350.1.13.10 4.2.7.2.686 [id number] [facility] 2022-05-17 00:00:00 2022-05-17 00:00:00 Orders Only Doctor Unassigned, [place] [facility] 1..114 350.1.13.10 4.2.7.2.686 [id number] [id number] [facility] 2022-05-17 00:00:00 2022-05-17 00:00:00 Letter (Out) Caro Baird [facility] 1.840.114 350.1.13.10 4.2.7.2.686 [id number] [facility] 2022-03-24 23:30:00 2022-03-25 01:04:00 Emergency X ROMAN MARSHA [facility] [id number] [facility] 2022-03-24 23:30:00 2022-03-25 01:04:00 Emergency Marsha Roman [facility] 1..114 350.1.13.10 4.2.7.2.686 [id number] [facility] 2022-03-21 00:00:00 2022-03-21 00:00:00 Telephone Maryam Duran [facility] 1.2840.114 350.1.13.10 4.2.7.2.686 [id number] 107 [id number] [facility] 2022-02-07 09:00:00 2022-02-07 09:00:00 Outpatient R MARYAM DURAN [facility] [id number] [facility] 2021-11-14 00:00:00 2021-11-14 00:00:00 Telephone Maryam Duran [facility] 1.2.840.114 350.1.13.10 4.2.7.2.686 [id number] [facility] 2021-10-26 12:45:00 2021-10-26 12:45:00 Outpatient R ROGERMARYAM [facility] [id number] [facility] 2021-10-21 10:45:00 2021-10-21 10:45:00 Outpatient R GEORGETTESEDRICKRICHY MARYAM [facility] [id number] [facility] 2021-10-10 00:00:00 2021-10-10 00:00:00 Telephone GeorgetteMaryam rdz Mandeep [facility] 1.2.840.114 350.1.13.10 4.2.7.2.686 [id number] [facility] 2021-10-07 10:45:00 2021-10-07 11:36:27 Routine Visit Roger Maryam Mandeep [facility] 1.2.840.114 350.1.13.10 4.2.7.2.686 [id number] [facility] 2021-10-07 10:45:00 2021-10-07 11:36:27 Outpatient R MARYAM DURAN [facility] [id number] [facility] 2021-10-07 10:45:00 2021-10-07 10:45:00 Outpatient R MARYAM DURAN [facility] [id number] [facility] 2021-10-04 13:30:00 2021-10-04 13:30:00 Outpatient R KIYA AGUIRRE [facility] [id number] [facility] 2021-09-06 10:00:00 2021-09-06 14:10:02 Outpatient R TIMOTHY [facility] [id number] [facility] 2021-09-06 13:00:00 2021-09-06 14:09:40 Outpatient R [facility] [id number] [facility] 2021-09-06 13:00:00 2021-09-06 14:09:40 Initial Visit Kiya Aguirre [facility] 1.114 350.1.13.10 4.2.7.2.686 [id number] [facility] 2021-09-06 00:00:00 2021-09-06 00:00:00 Orders Only Doctor Unassigned, [place] [facility] 1..114 350.1.13.10 4.2.7.2.686 [id number] [id number] [facility] 2021-08-10 08:30:00 2021-08-10 09:45:24 Office Visit Maryam Duran [facility] 1.84.114 350.1.13.10 4.2.7.2.686 [id number] [facility] 2021-08-10 08:30:00 2021-08-10 09:45:24 Outpatient MARYAM GOMEZ [facility] [id number] [facility] 2021-08-10 08:30:00 2021-08-10 08:30:00 Outpatient MARYAM GOMEZ [facility] [id number] [facility] 2021-08-10 00:00:00 2021-08-10 00:00:00 Orders Only Doctor Unassigned, [place] [facility] .84.114 350.1.13.10 4.2.7.2.686 [id number] [id number] [facility] 2021-08-08 00:00:00 2021-08-08 00:00:00 Telephone Maryam Duran [facility] 1.2840.114 350.1.13.10 4.2.7.2.686 [id number] [facility] 2021-07-29 15:02:00 2021-07-29 16:43:00 Emergency X ROMANMARSHA GARIBAY [facility] [id number] [facility] 2021-07-29 15:02:00 2021-07-29 16:43:00 Emergency X ROMANMARSHA [facility] [id number] [facility] 2021-07-29 15:02:00 2021-07-29 16:43:00 Emergency RomanMarsha garibay [facility] 1.2840.114 350.1.13.10 4.2.7.2.686 [id number] [facility] 2021-07-29 00:00:00 2021-07-29 00:00:00 Orders Only Doctor Unassigned, [place] [facility] 1.2840.114 350.1.13.10 4.2.7.2.686 [id number] [facility] 2021-04-06 14:37:00 2021-04-06 15:18:01 Office Visit Maryam Duran [facility] 1.840.114 350.1.13.10 4.2.7.2.686 [id number] [facility] 2021-04-06 14:15:00 2021-04-06 14:15:00 Outpatient R MARYAM DURAN [facility] [id number] [facility] 2021-04-04 08:30:00 2021-04-04 08:30:00 Outpatient R AKINSIPE, MARYAM [facility] [id number] [facility] 2021-02-18 00:00:00 2021-02-18 00:00:00 Telephone Mihai Tomas [facility] 1.2.840.114 350.1.13.10 4.2.7.2.686 [id number] [facility] 2021-02-17 00:00:00 2021-02-17 00:00:00 Telephone Mihai Tomas [facility] 1.2.840.114 350.1.13.10 4.2.7.2.686 [id number] [facility] 2021-02-16 08:18:09 2021-02-16 08:59:18 Office Visit Mihai Tomas Roshunda R [facility] 1.2.840.114 350.1.13.10 4.2.7.2.686 [id number] [facility] 2021-02-16 07:45:00 2021-02-16 07:45:00 Outpatient Joe LOS BEASLEY [facility] [id number] [facility] Results Test Description Test Time Test Comments Results Result Co mments Source [facility] P[facility] > 14 WEEKS WITH [id number] 00:26:10ORDERING PHYSICIAN: MERRY PULIDO HISTORY: ABDOMINAL PAIN TECHNIQUE: Transabdominal and [...] seenon this study, likely obscured by bowel gas.[facility] BETA HCG [id number] 23:28:22* Test Item Value Reference Range Interpretation Comme nts BETA HCG (test code = 9408769089) 23341.00 See_Comment [Automated Re5ulta ge] The system which generated this result transmitted reference range: Non- female and male patients: <5 mIU/mL. The reference range was not used to interpret this result as normal/abnormal. AYAKA (test code = AYAKA) Gestational Age ?Range (mIU/mL) 1-10 ?Weeks ?00-17150772-40 Weeks ?67954-20914801-15 Weeks ?5058-03614050-54 Weeks ?6671-730354 Biotin has been reported to cause a negative bias, interpret results relative to patient's use of biotin. [facility]. METABOLIC PANEL (76570)2023-07-08 22:40:16* Test Item Value Reference Range Interpretation Comme nts NA (test code = 9371886444) 134 mmol/L 135-145 L K (test code = 8602182473) 3.7 mmol/L 3.5-5.0 CL (test code = 5182439491) 102 mmol/L 98-108 CO2 TOTAL (test code = 3317738892) 22 mmol/L 23-31 L AGAP (test code = 7470360196) 10 2-16 BUN (test code = 7676798404) 8 mg/dL 7-23 GLUCOSE (test code = 7033833152) 83 mg/dL 70-110 CREATININE (test code = 9985468306) 0.47 mg/dL 0.50-1.04 L TOTAL BILI (test code = 6224764039) 0.5 mg/dL 0.1-1.1 CALCIUM (test code = 3687630123) 9.6 mg/dL 8.6-10.6 T PROTEIN (test code = 6604106044) 7.5 g/dL 6.3-8.2 ALBUMIN (test code = 7921686399) 4.4 g/dL 3.5-5.0 ALK PHOS (test code = 3166876185) 40 U/L 34-122 ALTv (test code = 1742-6) 40 U/L 5-35 H AST(SGOT) (test code = 5248941352) 42 U/L 13-40 H eGFR (test code = 33856-1) 135.7 mL/min/1.73m2 CKD-EPI eGFR (2020). Assuming creatinine has been stable day-to-day for at least three months, the eGFR indicates Category G1 (>= 90 mL/min/1.73 m2) Lab Interpretation (test code = 45004-7) Abnormal [facility] WITH [id number] 22:28:35* Test Item Value Reference Range Interpretation Comme nts WBC (test code = 6690-2) 8.21 See_Comment [Automated messa ge] The system which generated this result transmitted reference range: 4.30 - 11.10 10*3/?L. The reference range was not used to interpret this result as normal/abnormal. RBC (test code = 789-8) 3.66 See_Comment L [Automated messa ge] The system [...] g/dL 31.6-35.1 H RDW-SD (test code = 35798-3) 37.6 fL 39.0-49.9 L RDW-CV (test code = 788-0) 11.1 % 12.0-15.5 L PLT (test code = 777-3) 230 See_Comment [Automated messa ge] The system which generated this result transmitted reference range: 166 - 358 10*3/?L. The reference range was not used to interpret this result as normal/abnormal. MPV (test code = 88442-3) 9.6 fL 9.5-12.9 NRBC/100 WBC (test code = 3171941674) 0.0 See_Comment [Automated me ssage] The system which generated this result transmitted reference range: 0.0 - 10.0 /100 WBCs. The reference range was not used to interpret this result as normal/abnormal. NRBC x10^3 (test code = 5995380935) See_Comment [Automated messa ge] The system which generated this result transmitted reference range: 10*3/?L. The reference range was not used to interpret this result as normal/abnormal. GRAN MAT (NEUT) % (test code = 770-8) 76.4 % IMM GRAN % (test code = 4566462385) 0.40 % LYMPH % (test code = 736-9) 17.5 % MONO % (test code = 5905-5) 5.0 % EOS % (test code = 713-8) 0.5 % BASO % (test code = 706-2) 0.2 % GRAN MAT x10^3(ANC) (test code = 6698801464) 6.27 10*3/uL 1.88-7.09 IMM GRAN x10^3 (test code = 7813534787) 0.03 10*3/uL 0.00-0.06 LYMPH x10^3 (test code = 731-0) 1.44 10*3/uL 1.32-3.29 MONO x10^3 (test code = 742-7) 0.41 10*3/uL 0.33-0.92 EOS x10^3 (test code = 711-2) 0.04 10*3/uL 0.03-0.39 BASO x10^3 (test code = 704-7) 0.01-0.07 Lab Interpretation (test code = 60877-9) Abnormal [facility] [id number] 21:58:00* Test Item Value Reference Range Interpretation Comme nts POCT PREG (test code = 1605) Positive On board controls acceptable with C Line (test code = 3574) Yes POCT PREG LOT # (test code = 3575) HCG [id number] POCT PREG TEST DATE (test code = 3576) 09/09/2024 Lab Interpretation (test cod e = 56957-7) Normal [facility] METABOLIC PANEL (NA, K, CL, CO2, GLUCOSE, BUN, CREATININE, CA)2023-02-27 10:50:20* Test Item Value Reference Range Interpretation Comme nts NA (test code = 1211415504) 139 mmol/L 135-145 K (test code = 6505483464) 4.3 mmol/L 3.5-5.0 CL (test code = 4571415592) 104 mmol/L 98-108 CO2 TOTAL (test code = 5182935721) 31 mmol/L 23-31 AGAP (test code = 4868145244) 4 2-16 BUN (test code = 1027745975) 11 mg/dL 7-23 GLUCOSE (test code = 7934272110) 93 mg/dL 70-110 CREATININE (test code = 1504578617) 0.69 mg/dL 0.50-1.04 CALCIUM (test code = 3129700540) 8.7 mg/dL 8.6-10.6 eGFR (test code = 2048334922) 103.7 mL/min/1.73m2 AYAKA (test code = AYAKA) [...] or urine or abnormalities in imaging tests). [facility] WITH [id number] 10:10:32* Test Item Value Reference Range Interpretation Comme nts WBC (test code = 6690-2) 6.65 See_Comment [Automated messa ge] The system which generated this result transmitted reference range: 4.30 - 11.10 10*3/?L. The reference range was not used to interpret this result as normal/abnormal. RBC (test code = 789-8) 3.48 See_Comment L [Automated messa ge] The system [...] 34.4 g/dL 31.6-35.1 RDW-SD (test code = 56903-0) 38.3 fL 39.0-49.9 L RDW-CV (test code = 788-0) 11.0 % 12.0-15.5 L PLT (test code = 777-3) 240 See_Comment [Automated Re5ulta ge] The system which generated this result transmitted reference range: 166 - 358 10*3/?L. The reference range was not used to interpret this result as normal/abnormal. MPV (test code = 75118-9) 9.4 fL 9.5-12.9 L NRBC/100 WBC (test code = 7640920344) 0.0 See_Comment [Automated [employer] ssage] The system which generated this result transmitted reference range: 0.0 - 10.0 /100 WBCs. The reference range was not used to interpret this result as normal/abnormal. NRBC x10^3 (test code = 6084652554) See_Comment [Automated messa ge] The system which generated this result transmitted reference range: 10*3/?L. The reference range was not used to interpret this result as normal/abnormal. GRAN MAT (NEUT) % (test code = 770-8) 55.1 % IMM GRAN % (test code = 7307255680) 0.30 % LYMPH % (test code = 736-9) 32.6 % MONO % (test code = 5905-5) 9.2 % EOS % (test code = 713-8) 2.3 % BASO % (test code = 706-2) 0.5 % GRAN MAT x10^3(ANC) (test code = 4525393464) 3.67 10*3/uL 1.88-7.09 IMM GRAN x10^3 (test code = 2862567804) 0.00-0.06 LYMPH x10^3 (test code = 731-0) 2.17 10*3/uL 1.32-3.29 MONO x10^3 (test code = 742-7) 0.61 10*3/uL 0.33-0.92 EOS x10^3 (test code = 711-2) 0.15 10*3/uL 0.03-0.39 BASO x10^3 (test code = 704-7) 0.03 10*3/uL 0.01-0.07 Lab Interpretation (test code = 74492-3) [facility] (56442)2023-02-24 22:54:31* Test Item Value Reference Range Interpretation Comme nts NA (test code = 1240251290) 139 mmol/L 135-145 K (test code = 4593581826) 3.7 mmol/L 3.5-5.0 CL (test code = 1919743674) 105 mmol/L 98-108 CO2 TOTAL (test code = 5554944391) 26 mmol/L 23-31 AGAP (test code = 6979503260) 8 2-16 BUN (test code = 9254151836) 6 mg/dL 7-23 L GLUCOSE (test code = 8858911320) 112 mg/dL 70-110 H CREATININE (test code = 2381461253) 0.61 mg/dL 0.50-1.04 TOTAL BILI (test code = 9131598936) 0.2 mg/dL 0.1-1.1 CALCIUM (test code = 0546725755) 8.6 mg/dL 8.6-10.6 T PROTEIN (test code = 7671383124) 6.7 g/dL 6.3-8.2 ALBUMIN (test code = 5286465084) 3.8 g/dL 3.5-5.0 ALK PHOS (test code = 7633256986) 48 U/L 34-122 ALTv (test code = 1742-6) 19 U/L 5-35 AST(SGOT) (test code = 0115886379) 25 U/L 13-40 eGFR (test code = 8670468417) 119.5 mL/min/1.73m2 AYAKA (test code = AYAKA) [...] imaging tests). Lab Interpretation (test code = 01910-8) Abnormal [facility] WITH [id number] 22:34:25* Test Item Value Reference Range Interpretation Comme nts WBC (test code = 6690-2) 6.81 See_Comment [Automated Re5ulta ge] The system which generated this result transmitted reference range: 4.30 - 11.10 10*3/?L. The reference range was not used to interpret this result as normal/abnormal. RBC (test code = 789-8) 3.53 See_Comment L [Automated Re5ulta ge] The system which generated this result [...] 34.5 g/dL 31.6-35.1 RDW-SD (test code = 39364-6) 37.5 fL 39.0-49.9 L RDW-CV (test code = 788-0) 11.0 % 12.0-15.5 L PLT (test code = 777-3) 177 See_Comment [Automated Re5ulta ge] The system which generated this result transmitted reference range: 166 - 358 10*3/?L. The reference range was not used to interpret this result as normal/abnormal. MPV (test code = 66493-5) 9.7 fL 9.5-12.9 NRBC/100 WBC (test code = 3912405749) 0.0 See_Comment [Automated [employer] ssage] The system which generated this result transmitted reference range: 0.0 - 10.0 /100 WBCs. The reference range was not used to interpret this result as normal/abnormal. NRBC x10^3 (test code = 2477392023) See_Comment [Automated messa ge] The system which generated this result transmitted reference range: 10*3/?L. The reference range was not used to interpret this result as normal/abnormal. GRAN MAT (NEUT) % (test code = 770-8) 86.0 % IMM GRAN % (test code = 5832270196) 0.40 % LYMPH % (test code = 736-9) 8.5 % MONO % (test code = 5905-5) 4.8 % EOS % (test code = 713-8) 0.0 % BASO % (test code = 706-2) 0.3 % GRAN MAT x10^3(ANC) (test code = 2200319866) 5.85 10*3/uL 1.88-7.09 IMM GRAN x10^3 (test code = 5912957406) 0.03 10*3/uL 0.00-0.06 LYMPH x10^3 (test code = 731-0) 0.58 10*3/uL 1.32-3.29 L MONO x10^3 (test code = 742-7) 0.33 10*3/uL 0.33-0.92 EOS x10^3 (test code = 711-2) 0.03-0.39 L BASO x10^3 (test code = 704-7) 0.01-0.07 Lab Interpretation (test code = 28185-5) Abnormal [facility] [id number] 22:30:19* Test Item Value Reference Range Interpretation Comme [facility] LACTIC ACID (test code = 8530967739) 1.56 mmol/L 0.50-2.20 Lab Interpretation (test cod e = 71615-6) [facility] [id number] 22:16:00* Test Item Value Reference Range Interpretation Comme nts POCT PREG (test code = 1605) Negative On board controls acceptable with C Line (test code = 3574) Yes POCT PREG LOT # (test code = 3575) [id number] POCT PREG TEST DATE ( test code = 3576) 07/04/2024 Lab Interpretation (test cod e = 58915-0) Normal [facility] ONLY - SYPHILIS [id number] 14:07:33* Test Item Value Reference Range Interpretation Comme nts Syphilis IgG/IgM (test code = 39023-8) Non-reactive Non-reactive AYAKA (test code = AYAKA) Non-reactive - No serologic evidence of T. pallidum infection. Cannot exclude incubating or early syphilis. Submit a second specimen in 2-4 weeks if syphilis is clinically suspected. Equivocal - Further testing to follow. Reactive - Further testing to follow. Lab Interpretation (test code = 93451-2) Normal [facility] ONLY - SYPHILIS [id number] 14:07:33* Test Item Value Reference Range Interpretation Comme nts Syphilis IgG/IgM (test code = 86330-0) Non-reactive Non-reactive AYAKA (test code = AYAKA) Non-reactive - No serologic evidence of T. pallidum infection. Cannot exclude incubating or early syphilis. Submit a second specimen in 2-4 weeks if syphilis is clinically suspected. Equivocal - Further testing to follow. Reactive - Further testing to follow. Lab Interpretation (test code = 77497-5) Normal [facility] 1/2 AG-AB WITH [id number] 06:09:28* Test Item Value Reference Range Interpretation Comme nts HIV Semi-quantitative (test code = 89435-7) 0.06 Negative AYAKA (test code = AYAKA) Non-reactive for HIV-1 antigen and HIV-1/HIV-2 antibodies. ?No laboratory evidence of HIV infection. ?Repeat in 2-4 weeks if acute HIV infection is suspected. [facility] 1/2 AG-AB WITH [id number] 06:09:28* Test Item Value Reference Range Interpretation Comme nts HIV Semi-quantitative (test code = 52781-6) 0.06 Negative AYAKA (test code = AYAKA) Non-reactive for HIV-1 antigen and HIV-1/HIV-2 antibodies. ?No laboratory evidence of HIV infection. ?Repeat in 2-4 weeks if acute HIV infection is suspected. [facility] WITH [id number] 05:46:41* Test Item Value Reference Range Interpretation Comme nts WBC (test code = 6690-2) 7.96 See_Comment [Automated messa ge] The system which generated this result transmitted reference range: 4.30 - 11.10 10*3/?L. The reference range was not used to interpret this result as normal/abnormal. RBC (test code = 789-8) 4.06 See_Comment [Automated Re5ulta ge] The system which generated this result [...] 32.8 g/dL 31.6-35.1 RDW-SD (test code = 16315-3) 42.0 fL 39.0-49.9 RDW-CV (test code = 788-0) 11.5 % 12.0-15.5 L PLT (test code = 777-3) 280 See_Comment [Automated Re5ulta ge] The system which generated this result transmitted reference range: 166 - 358 10*3/?L. The reference range was not used to interpret this result as normal/abnormal. MPV (test code = 81423-6) 10.6 fL 9.5-12.9 NRBC/100 WBC (test code = 7492324806) 0.0 See_Comment [Automated [employer] ssage] The system which generated this result transmitted reference range: 0.0 - 10.0 /100 WBCs. The reference range was not used to interpret this result as normal/abnormal. NRBC x10^3 (test code = 5832046280) See_Comment [Automated Re5ulta ge] The system which generated this result transmitted reference range: 10*3/?L. The reference range was not used to interpret this result as normal/abnormal. GRAN MAT (NEUT) % (test code = 770-8) 71.5 % IMM GRAN % (test code = 9603303943) 0.30 % LYMPH % (test code = 736-9) 20.2 % MONO % (test code = 5905-5) 6.7 % EOS % (test code = 713-8) 0.9 % BASO % (test code = 706-2) 0.4 % GRAN MAT x10^3(ANC) (test code = 9377101999) 5.70 10*3/uL 1.88-7.09 IMM GRAN x10^3 (test code = 9049480858) 0.00-0.06 LYMPH x10^3 (test code = 731-0) 1.61 10*3/uL 1.32-3.29 MONO x10^3 (test code = 742-7) 0.53 10*3/uL 0.33-0.92 EOS x10^3 (test code = 711-2) 0.07 10*3/uL 0.03-0.39 BASO x10^3 (test code = 704-7) 0.03 10*3/uL 0.01-0.07 Lab Interpretation (test code = 78382-8) Abnormal [facility] WITH [id number] 05:46:41* Test Item Value Reference Range Interpretation Comme nts WBC (test code = 6690-2) 7.96 See_Comment [Automated Re5ulta ge] The system which generated this result transmitted reference range: 4.30 - 11.10 10*3/?L. The reference range was not used to interpret this result as normal/abnormal. RBC (test code = 789-8) 4.06 See_Comment [Automated Re5ulta ge] The system which generated this result [...] 32.8 g/dL 31.6-35.1 RDW-SD (test code = 48533-4) 42.0 fL 39.0-49.9 RDW-CV (test code = 788-0) 11.5 % 12.0-15.5 L PLT (test code = 777-3) 280 See_Comment [Automated messa ge] The system which generated this result transmitted reference range: 166 - 358 10*3/?L. The reference range was not used to interpret this result as normal/abnormal. MPV (test code = 15483-0) 10.6 fL 9.5-12.9 NRBC/100 WBC (test code = 8554080118) 0.0 See_Comment [Automated me ssage] The system which generated this result transmitted reference range: 0.0 - 10.0 /100 WBCs. The reference range was not used to interpret this result as normal/abnormal. NRBC x10^3 (test code = 1664067916) See_Comment [Automated messa ge] The system which generated this result transmitted reference range: 10*3/?L. The reference range was not used to interpret this result as normal/abnormal. GRAN MAT (NEUT) % (test code = 770-8) 71.5 % IMM GRAN % (test code = 5811981278) 0.30 % LYMPH % (test code = 736-9) 20.2 % MONO % (test code = 5905-5) 6.7 % EOS % (test code = 713-8) 0.9 % BASO % (test code = 706-2) 0.4 % GRAN MAT x10^3(ANC) (test code = 2849316335) 5.70 10*3/uL 1.88-7.09 IMM GRAN x10^3 (test code = 5338173783) 0.00-0.06 LYMPH x10^3 (test code = 731-0) 1.61 10*3/uL 1.32-3.29 MONO x10^3 (test code = 742-7) 0.53 10*3/uL 0.33-0.92 EOS x10^3 (test code = 711-2) 0.07 10*3/uL 0.03-0.39 BASO x10^3 (test code = 704-7) 0.03 10*3/uL 0.01-0.07 Lab Interpretation (test code = 04867-5) Abnormal [facility] URINALYSIS W/O SPECIFIC [id number] 20:53:00* Test Item Value Reference Range Interpretation [...] = 3257) . Negative - Negati ve [facility] URINALYSIS W/O SPECIFIC [id number] 20:53:00* Test Item Value Reference Range Interpretation [...] = 3257) . Negative - Negati ve [facility] [id number] 19:17:00* Test Item Value Reference Range Interpretation Comme nts POCT PREG (test code = 1605) Negative On board controls acceptable with C Line (test code = 3574) Yes POCT PREG LOT # (test code = 3575) POCT PREG TEST DATE ( test code = 3576) [facility] [id number] 19:17:00* Test Item Value Reference Range Interpretation Comme nts POCT PREG (test code = 1605) Negative On board controls acceptable with C Line (test code = 3574) Yes POCT PREG LOT # (test code = 3575) POCT PREG TEST DATE ( test code = 3576) [facility] METABOLIC PANEL (19402)2022-03-25 05:07:49* Test Item Value Reference Range Interpretation Comme nts NA (test code = 3774065926) 139 mmol/L 135-145 K (test code = 8903832200) 4.2 mmol/L 3.5-5 CL (test code = 1216693593) 103 mmol/L 98-108 CO2 TOTAL (test code = 4657991460) 24 mmol/L 23-31 AGAP (test code = 6584662093) 2-16 BUN (test code = 9167282872) 14 mg/dL 7-23 GLUCOSE (test code = 8995529481) 100 mg/dL 70-110 CREATININE (test code = 7727005001) 0.63 mg/dL 0.5-1.04 TOTAL BILI (test code = 6264507799) 0.3 mg/dL 0.1-1.1 CALCIUM (test code = 1299444957) 9.6 mg/dL 8.6-10.6 T PROTEIN (test code = 3971841810) 7.7 g/dL 6.3-8.2 ALBUMIN (test code = 8916726591) 5.0 g/dL 3.5-5 ALK PHOS (test code = 9115466090) 57 U/L 34-122 ALTv (test code = 1742-6) 18 U/L 5-35 AST(SGOT) (test code = 8805174091) 29 U/L 13-40 eGFR (test code = 7388201736) mL/min/1.73m2 AYAKA (test code = AYAKA) Association [...] or urine or abnormalities in imaging tests). [facility] WITH [id number] 05:07:08* Test Item Value Reference Range Interpretation Comme nts WBC (test code = 6690-2) See_Comment [Automated YODIL] The system which generated this result transmitted reference range: 4.30 - 11.10 10*3/?L. The reference range was not used to interpret this result as normal/abnormal. RBC (test code = 789-8) See_Comment [Automated Re[employer]ulta [employer]] The system which generated this result transmitted [...] g/dL 31.6-35.1 H RDW-SD (test code = 00363-9) 38.2 fL 39-49.9 L RDW-CV (test code = 788-0) 11.7 % 12-15.5 L PLT (test code = 777-3) See_Comment [Automated YODIL] The system which generated this result transmitted reference range: 166 - 358 10*3/?L. The reference range was not used to interpret this result as normal/abnormal. MPV (test code = 34207-6) 9.7 fL 9.5-12.9 NRBC/100 WBC (test code = 0520146182) See_Comment [Automated me ssage] The system which generated this result transmitted reference range: 0.0 - 10.0 /100 WBCs. The reference range was not used to interpret this result as normal/abnormal. NRBC x10^3 (test code = 5225582979) See_Comment [Automated messa ge] The system which generated this result transmitted reference range: 10*3/?L. The reference range was not used to interpret this result as normal/abnormal. GRAN MAT (NEUT) % (test code = 770-8) 64.7 % IMM GRAN % (test code = 3556076132) 0.40 % LYMPH % (test code = 736-9) 26.8 % MONO % (test code = 5905-5) 7.1 % EOS % (test code = 713-8) 0.7 % BASO % (test code = 706-2) 0.3 % GRAN MAT x10^3(ANC) (test code = 0039672796) 6.21 10*3/uL 1.88-7.09 IMM GRAN x10^3 (test code = 9363166852) 0.04 10*3/uL 0-0.06 LYMPH x10^3 (test code = 731-0) 2.57 10*3/uL 1.32-3.29 MONO x10^3 (test code = 742-7) 0.68 10*3/uL 0.33-0.92 EOS x10^3 (test code = 711-2) 0.07 10*3/uL 0.03-0.39 BASO x10^3 (test code = 704-7) 0.03 10*3/uL 0.01-0.07 Lab Interpretation (test code = 08360-4) [facility]07:[facility]* Test Item Value Reference Range Interpretation Comme nts LIPASE (test code = 3394343400) 104 U/L 0-220 Lab Interpretation (test cod e = 36848-2) Normal [facility] [id number] 04:38:00* Test Item Value Reference Range Interpretation Comme nts POCT PREG (test code = 1605) Negative On board controls acceptable with C Line (test code = 3574) Present POCT PREG LOT # (test code = 3575) HCG [id number] POCT PREG TEST DATE ( test code = 3576) 05/31/2023 Lab Interpretation (test cod e = 63801-1) Normal [facility] History and Physical Notes Date/Time Note Provider Source 2023-02-24 20:38:38 Formatting of this n ote is different from the original. MEDICINE [facility] ADMIT H&P Date of Service: 02/24/2023 CHIEF COMPLAINT: fever, chills History of Present Illness 27 yo female who presents to the ED secondary to fever and chills. She was just discharged from [facility] after 3 days and felt that [...] Narrative Patient lives with mother and children. Confucianist preference: omnism Review of Systems Constitutional: Positive [...] PHYSICAL EXAMINATION Vitals: 02/24/23 1900 02/24/23 1949 02/24/23 1955 02/24/23 2353 BP: 111/79 118/74 103/71 Pulse: 99 [...] Prophylaxis: DVT- enoxaparin Code Status: addressed[facility] Notes Date/Time Note Provider Source 2024-04-08 20:10:11 [...] in no apparent distress. Tania Hackett RN [facility] 2024-04-08 17:27:49 CC: patient presents to the ER with complaints of sore throat that began last week. Patient states she has been using cough drops and hot tea without relief. Awake, alert, oriented, resp reg unlabored, skin warm and dry, color appropriate for race, moves all ext without difficulty, amb without assistance. Appears in no distress. Vita Walden RN [facility] 2024-03-12 11:26:25 Called pt, advised will need to call [facility] to discuss if medication can be filled. Other leon pt to call back for appointment. Pt verbalized understanding. Rae Torres RN 03/12/24 11:26 AM Rae Torres RN [facility] 2024-03-12 10:53:26 Chon Lundberg is a 28 year old female Patient states that she is currently experiencing the same symptoms from last time when she was positive for BV. States that she never received the medication for it last time and is wanting to get the medication sent over this time. Please advise. [employer] [id number] - [place] - [address] [place] [id number] Ifeoma Morales [facility] 2024-01-31 13:02:33 Pt informed of results and new orders, verbalized understanding. Phoebe Cervantes LVN [facility] 2024-01-31 07:43:00 Attempted to call patient, no answer, no vm setup. [facility] 2024-01-30 17:33:59 Please make pt aware that she positive for BV and medication has been sent to pharmacy. SUMMER Lee 01/30/2024 5:34 PM [facility] 2023-09-21 14:19:40 Patient called and notified by provider Please notify the patient that yeast was identified on her pap. Meds have been sent to her pharmacy on file, please advise the patient to complete the meds as prescribed, and practice good perineal hygiene. SUMMER Arango 09/21/2023 2:20 PM [facility] 2023-07-08 18:40:00 Pt given printed and verbal [...] with steady gait, in no apparent distress. [facility] Alyssa Garcia RN [facility] 2023-07-08 17:53:17 ESTELA Philip called to verify that lab has urine culture. 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 Denies bleeding, states she is having thick white discharge. Awake, alert, oriented, resp reg unlabored, skin warm and dry, color appropriate for race, moves all ext without difficulty, amb without assistance. Appears in no distress. [facility] 2023-02-28 16:41:56 Formatting of this n ote is different from the original. TRANSITIONAL CARE MANAGEMENT ASSESSMENT 02/28/2023 Chon Lundberg [id number] Chon Lundberg is a 27 year old Black or female was admitted on 02/24/23 to [facility]. She was discharged on 02/27/23 with discharge disposition of HR- Routine Discharge. Admitting Physician: Hadley Bell Discharge Diagnosis: Febrile illness Linked Episodes Type: Episode: Status: Noted: Resolved: Last update: Updated by: TRANSITION OF CARE TCM Active 02/27/2023 02/28/2023 11:03 AM Tamara Daniels RN Comments:02/27/2023 TCM Ghl-bctb-xh-face outreach documentation: Care Transition CM attempted to reach patient via telephone x2. Call can not be completed at this time. Unable to leave message. Discharge Assessment Chart Assessed: 02/28/23 TCM Outreach Completed: 02/28/23 Future Appointments: Future Appointments Provider Department Dept Phone 03/26/2023 1:30 PM Provider, [facility] [phone] Tamara Daniels RN [facility] 2023-02-28 11:04:08 Formatting of this n ote might be different from the original. Care Transition CM attempted to reach patient via telephone. Call can not be completed at this time. Unable to leave message. Tamara Daniels RN, BSN Clinical Laboratory Service Teacher-ANDRAE TEAM [phone] [facility] 2023-02-27 11:26:10 Formatting of this n ote might be different from the original. Patient is AOx4. Respirations are even and unlabored. Denies pain/discomfort. Patient has been educated on discharge instructions, medications, diagnosis, and follow up appointments. IV and Tele discontined. Patient denies discharge concerns at this time. Patient is Discharging home via private vehicle. Pepe Beltran RN [facility] 2023-02-27 11:15:57 Formatting of this n ote [...] venous thromboembolism (Risk) Outcome: Adequate for discharge [facility] 2023-02-26 22:16:53 Formatting of this n ote [...] venous thromboembolism (Risk) Outcome: Progressing as expected [facility] Alesha Claros RN [facility] 2023-02-26 12:12:20 Formatting of this n ote [...] Absence of infection Outcome: Progressing as expected [facility] 2023-02-26 01:41:19 Formatting of this n ote [...] of infection Outcome: Progressing as expected T [facility] 2023-02-25 13:45:30 Formatting of this n ote [...] Outcome: Progressing as expected Huong Hirsch RN [facility] 2023-02-25 03:07:57 Formatting of this n ote [...] Absence of infection Outcome: Progressing as expected [facility] 2023-02-24 19:23:43 Formatting of this n ote might be different from the original. Nurse Report Report given to Mercedez PALMER on Med/Surg. Chief complaint, assessment findings, infusion verify and orders reviewed. Plan of care discussed at bedside with patient and both nurses. Patient/family members verbalized understanding. VEGA COCHRAN RN Vega Cochran RN [facility] 2023-02-24 17:50:49 Formatting of this n ote might be different from the original. Patient was DC;d home on Levaquin 750 mg po QD and tramadol 50 mg po q6h. She did not start this before arrival to this ER [facility] 2023-02-24 16:30:30 Formatting of this n ote might be different from the original. Brought by EMS. Patient just got discharged from [facility] today ~45 min prior to EMS arrival. Was treated for UTI/kidney infection since with antibiotics. Patient got discharged today with antibiotics and she called 911 as she did not think she was ready to be discharged. Mentions she "started shaking" and shaking episode scared her. Denies shortness of breath, diarrhea, nausea and vomiting. +Chills. [facility] 02/01/2023 Hx - Denies Phoebe Flores RN [facility] 2023-02-24 16:27:00 Formatting of this n ote is different from the original. [facility] Patient Name: Chon Lundberg Date of : 1995 27 year old female Treatment Room: [place] [address] Primary Care Physician: Caro Baird Patient Escorted by: Self [9] Mode of Arrival: EMS - [place] [46] EMS Treatment Prior to ED [...] No chest pain. No rash. Discharged from [facility] this AM. Recurrent symptoms this evening. Flank pain from 02/22/23 is resolved. Recent encounter, Care Everywhere: 1. 02/22/23 to 02/24/23. [place]. Sepsis. Pyelonephritis. 02/22 studies. WBC 15.1. BMP [...] 0.01 - 0.07 10*3/uL COMP. METABOLIC PANEL (95215) - Abnormal NA 139 135 - 145 [...] Procedures CBC WITH DIFF COMP. METABOLIC PANEL (60528) URINALYSIS BLOOD CULTURE SCREEN BLOOD CULTURE SCREEN [...] care AdmissionCare documentation entered by: Bautista Ferreira [facility] [employer], 27th edition, Copyright 2022 [employer] All Rights Reserved. [id number]:37:27-05:00 ED COURSE Diagnosis/Impression as of 02/24/23 184 [...] N/a Electronically signed by: Bautista Ferreira MD 02/24/23 184 [facility] EMERGENCY PHYSICIAN STAFF [facility] 2023-02-24 16:27:00 Formatting of this n ote [...] care AdmissionCare documentation entered by: Bautista Ferreira [facility] [employer], edition, Copyright 2022 [employer] All Rights Reserved. [id number]:33:03-05:00 [facility] 2023-02-24 16:27:00 Formatting of this n ote [...] care AdmissionCare documentation entered by: Bautista Ferreira [facility] [employer], edition, Copyright 2022 [employer] All Rights Reserved. [id number]:37:27-05:00 [facility]
--- NOTE | 2025-02-24 13:25 | ER ---
Nurse's Notes [facility] Name: Miko Black Age: 29 yrs Sex: Female : 1995 Arrival Date: 02/24/2025 Time: 13:08 Bed IW7 Private MD: Diagnosis: Person with feared health complaint in whom no diagnosis is made Presentation: 02/24 13:15 Chief complaint: Patient states: Had TB skin test 02/16. When she got out of senior living 02/17, ll1 she noticed it was swollen, red, and tender. Came to get it checked. Coronavirus screen: Client denies travel out of the [place] in the last 14 days. At this time, the client does not indicate any symptoms associated with coronavirus-19. Ebola Screen: Patient denies travel to an Ebola-affected area in the 21 days before illness onset. Initial Sepsis Screen: Does the patient meet any 2 criteria? No. Patient's initial sepsis screen is negative. Does the patient have a suspected source of infection? No. Patient's initial sepsis screen is negative. Risk Assessment: Do you want to hurt yourself or someone else? Patient reports no desire to harm self or others. Onset of symptoms was February 17, 2025. 13:15 Method Of Arrival: Ambulatory ll1 13:15 Acuity: BLAIR 4 ll1 Triage Assessment: 13:15 General: Appears uncomfortable, Behavior is calm, cooperative, appropriate for age. ll1 Pain: Complains of pain in left arm. Derm: small red wound L FA Reports. Musculoskeletal: Circulation, motion, and sensation intact. Capillary refill < 3 seconds, in left fingers. 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 - Infectious Disease History:: Denies. - Social history:: Smoking status: Reported history of juuling and/or vaping. Screenin:27 [facility] ED Fall Risk Assessment (Adult) History of falling in the last 3 months, ll1 including since admission No falls in past 3 months (0 pts) Confusion or Disorientation No (0 pts) Intoxicated or Sedated No (0 pts) Impaired Gait No (0 pts) Mobility Assist Device Used No (0 pt) Altered Elimination No (0 pt) Score/Fall Risk Level 0 - 2 = Low Risk Maintained a safe environment, Hourly rounding (assess needs \T\ fall precautionary measures) done. Abuse screen: Denies threats or abuse. Nutritional screening: No deficits noted. Tuberculosis screening: No symptoms or risk factors identified. Vital Signs: 13:15 BP 125 / 92; Pulse 86; Resp 16; Temp 97.4; Pulse Ox 100% ; Weight 68.04 kg; Height 5 ll1 ft. 1 in. ; Pain 3/10; 13:15 Body Mass Index 28.34 (68.04 kg, 154.94 cm) ll1 13:15 Pain Scale: Adult ll1 ED Course: 13:11 Patient arrived in ED. cj3 13:11 Sharron Colmenares PA-C [facility]. sb4 13:11 Carlo Tyler MD is Attending Physician. sb4 13:15 Arm band placed on. ll1 13:17 Triage completed. ll1 13:27 No provider procedures requiring assistance completed. Patient did not have IV access ll1 during this emergency room visit. 13:28 Patient has correct armband on for positive identification. Provided Education on: ll1 return to ED for worsening symptoms. Administered Medications: No medications were administered Medication: 13:28 VIS not applicable for this client. ll1 Outcome: 13:24 Discharge ordered by . sb4 13:28 Discharged to home ambulatory, ll1 13:28 Condition: stable 13:28 Discharge instructions given to patient, Instructed on discharge instructions, follow up and referral plans. Demonstrated understanding of instructions, follow-up care, 13:28 Patient left the ED. ll1 Signatures: Julius Meneses RN RN ll1 Sharron Colmenares PA-C PA-C sb4 Oralia Jara cj3
--- NOTE | 2025-02-24 13:25 | EDPHYS ---
Physician Documentation [facility] Name: Miko Black Age: 29 yrs Sex: Female : 1995 Arrival Date: 02/24/2025 Time: 13:08 Bed IW7 Private MD: ED Physician Carlo Tyler HPI: 02/24 14:08 This 29 yrs old Female presents to ER via Ambulatory with complaints of Skin sb4 Problem - LT ARM. 14:08 Patient had a tuberculin skin test done in her left forearm 8 days ago while she was in [address] [facility] but was released the next day so never had her results read. She states that the bump has been red and swollen and did not know what to do about it. She called the [facility] and they told her to come to the nearest ED. She has no complaints at this time. 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 - Infectious Disease History:: Denies. - Social history:: Smoking status: Reported history of juuling and/or vaping. ROS: 14:08 Constitutional: Negative for fever, chills, and weight loss, sb4 14:08 Skin: Positive for Per HPI, 14:08 All other systems are negative, Exam: 14:08 Constitutional: This is a well developed, well nourished patient who is awake, alert, sb4 and in no acute distress. Head/Face: Normocephalic, atraumatic. Eyes: Extra-ocular motions intact. Periorbital areas with no swelling, redness, or edema. ENT: Mucous membranes moist. Respiratory: No increased work of breathing, no retractions or nasal flaring. 14:08 Skin: 1 cm area of hyperpigmentation on the palmar aspect of the left forearm without any swelling, cellulitis, induration, raised skin. Vital Signs: 13:15 BP 125 / 92; Pulse 86; Resp 16; Temp 97.4; Pulse Ox 100% ; Weight 68.04 kg; Height 5 ll1 ft. 1 in. ; Pain 3/10; 13:15 Body Mass Index 28.34 (68.04 kg, 154.94 cm) ll1 13:15 Pain Scale: Adult ll1 MDM: 13:12 Medical Screening Exam initiated sb4 14:08 Data reviewed: vital signs, nurses notes, and as a result, I will discharge patient. sb4 Counseling: I had a detailed discussion with the patient and/or guardian regarding the historical points, exam findings, and any diagnostic results supporting the discharge/admit diagnosis, the need for outpatient follow up, for definitive care, to return to the emergency department if symptoms worsen or persist or if there are any questions or concerns that arise at home. Administered Medications: No medications were administered Disposition: 18:29 Co-signature as Attending Physician, Carlo Tyler MD I reviewed the patient's care rn provided by the Advanced Practice Provider and agree with the diagnosis and treatment plan. Disposition Summary: 02/24/25 13:24 Discharge Ordered Notes: Location: Home sb4 Problem: new sb4 Symptoms: are unchanged sb4 Condition: Stable sb4 Diagnosis - Person with feared health complaint in whom no diagnosis is made sb4 Followup: sb4 - With: Emergency Department - When: As needed - Reason: Worsening of condition Discharge Instructions: - Discharge Summary Sheet sb4 - Tuberculin Skin Test sb4 Forms: - Patient Portal Instructions sb4 - Leadership Thank You Letter sb4 Signatures: Carlo Tyler MD MD rn Lewis, Lynsay, RN RN basil1 Sharron Colmenares PA-C PADami sb4
[2025-02-24 16:15] VITALS: BP 125/92; TEMP 97.4; O2SAT 100
== END 2025-02-24 13:28 | disposition home or self-care (01) ==
LOC: ER 13:08
DX: Z71.1 Person with feared health complaint in whom no diagnosis is made (principal)